=== PATIENT | male | born 1970 | race American Indian/Alaskan Native ===

== ENCOUNTER 2021-03-11 09:01 | Inpatient (IN) | payer MEDICARE ==
[2021-03-11] MEDS ORDERED: SODIUM CHLORIDE 0.9% 1000 ML 1,000 ML IV ONE ×3 (09:13)
--- NOTE | 2021-03-11 09:19 | Emergency Department Report ---
HPI - General Time Seen by Provider: 03/11/21 09:11 - HPI HPI: Room 22 The patient is a 50-year-old male present with a chief complaint of shortness of breath. Patient was reportedly diagnosed with Covid approximately 1 week ago. Patient started developing shortness of breath yesterday and it worsened today. EMS arrived on scene to find the patient hypoxic to approximately 69-72% on room air. The patient was placed on 20 L O2 with a sat increasing to approximately 88%. Upon arrival to the ED the patient was placed on BiPAP with improvement of his SPO2 to 95%. Patient states he did not receive any vaccinations for Covid. ED Past Medical Hx - Past Medical History Hx CVA: Yes (Residual left-sided weakness) Hx Renal Disease: Yes ("Kidney problems") - Surgical History Past Surgical History?: No - Family History Family history: no significant - Social History Smoking Status: Unknown if ever smoked Substance Use Type: None ED Review of Systems ROS: Stated complaint: MARTINA Other details as noted in HPI Constitutional: denies: fever Eyes: denies: eye pain ENT: denies: throat pain Respiratory: cough, shortness of breath Endocrine: no symptoms reported Genitourinary: denies: dysuria Physical Exam - Physical Exam Physical Exam: GENERAL: The patient is well-developed well-nourished male on EMS stretcher appearing tachypneic. [] HEENT: Normocephalic. Atraumatic. Extraocular motions are intact. Patient has moist mucous membranes. NECK: Supple. Trachea midline CHEST/LUNGS: Coarse breath sounds, diminished on the right HEART/CARDIOVASCULAR: Regular. There is tachycardia. There is no gallop rub or murmur. ABDOMEN: Abdomen is soft, nontender. Patient has normal bowel sounds. There is no abdominal distention. SKIN: There is no rash. There is no edema. There is no diaphoresis. NEURO: The patient is awake, alert, and oriented. The patient is cooperative. The patient has no focal neurologic deficits. The patient has normal speech MUSCULOSKELETAL: There is no evidence of acute injury. ED Medical Decision Making - Lab Data Laboratory Tests 03/11/21 03/11/21 03/11/21 09:41 09:41 09:41 WBC 10.9 RBC 4.78 Hgb 14.8 Hct 43.2 MCV 90 MCH 31 MCHC 34 RDW 13.6 Plt Count 264 Seg Neutrophils % Watchstander D-Dimer Sodium 127 L Potassium 3.7 Chloride 90.6 L Carbon Dioxide 15 L Anion Gap 25 BUN 42 H Creatinine 2.7 H Estimated GFR 31 BUN/Creatinine Ratio 16 Glucose 262 H Lactic Acid 3.70 H* Calcium 8.9 Ferritin Total Bilirubin 0.50 AST 148 H ALT 65 H Alkaline Phosphatase 67 Lactate Dehydrogenase Troponin T < 0.010 C-Reactive Protein Total Protein 7.5 Albumin 2.9 L Albumin/Globulin Ratio 0.6 Procalcitonin Urine Color Urine Turbidity Urine pH Ur Specific [place] Urine Protein Urine Glucose (UA) Urine Ketones Urine Blood Urine Nitrite Urine Bilirubin Urine Urobilinogen Ur Leukocyte Esterase Urine WBC (Auto) Urine RBC (Auto) 03/11/21 03/11/21 03/11/21 09:41 09:41 09:41 WBC RBC Hgb Hct MCV MCH MCHC RDW Plt Count Seg Neutrophils % D-Dimer 2206.91 H Sodium Potassium Chloride Carbon Dioxide Anion Gap BUN Creatinine Estimated GFR BUN/Creatinine Ratio Glucose 261 H Lactic Acid Calcium Ferritin 1640.0 H Total Bilirubin AST ALT Alkaline Phosphatase Lactate Dehydrogenase 933 H Troponin T C-Reactive Protein 17.90 H Total Protein Albumin Albumin/Globulin Ratio Procalcitonin Urine Color Urine Turbidity Urine pH Ur Specific [place] Urine Protein Urine Glucose (UA) Urine Ketones Urine Blood Urine Nitrite Urine Bilirubin Urine Urobilinogen Ur Leukocyte Esterase Urine WBC (Auto) Urine RBC (Auto) 03/11/21 03/11/21 09:41 Unknown WBC RBC Hgb Hct MCV MCH MCHC RDW Plt Count Seg Neutrophils % D-Dimer Sodium Potassium Chloride Carbon Dioxide Anion Gap BUN Creatinine Estimated GFR BUN/Creatinine Ratio Glucose Lactic Acid Calcium Ferritin Total Bilirubin AST ALT Alkaline Phosphatase Lactate Dehydrogenase Troponin T C-Reactive Protein Total Protein Albumin Albumin/Globulin Ratio Procalcitonin 4.61 Urine Color Yellow Urine Turbidity Clear Urine pH 6.0 Ur Specific [place] 1.011 Urine Protein >500 Urine Glucose (UA) 50 Urine Ketones 20 Urine Blood Lg Urine Nitrite Neg Urine Bilirubin Neg Urine Urobilinogen < 2.0 Ur Leukocyte Esterase Neg Urine WBC (Auto) 1.0 Urine RBC (Auto) 1.0 - EKG Data -: EKG Interpreted by Mi EKG shows normal: sinus rhythm, axis, QRS complexes Rate: tachycardia (128 bpm) - EKG Data When compared to previous EKG there are: previous EKG unavailable Interpretation: LVH - Radiology Data Radiology results: report reviewed (Chest x-ray), image reviewed (Chest x-ray) interpreted by me: Chest x-ray-pain bibasilar patchy infiltrates. No pneumothorax [facility] [address] [place] [address] XRay Report Signed Patient: RAYMOND JOHN MR#: [id number] : 1970 Acct:[id number] Age/Sex: 50 / M ADM Date: 03/11/21 Loc: ED Attending Dr: Ordering Physician: SHERICE CONTRERAS MD Date of Service: 03/11/21 Procedure(s): XR chest 1V ap Accession Number(s): [id number] cc: SHERICE CONTRERAS MD Fluoro Time In Minutes: CHEST 1 VIEW 03/11/2021 8:32 AM INDICATION / CLINICAL INFORMATION: Hypoxia, Covid positive. COMPARISON: None available. FINDINGS: SUPPORT DEVICES: None. HEART / MEDIASTINUM: No significant abnormality. LUNGS / PLEURA: Mild streaky parenchymal disease both lower lung gil. No pneumothorax. ADDITIONAL FINDINGS: No significant additional findings. IMPRESSION: 1. Probable early bila teral lower lobe Covid pneumonia Signer Name: Dominic Pearson MD Signed: 03/11/2021 9:34 AM Workstation Name: [id number] Transcribed By: TL Dictated By: Dominic Pearson MD Electronically Authenticated By: Dominic Pearson MD Signed Date/Time: 03/11/21933 DD/ 2 TD/TT: Print Cancel - Differential Diagnosis COVID-19 pneumonia, sepsis, respiratory failure Critical care attestation.: If time is entered above; I have spent that time in minutes in the direct care of this critically ill patient, excluding procedure time. ED Disposition Clinical Impression: Respiratory failure, Pneumonia due to COVID-19 virus, Renal insufficiency Disposition: ADMITTED INPATIENT Is pt being admited?: Yes Does the pt Need Aspirin: No Condition: Stable Instructions: Bacterial Pneumonia (ED) Time of Disposition: 11:04 (Hospitalist called)
[2021-03-11] MEDS ORDERED: dexAMETHasone 20 MG/5 ML VIAL IV NR (09:30)
--- NOTE | 2021-03-11 09:38 | XRay Report ---
CHEST 1 VIEW 03/11/2021 8:32 AM INDICATION / CLINICAL INFORMATION: Hypoxia, Covid positive. COMPARISON: None available. FINDINGS: SUPPORT DEVICES: None. HEART / MEDIASTINUM: No significant abnormality. LUNGS / PLEURA: Mild streaky parenchymal disease both lower lung gil. No pneumothorax. ADDITIONAL FINDINGS: No significant additional findings. IMPRESSION: 1. Probable early bilateral lower lobe Covid pneumonia Signer Name: Dominic Pearson MD Signed: 03/11/2021 9:34 AM Workstation Name: [id number]
[2021-03-11 09:47] LABS: Bilirubin,Urine NEG (Negative); Blood,Urine LG (Negative); Color,Urine Yellow (Yellow); Urobilinogen,Urine < 2.0 mg/dL (<2.0)
[2021-03-11 09:54] LABS: Hematocrit 43.2 % (35.5-45.6); Hemoglobin 14.8 gm/dl (11.8-15.2); Mean Corpuscular HGB Conc 34 % (32-34); Mean Corpuscular Volume 90 fl (84-94); Platelet Count 264 K/mm3 (140-440); Red Blood Count 4.78 M/mm3 (3.65-5.03); Red Cell Distribution Width 13.6 % (13.2-15.2)
[2021-03-11 10:06] LABS: Protein,Urine >500 mg/dL (Negative)
[2021-03-11 10:12] LABS: C-Reactive Protein 17.9 mg/dL (0.00-1.30)
[2021-03-11 10:13] LABS: Alanine Aminotransferase 65 units/L (7-56); Albumin 2.9 g/dL (3.9-5); BUN/Creatinine Ratio 16; Blood Urea Nitrogen 42 mg/dL (9-20); Calcium 8.9 mg/dL (8.4-10.2); Hemolysis Index 6
--- NOTE | 2021-03-11 10:16 | Electrocardiograph Report ---
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
[2021-03-11] MEDS ORDERED: LORazepam 2 MG/ML VIAL IV ONE (10:52)
[2021-03-11] MEDS ORDERED: AZITHROMYCIN/NS 500 MG/250 ML 500 MG/250 ML BAG IV ONE (11:03)
[2021-03-11] MEDS ORDERED: cefTRIAXone/NS 1 GM/50 ML 1 GM/50 ML BAG IV ONE (11:03)
--- NOTE | 2021-03-11 11:54 | History and Physical Report ---
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 Patient is lethargic with diminished cognition at the time of my evaluation and is currently being treated with noninvasive positive pressure ventilation and is only able to provide minimal history. Patient states "I cannot breathe". Additional history taken from EMS staff, as well as ED staff. As per staff the patient initially reported that he had experienced shortness of breath over the past 1 week with persistent and worsening symptoms over the same timeframe. EMS notified and upon arrival the patient was found to be in distress with a pulse oximetry of 69%. The patient was placed on supplemental oxygen and transported to [facility] for further care and evaluation of the aforementioned symptoms. The patient was seen and evaluated in the emergency department. All lab and imaging studies reviewed. Patient was found to have a pulse oximetry in the 60s on room air without improvement on submental oxygen. The patient was subsequently placed on noninvasive positive pressure ventilation in the emergency department. The patient was found to be using accessory muscles to breathe unable to speak in complete sentences. The patient was also confused and lethargic. Chest x- ray revealed bilateral pneumonia. Patient admitted to [facility] and initiated on pneumonia protocol as well as coronavirus protocol. Pulmonary team consulted in ED. Infectious disease team consulted in ED. No further history is obtainable. Patient has diminished cognition at time of evaluation but has a positive gag reflex and is able to protect his airway without difficulty. No prior admission for review. No medication listed at time of admission reconciliation. Past History Past Medical History: stroke Past Surgical History: No surgical history, Other (Reviewed) Social history: single. denies: smoking, alcohol abuse Family history: hypertension Medications and Allergies Allergies Allergy/AdvReac Type Severity Reaction Status Date / Time No Known Allergies Allergy Verified 03/11/21 09:21 Home Medications Medication Instructions Recorded Confirmed Last Taken Type Unobtainable 03/11/21 03/11/21 Unknown History Active Meds: Active Medications Acetaminophen (Acetaminophen 325 Mg Tab) 650 mg PO Q4H PRN PRN Reason: Pain MILD(1-3)/Fever >100.5/[place] Hydromorphone HCl (Hydromorphone 1 Mg/1 Ml Inj) 0.5 mg IV Q12H PRN PRN Reason: Pain , Severe (7-10) Azithromycin (Zithromax/Ns) 500 mg in 250 mls @ 250 mls/hr IV ONCE ONE; Protocol Stop: 03/11/21 12:02 Ceftriaxone Sodium (Rocephin/Ns 2 Gm/100 Ml) 2 gm in 100 mls @ 200 mls/hr IV Q24H GYPSY; Protocol Azithromycin (Zithromax/Ns) 500 mg in 250 mls @ 250 mls/hr IV Q24H GYPSY; Protocol Ondansetron HCl (Ondansetron 4 Mg/2 Ml Inj) 4 mg IV Q8H PRN PRN Reason: Nausea And Vomiting Oxycodone/Acetaminophen (Oxycodone /Acetaminophen 5-325mg Tab) 1 tab PO Q12H PRN PRN Reason: Pain, Moderate (4-6) Sodium Chloride (Sodium Chloride 0.9% 10 Ml Flush Syringe) 10 ml IV BID GYPSY Sodium Chloride (Sodium Chloride 0.9% 10 Ml Flush Syringe) 10 ml IV PRN PRN PRN Reason: LINE FLUSH Review of Systems ROS unobtainable: due to mental status Exam - Constitutional Vitals: Temp Pulse Resp BP Pulse Ox 127 H 50 H 121/72 96 03/11/21 10:56 03/11/21 10:56 03/11/21 10:56 03/11/21 10:56 General appearance: Present: mild distress - EENT Eyes: Present: PERRL ENT: hearing intact, clear oral mucosa - Neck Neck: Present: supple, normal ROM - Respiratory Respiratory effort: labored Respiratory: bilateral: diminished, rhonchi - Cardiovascular Rhythm: other (Tachycardia) Heart Sounds: Present: S1 & S2. Absent: rub, click - Extremities Extremities: pulses symmetrical, No edema Peripheral Pulses: within normal limits - Abdominal General gastrointestinal: Present: soft, non-tender, non-distended, normal bowel sounds Male genitourinary: Present: normal - Integumentary Integumentary: Present: clear, warm, dry - Musculoskeletal Musculoskeletal: generalized weakness - Psychiatric Psychiatric: no appropriate mood/affect, no intact judgment & insight, no memory intact - Neurologic Neurologic: CNII-XII intact, focal deficits, moves all extremities, no gait normal HEART Score - HEART Score Troponin: Troponin T < 0.010 ng/mL (0.00-0.029) 03/11/21 09:41 Results - Labs CBC & Chem 7: 03/11/21 09:41 03/11/21 09:41 Labs: Abnormal lab results 03/11/21 03/11/21 03/11/21 Range/Units 09:41 09:41 09:41 D-Dimer 2206.91 H (0-234) ng/mlDDU Sodium 127 L (137-145) mmol/L Chloride 90.6 L (98-107) mmol/L Carbon Dioxide 15 L (22-30) mmol/L BUN 42 H (9-20) mg/dL Creatinine 2.7 H (0.8-1.3) mg/dL Glucose 262 H (75-100) mg/dL Lactic Acid 3.70 H* (0.7-2.0) mmol/L Ferritin (30.0-300.0) ng/mL AST 148 H (5-40) units/L ALT 65 H (7-56) units/L Lactate Dehydrogenase (91-180) units/L C-Reactive Protein (0.00-1.30) mg/dL Albumin 2.9 L (3.9-5) g/dL 03/11/21 03/11/21 Range/Units 09:41 09:41 D-Dimer (0-234) ng/mlDDU Sodium (137-145) mmol/L Chloride (98-107) mmol/L Carbon Dioxide (22-30) mmol/L BUN (9-20) mg/dL Creatinine (0.8-1.3) mg/dL Glucose 261 H (75-100) mg/dL Lactic Acid (0.7-2.0) mmol/L Ferritin 1640.0 H (30.0-300.0) ng/mL AST (5-40) units/L ALT (7-56) units/L Lactate Dehydrogenase 933 H (91-180) units/L C-Reactive Protein 17.90 H (0.00-1.30) mg/dL Albumin (3.9-5) g/dL Assessment and Plan - Patient Problems (1) Acute hypoxemic respiratory failure Current Visit: Yes Status: Acute Plan to address problem: Chest x-ray, supplemental oxygen, pulse oximetry, nebulizer therapy, noninvasive positive pressure ventilation, pulmonary team consulted. (2) Pneumonia Current Visit: Yes Status: Acute Plan to address problem: Pneumonia protocol: Chest x-ray, CBC, CMP, supplemental oxygen, pulse oximetry, nebulizer therapy, IV antibiotic therapy, blood culture. (3) Suspected 2019 novel coronavirus infection Current Visit: Yes Status: Acute Plan to address problem: Coronavirus protocol: Contact precautions, isolation precautions, IV antibiotic therapy, IV steroid therapy, vitamin C therapy, vitamin D therapy, zinc therapy, prone positioning while in bed, prophylactic anticoagulation (4) DVT prophylaxis Current Visit: Yes Status: Acute Plan to address problem: SCD to bilateral lower extremities while in bed, prophylactic anticoagulation
[2021-03-11] MEDS ORDERED: ONDANSETRON 4 MG/2 ML INJ IV PRN (12:00)
[2021-03-11] MEDS ORDERED: oxyCODONE /ACETAMINOPHEN 5-325MG TAB PO PRN (12:00)
[2021-03-11] MEDS ORDERED: AZITHROMYCIN/NS 500 MG/250 ML 500 MG/250 ML BAG IV SCH (12:00)
[2021-03-11 12:16] LABS: Band Neutrophils # (Manual) 0.2 K/mm3; Total Cells Counted 100
[2021-03-11 12:17] LABS: Platelet Estimate Consistent w Auto; RBC Morphology Normal
[2021-03-11] MEDS: cefTRIAXone/NS 2 GM/100 ML 2 GM/100 ML BAG IV SCH (12:34)
[2021-03-11] MEDS: CHOLECALCIFEROL (VIT D3) 1000 UNIT (25 mcg) TAB PO SCH ×2 (12:35→13:11)
[2021-03-11] MEDS: ZINC SULFATE 220 MG CAP PO SCH ×3 (12:35→22:12)
[2021-03-11] MEDS: ASCORBIC ACID 500 MG TAB PO SCH ×3 (12:35→22:12)
[2021-03-11] MEDS: HEPARIN 5,000 UNIT/1 ML VIAL SUB-Q SCH ×2 (12:36→22:10)
[2021-03-11] MEDS ORDERED: LORazepam 2 MG/ML VIAL IV NR (14:05)
[2021-03-11] MEDS: methylPREDNISolone Sod Succinate 40 MG/1 ML INJ IV SCH ×2 (14:31→22:10)
[2021-03-12] MEDS: methylPREDNISolone Sod Succinate 40 MG/1 ML INJ IV SCH ×3 (06:01→22:19)
[2021-03-12] MEDS ORDERED: CHOLECALCIFEROL (VIT D3) 400 UNIT TAB PO SCH (10:00)
[2021-03-12] MEDS: AZITHROMYCIN/NS 500 MG/250 ML 500 MG/250 ML BAG IV SCH (11:27)
[2021-03-12] MEDS: ZINC SULFATE 220 MG CAP PO SCH ×2 (11:28→22:20)
[2021-03-12] MEDS: CHOLECALCIFEROL (VIT D3) 1000 UNIT (25 mcg) TAB PO SCH (11:29)
[2021-03-12] MEDS: HEPARIN 5,000 UNIT/1 ML VIAL SUB-Q SCH ×2 (11:29→22:19)
[2021-03-12] MEDS: ASCORBIC ACID 500 MG TAB PO SCH ×2 (11:29→22:20)
[2021-03-12 11:33] LABS: Albumin 2.7 g/dL (3.9-5); Calcium 9.3 mg/dL (8.4-10.2)
--- NOTE | 2021-03-12 11:51 | Consultation ---
History of Present Illness Consult date: 03/12/21 Reason for consult: hypoxemia, other (COVID) History of present illness: 50 y/o male with acute respiratory failure secondary to COVID Pneumonia. Past History Past Medical History: stroke Past Surgical History: No surgical history, Other (Reviewed) Social history: single. denies: smoking, alcohol abuse Family history: hypertension Medications and Allergies Allergies Allergy/AdvReac Type Severity Reaction Status Date / Time No Known Allergies Allergy Verified 03/11/21 09:21 Home Medications Medication Instructions Recorded Confirmed Last Taken Type Unobtainable 03/11/21 03/11/21 Unknown History Active Meds: Active Medications Acetaminophen (Acetaminophen 325 Mg Tab) 650 mg PO Q4H PRN PRN Reason: Pain MILD(1-3)/Fever >100.5/[place] Ascorbic Acid (Ascorbic Acid 500 Mg Tab) 500 mg PO BID [facility] Last Admin: 03/12/21 11:29 Dose: Not Given Documented by: Cholecalciferol (Cholecalciferol (Vit D3) 1000 Unit (25 Mcg) Tab) 1,000 unit PO QDAY [facility] Last Admin: 03/12/21 11:29 Dose: Not Given Documented by: Heparin Sodium (Porcine) (Heparin 5,000 Unit/1 Ml Vial) 5,000 unit SUB-Q Q12HR GYPSY Last Admin: 03/12/21 11:29 Dose: 5,000 unit Documented by: Hydromorphone HCl (Hydromorphone 1 Mg/1 Ml Inj) 0.5 mg IV Q12H PRN PRN Reason: Pain , Severe (7-10) Ceftriaxone Sodium (Rocephin/Ns 2 Gm/100 Ml) 2 gm in 100 mls @ 200 mls/hr IV Q24H GYPSY; Protocol Last Admin: 03/11/21 12:34 Dose: 200 mls/hr Documented by: Azithromycin (Zithromax/Ns) 500 mg in 250 mls @ 250 mls/hr IV Q24H GYPSY; Protocol Last Admin: 03/12/21 11:27 Dose: 250 mls/hr Documented by: Lorazepam (Lorazepam 2 Mg/Ml Vial) 1 mg IV Q6H PRN PRN Reason: Agitation Methylprednisolone Sodium Succinate (Methylprednisolone Sod Succinate 40 Mg/1 Ml Inj) 40 mg IV Q8HR [facility] Last Admin: 03/12/21 06:01 Dose: 40 mg Documented by: Ondansetron HCl (Ondansetron 4 Mg/2 Ml Inj) 4 mg IV Q8H PRN PRN Reason: Nausea And Vomiting Oxycodone/Acetaminophen (Oxycodone /Acetaminophen 5-325mg Tab) 1 tab PO Q12H PRN PRN Reason: Pain, Moderate (4-6) Sodium Chloride (Sodium Chloride 0.9% 10 Ml Flush Syringe) 10 ml IV BID [facility] Last Admin: 03/12/21 11:29 Dose: Not Given Documented by: Sodium Chloride (Sodium Chloride 0.9% 10 Ml Flush Syringe) 10 ml IV PRN PRN PRN Reason: LINE FLUSH Zinc Sulfate (Zinc Sulfate 220 Mg Cap) 220 mg PO BID [facility] Last Admin: 03/12/21 11:28 Dose: Not Given Documented by: Physical Examination Vital signs: Vital Signs Pulse Resp Pulse Ox 130 H 52 H 94 03/11/21 09:10 03/11/21 09:10 03/11/21 09:10 Results - Laboratory Findings CBC and BMP: 03/11/21 09:41 03/13/21 05:19 ABG ABG pH 7.279 (7.320-7.450) L 03/12/21 04:35 POC ABG pCO2 30.2 mmHg (32.0-48.0) L 03/12/21 04:35 POC ABG pO2 183.7 mmHg (83-108) H 03/12/21 04:35 POC ABG HCO3 13.8 03/12/21 04:35 ABG O2 Saturation 99.0 (0-100) 03/12/21 04:35 PT/INR, D-dimer D-Dimer 2206.91 ng/mlDDU (0-234) H 03/11/21 09:41 Abnormal lab findings: Abnormal Labs 03/11/21 03/11/21 03/11/21 09:41 09:41 09:41 Seg Neuts % (Manual) 89.0 H Lymphocytes % (Manual) 2.0 L Seg Neutrophils # Man 9.7 H Lymphocytes # (Manual) 0.2 L D-Dimer ABG pH POC ABG pCO2 POC ABG pO2 ABG Oxyhemoglobin ABG Sodium ABG Chloride ABG Glucose Carboxyhemoglobin Sodium 127 L Chloride 90.6 L Carbon Dioxide 15 L BUN 42 H Creatinine 2.7 H Glucose 262 H Lactic Acid 3.70 H* Ferritin AST 148 H ALT 65 H Lactate Dehydrogenase C-Reactive Protein Albumin 2.9 L Arterial Blood Glucose Arterial Blood Ionized Calcium Coronavirus (PCR) 03/11/21 03/11/21 03/11/21 09:41 09:41 09:41 Seg Neuts % (Manual) Lymphocytes % (Manual) Seg Neutrophils # Man Lymphocytes # (Manual) D-Dimer 2206.91 H ABG pH POC ABG pCO2 POC ABG pO2 ABG Oxyhemoglobin ABG Sodium ABG Chloride ABG Glucose Carboxyhemoglobin Sodium Chloride Carbon Dioxide BUN Creatinine Glucose 261 H Lactic Acid Ferritin 1640.0 H AST ALT Lactate Dehydrogenase 933 H C-Reactive Protein 17.90 H Albumin Arterial Blood Glucose Arterial Blood Ionized Calcium Coronavirus (PCR) 03/11/21 03/11/21 03/12/21 11:50 Unknown 04:35 Seg Neuts % (Manual) Lymphocytes % (Manual) Seg Neutrophils # Man Lymphocytes # (Manual) D-Dimer ABG pH 7.316 L 7.279 L POC ABG pCO2 30.2 L POC ABG pO2 228.8 H 183.7 H ABG Oxyhemoglobin 98.7 H 98.6 H ABG Sodium 125.1 L ABG Chloride 97.0 L ABG Glucose 229 H 236 H Carboxyhemoglobin 0.1 L 0.3 L Sodium Chloride Carbon Dioxide BUN Creatinine Glucose Lactic Acid Ferritin AST ALT Lactate Dehydrogenase C-Reactive Protein Albumin Arterial Blood Glucose 229 H 236 H Arterial Blood Ionized Calcium 4.5 L Coronavirus (PCR) Positive A 03/12/21 10:56 Seg Neuts % (Manual) Lymphocytes % (Manual) Seg Neutrophils # Man Lymphocytes # (Manual) D-Dimer ABG pH POC ABG pCO2 POC ABG pO2 ABG Oxyhemoglobin ABG Sodium ABG Chloride ABG Glucose Carboxyhemoglobin Sodium Chloride Carbon Dioxide 13 L BUN 37 H Creatinine 2.2 H Glucose 254 H Lactic Acid Ferritin AST 110 H ALT 66 H Lactate Dehydrogenase C-Reactive Protein Albumin 2.7 L Arterial Blood Glucose Arterial Blood Ionized Calcium Coronavirus (PCR) - Diagnostic Findings Chest x-ray: image reviewed Assessment and Plan 50 y/o male with acute respiratory failure secondary to COVID 19 1. Pron if able 2. Wean bipap to HFNC if able 3. Steroids, may need to increase 4. Does not appear to be a candiate for remdesivir given renal failure 5. May be able to get actemra 6. Minimize additional fluids 7. Guarded prognosis given renal failure and COVID state.
--- NOTE | 2021-03-12 12:29 | Consultation ---
History of Present Illness - Reason for Consult Consult date: 03/12/21 r/o COVID - History of Present Illness 50-year-old male with history of CVA admitted on 03/11/2021 secondary to shortness of breath Apparently, symptoms started a week before admission. On arrival, temperature 100.7, HR 130, RR 52, O2 sat down to 70%, BP 120/72. Initial lactate 3.7. Creatinine 2.7. CRP 17.9. D-dimer 2206. Ferritin 1640. Urinalysis negative. AST 148, ALT 65. EMS reported initial O2 sat was 69%. Patient was confused, lethargic and unable to speak due to shortness of breath. Chest x-ray shows bilateral pneumonia. Review of Systems: reviewed ED and H&P notes. Review of system deferred to [facility] COVID-19 transmission. Past History Past Medical History: stroke Past Surgical History: No surgical history, Other (Reviewed) Social history: single. denies: smoking, alcohol abuse Family history: hypertension Medications and Allergies Allergies Allergy/AdvReac Type Severity Reaction Status Date / Time No Known Allergies Allergy Verified 03/11/21 09:21 Home Medications Medication Instructions Recorded Confirmed Last Taken Type Unobtainable 03/11/21 03/11/21 Unknown History Active Meds: Active Medications Acetaminophen (Acetaminophen 325 Mg Tab) 650 mg PO Q4H PRN PRN Reason: Pain MILD(1-3)/Fever >100.5/[place] Ascorbic Acid (Ascorbic Acid 500 Mg Tab) 500 mg PO BID [facility] Last Admin: 03/12/21 11:29 Dose: Not Given Documented by: Cholecalciferol (Cholecalciferol (Vit D3) 1000 Unit (25 Mcg) Tab) 1,000 unit PO QDAY [facility] Last Admin: 03/12/21 11:29 Dose: Not Given Documented by: Heparin Sodium (Porcine) (Heparin 5,000 Unit/1 Ml Vial) 5,000 unit SUB-Q Q12HR [facility] Last Admin: 03/12/21 11:29 Dose: 5,000 unit Documented by: Hydromorphone HCl (Hydromorphone 1 Mg/1 Ml Inj) 0.5 mg IV Q12H PRN PRN Reason: Pain , Severe (7-10) Ceftriaxone Sodium (Rocephin/Ns 2 Gm/100 Ml) 2 gm in 100 mls @ 200 mls/hr IV Q24H [facility]; Protocol Last Admin: 03/11/21 12:34 Dose: 200 mls/hr Documented by: Azithromycin (Zithromax/Ns) 500 mg in 250 mls @ 250 mls/hr IV Q24H [facility]; Protocol Last Admin: 03/12/21 11:27 Dose: 250 mls/hr Documented by: Lorazepam (Lorazepam 2 Mg/Ml Vial) 1 mg IV Q6H PRN PRN Reason: Agitation Methylprednisolone Sodium Succinate (Methylprednisolone Sod Succinate 40 Mg/1 Ml Inj) 40 mg IV Q8HR [facility] Last Admin: 03/12/21 06:01 Dose: 40 mg Documented by: Ondansetron HCl (Ondansetron 4 Mg/2 Ml Inj) 4 mg IV Q8H PRN PRN Reason: Nausea And Vomiting Oxycodone/Acetaminophen (Oxycodone /Acetaminophen 5-325mg Tab) 1 tab PO Q12H P RN PRN Reason: Pain, Moderate (4-6) Sodium Chloride (Sodium Chloride 0.9% 10 Ml Flush Syringe) 10 ml IV BID [facility] Last Admin: 03/12/21 11:29 Dose: Not Given Documented by: Sodium Chloride (Sodium Chloride 0.9% 10 Ml Flush Syringe) 10 ml IV PRN PRN PRN Reason: LINE FLUSH Zinc Sulfate (Zinc Sulfate 220 Mg Cap) 220 mg PO BID [facility] Last Admin: 03/12/21 11:28 Dose: Not Given Documented by: Physical Examination - Physical Exam Narrative exam: Physical exam deferred to minimize COVID-19 transmission during pandemic. ER a nd internal medicine physical examination notes reviewed. - Constitutional Vitals: Vital Signs Temp Pulse Resp BP Pulse Ox 100.7 F H 113 H 35 H 135/96 99 03/11/21 13:43 03/12/21 10:00 03/12/21 10:00 03/12/21 10:00 03/12/21 10:00 Temperature -Last 24 Hours Temperature 100.7 F Results - Labs CBC & Chem 7: 03/11/21 09:41 03/12/21 10:56 Labs: Abnormal lab results 03/11/21 03/12/21 03/12/21 Range/Units Unknown 04:35 10:56 ABG pH 7.279 L (7.320-7.450) POC ABG pCO2 30.2 L (32.0-48.0) mmHg POC ABG pO2 183.7 H (83-108) mmHg ABG Oxyhemoglobin 98.6 H (94-98) ABG Glucose 236 H (65-95) mg/dL Carboxyhemoglobin 0.3 L (0.5-1.5) Carbon Dioxide 13 L (22-30) mmol/L BUN 37 H (9-20) mg/dL Creatinine 2.2 H (0.8-1.3) mg/dL Glucose 254 H (75-100) mg/dL AST 110 H (5-40) units/L ALT 66 H (7-56) units/L Albumin 2.7 L (3.9-5) g/dL Arterial Blood Glucose 236 H (65-95) mg/dL Coronavirus (PCR) Positive A (Negative) Assessment and Plan Cultures: Blood culture 03/11/2021 no growth today SARS CoV2 PCR positive Assessment: 50-year-old male with history of CVA admitted on 03/11/2021 secondary to shortness of breath/altered mental status: #Severe sepsis: Present with fever, tachycardia, hypoxia, elevated lactate, elevated creatinine; likely secondary to COVID-19. Procalcitonin elevated #Severe COVID pneumonia: CXR with bilateral pneumonia. Infllammatory markers elevated. CRP 17.9. D-dimer 22 6. Ferritin 1640. #Acute hypoxemic respiratory failure: O2 sat dropped to 70%. Patient on BiPAP. #Elevated LFTs: from COVID. AST 148, ALT 65. #CHRISTY: from COVID. Initial creatinine 2.7. Improving. GFR over 30. Recommendations: -Steroids per pulmonary total 10 days -Start Remdesivir for 5 days (GFR>30 mg/mL) ORDERED -Start Tocilizumab 8 mg/kg x1 ORDERED/discussed with pharmacy -Monitor inflammatory markers - ferritin, Ddimer, CRP, LDH -Monitor liver function test on Remdesivir -Continue anticoagulation per System Protocol -Prone positioning as possible -Continue ceftriaxone for 5 days and azithromycin for 3 days All laboratory, cultures and imaging were reviewed. Guarded prognosis Will follow Malathi Gaona MD Infectious Diseases [employer] [facility] M [phone] O [phone]
--- NOTE | 2021-03-12 12:45 | Progress Note ---
Assessment and Plan Assessment and plan: #Acute hypoxic respiratory failure -on NIPPV, will continue as long as O2 >92% -mildly distressed, low threshold for intubation -continue steroids -Pulmonary consulted, appreciate assistance #Sepsis -secondary to COVID-19 and PNA -BCx ordered, NGTD -continue current management #Severe COVID-19 infection -unvaccinated -remdesivir, steroids, COVID vitamins -s/p Actemra -ID following, appreciate assistance -inflammatory markers q48hr #Pneumonia -continue rocephin and azithromycin for now #CHRISTY -SCr 2.5, likely due to COVID -will continue to monitor, if worsens will consult Nephrology Total Time Spent with Patient (Minutes): 30 minutes History Interval history: No acute events overnight. Patient continued to be tachypneic and tachycardic. Subsequently intubated in ED. Hospitalist Physical - Physical exam Narrative exam: GENERAL: Lying propped in bed, mild distress CHEST/LUNGS: Coarse breath sounds bilaterally. HEART/CARDIOVASCULAR: Tachycardic. No murmur, rubs or gallops appreciated. ABDOMEN: +BS. NT/ND. NEURO: No focal deficits noted in CN II-XII. MUSCULOSKELETAL: Left upper extremity contracted at wrist. EXTREMITIES: No cyanosis, clubbing or edema. PSYCH: Cooperative. - Constitutional Vitals: Temp Pulse Resp BP Pulse Ox 100.7 F H 113 H 35 H 135/96 99 03/11/21 13:43 03/12/21 10:00 03/12/21 10:00 03/12/21 10:00 03/12/21 10:00 General appearance: Present: mild distress - Allied Health Allied health notes reviewed: nursing HEART Score - HEART Score Troponin: Troponin T < 0.010 ng/mL (0.00-0.029) 03/11/21 09:41 Results - Labs CBC & Chem 7: 03/11/21 09:41 03/12/21 16:53 Labs: Laboratory Last Values WBC 10.9 K/mm3 (4.5-11.0) 03/11/21 09:41 RBC 4.78 M/mm3 (3.65-5.03) 03/11/21 09:41 Hgb 14.8 gm/dl (11.8-15.2) 03/11/21 09:41 Hct 43.2 % (35.5-45.6) 03/11/21 09:41 MCV 90 fl (84-94) 03/11/21 09:41 MCH 31 pg (28-32) 03/11/21 09:41 MCHC 34 % (32-34) 03/11/21 09:41 RDW 13.6 % (13.2-15.2) 03/11/21 09:41 Plt Count 264 K/mm3 (140-440) 03/11/21 09:41 Add Manual Diff Complete 03/11/21 09:41 Total Counted 100 03/11/21 09:41 Seg Neutrophils % Assistant Activities Director 03/11/21 09:41 Seg Neuts % (Manual) 89.0 % (40.0-70.0) H 03/11/21 09:41 Band Neutrophils % 2.0 % 03/11/21 09:41 Lymphocytes % (Manual) 2.0 % (13.4-35.0) L 03/11/21 09:41 Monocytes % (Manual) 7.0 % (0.0-7.3) 03/11/21 09:41 Nucleated RBC % Not Reportable 03/11/21 09:41 Seg Neutrophils # Man 9.7 K/mm3 (1.8-7.7) H 03/11/21 09:41 Band Neutrophils # 0.2 K/mm3 03/11/21 09:41 Lymphocytes # (Manual) 0.2 K/mm3 (1.2-5.4) L 03/11/21 09:41 Abs React Lymphs (Man) 0.0 K/mm3 03/11/21 09:41 Monocytes # (Manual) 0.8 K/mm3 (0.0-0.8) 03/11/21 09:41 Eosinophils # (Manual) 0.0 K/mm3 (0.0-0.4) 03/11/21 09:41 Basophils # (Manual) 0.0 K/mm3 (0.0-0.1) 03/11/21 09:41 Metamyelocytes # 0.0 K/mm3 03/11/21 09:41 Myelocytes # 0.0 K/mm3 03/11/21 09:41 Promyelocytes # 0.0 K/mm3 03/11/21 09:41 Blast Cells # 0.0 K/mm3 03/11/21 09:41 WBC Morphology Not Reportable 03/11/21 09:41 Hypersegmented Neuts Not Reportable 03/11/21 09:41 Hyposegmented Neuts Not Reportable 03/11/21 09:41 Hypogranular Neuts Not Reportable 03/11/21 09:41 Smudge Cells Not Reportable 03/11/21 09:41 Toxic Granulation Not Reportable 03/11/21 09:41 Toxic Vacuolation Not Reportable 03/11/21 09:41 Dohle Bodies Not Reportable 03/11/21 09:41 Pelger-Huet Anomaly Not Reportable 03/11/21 09:41 Fina Rods Not Reportable 03/11/21 09:41 Platelet Estimate Consistent w auto 03/11/21 09:41 Clumped Platelets Not Reportable 03/11/21 09:41 Plt Clumps, EDTA Not Reportable 03/11/21 09:41 Large Platelets Not Reportable 03/11/21 09:41 Giant Platelets Not Reportable 03/11/21 09:41 Platelet Satelliting Not Reportable 03/11/21 09:41 Plt Morphology Comment Not Reportable 03/11/21 09:41 RBC Morphology Normal 03/11/21 09:41 Dimorphic RBCs Not Reportable 03/11/21 09:41 Polychromasia Not Reportable 03/11/21 09:41 Hypochromasia Not Reportable 03/11/21 09:41 Poikilocytosis Not Reportable 03/11/21 09:41 Anisocytosis Not Reportable 03/11/21 09:41 Microcytosis Not Reportable 03/11/21 09:41 Macrocytosis Not Reportable 03/11/21 09:41 Spherocytes Not Reportable 03/11/21 09:41 Pappenheimer Bodies Not Reportable 03/11/21 09:41 Sickle Cells Not Reportable 03/11/21 09:41 Target Cells Not Reportable 03/11/21 09:41 Tear Drop Cells Not Reportable 03/11/21 09:41 Ovalocytes Not Reportable 03/11/21 09:41 Helmet Cells Not Reportable 03/11/21 09:41 Perdue-Bell Buckle Bodies Not Reportable 03/11/21 09:41 [place] Rings Not Reportable 03/11/21 09:41 Trav Cells Not Reportable 03/11/21 09:41 Bite Cells Not Reportable 03/11/21 09:41 Crenated Cell Not Reportable 03/11/21 09:41 Elliptocytes Not Reportable 03/11/21 09:41 Acanthocytes (Spur) Not Reportable 03/11/21 09:41 Rouleaux Not Reportable 03/11/21 09:41 Hemoglobin C Crystals Not Reportable 03/11/21 09:41 Schistocytes Not Reportable 03/11/21 09:41 Malaria parasites Not Reportable 03/11/21 09:41 [place] Bodies Not Reportable 03/11/21 09:41 Hem Pathologist Commnt No 03/11/21 09:41 D-Dimer 2206.91 ng/mlDDU (0-234) H 03/11/21 09:41 ABG pH 7.279 (7.320-7.450) L 03/12/21 04:35 POC ABG pCO2 30.2 mmHg (32.0-48.0) L 03/12/21 04:35 POC ABG pO2 183.7 mmHg (83-108) H 03/12/21 04:35 POC ABG HCO3 13.8 03/12/21 04:35 ABG O2 Saturation 99.0 (0-100) 03/12/21 04:35 POC ABG Base Excess -11.5 03/12/21 04:35 ABG Hemoglobin 14.2 (12.0-17.5) 03/12/21 04:35 ABG Oxyhemoglobin 98.6 (94-98) H 03/12/21 04:35 ABG Methemoglobin 0.1 (0.0-1.5) 03/12/21 04:35 ABG Sodium 136.8 mmol/L (136.0-145.0) 03/12/21 04:35 ABG Potassium 4.0 mmol/L (3.40-4.50) 03/12/21 04:35 ABG Chloride 107.0 mmol/L (98-107) 03/12/21 04:35 ABG Glucose 236 mg/dL (65-95) H 03/12/21 04:35 Carboxyhemoglobin 0.3 (0.5-1.5) L 03/12/21 04:35 FiO2 % 100.0 03/12/21 04:35 Sodium 141 mmol/L (137-145) D 03/12/21 10:56 Potassium 4.0 mmol/L (3.6-5.0) 03/12/21 10:56 Chloride 106.6 mmol/L (98-107) 03/12/21 10:56 Carbon Dioxide 13 mmol/L (22-30) L 03/12/21 10:56 Anion Gap 25 mmol/L 03/12/21 10:56 BUN 37 mg/dL (9-20) H 03/12/21 10:56 Creatinine 2.2 mg/dL (0.8-1.3) H 03/12/21 10:56 Estimated GFR 39 ml/min 03/12/21 10:56 BUN/Creatinine Ratio 17 % 03/12/21 10:56 Glucose 254 mg/dL (75-100) H 03/12/21 10:56 Lactic Acid 1.60 mmol/L (0.7-2.0) 03/12/21 00:08 Calcium 9.3 mg/dL (8.4-10.2) 03/12/21 10:56 Ferritin 1640.0 ng/mL (30.0-300.0) H 03/11/21 09:41 Total Bilirubin 0.30 mg/dL (0.1-1.2) 03/12/21 10:56 AST 110 units/L (5-40) H 03/12/21 10:56 ALT 66 units/L (7-56) H 03/12/21 10:56 Alkaline Phosphatase 71 units/L (35-129) 03/12/21 10:56 Lactate Dehydrogenase 933 units/L (91-180) H 03/11/21 09:41 Troponin T < 0.010 ng/mL (0.00-0.029) 03/11/21 09:41 C-Reactive Protein 17.90 mg/dL (0.00-1.30) H 03/11/21 09:41 Total Protein 6.9 g/dL (6.3-8.2) 03/12/21 10:56 Albumin 2.7 g/dL (3.9-5) L 03/12/21 10:56 Albumin/Globulin Ratio 0.6 % 03/12/21 10:56 Procalcitonin 4.61 ng/mL (<0.15) 03/11/21 09:41 Arterial Blood Glucose 236 mg/dL (65-95) H 03/12/21 04:35 Arterial Blood Ionized Calcium 5.0 mg/dL (4.6-5.3) 03/12/21 04:35 Urine Color Yellow (Yellow) 03/11/21 Unknown Urine Turbidity Clear (Clear) 03/11/21 Unknown Urine pH 6.0 (5.0-7.0) 03/11/21 Unknown Ur Specific [place] 1.011 (1.003-1.030) 03/11/21 Unknown Urine Protein >500 mg/dL (Negative) 03/11/21 Unknown Urine Glucose (UA) 50 mg/dL (Negative) 03/11/21 Unknown Urine Ketones 20 mg/dL (Negative) 03/11/21 Unknown Urine Blood Lg (Negative) 03/11/21 Unknown Urine Nitrite Neg (Negative) 03/11/21 Unknown Urine Bilirubin Neg (Negative) 03/11/21 Unknown Urine Urobilinogen < 2.0 mg/dL (<2.0) 03/11/21 Unknown Ur Leukocyte Esterase Neg (Negative) 03/11/21 Unknown Urine WBC (Auto) 1.0 /HPF (0.0-6.0) 03/11/21 Unknown Urine RBC (Auto) 1.0 /HPF (0.0-6.0) 03/11/21 Unknown Coronavirus (PCR) Positive (Negative) A 03/11/21 Unknown Microbiology: Microbiology 03/11/21 09:41 Peripheral/Venous Blood Culture - Preliminary NO GROWTH AFTER 24 HOURS 03/11/21 09:41 Peripheral/Venous Blood Culture - Preliminary NO GROWTH AFTER 24 HOURS Active Medications - Current Medications Current Medications: Generic Name Dose Route Start Last Admin Trade Name Freq PRN Reason Stop Dose Admin Acetaminophen 650 mg 03/11/21 12:00 Acetaminophen 325 Mg Tab PO Q4H PRN Pain MILD(1-3)/Fever >100.5/[place] Ascorbic Acid 500 mg 03/11/21 12:00 03/12/21 11:29 Ascorbic Acid 500 Mg Tab PO Not Given BID [facility] Cholecalciferol 1,000 unit 03/11/21 13:00 03/12/21 11:29 Cholecalciferol (Vit D3) 1000 Unit (25 Mcg) Tab PO Not Given QDAY [facility] Heparin Sodium (Porcine) 5,000 unit 03/11/21 13:00 03/12/21 11:29 Heparin 5,000 Unit/1 Ml Vial SUB-Q 5,000 unit Q12HR [facility] Administration Hydromorphone HCl 0.5 mg 03/11/21 12:00 Hydromorphone 1 Mg/1 Ml Inj IV Q12H PRN Pain , Severe (7-10) Ceftriaxone Sodium 2 gm in 100 mls @ 200 mls/hr 03/11/21 12:00 03/11/21 12:34 Rocephin/Ns 2 Gm/100 Ml IV 200 mls/hr Q24H [facility] Administration Protocol Azithromycin 500 mg in 250 mls @ 250 mls/hr 03/12/21 11:00 03/12/21 11:27 Zithromax/Ns IV 250 mls/hr Q24H [facility] Administration Protocol Lorazepam 1 mg 03/11/21 17:00 Lorazepam 2 Mg/Ml Vial IV Q6H PRN Agitation Methylprednisolone Sodium Succinate 40 mg 03/11/21 14:00 03/12/21 06:01 Methylprednisolone Sod Succinate 40 Mg/1 Ml Inj IV 40 mg Q8HR [facility] Administration Ondansetron HCl 4 mg 03/11/21 12:00 Ondansetron 4 Mg/2 Ml Inj IV Q8H PRN Nausea And Vomiting Oxycodone/Acetaminophen 1 tab 03/11/21 12:00 Oxycodone /Acetaminophen 5-325mg Tab PO Q12H PRN Pain, Moderate (4-6) Sodium Chloride 10 ml 03/11/21 12:00 03/12/21 11:29 Sodium Chloride 0.9% 10 Ml Flush Syringe IV Not Given BID [facility] Sodium Chloride 10 ml 03/11/21 12:00 Sodium Chloride 0.9% 10 Ml Flush Syringe IV PRN PRN LINE FLUSH Zinc Sulfate 220 mg 03/11/21 12:00 03/12/21 11:28 Zinc Sulfate 220 Mg Cap PO Not Given BID [facility]
[2021-03-12] MEDS ORDERED: TOCILIZUMAB 800 MG in SODIUM CHLORIDE 0.9% 100 ML IV ONE (12:50)
[2021-03-12] MEDS: cefTRIAXone/NS 2 GM/100 ML 2 GM/100 ML BAG IV SCH (13:41)
[2021-03-12] MEDS ORDERED: REMDESIVIR 200 MG in SODIUM CHLORIDE 0.9% 250ML 250 ML IV ONE (14:00)
[2021-03-12] MEDS ORDERED: TOCILIZUMAB 648 MG in SODIUM CHLORIDE 0.9% 100 ML IV ONE (14:30)
[2021-03-12] MEDS: SODIUM CHLORIDE 0.9% 50 ML IVPB IV SCH (16:27)
[2021-03-12 17:35] LABS: Albumin 2.4 g/dL (3.9-5); Calcium 8.5 mg/dL (8.4-10.2)
[2021-03-12] MEDS: HYDROmorphone 1 MG/1 ML INJ IV PRN (18:50)
[2021-03-13] MEDS: LORazepam 2 MG/ML VIAL IV PRN ×2 (04:34→16:38)
[2021-03-13] MEDS: methylPREDNISolone Sod Succinate 40 MG/1 ML INJ IV SCH ×3 (06:20→23:09)
[2021-03-13 06:37] LABS: Albumin 2.7 g/dL (3.9-5); Calcium 8.9 mg/dL (8.4-10.2)
[2021-03-13] MEDS: HYDROmorphone 1 MG/1 ML INJ IV PRN (07:46)
[2021-03-13] MEDS ORDERED: FUROSEMIDE 40 MG/4 ML INJ IV SCH (10:00)
[2021-03-13] MEDS: HEPARIN 5,000 UNIT/1 ML VIAL SUB-Q SCH ×2 (10:30→23:09)
[2021-03-13] MEDS: ASCORBIC ACID 500 MG TAB PO SCH ×2 (10:30→22:56)
[2021-03-13] MEDS: ZINC SULFATE 220 MG CAP PO SCH ×2 (10:30→22:56)
[2021-03-13] MEDS: CHOLECALCIFEROL (VIT D3) 1000 UNIT (25 mcg) TAB PO SCH (10:30)
--- NOTE | 2021-03-13 13:20 | Progress Note ---
Assessment and Plan 50 y/o male with acute respiratory failure secondary to COVID 19 : Hold on increasing steroids as of now. Prone if able. Continue AVAPS today but spoke with RT about weaning FiO2 for sats >88%. Monitor fluids. No lasix right now given renal dysfunction. Reviewed ID note and agree with their plan and assessment. Guarded prognosis. 1. Pron if able 2. Wean bipap to HFNC if able 3. Steroids, may need to increase 4. Does not appear to be a candiate for remdesivir given renal failure 5. May be able to get actemra 6. Minimize additional fluids 7. Guarded prognosis given renal failure and COVID state. Subjective Date of service: 03/13/21 Interval history: Tolerating AVAPS better than bipap. RR is better. Sat is 100 on 100. Objective Vital Signs - 12hr 03/13/21 03/13/21 03/13/21 02:00 03:46 05:00 Pulse Rate 110 H 112 H 107 H Respiratory 31 H 34 H 38 H Rate Blood Pressure 170/103 160/104 183/107 O2 Sat by Pulse 95 99 100 Oximetry 03/13/21 03/13/21 03/13/21 06:00 07:00 08:00 Pulse Rate 97 H 85 77 Respiratory 33 H 31 H 33 H Rate Blood Pressure 183/107 183/107 183/107 O2 Sat by Pulse 99 99 99 Oximetry 03/13/21 03/13/21 08:30 11:37 Pulse Rate 84 67 Respiratory 40 H 28 H Rate Blood Pressure O2 Sat by Pulse 100 99 Oximetry CBC and BMP: 03/11/21 09:41 03/13/21 05:19 ABG, PT/INR, D-dimer: ABG ABG pH 7.279 (7.320-7.450) L 03/12/21 04:35 POC ABG pCO2 30.2 mmHg (32.0-48.0) L 03/12/21 04:35 POC ABG pO2 183.7 mmHg (83-108) H 03/12/21 04:35 POC ABG HCO3 13.8 03/12/21 04:35 ABG O2 Saturation 99.0 (0-100) 03/12/21 04:35 PT/INR, D-dimer D-Dimer 2206.91 ng/mlDDU (0-234) H 03/11/21 09:41 Abnormal lab findings: Abnormal Labs 03/11/21 03/11/21 03/11/21 09:41 09:41 09:41 Seg Neuts % (Manual) 89.0 H Lymphocytes % (Manual) 2.0 L Seg Neutrophils # Man 9.7 H Lymphocytes # (Manual) 0.2 L D-Dimer ABG pH POC ABG pCO2 POC ABG pO2 ABG Oxyhemoglobin ABG Sodium ABG Chloride ABG Glucose Carboxyhemoglobin Sodium 127 L Chloride 90.6 L Carbon Dioxide 15 L BUN 42 H Creatinine 2.7 H Glucose 262 H Lactic Acid 3.70 H* Ferritin AST 148 H ALT 65 H Lactate Dehydrogenase C-Reactive Protein Total Protein Albumin 2.9 L Arterial Blood Glucose Arterial Blood Ionized Calcium Coronavirus (PCR) 03/11/21 03/11/21 03/11/21 09:41 09:41 09:41 Seg Neuts % (Manual) Lymphocytes % (Manual) Seg Neutrophils # Man Lymphocytes # (Manual) D-Dimer 2206.91 H ABG pH POC ABG pCO2 POC ABG pO2 ABG Oxyhemoglobin ABG Sodium ABG Chloride ABG Glucose Carboxyhemoglobin Sodium Chloride Carbon Dioxide BUN Creatinine Glucose 261 H Lactic Acid Ferritin 1640.0 H AST ALT Lactate Dehydrogenase 933 H C-Reactive Protein 17.90 H Total Protein Albumin Arterial Blood Glucose Arterial Blood Ionized Calcium Coronavirus (PCR) 03/11/21 03/11/21 03/12/21 11:50 Unknown 04:35 Seg Neuts % (Manual) Lymphocytes % (Manual) Seg Neutrophils # Man Lymphocytes # (Manual) D-Dimer ABG pH 7.316 L 7.279 L POC ABG pCO2 30.2 L POC ABG pO2 228.8 H 183.7 H ABG Oxyhemoglobin 98.7 H 98.6 H ABG Sodium 125.1 L ABG Chloride 97.0 L ABG Glucose 229 H 236 H Carboxyhemoglobin 0.1 L 0.3 L Sodium Chloride Carbon Dioxide BUN Creatinine Glucose Lactic Acid Ferritin AST ALT Lactate Dehydrogenase C-Reactive Protein Total Protein Albumin Arterial Blood Glucose 229 H 236 H Arterial Blood Ionized Calcium 4.5 L Coronavirus (PCR) Positive A 03/12/21 03/12/21 03/13/21 10:56 16:53 05:19 Seg Neuts % (Manual) Lymphocytes % (Manual) Seg Neutrophils # Man Lymphocytes # (Manual) D-Dimer ABG pH POC ABG pCO2 POC ABG pO2 ABG Oxyhemoglobin ABG Sodium ABG Chloride ABG Glucose Carboxyhemoglobin Sodium 149 H Chloride 111.0 H 113.9 H Carbon Dioxide 13 L 15 L 18 L BUN 37 H 36 H 39 H Creatinine 2.2 H 2.3 H 2.5 H Glucose 254 H 212 H 304 H Lactic Acid Ferritin AST 110 H 100 H 88 H ALT 66 H 64 H 68 H Lactate Dehydrogenase C-Reactive Protein Total Protein 6.2 L Albumin 2.7 L 2.4 L 2.7 L Arterial Blood Glucose Arterial Blood Ionized Calcium Coronavirus (PCR)
[2021-03-13] MEDS: AZITHROMYCIN/NS 500 MG/250 ML 500 MG/250 ML BAG IV SCH (13:24)
[2021-03-13] MEDS ORDERED: DEXTROSE 50% IN WATER (25GM) 50 ML SYRINGE IV PRN (14:44)
--- NOTE | 2021-03-13 14:51 | Progress Note ---
Assessment and Plan Assessment and plan: 50-year-old male history of CVA who presented with difficulty breathing. Found to have COVID-19 infection and was admitted for acute hypoxic respiratory failure and pneumonia. Prognosis remains guarded still requiring BiPAP. #Acute hypoxic respiratory failure -on NIPPV, will continue as long as O2 >92% -mildly distressed, low threshold for intubation -continue steroids -Pulmonary consulted, appreciate assistance #Sepsis -secondary to COVID-19 and PNA -BCx ordered, NGTD -continue current management #Severe COVID-19 infection -unvaccinated -remdesivir, steroids, COVID vitamins -s/p Actemra -ID following, appreciate assistance -inflammatory markers q48hr #Pneumonia -continue rocephin and azithromycin for now #CHRISTY -SCr 2.5 -urine studies ordered -Nephrology consulted, appreciate assistance Total Time Spent with Patient (Minutes): 30 minutes History Interval history: No acute events overnight. Patient continues to be tachypneic and tachycardic. Still on BiPAP with O2 sats in high 90s. Hospitalist Physical - Physical exam Narrative exam: GENERAL: Lying propped in bed, mild distress CHEST/LUNGS: Coarse breath sounds bilaterally. HEART/CARDIOVASCULAR: RRR. No murmur, rubs or gallops appreciated. ABDOMEN: +BS. NT/ND. NEURO: No focal deficits noted in CN II-XII. MUSCULOSKELETAL: Left upper extremity contracted at wrist. EXTREMITIES: No cyanosis, clubbing or edema. PSYCH: Cooperative. - Constitutional Vitals: Temp Pulse Resp BP Pulse Ox 100.7 F H 67 27 H 165/141 100 03/11/21 13:43 03/13/21 13:00 03/13/21 13:00 03/13/21 13:00 03/13/21 13:00 General appearance: Present: mild distress - Allied Health Allied health notes reviewed: nursing HEART Score - HEART Score Troponin: Troponin T < 0.010 ng/mL (0.00-0.029) 03/11/21 09:41 Results - Labs CBC & Chem 7: 03/11/21 09:41 03/13/21 05:19 Labs: Laboratory Last Values WBC 10.9 K/mm3 (4.5-11.0) 03/11/21 09:41 RBC 4.78 M/mm3 (3.65-5.03) 03/11/21 09:41 Hgb 14.8 gm/dl (11.8-15.2) 03/11/21 09:41 Hct 43.2 % (35.5-45.6) 03/11/21 09:41 MCV 90 fl (84-94) 03/11/21 09:41 MCH 31 pg (28-32) 03/11/21 09:41 MCHC 34 % (32-34) 03/11/21 09:41 RDW 13.6 % (13.2-15.2) 03/11/21 09:41 Plt Count 264 K/mm3 (140-440) 03/11/21 09:41 Add Manual Diff Complete 03/11/21 09:41 Total Counted 100 03/11/21 09:41 Seg Neutrophils % Heel Room Supervisor 03/11/21 09:41 Seg Neuts % (Manual) 89.0 % (40.0-70.0) H 03/11/21 09:41 Band Neutrophils % 2.0 % 03/11/21 09:41 Lymphocytes % (Manual) 2.0 % (13.4-35.0) L 03/11/21 09:41 Monocytes % (Manual) 7.0 % (0.0-7.3) 03/11/21 09:41 Nucleated RBC % Not Reportable 03/11/21 09:41 Seg Neutrophils # Man 9.7 K/mm3 (1.8-7.7) H 03/11/21 09:41 Band Neutrophils # 0.2 K/mm3 03/11/21 09:41 Lymphocytes # (Manual) 0.2 K/mm3 (1.2-5.4) L 03/11/21 09:41 Abs React Lymphs (Man) 0.0 K/mm3 03/11/21 09:41 Monocytes # (Manual) 0.8 K/mm3 (0.0-0.8) 03/11/21 09:41 Eosinophils # (Manual) 0.0 K/mm3 (0.0-0.4) 03/11/21 09:41 Basophils # (Manual) 0.0 K/mm3 (0.0-0.1) 03/11/21 09:41 Metamyelocytes # 0.0 K/mm3 03/11/21 09:41 Myelocytes # 0.0 K/mm3 03/11/21 09:41 Promyelocytes # 0.0 K/mm3 03/11/21 09:41 Blast Cells # 0.0 K/mm3 03/11/21 09:41 WBC Morphology Not Reportable 03/11/21 09:41 Hypersegmented Neuts Not Reportable 03/11/21 09:41 Hyposegmented Neuts Not Reportable 03/11/21 09:41 Hypogranular Neuts Not Reportable 03/11/21 09:41 Smudge Cells Not Reportable 03/11/21 09:41 Toxic Granulation Not Reportable 03/11/21 09:41 Toxic Vacuolation Not Reportable 03/11/21 09:41 Dohle Bodies Not Reportable 03/11/21 09:41 Pelger-Huet Anomaly Not Reportable 03/11/21 09:41 Fina Rods Not Reportable 03/11/21 09:41 Platelet Estimate Consistent w auto 03/11/21 09:41 Clumped Platelets Not Reportable 03/11/21 09:41 Plt Clumps, EDTA Not Reportable 03/11/21 09:41 Large Platelets Not Reportable 03/11/21 09:41 Giant Platelets Not Reportable 03/11/21 09:41 Platelet Satelliting Not Reportable 03/11/21 09:41 Plt Morphology Comment Not Reportable 03/11/21 09:41 RBC Morphology Normal 03/11/21 09:41 Dimorphic RBCs Not Reportable 03/11/21 09:41 Polychromasia Not Reportable 03/11/21 09:41 Hypochromasia Not Reportable 03/11/21 09:41 Poikilocytosis Not Reportable 03/11/21 09:41 Anisocytosis Not Reportable 03/11/21 09:41 Microcytosis Not Reportable 03/11/21 09:41 Macrocytosis Not Reportable 03/11/21 09:41 Spherocytes Not Reportable 03/11/21 09:41 Pappenheimer Bodies Not Reportable 03/11/21 09:41 Sickle Cells Not Reportable 03/11/21 09:41 Target Cells Not Reportable 03/11/21 09:41 Tear Drop Cells Not Reportable 03/11/21 09:41 Ovalocytes Not Reportable 03/11/21 09:41 Helmet Cells Not Reportable 03/11/21 09:41 Perdue-Igo Bodies Not Reportable 03/11/21 09:41 [place] Rings Not Reportable 03/11/21 09:41 Trav Cells Not Reportable 03/11/21 09:41 Bite Cells Not Reportable 03/11/21 09:41 Crenated Cell Not Reportable 03/11/21 09:41 Elliptocytes Not Reportable 03/11/21 09:41 Acanthocytes (Spur) Not Reportable 03/11/21 09:41 Rouleaux Not Reportable 03/11/21 09:41 Hemoglobin C Crystals Not Reportable 03/11/21 09:41 Schistocytes Not Reportable 03/11/21 09:41 Malaria parasites Not Reportable 03/11/21 09:41 Martinez Bodies Not Reportable 03/11/21 09:41 Hem Pathologist Commnt No 03/11/21 09:41 D-Dimer 2206.91 ng/mlDDU (0-234) H 03/11/21 09:41 ABG pH 7.279 (7.320-7.450) L 03/12/21 04:35 POC ABG pCO2 30.2 mmHg (32.0-48.0) L 03/12/21 04:35 POC ABG pO2 183.7 mmHg (83-108) H 03/12/21 04:35 POC ABG HCO3 13.8 03/12/21 04:35 ABG O2 Saturation 99.0 (0-100) 03/12/21 04:35 POC ABG Base Excess -11.5 03/12/21 04:35 ABG Hemoglobin 14.2 (12.0-17.5) 03/12/21 04:35 ABG Oxyhemoglobin 98.6 (94-98) H 03/12/21 04:35 ABG Methemoglobin 0.1 (0.0-1.5) 03/12/21 04:35 ABG Sodium 136.8 mmol/L (136.0-145.0) 03/12/21 04:35 ABG Potassium 4.0 mmol/L (3.40-4.50) 03/12/21 04:35 ABG Chloride 107.0 mmol/L (98-107) 03/12/21 04:35 ABG Glucose 236 mg/dL (65-95) H 03/12/21 04:35 Carboxyhemoglobin 0.3 (0.5-1.5) L 03/12/21 04:35 FiO2 % 100.0 03/12/21 04:35 Sodium 149 mmol/L (137-145) H 03/13/21 05:19 Potassium 4.6 mmol/L (3.6-5.0) 03/13/21 05:19 Chloride 113.9 mmol/L (98-107) H 03/13/21 05:19 Carbon Dioxide 18 mmol/L (22-30) L 03/13/21 05:19 Anion Gap 22 mmol/L 03/13/21 05:19 BUN 39 mg/dL (9-20) H 03/13/21 05:19 Creatinine 2.5 mg/dL (0.8-1.3) H 03/13/21 05:19 Estimated GFR 34 ml/min 03/13/21 05:19 BUN/Creatinine Ratio 16 % 03/13/21 05:19 Glucose 304 mg/dL (75-100) H 03/13/21 05:19 Lactic Acid 1.60 mmol/L (0.7-2.0) 03/12/21 00:08 Calcium 8.9 mg/dL (8.4-10.2) 03/13/21 05:19 Ferritin 1640.0 ng/mL (30.0-300.0) H 03/11/21 09:41 Total Bilirubin 0.30 mg/dL (0.1-1.2) 03/13/21 05:19 AST 88 units/L (5-40) H 03/13/21 05:19 ALT 68 units/L (7-56) H 03/13/21 05:19 Alkaline Phosphatase 83 units/L (35-129) 03/13/21 05:19 Lactate Dehydrogenase 933 units/L (91-180) H 03/11/21 09:41 Troponin T < 0.010 ng/mL (0.00-0.029) 03/11/21 09:41 C-Reactive Protein 17.90 mg/dL (0.00-1.30) H 03/11/21 09:41 Total Protein 6.2 g/dL (6.3-8.2) L 03/13/21 05:19 Albumin 2.7 g/dL (3.9-5) L 03/13/21 05:19 Albumin/Globulin Ratio 0.8 % 03/13/21 05:19 Procalcitonin 4.61 ng/mL (<0.15) 03/11/21 09:41 Arterial Blood Glucose 236 mg/dL (65-95) H 03/12/21 04:35 Arterial Blood Ionized Calcium 5.0 mg/dL (4.6-5.3) 03/12/21 04:35 Urine Color Yellow (Yellow) 03/11/21 Unknown Urine Turbidity Clear (Clear) 03/11/21 Unknown Urine pH 6.0 (5.0-7.0) 03/11/21 Unknown Ur Specific Ber[place] 1.011 (1.003-1.030) 03/11/21 Unknown Urine Protein >500 mg/dL (Negative) 03/11/21 Unknown Urine Glucose (UA) 50 mg/dL (Negative) 03/11/21 Unknown Urine Ketones 20 mg/dL (Negative) 03/11/21 Unknown Urine Blood Lg (Negative) 03/11/21 Unknown Urine Nitrite Neg (Negative) 03/11/21 Unknown Urine Bilirubin Neg (Negative) 03/11/21 Unknown Urine Urobilinogen < 2.0 mg/dL (<2.0) 03/11/21 Unknown Ur Leukocyte Esterase Neg (Negative) 03/11/21 Unknown Urine WBC (Auto) 1.0 /HPF (0.0-6.0) 03/11/21 Unknown Urine RBC (Auto) 1.0 /HPF (0.0-6.0) 03/11/21 Unknown Coronavirus (PCR) Positive (Negative) A 03/11/21 Unknown Microbiology: Microbiology 03/11/21 09:41 Peripheral/Venous Blood Culture - Preliminary NO GROWTH AFTER 48 HOURS 03/11/21 09:41 Peripheral/Venous Blood Culture - Preliminary NO GROWTH AFTER 48 HOURS Active Medications - Current Medications Current Medications: Generic Name Dose Route Start Last Admin Trade Name Freq PRN Reason Stop Dose Admin Acetaminophen 650 mg 03/11/21 12:00 Acetaminophen 325 Mg Tab PO Q4H PRN Pain MILD(1-3)/Fever >100.5/[place]ERMAN Ascorbic Acid 500 mg 03/11/21 12:00 03/13/21 10:30 Ascorbic Acid 500 Mg Tab PO 500 mg BID GYPSY Administration Cholecalciferol 1,000 unit 03/11/21 13:00 03/13/21 10:30 Cholecalciferol (Vit D3) 1000 Unit (25 Mcg) Tab PO 1,000 unit QDAY GYPSY Administration Dextrose 50 ml 03/13/21 14:44 Dextrose 50% In Water (25gm) 50 Ml Syringe IV Q30MIN PRN Hypoglycemia Protocol Heparin Sodium (Porcine) 5,000 unit 03/11/21 13:00 03/13/21 10:30 Heparin 5,000 Unit/1 Ml Vial SUB-Q 5,000 unit Q12HR GYPSY Administration Hydromorphone HCl 0.5 mg 03/11/21 12:00 03/12/21 18:50 Hydromorphone 1 Mg/1 Ml Inj IV 0.5 mg Q12H PRN Administration Pain , Severe (7-10) Ceftriaxone Sodium 2 gm in 100 mls @ 200 mls/hr 03/11/21 12:00 03/12/21 13:41 Rocephin/Ns 2 Gm/100 Ml IV 03/15/21 12:29 200 mls/hr Q24H GYPSY Administration Protocol Azithromycin 500 mg in 250 mls @ 250 mls/hr 03/12/21 11:00 03/13/21 13:24 Zithromax/Ns IV 03/14/21 11:59 250 mls/hr Q24H GYPSY Administration Protocol REMDESIVIR 100 mg/ Sodium 250 mls @ 500 mls/hr 03/13/21 21:00 Chloride IV 03/16/21 21:29 Q24HR@2100 [facility] Insulin Human Lispro 0 unit 03/13/21 16:30 Insulin Lispro 100 Unit/Ml SUB-Q ACHS [facility] Protocol Lorazepam 1 mg 03/11/21 17:00 03/13/21 04:34 Lorazepam 2 Mg/Ml Vial IV 1 mg Q6H PRN Administration Agitation Methylprednisolone Sodium Succinate 40 mg 03/11/21 14:00 03/13/21 06:20 Methylprednisolone Sod Succinate 40 Mg/1 Ml Inj IV 40 mg Q8HR GYPSY Administration Ondansetron HCl 4 mg 03/11/21 12:00 Ondansetron 4 Mg/2 Ml Inj IV Q8H PRN Nausea And Vomiting Oxycodone/Acetaminophen 1 tab 03/11/21 12:00 Oxycodone /Acetaminophen 5-325mg Tab PO Q12H PRN Pain, Moderate (4-6) Sodium Chloride 10 ml 03/11/21 12:00 03/12/21 22:19 Sodium Chloride 0.9% 10 Ml Flush Syringe IV 10 ml BID GYPSY Administration Sodium Chloride 10 ml 03/11/21 12:00 Sodium Chloride 0.9% 10 Ml Flush Syringe IV PRN PRN LINE FLUSH Sodium Chloride 50 ml 03/12/21 14:00 03/12/21 16:27 Sodium Chloride 0.9% 50 Ml Ivpb IV 03/16/21 21:01 50 ml Q24HR@2100 GYPSY Administration Zinc Sulfate 220 mg 03/11/21 12:00 03/13/21 10:30 Zinc Sulfate 220 Mg Cap PO 220 mg BID GYPSY Administration
--- NOTE | 2021-03-13 15:21 | Progress Note ---
Assessment and Plan Cultures: Blood culture 03/11/2021 no growth today SARS CoV2 PCR positive Assessment: 50-year-old male with history of CVA admitted on 03/11/2021 secondary to shortness of breath/altered mental status: #Severe sepsis: Present with fever, tachycardia, hypoxia, elevated lactate, elevated creatinine; likely secondary to COVID-19. Procalcitonin elevated #Severe COVID pneumonia: CXR with bilateral pneumonia. Infllammatory markers elevated. CRP 17.9. D-dimer 22 6. Ferritin 1640. #Acute hypoxemic respiratory failure: O2 sat dropped to 70%. Remains on BiPAP. #Elevated LFTs: from COVID. AST 148, ALT 65. #CHRISTY: from COVID. Initial creatinine 2.7. Improving. GFR over 30. #Acute diarrhea likely secondary to COVID-19. Recommendations: -Pulmonary on board, close monitoring, high risk for intubation -Steroids per pulmonary total 10 days -Continue Remdesivir for 5 days -Completed Tocilizumab 8 mg/kg x1 03/12/2021 -Monitor inflammatory markers - ferritin, Ddimer, CRP, LDH -Monitor liver function test on Remdesivir -Continue anticoagulation per System Protocol -Prone positioning as possible -Continue ceftriaxone for 5 days and azithromycin for 3 days All laboratory, cultures and imaging were reviewed. Guarded prognosis Will follow Malathi Gaona MD Infectious Diseases Linotype Worker [facility] ([facility]) M [phone] O [phone] Subjective Date of service: 03/13/21 Principal diagnosis: COVID-19 Interval history: Remains on BiPAP with watery diarrhea. O2 sat >99. Objective - Exam Narrative Exam: Physical exam deferred to minimize COVID-19 transmission during pandemic. - Constitutional Vitals: Vital Signs Temp Pulse Resp BP Pulse Ox 100.7 F H 67 27 H 165/141 100 03/11/21 13:43 03/13/21 13:00 03/13/21 13:00 03/13/21 13:00 03/13/21 13:00 - Labs CBC & Chem 7: 03/11/21 09:41 03/13/21 05:19 Labs: Abnormal lab results 03/12/21 03/13/21 Range/Units 16:53 05:19 Sodium 149 H (137-145) mmol/L Chloride 111.0 H 113.9 H (98-107) mmol/L Carbon Dioxide 15 L 18 L (22-30) mmol/L BUN 36 H 39 H (9-20) mg/dL Creatinine 2.3 H 2.5 H (0.8-1.3) mg/dL Glucose 212 H 304 H (75-100) mg/dL AST 100 H 88 H (5-40) units/L ALT 64 H 68 H (7-56) units/L Total Protein 6.2 L (6.3-8.2) g/dL Albumin 2.4 L 2.7 L (3.9-5) g/dL
[2021-03-13] MEDS: cefTRIAXone/NS 2 GM/100 ML 2 GM/100 ML BAG IV SCH (16:06)
--- NOTE | 2021-03-13 18:57 | Consultation ---
History of Present Illness - Reason for Consult Consult date: 03/13/21 acute renal failure - History of Present Illness The patient is a 50-year-old male present with a chief complaint of shortness of breath. Patient was reportedly diagnosed with COVID 19 approximately 1 week ago. Patient started developing shortness of breath on day prior to admission which progressively worsened. EMS arrived on scene to find the patient hypoxic to approximately 69-72% on room air. The patient was placed on 20 L O2 with a sat increasing to approximately 88%. Upon arrival to the ED the patient was p laced on BiPAP with improvement of his SPO2 to 95%. Patient states he did not receive any vaccinations for COVID 19 Past History Past Medical History: stroke Past Surgical History: No surgical history, Other (Reviewed) Social history: single. denies: smoking, alcohol abuse Family history: hypertension Medications and Allergies Allergies Allergy/AdvReac Type Severity Reaction Status Date / Time No Known Allergies Allergy Verified 03/11/21 09:21 Home Medications Medication Instructions Recorded Confirmed Last Taken Type Unobtainable 03/11/21 03/11/21 Unknown History Active Meds: Active Medications Acetaminophen (Acetaminophen 325 Mg Tab) 650 mg PO Q4H PRN PRN Reason: Pain MILD(1-3)/Fever >100.5/[place] Ascorbic Acid (Ascorbic Acid 500 Mg Tab) 500 mg PO BID [facility] Last Admin: 03/13/21 10:30 Dose: 500 mg Documented by: Cholecalciferol (Cholecalciferol (Vit D3) 1000 Unit (25 Mcg) Tab) 1,000 unit PO QDAY [facility] Last Admin: 03/13/21 10:30 Dose: 1,000 unit Documented by: Dextrose (Dextrose 50% In Water (25gm) 50 Ml Syringe) 50 ml IV Q30MIN PRN; Protocol PRN Reason: Hypoglycemia Heparin Sodium (Porcine) (Heparin 5,000 Unit/1 Ml Vial) 5,000 unit SUB-Q Q12HR [facility] Last Admin: 03/13/21 10:30 Dose: 5,000 unit Documented by: Hydromorphone HCl (Hydromorphone 1 Mg/1 Ml Inj) 0.5 mg IV Q12H PRN PRN Reason: Pain , Severe (7-10) Last Admin: 03/12/21 18:50 Dose: 0.5 mg Documented by: Ceftriaxone Sodium (Rocephin/Ns 2 Gm/100 Ml) 2 gm in 100 mls @ 200 mls/hr IV Q24H [facility]; Protocol Stop: 03/15/21 12:29 Last Admin: 03/13/21 16:06 Dose: 200 mls/hr Documented by: Azithromycin (Zithromax/Ns) 500 mg in 250 mls @ 250 mls/hr IV Q24H [facility]PS[facility]; Protocol Stop: 03/14/21 11:59 Last Admin: 03/13/21 13:24 Dose: 250 mls/hr Documented by: REMDESIVIR 100 mg/ Sodium (Chloride) 250 mls @ 500 mls/hr IV Q24HR@2100 GYPSY Stop: 03/16/21 21:29 Insulin Human Lispro (Insulin Lispro 100 Unit/Ml) 0 unit SUB-Q ACHS [facility]; Protocol Lorazepam (Lorazepam 2 Mg/Ml Vial) 1 mg IV Q6H PRN PRN Reason: Agitation Last Admin: 03/13/21 16:38 Dose: 1 mg Documented by: Methylprednisolone Sodium Succinate (Methylprednisolone Sod Succinate 40 Mg/1 Ml Inj) 40 mg IV Q8HR [facility] Last Admin: 03/13/21 16:06 Dose: 40 mg Documented by: Ondansetron HCl (Ondansetron 4 Mg/2 Ml Inj) 4 mg IV Q8H PRN PRN Reason: Nausea And Vomiting Oxycodone/Acetaminophen (Oxycodone /Acetaminophen 5-325mg Tab) 1 tab PO Q12H PRN PRN Reason: Pain, Moderate (4-6) Sodium Chloride (Sodium Chloride 0.9% 10 Ml Flush Syringe) 10 ml IV BID [facility] Last Admin: 03/12/21 22:19 Dose: 10 ml Documented by: Sodium Chloride (Sodium Chloride 0.9% 10 Ml Flush Syringe) 10 ml IV PRN PRN PRN Reason: LINE FLUSH Sodium Chloride (Sodium Chloride 0.9% 50 Ml Ivpb) 50 ml IV Q24HR@2100 G[facility]Y Stop: 03/16/21 21:01 Last Admin: 03/12/21 16:27 Dose: 50 ml Documented by: Zinc Sulfate (Zinc Sulfate 220 Mg Cap) 220 mg PO BID [facility] Last Admin: 03/13/21 10:30 Dose: 220 mg Documented by: Review of Systems All systems: negative Exam - Vital Signs Vital signs: Vital Signs Pulse Resp Pulse Ox 130 H 52 H 94 03/11/21 09:10 03/11/21 09:10 03/11/21 09:10 - Physical Exam Narrative exam: Physical exam deferred to minimize COVID-19 transmission during pandemic. Results - Lab Results 03/11/21 09:41 03/13/21 05:19 Most recent lab results ABG pH 7.279 (7.320-7.450) L 03/12/21 04:35 ABG O2 Saturation 99.0 (0-100) 03/12/21 04:35 Calcium 8.9 mg/dL (8.4-10.2) 03/13/21 05:19 Assessment and Plan Impression: * Acute kidney injury vs underlying CKD --Baseline renal function unknown * Acute hypoxic respiratory failure secondary to COVID 19 PNA * COVID 19 infection * Hypertension * Hypernatremia * Transaminitis Plan: * No acute indication for renal replacement therapy; renal prognosis is guarded * Recommend holding additional doses of IV Lasix * Remdesevir (hold for GFR<30), steroids, abx per ID * Start Clonidine 0.1mg patch * Dose medications for renal function * Avoid potential nephrotoxins * AM labs
[2021-03-13] MEDS ORDERED: cloNIDine TTS 0.1 MG/24 HR PATCH TD SCH (20:00)
[2021-03-13] MEDS ORDERED: REMDESIVIR 100 MG in SODIUM CHLORIDE 0.9% 250ML 250 ML IV SCH (21:00)
[2021-03-13] MEDS: INSULIN LISPRO 100 UNIT/ML SUB-Q SCH (23:08)
[2021-03-14] MEDS: SODIUM CHLORIDE 0.9% 50 ML IVPB IV SCH ×2 (00:13→21:04)
[2021-03-14] MEDS: ACETAMINOPHEN 325 MG TAB PO PRN (03:54)
[2021-03-14 05:16] LABS: Hematocrit 41.3 % (35.5-45.6); Hemoglobin 13.9 gm/dl (11.8-15.2); Mean Corpuscular HGB Conc 34 % (32-34); Mean Corpuscular Volume 92 fl (84-94); Platelet Count 132 K/mm3 (140-440); Red Blood Count 4.49 M/mm3 (3.65-5.03); Red Cell Distribution Width 14.2 % (13.2-15.2)
[2021-03-14 05:32] LABS: Albumin 2.4 g/dL (3.9-5); Calcium 8.9 mg/dL (8.4-10.2)
[2021-03-14] MEDS: methylPREDNISolone Sod Succinate 40 MG/1 ML INJ IV SCH ×3 (06:09→21:01)
[2021-03-14] MEDS: INSULIN LISPRO 100 UNIT/ML SUB-Q SCH ×5 (06:10→22:50)
[2021-03-14] MEDS ORDERED: INSULIN GLARGINE 100 UNITS/ML SUB-Q ONE (08:24)
--- NOTE | 2021-03-14 09:22 | Progress Note ---
Assessment and Plan - Patient Problems (1) Acute hypoxemic respiratory failure Current Visit: Yes Status: Acute (2) Pneumonia Current Visit: Yes Status: Acute (3) Pneumonia due to COVID-19 virus Current Visit: Yes Status: Acute (4) Renal insufficiency Current Visit: Yes Status: Acute (5) CVA (cerebral vascular accident) Current Visit: Yes Status: Acute Subjective Principal diagnosis: COVID-19 Interval history: on bipap 80% sat 100 awake and alert Objective Vital Signs - 12hr 03/13/21 03/14/21 03/14/21 22:54 00:00 00:13 Temperature 101.2 F H Pulse Rate 100 H 88 Respiratory 22 Rate Blood Pressure 142/86 Blood Pressure 165/97 [Right] O2 Sat by Pulse 100 Oximetry 03/14/21 03/14/21 03/14/21 00:23 00:44 03:35 Temperature 101.1 F H Pulse Rate 112 H Respiratory 30 H 25 H Rate Blood Pressure 142/86 Blood Pressure [Right] O2 Sat by Pulse 96 100 Oximetry 03/14/21 03/14/21 03/14/21 03:54 04:13 06:00 Temperature 99.7 F H Pulse Rate 98 H Respiratory 29 H 36 H Rate Blood Pressure 157/95 Blood Pressure [Right] O2 Sat by Pulse 100 Oximetry 03/14/21 03/14/21 07:39 09:10 Temperature 98.2 F Pulse Rate 95 H Respiratory 30 H Rate Blood Pressure Blood Pressure [Right] O2 Sat by Pulse 100 Oximetry Constitutional: other (on bipap) Eyes: non-icteric Neck: supple Ascultation: Bilateral: diminished breath sounds Cardiovascular: regular rate and rhythm Gastrointestinal: normoactive bowel sounds, soft, non-tender Extremities: other (decreased rom/ movement of lue mild contractures) CBC and BMP: 03/14/21 04:44 03/14/21 04:44 ABG, PT/INR, D-dimer: ABG ABG pH 7.279 (7.320-7.450) L 03/12/21 04:35 POC ABG pCO2 30.2 mmHg (32.0-48.0) L 03/12/21 04:35 POC ABG pO2 183.7 mmHg (83-108) H 03/12/21 04:35 POC ABG HCO3 13.8 03/12/21 04:35 ABG O2 Saturation 99.0 (0-100) 03/12/21 04:35 PT/INR, D-dimer D-Dimer 2206.91 ng/mlDDU (0-234) H 03/11/21 09:41 Abnormal lab findings: Abnormal Labs 03/11/21 03/11/21 03/11/21 09:41 09:41 09:41 Plt Count Seg Neuts % (Manual) 89.0 H Lymphocytes % (Manual) 2.0 L Seg Neutrophils # Man 9.7 H Lymphocytes # (Manual) 0.2 L D-Dimer ABG pH POC ABG pCO2 POC ABG pO2 ABG Oxyhemoglobin ABG Sodium ABG Chloride ABG Glucose Carboxyhemoglobin Sodium 127 L Chloride 90.6 L Carbon Dioxide 15 L BUN 42 H Creatinine 2.7 H Glucose 262 H POC Glucose Hemoglobin A1c Lactic Acid 3.70 H* Ferritin AST 148 H ALT 65 H Lactate Dehydrogenase C-Reactive Protein Total Protein Albumin 2.9 L Arterial Blood Glucose Arterial Blood Ionized Calcium Coronavirus (PCR) 03/11/21 03/11/21 03/11/21 09:41 09:41 09:41 Plt Count Seg Neuts % (Manual) Lymphocytes % (Manual) Seg Neutrophils # Man Lymphocytes # (Manual) D-Dimer 2206.91 H ABG pH POC ABG pCO2 POC ABG pO2 ABG Oxyhemoglobin ABG Sodium ABG Chloride ABG Glucose Carboxyhemoglobin Sodium Chloride Carbon Dioxide BUN Creatinine Glucose 261 H POC Glucose Hemoglobin A1c Lactic Acid Ferritin 1640.0 H AST ALT Lactate Dehydrogenase 933 H C-Reactive Protein 17.90 H Total Protein Albumin Arterial Blood Glucose Arterial Blood Ionized Calcium Coronavirus (PCR) 03/11/21 03/11/21 03/12/21 11:50 Unknown 04:35 Plt Count Seg Neuts % (Manual) Lymphocytes % (Manual) Seg Neutrophils # Man Lymphocytes # (Manual) D-Dimer ABG pH 7.316 L 7.279 L POC ABG pCO2 30.2 L POC ABG pO2 228.8 H 183.7 H ABG Oxyhemoglobin 98.7 H 98.6 H ABG Sodium 125.1 L ABG Chloride 97.0 L ABG Glucose 229 H 236 H Carboxyhemoglobin 0.1 L 0.3 L Sodium Chloride Carbon Dioxide BUN Creatinine Glucose POC Glucose Hemoglobin A1c Lactic Acid Ferritin AST ALT Lactate Dehydrogenase C-Reactive Protein Total Protein Albumin Arterial Blood Glucose 229 H 236 H Arterial Blood Ionized Calcium 4.5 L Coronavirus (PCR) Positive A 03/12/21 03/12/21 03/13/21 10:56 16:53 05:19 Plt Count Seg Neuts % (Manual) Lymphocytes % (Manual) Seg Neutrophils # Man Lymphocytes # (Manual) D-Dimer ABG pH POC ABG pCO2 POC ABG pO2 ABG Oxyhemoglobin ABG Sodium ABG Chloride ABG Glucose Carboxyhemoglobin Sodium 149 H Chloride 111.0 H 113.9 H Carbon Dioxide 13 L 15 L 18 L BUN 37 H 36 H 39 H Creatinine 2.2 H 2.3 H 2.5 H Glucose 254 H 212 H 304 H POC Glucose Hemoglobin A1c Lactic Acid Ferritin AST 110 H 100 H 88 H ALT 66 H 64 H 68 H Lactate Dehydrogenase C-Reactive Protein Total Protein 6.2 L Albumin 2.7 L 2.4 L 2.7 L Arterial Blood Glucose Arterial Blood Ionized Calcium Coronavirus (PCR) 03/13/21 03/14/21 03/14/21 23:06 00:03 04:44 Plt Count Seg Neuts % (Manual) Lymphocytes % (Manual) Seg Neutrophils # Man Lymphocytes # (Manual) D-Dimer ABG pH POC ABG pCO2 POC ABG pO2 ABG Oxyhemoglobin ABG Sodium ABG Chloride ABG Glucose Carboxyhemoglobin Sodium Chloride Carbon Dioxide BUN Creatinine Glucose POC Glucose 168 H 152 H Hemoglobin A1c 8.2 H Lactic Acid Ferritin AST ALT Lactate Dehydrogenase C-Reactive Protein Total Protein Albumin Arterial Blood Glucose Arterial Blood Ionized Calcium Coronavirus (PCR) 03/14/21 03/14/21 03/14/21 04:44 04:44 05:35 Plt Count 132 L Seg Neuts % (Manual) Lymphocytes % (Manual) Seg Neutrophils # Man Lymphocytes # (Manual) D-Dimer ABG pH POC ABG pCO2 POC ABG pO2 ABG Oxyhemoglobin ABG Sodium ABG Chloride ABG Glucose Carboxyhemoglobin Sodium 153 H Chloride 118.2 H Carbon Dioxide 21 L BUN 58 H Creatinine 3.4 H Glucose 380 H POC Glucose 331 H Hemoglobin A1c Lactic Acid Ferritin AST 56 H ALT 60 H Lactate Dehydrogenase C-Reactive Protein Total Protein 5.8 L Albumin 2.4 L Arterial Blood Glucose Arterial Blood Ionized Calcium Coronavirus (PCR)
[2021-03-14] MEDS: ASCORBIC ACID 500 MG TAB PO SCH ×2 (11:27→21:37)
[2021-03-14] MEDS: HEPARIN 5,000 UNIT/1 ML VIAL SUB-Q SCH ×2 (11:27→21:44)
[2021-03-14] MEDS: CHOLECALCIFEROL (VIT D3) 1000 UNIT (25 mcg) TAB PO SCH (11:27)
[2021-03-14] MEDS: ZINC SULFATE 220 MG CAP PO SCH ×2 (11:27→21:37)
[2021-03-14] MEDS: AZITHROMYCIN/NS 500 MG/250 ML 500 MG/250 ML BAG IV SCH (11:33)
--- NOTE | 2021-03-14 12:01 | Progress Note ---
Assessment and Plan Impression: * Nonoliguric acute kidney injury vs underlying CKD --Baseline renal function unknown * Acute hypoxic respiratory failure secondary to COVID 19 PNA * COVID 19 infection * Hypertension * Hypernatremia * Transaminitis Plan: * Patient with continued decline in renal function; patient with adequate UOP * Start D5W 75ml/hour * Recommend holding additional doses of IV Lasix (received dose yesterday) * Remdesevir (hold for GFR<30), steroids, abx per ID * Cont Clonidine 0.1mg patch; PO intake limited * Dose medications for renal function * Avoid potential nephrotoxins * AM labs Subjective Date of service: 03/14/21 Principal diagnosis: COVID-19 Interval history: No acute events. Patient remains on BiPAP - 80% Objective - Vital Signs Vital signs: Vital Signs - 12hr 03/14/21 03/14/21 03/14/21 00:13 00:23 00:44 Temperature Pulse Rate 88 112 H Respiratory 30 H 25 H Rate Blood Pressure 142/86 142/86 O2 Sat by Pulse 96 100 Oximetry 03/14/21 03/14/21 03/14/21 03:35 03:54 04:13 Temperature 101.1 F H Pulse Rate 98 H Respiratory 29 H 36 H Rate Blood Pressure 157/95 O2 Sat by Pulse 100 Oximetry 03/14/21 03/14/21 03/14/21 06:00 07:39 09:10 Temperature 99.7 F H 98.2 F Pulse Rate 95 H Respiratory 30 H Rate Blood Pressure O2 Sat by Pulse 100 Oximetry - General Appearance General appearance: well-developed, well-nourished Respiratory: Present: Other (unable to exam - isolation stethoscope unavailable) Cardiology: other (unable to exam - isolation stethoscope unavailable) Gastrointestinal: other (unable to exam - isolation stethoscope unavailable) Musculoskeletal: other (no edema) Psychiatric: cooperative - Lab 03/14/21 04:44 03/14/21 04:44 Most recent lab results ABG pH 7.279 (7.320-7.450) L 03/12/21 04:35 ABG O2 Saturation 99.0 (0-100) 03/12/21 04:35 Calcium 8.9 mg/dL (8.4-10.2) 03/14/21 04:44 Medications & Allergies - Medications Allergies/Adverse Reactions: Allergies No Known Allergies Allergy (Verified 03/11/21 09:21) Home Medications: Home Medications Medication Instructions Recorded Confirmed Last Taken Type AtorvaSTATin [Lipitor] 10 mg PO QHS 03/14/21 03/14/21 Unknown History Metoprolol [Lopressor TAB] 50 mg PO BID 03/14/21 03/14/21 Unknown History Mycophenolate [Cellcept] 500 mg PO BID 03/14/21 03/14/21 Unknown History NIFEdipine [Nifedipine ER] 90 mg PO BID 03/14/21 03/14/21 Unknown History Ondansetron [Zofran Odt] 4 mg PO Q8HR 03/14/21 03/14/21 Unknown History Tacrolimus 1 mg PO Q12HR 03/14/21 03/14/21 Unknown History Active Medications: Generic Name Dose Route Start Last Admin Trade Name Freq PRN Reason Stop Dose Admin Acetaminophen 650 mg 03/11/21 12:00 03/14/21 03:54 Acetaminophen 325 Mg Tab PO 650 mg Q4H PRN Administration Pain MILD(1-3)/Fever >100.5/[place]ERMAN Ascorbic Acid 500 mg 03/11/21 12:00 03/14/21 11:27 Ascorbic Acid 500 Mg Tab PO 500 mg BID GYPSY Administration Cholecalciferol 1,000 unit 03/11/21 13:00 03/14/21 11:27 Cholecalciferol (Vit D3) 1000 Unit (25 Mcg) Tab PO 1,000 unit QDAY GYPSY Administration Clonidine HCl 0.1 mg 03/13/21 20:00 03/14/21 00:13 Clonidine Tts 0.1 Mg/24 Hr Patch TD 0.1 mg QWEEK GYPSY Administration Dextrose 50 ml 03/13/21 14:44 Dextrose 50% In Water (25gm) 50 Ml Syringe IV Q30MIN PRN Hypoglycemia Protocol Heparin Sodium (Porcine) 5,000 unit 03/11/21 13:00 03/14/21 11:27 Heparin 5,000 Unit/1 Ml Vial SUB-Q 5,000 unit Q12HR GYPSY Administration Hydromorphone HCl 0.5 mg 03/11/21 12:00 03/13/21 07:46 Hydromorphone 1 Mg/1 Ml Inj IV 0.5 mg Q12H PRN Administration Pain , Severe (7-10) Ceftriaxone Sodium 2 gm in 100 mls @ 200 mls/hr 03/11/21 12:00 03/13/21 16:06 Rocephin/Ns 2 Gm/100 Ml IV 03/15/21 12:29 200 mls/hr Q24H GYPSY Administration Protocol REMDESIVIR 100 mg/ Sodium 250 mls @ 500 mls/hr 03/13/21 21:00 03/14/21 00:12 Chloride IV 03/16/21 21:29 500 mls/hr Q24HR@2100 GYPSY Administration Insulin Human Lispro 0 unit 03/13/21 16:30 03/14/21 11:36 Insulin Lispro 100 Unit/Ml SUB-Q 3 unit ACHS GYPSY Administration Protocol Lorazepam 1 mg 03/11/21 17:00 03/13/21 16:38 Lorazepam 2 Mg/Ml Vial IV 1 mg Q6H PRN Administration Agitation Methylprednisolone Sodium Succinate 40 mg 03/11/21 14:00 03/14/21 06:09 Methylprednisolone Sod Succinate 40 Mg/1 Ml Inj IV 40 mg Q8HR GYPSY Administration Ondansetron HCl 4 mg 03/11/21 12:00 Ondansetron 4 Mg/2 Ml Inj IV Q8H PRN Nausea And Vomiting Oxycodone/Acetaminophen 1 tab 03/11/21 12:00 Oxycodone /Acetaminophen 5-325mg Tab PO Q12H PRN Pain, Moderate (4-6) Sodium Chloride 10 ml 03/11/21 12:00 03/14/21 11:36 Sodium Chloride 0.9% 10 Ml Flush Syringe IV 10 ml BID GYPSY Administration Sodium Chloride 10 ml 03/11/21 12:00 Sodium Chloride 0.9% 10 Ml Flush Syringe IV PRN PRN LINE FLUSH Sodium Chloride 50 ml 03/12/21 14:00 03/14/21 00:13 Sodium Chloride 0.9% 50 Ml Ivpb IV 03/16/21 21:01 50 ml Q24HR@2100 GYPSY Administration Zinc Sulfate 220 mg 03/11/21 12:00 03/14/21 11:27 Zinc Sulfate 220 Mg Cap PO 220 mg BID GYPSY Administration
--- NOTE | 2021-03-14 12:40 | Progress Note ---
Assessment and Plan Assessment and plan: 50-year-old male history of CVA who presented with difficulty breathing. Found to have COVID-19 infection and was admitted for acute hypoxic respiratory failure and pneumonia. Prognosis remains guarded still requiring BiPAP. #Acute hypoxic respiratory failure -on NIPPV, will continue as long as O2 >92% -low threshold for intubation if condition worsens -continue steroids -Pulmonary following, appreciate assistance #Sepsis -secondary to COVID-19 and PNA -BCx ordered, NGTD -continue current management #Severe COVID-19 infection -unvaccinated -steroids, COVID vitamins -Remdesivir held due to renal function -s/p Actemra -ID following, appreciate assistance -inflammatory markers q48hr #Pneumonia -continue rocephin and azithromycin for now #CHRISTY -Worsening SCr 2.5 -> 3.4 -We will hold remdesivir given worsening renal status -urine studies ordered -Nephrology following, appreciate assistance #Hypertension -Clonidine patch Total Time Spent with Patient (Minutes): 30 minutes History Interval history: No acute events overnight. Patient resting comfortably in bed, denies any complaints. Still on BiPAP with O2 sats in high 90s. Hospitalist Physical - Physical exam Narrative exam: GENERAL: Resting in bed no acute distress CHEST/LUNGS: Coarse breath sounds bilaterally. HEART/CARDIOVASCULAR: RRR. No murmur, rubs or gallops appreciated. ABDOMEN: +BS. NT/ND. NEURO: No focal deficits noted in CN II-XII. MUSCULOSKELETAL: Left upper extremity contracted at wrist. EXTREMITIES: No cyanosis, clubbing or edema. PSYCH: Cooperative. - Constitutional Vitals: Temp Pulse Resp BP Pulse Ox 98.8 F 93 H 32 H 157/95 98 03/14/21 12:00 03/14/21 12:30 03/14/21 12:30 03/14/21 04:13 03/14/21 12:30 General appearance: Present: mild distress HEART Score - HEART Score Troponin: Troponin T < 0.010 ng/mL (0.00-0.029) 03/11/21 09:41 Results - Labs CBC & Chem 7: 03/14/21 04:44 03/14/21 04:44 Labs: Laboratory Last Values WBC 10.4 K/mm3 (4.5-11.0) 03/14/21 04:44 RBC 4.49 M/mm3 (3.65-5.03) 03/14/21 04:44 Hgb 13.9 gm/dl (11.8-15.2) 03/14/21 04:44 Hct 41.3 % (35.5-45.6) 03/14/21 04:44 MCV 92 fl (84-94) 03/14/21 04:44 MCH 31 pg (28-32) 03/14/21 04:44 MCHC 34 % (32-34) 03/14/21 04:44 RDW 14.2 % (13.2-15.2) 03/14/21 04:44 Plt Count 132 K/mm3 (140-440) L 03/14/21 04:44 Add Manual Diff Complete 03/11/21 09:41 Total Counted 100 03/11/21 09:41 Seg Neutrophils % [employer] 03/11/21 09:41 Seg Neuts % (Manual) 89.0 % (40.0-70.0) H 03/11/21 09:41 Band Neutrophils % 2.0 % 03/11/21 09:41 Lymphocytes % (Manual) 2.0 % (13.4-35.0) L 03/11/21 09:41 Monocytes % (Manual) 7.0 % (0.0-7.3) 03/11/21 09:41 Nucleated RBC % Not Reportable 03/11/21 09:41 Seg Neutrophils # Man 9.7 K/mm3 (1.8-7.7) H 03/11/21 09:41 Band Neutrophils # 0.2 K/mm3 03/11/21 09:41 Lymphocytes # (Manual) 0.2 K/mm3 (1.2-5.4) L 03/11/21 09:41 Abs React Lymphs (Man) 0.0 K/mm3 03/11/21 09:41 Monocytes # (Manual) 0.8 K/mm3 (0.0-0.8) 03/11/21 09:41 Eosinophils # (Manual) 0.0 K/mm3 (0.0-0.4) 03/11/21 09:41 Basophils # (Manual) 0.0 K/mm3 (0.0-0.1) 03/11/21 09:41 Metamyelocytes # 0.0 K/mm3 03/11/21 09:41 Myelocytes # 0.0 K/mm3 03/11/21 09:41 Promyelocytes # 0.0 K/mm3 03/11/21 09:41 Blast Cells # 0.0 K/mm3 03/11/21 09:41 WBC Morphology Not Reportable 03/11/21 09:41 Hypersegmented Neuts Not Reportable 03/11/21 09:41 Hyposegmented Neuts Not Reportable 03/11/21 09:41 Hypogranular Neuts Not Reportable 03/11/21 09:41 Smudge Cells Not Reportable 03/11/21 09:41 Toxic Granulation Not Reportable 03/11/21 09:41 Toxic Vacuolation Not Reportable 03/11/21 09:41 Dohle Bodies Not Reportable 03/11/21 09:41 Pelger-Huet Anomaly Not Reportable 03/11/21 09:41 Fina Rods Not Reportable 03/11/21 09:41 Platelet Estimate Consistent w auto 03/11/21 09:41 Clumped Platelets Not Reportable 03/11/21 09:41 Plt Clumps, EDTA Not Reportable 03/11/21 09:41 Large Platelets Not Reportable 03/11/21 09:41 Giant Platelets Not Reportable 03/11/21 09:41 Platelet Satelliting Not Reportable 03/11/21 09:41 Plt Morphology Comment Not Reportable 03/11/21 09:41 RBC Morphology Normal 03/11/21 09:41 Dimorphic RBCs Not Reportable 03/11/21 09:41 Polychromasia Not Reportable 03/11/21 09:41 Hypochromasia Not Reportable 03/11/21 09:41 Poikilocytosis Not Reportable 03/11/21 09:41 Anisocytosis Not Reportable 03/11/21 09:41 Microcytosis Not Reportable 03/11/21 09:41 Macrocytosis Not Reportable 03/11/21 09:41 Spherocytes Not Reportable 03/11/21 09:41 Pappenheimer Bodies Not Reportable 03/11/21 09:41 Sickle Cells Not Reportable 03/11/21 09:41 Target Cells Not Reportable 03/11/21 09:41 Tear Drop Cells Not Reportable 03/11/21 09:41 Ovalocytes Not Reportable 03/11/21 09:41 Helmet Cells Not Reportable 03/11/21 09:41 [place] Bodies Not Reportable 03/11/21 09:41 [place] Rings Not Reportable 03/11/21 09:41 [place] Cells Not Reportable 03/11/21 09:41 Bite Cells Not Reportable 03/11/21 09:41 Crenated Cell Not Reportable 03/11/21 09:41 Elliptocytes Not Reportable 03/11/21 09:41 Acanthocytes (Spur) Not Reportable 03/11/21 09:41 Rouleaux Not Reportable 03/11/21 09:41 Hemoglobin C Crystals Not Reportable 03/11/21 09:41 Schistocytes Not Reportable 03/11/21 09:41 Malaria parasites Not Reportable 03/11/21 09:41 [place] Bodies Not Reportable 03/11/21 09:41 Hem Pathologist Commnt No 03/11/21 09:41 D-Dimer 2206.91 ng/mlDDU (0-234) H 03/11/21 09:41 ABG pH 7.279 (7.320-7.450) L 03/12/21 04:35 POC ABG pCO2 30.2 mmHg (32.0-48.0) L 03/12/21 04:35 POC ABG pO2 183.7 mmHg (83-108) H 03/12/21 04:35 POC ABG HCO3 13.8 03/12/21 04:35 ABG O2 Saturation 99.0 (0-100) 03/12/21 04:35 POC ABG Base Excess -11.5 03/12/21 04:35 ABG Hemoglobin 14.2 (12.0-17.5) 03/12/21 04:35 ABG Oxyhemoglobin 98.6 (94-98) H 03/12/21 04:35 ABG Methemoglobin 0.1 (0.0-1.5) 03/12/21 04:35 ABG Sodium 136.8 mmol/L (136.0-145.0) 03/12/21 04:35 ABG Potassium 4.0 mmol/L (3.40-4.50) 03/12/21 04:35 ABG Chloride 107.0 mmol/L (98-107) 03/12/21 04:35 ABG Glucose 236 mg/dL (65-95) H 03/12/21 04:35 Carboxyhemoglobin 0.3 (0.5-1.5) L 03/12/21 04:35 FiO2 % 100.0 03/12/21 04:35 Sodium 153 mmol/L (137-145) H 03/14/21 04:44 Potassium 4.1 mmol/L (3.6-5.0) 03/14/21 04:44 Chloride 118.2 mmol/L (98-107) H 03/14/21 04:44 Carbon Dioxide 21 mmol/L (22-30) L 03/14/21 04:44 Anion Gap 18 mmol/L 03/14/21 04:44 BUN 58 mg/dL (9-20) H 03/14/21 04:44 Creatinine 3.4 mg/dL (0.8-1.3) H 03/14/21 04:44 Estimated GFR 24 ml/min 03/14/21 04:44 BUN/Creatinine Ratio 17 % 03/14/21 04:44 Glucose 380 mg/dL (75-100) H 03/14/21 04:44 POC Glucose 229 mg/dL (70-105) H 03/14/21 11:12 Hemoglobin A1c 8.2 % (4-6) H 03/14/21 04:44 Lactic Acid 1.60 mmol/L (0.7-2.0) 03/12/21 00:08 Calcium 8.9 mg/dL (8.4-10.2) 03/14/21 04:44 Ferritin 1640.0 ng/mL (30.0-300.0) H 03/11/21 09:41 Total Bilirubin 0.20 mg/dL (0.1-1.2) 03/14/21 04:44 AST 56 units/L (5-40) H 03/14/21 04:44 ALT 60 units/L (7-56) H 03/14/21 04:44 Alkaline Phosphatase 80 units/L (35-129) 03/14/21 04:44 Lactate Dehydrogenase 933 units/L (91-180) H 03/11/21 09:41 Troponin T < 0.010 ng/mL (0.00-0.029) 03/11/21 09:41 C-Reactive Protein 17.90 mg/dL (0.00-1.30) H 03/11/21 09:41 Total Protein 5.8 g/dL (6.3-8.2) L 03/14/21 04:44 Albumin 2.4 g/dL (3.9-5) L 03/14/21 04:44 Albumin/Globulin Ratio 0.7 % 03/14/21 04:44 Procalcitonin 4.61 ng/mL (<0.15) 03/11/21 09:41 Arterial Blood Glucose 236 mg/dL (65-95) H 03/12/21 04:35 Arterial Blood Ionized Calcium 5.0 mg/dL (4.6-5.3) 03/12/21 04:35 Urine Color Yellow (Yellow) 03/11/21 Unknown Urine Turbidity Clear (Clear) 03/11/21 Unknown Urine pH 6.0 (5.0-7.0) 03/11/21 Unknown Ur Specific [place] 1.011 (1.003-1.030) 03/11/21 Unknown Urine Protein >500 mg/dL (Negative) 03/11/21 Unknown Urine Glucose (UA) 50 mg/dL (Negative) 03/11/21 Unknown Urine Ketones 20 mg/dL (Negative) 03/11/21 Unknown Urine Blood Lg (Negative) 03/11/21 Unknown Urine Nitrite Neg (Negative) 03/11/21 Unknown Urine Bilirubin Neg (Negative) 03/11/21 Unknown Urine Urobilinogen < 2.0 mg/dL (<2.0) 03/11/21 Unknown Ur Leukocyte Esterase Neg (Negative) 03/11/21 Unknown Urine WBC (Auto) 1.0 /HPF (0.0-6.0) 03/11/21 Unknown Urine RBC (Auto) 1.0 /HPF (0.0-6.0) 03/11/21 Unknown Coronavirus (PCR) Positive (Negative) A 03/11/21 Unknown Microbiology: Microbiology 03/11/21 09:41 Peripheral/Venous Blood Culture - Preliminary NO GROWTH AFTER 72 HOURS 03/11/21 09:41 Peripheral/Venous Blood Culture - Preliminary NO GROWTH AFTER 72 HOURS [place]/IV: Voiding Method Condom Catheter Active Medications - Current Medications Current Medications: Generic Name Dose Route Start Last Admin Trade Name Freq PRN Reason Stop Dose Admin Acetaminophen 650 mg 03/11/21 12:00 03/14/21 03:54 Acetaminophen 325 Mg Tab PO 650 mg Q4H PRN Administration Pain MILD(1-3)/Fever >100.5/[place] Ascorbic Acid 500 mg 03/11/21 12:00 03/14/21 11:27 Ascorbic Acid 500 Mg Tab PO 500 mg BID GYPSY Administration Cholecalciferol 1,000 unit 03/11/21 13:00 03/14/21 11:27 Cholecalciferol (Vit D3) 1000 Unit (25 Mcg) Tab PO 1,000 unit QDAY GYPSY Administration Clonidine HCl 0.1 mg 03/13/21 20:00 03/14/21 00:13 Clonidine Tts 0.1 Mg/24 Hr Patch TD 0.1 mg QWEEK GYPSY Administration Dextrose 50 ml 03/13/21 14:44 Dextrose 50% In Water (25gm) 50 Ml Syringe IV Q30MIN PRN Hypoglycemia Protocol Heparin Sodium (Porcine) 5,000 unit 03/11/21 13:00 03/14/21 11:27 Heparin 5,000 Unit/1 Ml Vial SUB-Q 5,000 unit Q12HR GYPSY Administration Hydromorphone HCl 0.5 mg 03/11/21 12:00 03/13/21 07:46 Hydromorphone 1 Mg/1 Ml Inj IV 0.5 mg Q12H PRN Administration Pain , Severe (7-10) Ceftriaxone Sodium 2 gm in 100 mls @ 200 mls/hr 03/11/21 12:00 03/13/21 16:06 Rocephin/Ns 2 Gm/100 Ml IV 03/15/21 12:29 200 mls/hr Q24H GYPSY Administration Protocol REMDESIVIR 100 mg/ Sodium 250 mls @ 500 mls/hr 03/13/21 21:00 03/14/21 00:12 Chloride IV 03/16/21 21:29 500 mls/hr Q24HR@2100 GYPSY Administration Dextrose 1,000 mls @ 75 mls/hr 03/14/21 13:00 D5w IV DIRECT GYPSY Insulin Human Lispro 0 unit 03/13/21 16:30 03/14/21 11:36 Insulin Lispro 100 Unit/Ml SUB-Q 3 unit ACHS GYPSY Administration Protocol Lorazepam 1 mg 03/11/21 17:00 03/13/21 16:38 Lorazepam 2 Mg/Ml Vial IV 1 mg Q6H PRN Administration Agitation Methylprednisolone Sodium Succinate 40 mg 03/11/21 14:00 03/14/21 06:09 Methylprednisolone Sod Succinate 40 Mg/1 Ml Inj IV 40 mg Q8HR GYPSY Administration Ondansetron HCl 4 mg 03/11/21 12:00 Ondansetron 4 Mg/2 Ml Inj IV Q8H PRN Nausea And Vomiting Oxycodone/Acetaminophen 1 tab 03/11/21 12:00 Oxycodone /Acetaminophen 5-325mg Tab PO Q12H PRN Pain, Moderate (4-6) Sodium Chloride 10 ml 03/11/21 12:00 03/14/21 11:36 Sodium Chloride 0.9% 10 Ml Flush Syringe IV 10 ml BID GYPSY Administration Sodium Chloride 10 ml 03/11/21 12:00 Sodium Chloride 0.9% 10 Ml Flush Syringe IV PRN PRN LINE FLUSH Sodium Chloride 50 ml 03/12/21 14:00 03/14/21 00:13 Sodium Chloride 0.9% 50 Ml Ivpb IV 03/16/21 21:01 50 ml Q24HR@2100 GYPSY Administration Zinc Sulfate 220 mg 03/11/21 12:00 03/14/21 11:27 Zinc Sulfate 220 Mg Cap PO 220 mg BID GYPSY Administration
[2021-03-14] MEDS: cefTRIAXone/NS 2 GM/100 ML 2 GM/100 ML BAG IV SCH (13:19)
[2021-03-14] MEDS: DEXTROSE 5% IN WATER 1,000 ML IV SCH (13:19)
[2021-03-14] MEDS ORDERED: METOPROLOL TARTRATE 5 MG/5 ML INJ IV ONE (22:57)
[2021-03-15] MEDS: methylPREDNISolone Sod Succinate 40 MG/1 ML INJ IV SCH ×3 (05:00→21:15)
[2021-03-15 05:49] LABS: Albumin 2.6 g/dL (3.9-5); Calcium 9.2 mg/dL (8.4-10.2)
[2021-03-15] MEDS: DEXTROSE 5% IN WATER 1,000 ML IV SCH ×2 (06:29→20:01)
--- NOTE | 2021-03-15 08:32 | Progress Note ---
Assessment and Plan Assessment and plan: 50-year-old male history of CVA who presented with difficulty breathing. Found to have COVID-19 infection and was admitted for acute hypoxic respiratory failure and pneumonia. Prognosis remains guarded still requiring BiPAP. #Acute hypoxic respiratory failure -on NIPPV, wean to 70% FiO2 will continue -low threshold for intubation if condition worsens -continue steroids -Pulmonary following, appreciate assistance #Sepsis -secondary to COVID-19 and PNA -BCx ordered, NGTD -continue current management #Severe COVID-19 infection -unvaccinated -steroids, COVID vitamins -Remdesivir held due to renal function -s/p Actemra -ID following, appreciate assistance -inflammatory markers q48hr #Pneumonia -continue rocephin and azithromycin for now #CHRISTY -Worsening SCr 2.5 -> 3.4 -remdesivir held -urine studies ordered -Nephrology following, appreciate assistance #Type 2 diabetes -A1c 8.2% -Glucose in 300s to 400 range -Goal glucose 140-180s -Lantus dose increased from 10 to 15 units daily -If continues to have elevated sugars, will consider insulin drip #Hypernatremia -Sodium 152, will continue D5W infusion at 75 cc/h #Hypertension -Clonidine patch Total Time Spent with Patient (Minutes): 20 minutes History Interval history: No acute events overnight. Patient resting comfortably in bed, denies any comp laints. Still on BiPAP at 70% FiO2, sats in low 90s. Hospitalist Physical - Physical exam Narrative exam: GENERAL: Resting in bed no acute distress CHEST/LUNGS: Coarse breath sounds bilaterally. HEART/CARDIOVASCULAR: RRR. No murmur, rubs or gallops appreciated. ABDOMEN: +BS. NT/ND. NEURO: No focal deficits noted in CN II-XII. MUSCULOSKELETAL: Left upper extremity contracted at wrist. EXTREMITIES: No cyanosis, clubbing or edema. PSYCH: Cooperative. - Constitutional Vitals: Temp Pulse Resp BP Pulse Ox 98.4 F 64 27 H 157/100 93 03/15/21 04:00 03/15/21 08:22 03/15/21 08:22 03/15/21 08:22 03/15/21 08:22 General appearance: Present: mild distress HEART Score - HEART Score Troponin: Troponin T < 0.010 ng/mL (0.00-0.029) 03/11/21 09:41 Results - Labs CBC & Chem 7: 03/14/21 04:44 03/15/21 04:44 Labs: Laboratory Last Values WBC 10.4 K/mm3 (4.5-11.0) 03/14/21 04:44 RBC 4.49 M/mm3 (3.65-5.03) 03/14/21 04:44 Hgb 13.9 gm/dl (11.8-15.2) 03/14/21 04:44 Hct 41.3 % (35.5-45.6) 03/14/21 04:44 MCV 92 fl (84-94) 03/14/21 04:44 MCH 31 pg (28-32) 03/14/21 04:44 MCHC 34 % (32-34) 03/14/21 04:44 RDW 14.2 % (13.2-15.2) 03/14/21 04:44 Plt Count 132 K/mm3 (140-440) L 03/14/21 04:44 Add Manual Diff Complete 03/11/21 09:41 Total Counted 100 03/11/21 09:41 Seg Neutrophils % Biotechnologist 03/11/21 09:41 Seg Neuts % (Manual) 89.0 % (40.0-70.0) H 03/11/21 09:41 Band Neutrophils % 2.0 % 03/11/21 09:41 Lymphocytes % (Manual) 2.0 % (13.4-35.0) L 03/11/21 09:41 Monocytes % (Manual) 7.0 % (0.0-7.3) 03/11/21 09:41 Nucleated RBC % Not Reportable 03/11/21 09:41 Seg Neutrophils # Man 9.7 K/mm3 (1.8-7.7) H 03/11/21 09:41 Band Neutrophils # 0.2 K/mm3 03/11/21 09:41 Lymphocytes # (Manual) 0.2 K/mm3 (1.2-5.4) L 03/11/21 09:41 Abs React Lymphs (Man) 0.0 K/mm3 03/11/21 09:41 Monocytes # (Manual) 0.8 K/mm3 (0.0-0.8) 03/11/21 09:41 Eosinophils # (Manual) 0.0 K/mm3 (0.0-0.4) 03/11/21 09:41 Basophils # (Manual) 0.0 K/mm3 (0.0-0.1) 03/11/21 09:41 Metamyelocytes # 0.0 K/mm3 03/11/21 09:41 Myelocytes # 0.0 K/mm3 03/11/21 09:41 Promyelocytes # 0.0 K/mm3 03/11/21 09:41 Blast Cells # 0.0 K/mm3 03/11/21 09:41 WBC Morphology Not Reportable 03/11/21 09:41 Hypersegmented Neuts Not Reportable 03/11/21 09:41 Hyposegmented Neuts Not Reportable 03/11/21 09:41 Hypogranular Neuts Not Reportable 03/11/21 09:41 Smudge Cells Not Reportable 03/11/21 09:41 Toxic Granulation Not Reportable 03/11/21 09:41 Toxic Vacuolation Not Reportable 03/11/21 09:41 Dohle Bodies Not Reportable 03/11/21 09:41 Pelger-Huet Anomaly Not Reportable 03/11/21 09:41 Fina Rods Not Reportable 03/11/21 09:41 Platelet Estimate Consistent w auto 03/11/21 09:41 Clumped Platelets Not Reportable 03/11/21 09:41 Plt Clumps, EDTA Not Reportable 03/11/21 09:41 Large Platelets Not Reportable 03/11/21 09:41 Giant Platelets Not Reportable 03/11/21 09:41 Platelet Satelliting Not Reportable 03/11/21 09:41 Plt Morphology Comment Not Reportable 03/11/21 09:41 RBC Morphology Normal 03/11/21 09:41 Dimorphic RBCs Not Reportable 03/11/21 09:41 Polychromasia Not Reportable 03/11/21 09:41 Hypochromasia Not Reportable 03/11/21 09:41 Poikilocytosis Not Reportable 03/11/21 09:41 Anisocytosis Not Reportable 03/11/21 09:41 Microcytosis Not Reportable 03/11/21 09:41 Macrocytosis Not Reportable 03/11/21 09:41 Spherocytes Not Reportable 03/11/21 09:41 Pappenheimer Bodies Not Reportable 03/11/21 09:41 Sickle Cells Not Reportable 03/11/21 09:41 Target Cells Not Reportable 03/11/21 09:41 Tear Drop Cells Not Reportable 03/11/21 09:41 Ovalocytes Not Reportable 03/11/21 09:41 Helmet Cells Not Reportable 03/11/21 09:41 [place] Bodies Not Reportable 03/11/21 09:41 Warren Rings Not Reportable 03/11/21 09:41 Holliday Cells Not Reportable 03/11/21 09:41 Bite Cells Not Reportable 03/11/21 09:41 Crenated Cell Not Reportable 03/11/21 09:41 Elliptocytes Not Reportable 03/11/21 09:41 Acanthocytes (Spur) Not Reportable 03/11/21 09:41 Rouleaux Not Reportable 03/11/21 09:41 Hemoglobin C Crystals Not Reportable 03/11/21 09:41 Schistocytes Not Reportable 03/11/21 09:41 Malaria parasites Not Reportable 03/11/21 09:41 Martinez Bodies Not Reportable 03/11/21 09:41 Hem Pathologist Commnt No 03/11/21 09:41 D-Dimer 2206.91 ng/mlDDU (0-234) H 03/11/21 09:41 ABG pH 7.279 (7.320-7.450) L 03/12/21 04:35 POC ABG pCO2 30.2 mmHg (32.0-48.0) L 03/12/21 04:35 POC ABG pO2 183.7 mmHg (83-108) H 03/12/21 04:35 POC ABG HCO3 13.8 03/12/21 04:35 ABG O2 Saturation 99.0 (0-100) 03/12/21 04:35 POC ABG Base Excess -11.5 03/12/21 04:35 ABG Hemoglobin 14.2 (12.0-17.5) 03/12/21 04:35 ABG Oxyhemoglobin 98.6 (94-98) H 03/12/21 04:35 ABG Methemoglobin 0.1 (0.0-1.5) 03/12/21 04:35 ABG Sodium 136.8 mmol/L (136.0-145.0) 03/12/21 04:35 ABG Potassium 4.0 mmol/L (3.40-4.50) 03/12/21 04:35 ABG Chloride 107.0 mmol/L (98-107) 03/12/21 04:35 ABG Glucose 236 mg/dL (65-95) H 03/12/21 04:35 Carboxyhemoglobin 0.3 (0.5-1.5) L 03/12/21 04:35 FiO2 % 100.0 03/12/21 04:35 Sodium 152 mmol/L (137-145) H 03/15/21 04:44 Potassium 4.3 mmol/L (3.6-5.0) 03/15/21 04:44 Chloride 114.9 mmol/L (98-107) H 03/15/21 04:44 Carbon Dioxide 23 mmol/L (22-30) 03/15/21 04:44 Anion Gap 18 mmol/L 03/15/21 04:44 BUN 79 mg/dL (9-20) H 03/15/21 04:44 Creatinine 4.3 mg/dL (0.8-1.3) H 03/15/21 04:44 Estimated GFR 18 ml/min 03/15/21 04:44 BUN/Creatinine Ratio 18 % 03/15/21 04:44 Glucose 303 mg/dL (75-100) H 03/15/21 04:44 POC Glucose 435 mg/dL (70-105) H 03/14/21 22:42 Hemoglobin A1c 8.2 % (4-6) H 03/14/21 04:44 Lactic Acid 1.60 mmol/L (0.7-2.0) 03/12/21 00:08 Calcium 9.2 mg/dL (8.4-10.2) 03/15/21 04:44 Ferritin 1640.0 ng/mL (30.0-300.0) H 03/11/21 09:41 Total Bilirubin 0.30 mg/dL (0.1-1.2) 03/15/21 04:44 AST 41 units/L (5-40) H 03/15/21 04:44 ALT 56 units/L (7-56) 03/15/21 04:44 Alkaline Phosphatase 99 units/L (35-129) 03/15/21 04:44 Lactate Dehydrogenase 933 units/L (91-180) H 03/11/21 09:41 Troponin T < 0.010 ng/mL (0.00-0.029) 03/11/21 09:41 C-Reactive Protein 17.90 mg/dL (0.00-1.30) H 03/11/21 09:41 Total Protein 6.1 g/dL (6.3-8.2) L 03/15/21 04:44 Albumin 2.6 g/dL (3.9-5) L 03/15/21 04:44 Albumin/Globulin Ratio 0.7 % 03/15/21 04:44 Procalcitonin 4.61 ng/mL (<0.15) 03/11/21 09:41 Arterial Blood Glucose 236 mg/dL (65-95) H 03/12/21 04:35 Arterial Blood Ionized Calcium 5.0 mg/dL (4.6-5.3) 03/12/21 04:35 Urine Color Yellow (Yellow) 03/11/21 Unknown Urine Turbidity Clear (Clear) 03/11/21 Unknown Urine pH 6.0 (5.0-7.0) 03/11/21 Unknown Ur Specific [place] 1.011 (1.003-1.030) 03/11/21 Unknown Urine Protein >500 mg/dL (Negative) 03/11/21 Unknown Urine Glucose (UA) 50 mg/dL (Negative) 03/11/21 Unknown Urine Ketones 20 mg/dL (Negative) 03/11/21 Unknown Urine Blood Lg (Negative) 03/11/21 Unknown Urine Nitrite Neg (Negative) 03/11/21 Unknown Urine Bilirubin Neg (Negative) 03/11/21 Unknown Urine Urobilinogen < 2.0 mg/dL (<2.0) 03/11/21 Unknown Ur Leukocyte Esterase Neg (Negative) 03/11/21 Unknown Urine WBC (Auto) 1.0 /HPF (0.0-6.0) 03/11/21 Unknown Urine RBC (Auto) 1.0 /HPF (0.0-6.0) 03/11/21 Unknown Urine Sodium 37 mmol/L 03/14/21 Unknown Urine Urea Nitrogen 818 03/14/21 Unknown Coronavirus (PCR) Positive (Negative) A 03/11/21 Unknown Microbiology: Microbiology 03/11/21 09:41 Peripheral/Venous Blood Culture - Preliminary NO GROWTH AFTER 72 HOURS 03/11/21 09:41 Peripheral/Venous Blood Culture - Preliminary NO GROWTH AFTER 72 HOURS Zapata/IV: Voiding Method Condom Catheter Active Medications - Current Medications Current Medications: Generic Name Dose Route Start Last Admin Trade Name Freq PRN Reason Stop Dose Admin Acetaminophen 650 mg 03/11/21 12:00 03/14/21 03:54 Acetaminophen 325 Mg Tab PO 650 mg Q4H PRN Administration Pain MILD(1-3)/Fever >100.5/WASSERMAN Ascorbic Acid 500 mg 03/11/21 12:00 03/14/21 21:37 Ascorbic Acid 500 Mg Tab PO 500 mg BID GYPSY Administration Cholecalciferol 1,000 unit 03/11/21 13:00 03/14/21 11:27 Cholecalciferol (Vit D3) 1000 Unit (25 Mcg) Tab PO 1,000 unit QDAY GYPSY Administration Clonidine HCl 0.1 mg 03/13/21 20:00 03/14/21 00:13 Clonidine Tts 0.1 Mg/24 Hr Patch TD 0.1 mg QWEEK GYPSY Administration Dextrose 50 ml 03/13/21 14:44 Dextrose 50% In Water (25gm) 50 Ml Syringe IV Q30MIN PRN Hypoglycemia Protocol Heparin Sodium (Porcine) 5,000 unit 03/11/21 13:00 03/14/21 21:44 Heparin 5,000 Unit/1 Ml Vial SUB-Q 5,000 unit Q12HR GYPSY Administration Hydralazine HCl 10 mg 03/14/21 18:13 Hydralazine 20 Mg/1 Ml Inj IV Q6H PRN Hypertension Hydromorphone HCl 0.5 mg 03/11/21 12:00 03/13/21 07:46 Hydromorphone 1 Mg/1 Ml Inj IV 0.5 mg Q12H PRN Administration Pain , Severe (7-10) Ceftriaxone Sodium 2 gm in 100 mls @ 200 mls/hr 03/11/21 12:00 03/14/21 13:19 Rocephin/Ns 2 Gm/100 Ml IV 03/15/21 12:29 200 mls/hr Q24H GYPSY Administration Protocol Dextrose 1,000 mls @ 75 mls/hr 03/14/21 13:00 03/15/21 06:29 D5w IV 75 mls/hr DIRECT GYPSY Administration Insulin Glargine 15 units 03/15/21 10:00 Insulin Glargine 100 Units/Ml SUB-Q QAM GYPSY Insulin Human Lispro 0 unit 03/13/21 16:30 03/14/21 22:50 Insulin Lispro 100 Unit/Ml SUB-Q 8 unit ACHS GYPSY Administration Protocol Lorazepam 1 mg 03/11/21 17:00 03/13/21 16:38 Lorazepam 2 Mg/Ml Vial IV 1 mg Q6H PRN Administration Agitation Methylprednisolone Sodium Succinate 40 mg 03/11/21 14:00 03/15/21 05:00 Methylprednisolone Sod Succinate 40 Mg/1 Ml Inj IV 40 mg Q8HR GYPSY Administration Ondansetron HCl 4 mg 03/11/21 12:00 Ondansetron 4 Mg/2 Ml Inj IV Q8H PRN Nausea And Vomiting Oxycodone/Acetaminophen 1 tab 03/11/21 12:00 Oxycodone /Acetaminophen 5-325mg Tab PO Q12H PRN Pain, Moderate (4-6) Sodium Chloride 10 ml 03/11/21 12:00 03/14/21 21:03 Sodium Chloride 0.9% 10 Ml Flush Syringe IV 10 ml BID GYPSY Administration Sodium Chloride 10 ml 03/11/21 12:00 Sodium Chloride 0.9% 10 Ml Flush Syringe IV PRN PRN LINE FLUSH Sodium Chloride 50 ml 03/12/21 14:00 03/14/21 21:04 Sodium Chloride 0.9% 50 Ml Ivpb IV 03/16/21 21:01 50 ml Q24HR@2100 GYPSY Administration Zinc Sulfate 220 mg 03/11/21 12:00 03/14/21 21:37 Zinc Sulfate 220 Mg Cap PO 220 mg BID GYPSY Administration Nutrition/Malnutrition Assess - Dietary Evaluation Nutrition/Malnutrition Findings: Nutrition Notes Start: 03/14/21 12:54 Freq: Status: Active Protocol: Document 03/14/21 12:54 SG (Rec: 03/14/21 13:06 SG [id number]) Nutrition Notes Need for Assessment generated from: MD Order,mainframe consultant Initial or Follow up Assessment Current Diagnosis Acute Kidney Injury,Sepsis, Respiratory Failure Other Pertinent Diagnosis covid-19, diarrhea, pneumonia Current Diet regular Labs/Tests Na 153 BUN 58 Crea 3.4 BG 380 Height 5 ft 11 in Weight 69 kg Larose Body Weight (kg) 78.18 BMI 21.2 Subjective/Other Information Pt screen for Malnutrition risk. RD spoke with nurse. Nurse unable to determine at the time pt intake. Pt laying in bed in a covid secured room . Pt wearing bipap mask. Reported wt loss of 14-23 lbs prior to admission. 10% weight loss per bed scale readings this week. Burn Absent Trauma Absent Minimum of two criteria Yes Interpretation of Weight Loss (severe) >10% in 6 months Reduced Publicity Writer Strength Measurably Reduced (severe) #1 Nutrition Diagnosis Malnutrition Etiology ARF, covid pnemonia As Evidenced by Signs and Symptoms Pt weght loss of 10% over the past week. Is patient on ventilator? No Is Patient Ambulatory and/or Out of Bed No REE-([facility]-confined to bed) 1702.358 Calculation Used for Recommendations [facility] Additional Notes Protein needs 1.2-1.5 g/k -104 g/day fluid needs: 1ml/kcal Nutrition Intervention Change Diet Order: Add ONS for added protein and calories Add Supplement/Snack (indicate name/kcal Nepro with Carb Steady bid /protein ) Provides kCal: 850 Provides Protein (gm) 38 Goal #1 Pt to meet at least 75% of protein and kcal needs via diet and ONS Goal #2 Pt to have weight gain or an end to weight loss Follow-Up By: 03/16/21 Additional Comments f/u for intakes, respiratory status, wt changes
[2021-03-15] MEDS: HEPARIN 5,000 UNIT/1 ML VIAL SUB-Q SCH ×2 (10:13→21:16)
[2021-03-15] MEDS: ASCORBIC ACID 500 MG TAB PO SCH ×2 (10:13→21:15)
[2021-03-15] MEDS: INSULIN GLARGINE 100 UNITS/ML SUB-Q SCH (10:13)
[2021-03-15] MEDS: CHOLECALCIFEROL (VIT D3) 1000 UNIT (25 mcg) TAB PO SCH (10:13)
[2021-03-15] MEDS: ZINC SULFATE 220 MG CAP PO SCH ×2 (10:13→21:16)
[2021-03-15] MEDS: INSULIN LISPRO 100 UNIT/ML SUB-Q SCH ×4 (10:14→21:42)
--- NOTE | 2021-03-15 11:48 | Progress Note ---
Assessment and Plan - Patient Problems (1) Acute hypoxemic respiratory failure Current Visit: Yes Status: Acute (2) Pneumonia Current Visit: Yes Status: Acute (3) Pneumonia due to COVID-19 virus Current Visit: Yes Status: Acute (4) Renal insufficiency Current Visit: Yes Status: Acute (5) CVA (cerebral vascular accident) Current Visit: Yes Status: Acute Subjective Principal diagnosis: COVID-19 Interval history: awake on hiflo 60% mild to mod distress , cough nausea ass w cough Objective Vital Signs - 12hr 03/14/21 03/15/21 03/15/21 23:58 00:00 00:15 Temperature 98.6 F Pulse Rate 140 H 98 H 100 H Respiratory 30 H 25 H Rate Blood Pressure 173/108 149/105 O2 Sat by Pulse 100 100 Oximetry 03/15/21 03/15/21 03/15/21 00:31 00:45 01:01 Temperature Pulse Rate 113 H 112 H 110 H Respiratory 24 27 H 35 H Rate Blood Pressure 188/115 O2 Sat by Pulse 100 100 98 Oximetry 03/15/21 03/15/21 03/15/21 01:15 01:31 01:45 Temperature Pulse Rate 94 H 79 90 Respiratory 36 H 26 H 22 Rate Blood Pressure O2 Sat by Pulse 98 99 100 Oximetry 03/15/21 03/15/21 03/15/21 02:01 02:30 03:01 Temperature Pulse Rate 116 H 76 112 H Respiratory 30 H 19 29 H Rate Blood Pressure 143/104 151/103 O2 Sat by Pulse 99 100 100 Oximetry 03/15/21 03/15/21 03/15/21 03:31 03:34 04:00 Temperature 98.4 F Pulse Rate 115 H 89 112 H Respiratory 39 H 32 H Rate Blood Pressure 94/73 153/107 O2 Sat by Pulse 94 100 Oximetry 03/15/21 03/15/21 03/15/21 04:31 05:00 05:30 Temperature Pulse Rate 91 H 109 H 99 H Respiratory 28 H 33 H 33 H Rate Blood Pressure 157/113 150/103 149/100 O2 Sat by Pulse 79 L 79 L 98 Oximetry 03/15/21 03/15/21 03/15/21 06:00 06:31 07:00 Temperature Pulse Rate 70 91 H 111 H Respiratory 24 37 H 31 H Rate Blood Pressure 145/105 158/86 145/105 O2 Sat by Pulse 96 93 90 Oximetry 03/15/21 03/15/21 03/15/21 07:30 08:00 08:01 Temperature Pulse Rate 104 H 93 H 79 Respiratory 40 H 30 H Rate Blood Pressure 145/105 157/100 O2 Sat by Pulse 79 L 96 99 Oximetry 03/15/21 03/15/21 03/15/21 08:21 08:22 08:31 Temperature Pulse Rate 64 77 Respiratory 27 H 29 H Rate Blood Pressure 157/100 156/105 O2 Sat by Pulse 93 93 93 Oximetry 03/15/21 03/15/21 03/15/21 08:57 09:01 09:30 Temperature 98.6 F Pulse Rate 83 77 Respiratory 30 H 34 H Rate Blood Pressure 176/101 184/98 O2 Sat by Pulse 92 91 Oximetry 03/15/21 03/15/21 03/15/21 10:00 10:09 10:30 Temperature Pulse Rate 107 H 110 H Respiratory 28 H 38 H Rate Blood Pressure 144/102 163/97 O2 Sat by Pulse 85 94 93 Oximetry Constitutional: other (on hiflo) Eyes: non-icteric Neck: supple Ascultation: Bilateral: diminished breath sounds Cardiovascular: regular rate and rhythm Gastrointestinal: normoactive bowel sounds, soft, non-tender Extremities: other (decreased rom/ movement of lue mild contractures) CBC and BMP: 03/14/21 04:44 03/15/21 04:44 ABG, PT/INR, D-dimer: ABG ABG pH 7.279 (7.320-7.450) L 03/12/21 04:35 POC ABG pCO2 30.2 mmHg (32.0-48.0) L 03/12/21 04:35 POC ABG pO2 183.7 mmHg (83-108) H 03/12/21 04:35 POC ABG HCO3 13.8 03/12/21 04:35 ABG O2 Saturation 99.0 (0-100) 03/12/21 04:35 PT/INR, D-dimer D-Dimer 2206.91 ng/mlDDU (0-234) H 03/11/21 09:41 Abnormal lab findings: Abnormal Labs 03/11/21 03/11/21 03/11/21 09:41 09:41 09:41 Plt Count Seg Neuts % (Manual) 89.0 H Lymphocytes % (Manual) 2.0 L Seg Neutrophils # Man 9.7 H Lymphocytes # (Manual) 0.2 L D-Dimer ABG pH POC ABG pCO2 POC ABG pO2 ABG Oxyhemoglobin ABG Sodium ABG Chloride ABG Glucose Carboxyhemoglobin Sodium 127 L Chloride 90.6 L Carbon Dioxide 15 L BUN 42 H Creatinine 2.7 H Glucose 262 H POC Glucose Hemoglobin A1c Lactic Acid 3.70 H* Ferritin AST 148 H ALT 65 H Lactate Dehydrogenase C-Reactive Protein Total Protein Albumin 2.9 L Arterial Blood Glucose Arterial Blood Ionized Calcium Coronavirus (PCR) 03/11/21 03/11/21 03/11/21 09:41 09:41 09:41 Plt Count Seg Neuts % (Manual) Lymphocytes % (Manual) Seg Neutrophils # Man Lymphocytes # (Manual) D-Dimer 2206.91 H ABG pH POC ABG pCO2 POC ABG pO2 ABG Oxyhemoglobin ABG Sodium ABG Chloride ABG Glucose Carboxyhemoglobin Sodium Chloride Carbon Dioxide BUN Creatinine Glucose 261 H POC Glucose Hemoglobin A1c Lactic Acid Ferritin 1640.0 H AST ALT Lactate Dehydrogenase 933 H C-Reactive Protein 17.90 H Total Protein Albumin Arterial Blood Glucose Arterial Blood Ionized Calcium Coronavirus (PCR) 03/11/21 03/11/21 03/12/21 11:50 Unknown 04:35 Plt Count Seg Neuts % (Manual) Lymphocytes % (Manual) Seg Neutrophils # Man Lymphocytes # (Manual) D-Dimer ABG pH 7.316 L 7.279 L POC ABG pCO2 30.2 L POC ABG pO2 228.8 H 183.7 H ABG Oxyhemoglobin 98.7 H 98.6 H ABG Sodium 125.1 L ABG Chloride 97.0 L ABG Glucose 229 H 236 H Carboxyhemoglobin 0.1 L 0.3 L Sodium Chloride Carbon Dioxide BUN Creatinine Glucose POC Glucose Hemoglobin A1c Lactic Acid Ferritin AST ALT Lactate Dehydrogenase C-Reactive Protein Total Protein Albumin Arterial Blood Glucose 229 H 236 H Arterial Blood Ionized Calcium 4.5 L Coronavirus (PCR) Positive A 03/12/21 03/12/21 03/13/21 10:56 16:53 05:19 Plt Count Seg Neuts % (Manual) Lymphocytes % (Manual) Seg Neutrophils # Man Lymphocytes # (Manual) D-Dimer ABG pH POC ABG pCO2 POC ABG pO2 ABG Oxyhemoglobin ABG Sodium ABG Chloride ABG Glucose Carboxyhemoglobin Sodium 149 H Chloride 111.0 H 113.9 H Carbon Dioxide 13 L 15 L 18 L BUN 37 H 36 H 39 H Creatinine 2.2 H 2.3 H 2.5 H Glucose 254 H 212 H 304 H POC Glucose Hemoglobin A1c Lactic Acid Ferritin AST 110 H 100 H 88 H ALT 66 H 64 H 68 H Lactate Dehydrogenase C-Reactive Protein Total Protein 6.2 L Albumin 2.7 L 2.4 L 2.7 L Arterial Blood Glucose Arterial Blood Ionized Calcium Coronavirus (PCR) 03/13/21 03/14/21 03/14/21 23:06 00:03 04:44 Plt Count Seg Neuts % (Manual) Lymphocytes % (Manual) Seg Neutrophils # Man Lymphocytes # (Manual) D-Dimer ABG pH POC ABG pCO2 POC ABG pO2 ABG Oxyhemoglobin ABG Sodium ABG Chloride ABG Glucose Carboxyhemoglobin Sodium Chloride Carbon Dioxide BUN Creatinine Glucose POC Glucose 168 H 152 H Hemoglobin A1c 8.2 H Lactic Acid Ferritin AST ALT Lactate Dehydrogenase C-Reactive Protein Total Protein Albumin Arterial Blood Glucose Arterial Blood Ionized Calcium Coronavirus (PCR) 03/14/21 03/14/21 03/14/21 04:44 04:44 05:35 Plt Count 132 L Seg Neuts % (Manual) Lymphocytes % (Manual) Seg Neutrophils # Man Lymphocytes # (Manual) D-Dimer ABG pH POC ABG pCO2 POC ABG pO2 ABG Oxyhemoglobin ABG Sodium ABG Chloride ABG Glucose Carboxyhemoglobin Sodium 153 H Chloride 118.2 H Carbon Dioxide 21 L BUN 58 H Creatinine 3.4 H Glucose 380 H POC Glucose 331 H Hemoglobin A1c Lactic Acid Ferritin AST 56 H ALT 60 H Lactate Dehydrogenase C-Reactive Protein Total Protein 5.8 L Albumin 2.4 L Arterial Blood Glucose Arterial Blood Ionized Calcium Coronavirus (PCR) 03/14/21 03/14/21 03/14/21 11:12 15:11 22:42 Plt Count Seg Neuts % (Manual) Lymphocytes % (Manual) Seg Neutrophils # Man Lymphocytes # (Manual) D-Dimer ABG pH POC ABG pCO2 POC ABG pO2 ABG Oxyhemoglobin ABG Sodium ABG Chloride ABG Glucose Carboxyhemoglobin Sodium Chloride Carbon Dioxide BUN Creatinine Glucose POC Glucose 229 H 291 H 435 H Hemoglobin A1c Lactic Acid Ferritin AST ALT Lactate Dehydrogenase C-Reactive Protein Total Protein Albumin Arterial Blood Glucose Arterial Blood Ionized Calcium Coronavirus (PCR) 03/15/21 03/15/21 04:44 08:43 Plt Count Seg Neuts % (Manual) Lymphocytes % (Manual) Seg Neutrophils # Man Lymphocytes # (Manual) D-Dimer ABG pH POC ABG pCO2 POC ABG pO2 ABG Oxyhemoglobin ABG Sodium ABG Chloride ABG Glucose Carboxyhemoglobin Sodium 152 H Chloride 114.9 H Carbon Dioxide BUN 79 H Creatinine 4.3 H Glucose 303 H POC Glucose 281 H Hemoglobin A1c Lactic Acid Ferritin AST 41 H ALT Lactate Dehydrogenase C-Reactive Protein Total Protein 6.1 L Albumin 2.6 L Arterial Blood Glucose Arterial Blood Ionized Calcium Coronavirus (PCR)
[2021-03-15] MEDS: cefTRIAXone/NS 2 GM/100 ML 2 GM/100 ML BAG IV SCH (12:08)
--- NOTE | 2021-03-15 18:50 | Progress Note ---
Assessment and Plan Impression: * Nonoliguric acute kidney injury vs underlying CKD --Baseline renal function unknown * Acute hypoxic respiratory failure secondary to COVID 19 PNA * COVID 19 infection * Hypertension * Hypernatremia * Transaminitis Plan: * Patient with continued decline in renal function - increasing BUN/SCr; however, lytes are stable and patient with adequate UOP - 600ml today * Serologies ordered * Continue D5W 75ml/hour * May ultimately require renal replacement therapy * Have requested vascath insertion by critical care team * Remdesevir (hold for GFR<30), steroids, abx per ID * Cont Clonidine 0.1mg patch and IV hydralazine prn * Dose medications for renal function * Avoid potential nephrotoxins * AM labs * Plan of care discussed with patient - who nods his head that he understands possible need for dialysis. No next of kin information in demographics Subjective Date of service: 03/15/21 Principal diagnosis: COVID-19 Interval history: No acute events overnight. Chart, vitals, labs reviewed. Objective - Vital Signs Vital signs: Vital Signs - 12hr 03/15/21 03/15/21 03/15/21 07:00 07:30 08:00 Temperature Pulse Rate 111 H 104 H 93 H Respiratory 31 H 40 H Rate Blood Pressure 145/105 145/105 O2 Sat by Pulse 90 79 L 96 Oximetry 03/15/21 03/15/21 03/15/21 08:01 08:21 08:22 Temperature Pulse Rate 79 64 Respiratory 30 H 27 H Rate Blood Pressure 157/100 157/100 O2 Sat by Pulse 99 93 93 Oximetry 03/15/21 03/15/21 03/15/21 08:31 08:57 09:01 Temperature 98.6 F Pulse Rate 77 83 Respiratory 29 H 30 H Rate Blood Pressure 156/105 176/101 O2 Sat by Pulse 93 92 Oximetry 03/15/21 03/15/21 03/15/21 09:30 10:00 10:09 Temperature Pulse Rate 77 107 H Respiratory 34 H 28 H Rate Blood Pressure 184/98 144/102 O2 Sat by Pulse 91 85 94 Oximetry 03/15/21 03/15/21 03/15/21 10:30 11:00 11:30 Temperature Pulse Rate 110 H 120 H 128 H Respiratory 38 H 30 H 26 H Rate Blood Pressure 163/97 151/92 160/88 O2 Sat by Pulse 93 97 97 Oximetry 03/15/21 03/15/21 03/15/21 12:00 12:01 12:25 Temperature 97.8 F Pulse Rate 91 H 123 H Respiratory 38 H 43 H Rate Blood Pressure 152/111 148/99 O2 Sat by Pulse 96 92 Oximetry 03/15/21 03/15/21 03/15/21 12:31 13:00 13:30 Temperature Pulse Rate 107 H 131 H 119 H Respiratory 30 H 32 H 30 H Rate Blood Pressure 159/102 138/60 152/111 O2 Sat by Pulse 100 100 100 Oximetry 03/15/21 03/15/21 03/15/21 14:00 14:31 15:00 Temperature Pulse Rate 107 H 108 H 108 H Respiratory 33 H 35 H 32 H Rate Blood Pressure 146/105 154/94 149/108 O2 Sat by Pulse 99 100 97 Oximetry 03/15/21 03/15/21 03/15/21 15:30 16:00 16:30 Temperature Pulse Rate 115 H 116 H 111 H Respiratory 37 H 38 H 37 H Rate Blood Pressure 145/117 155/110 153/101 O2 Sat by Pulse 100 98 93 Oximetry 03/15/21 03/15/21 03/15/21 17:01 17:24 17:30 Temperature 98.3 F Pulse Rate 113 H 120 H Respiratory 31 H 30 H Rate Blood Pressure 141/104 143/110 O2 Sat by Pulse 98 98 Oximetry 03/15/21 03/15/21 17:43 18:00 Temperature Pulse Rate 120 H 108 H Respiratory 30 H 26 H Rate Blood Pressure 143/110 157/112 O2 Sat by Pulse 98 98 Oximetry - General Appearance General appearance: well-developed, well-nourished EENT: ATNC, other (BiPAP in place) Respiratory: Present: Other (isolation stethoscope not present in room) Cardiology: other (isolation stethoscope not present in room) Gastrointestinal: other (isolation stethoscope not present in room) Integumentary: warm and dry Musculoskeletal: other (no edema) Psychiatric: cooperative - Lab 03/14/21 04:44 03/15/21 04:44 Most recent lab results ABG pH 7.279 (7.320-7.450) L 03/12/21 04:35 ABG O2 Saturation 99.0 (0-100) 03/12/21 04:35 Calcium 9.2 mg/dL (8.4-10.2) 03/15/21 04:44 Urine Sodium 37 mmol/L 03/14/21 Unknown Medications & Allergies - Medications Allergies/Adverse Reactions: Allergies No Known Allergies Allergy (Verified 03/11/21 09:21) Home Medications: Home Medications Medication Instructions Recorded Confirmed Last Taken Type AtorvaSTATin [Lipitor] 10 mg PO QHS 03/14/21 03/14/21 Unknown History Metoprolol [Lopressor TAB] 50 mg PO BID 03/14/21 03/14/21 Unknown History Mycophenolate [Cellcept] 500 mg PO BID 03/14/21 03/14/21 Unknown History NIFEdipine [Nifedipine ER] 90 mg PO BID 03/14/21 03/14/21 Unknown History Ondansetron [Zofran Odt] 4 mg PO Q8HR 03/14/21 03/14/21 Unknown History Tacrolimus 1 mg PO Q12HR 03/14/21 03/14/21 Unknown History Active Medications: Generic Name Dose Route Start Last Admin Trade Name Freq PRN Reason Stop Dose Admin Acetaminophen 650 mg 03/11/21 12:00 03/14/21 03:54 Acetaminophen 325 Mg Tab PO 650 mg Q4H PRN Administration Pain MILD(1-3)/Fever >100.5/[place]ERMAN Ascorbic Acid 500 mg 03/11/21 12:00 03/15/21 10:13 Ascorbic Acid 500 Mg Tab PO 500 mg BID GYPSY Administration Cholecalciferol 1,000 unit 03/11/21 13:00 03/15/21 10:13 Cholecalciferol (Vit D3) 1000 Unit (25 Mcg) Tab PO 1,000 unit QDAY GYPSY Administration Clonidine HCl 0.1 mg 03/13/21 20:00 03/14/21 00:13 Clonidine Tts 0.1 Mg/24 Hr Patch TD 0.1 mg QWEEK GYPSY Administration Dextrose 50 ml 03/13/21 14:44 Dextrose 50% In Water (25gm) 50 Ml Syringe IV Q30MIN PRN Hypoglycemia Protocol Heparin Sodium (Porcine) 5,000 unit 03/11/21 13:00 03/15/21 10:13 Heparin 5,000 Unit/1 Ml Vial SUB-Q 5,000 unit Q12HR GYPSY Administration Hydralazine HCl 10 mg 03/14/21 18:13 Hydralazine 20 Mg/1 Ml Inj IV Q6H PRN Hypertension Hydromorphone HCl 0.5 mg 03/11/21 12:00 03/13/21 07:46 Hydromorphone 1 Mg/1 Ml Inj IV 0.5 mg Q12H PRN Administration Pain , Severe (7-10) Dextrose 1,000 mls @ 75 mls/hr 03/14/21 13:00 03/15/21 06:29 D5w IV 75 mls/hr DIRECT GYPSY Administration Insulin Glargine 15 units 03/15/21 10:00 03/15/21 10:13 Insulin Glargine 100 Units/Ml SUB-Q 15 units QAM GYPSY Administration Insulin Human Lispro 0 unit 03/13/21 16:30 03/15/21 17:08 Insulin Lispro 100 Unit/Ml SUB-Q 4 unit ACHS GYPSY Administration Protocol Lorazepam 1 mg 03/11/21 17:00 03/13/21 16:38 Lorazepam 2 Mg/Ml Vial IV 1 mg Q6H PRN Administration Agitation Methylprednisolone Sodium Succinate 40 mg 03/11/21 14:00 03/15/21 17:08 Methylprednisolone Sod Succinate 40 Mg/1 Ml Inj IV 40 mg Q8HR GYPSY Administration Ondansetron HCl 4 mg 03/11/21 12:00 03/15/21 12:08 Ondansetron 4 Mg/2 Ml Inj IV 4 mg Q8H PRN Administration Nausea And Vomiting Oxycodone/Acetaminophen 1 tab 03/11/21 12:00 Oxycodone /Acetaminophen 5-325mg Tab PO Q12H PRN Pain, Moderate (4-6) Sodium Chloride 10 ml 03/11/21 12:00 03/15/21 12:08 Sodium Chloride 0.9% 10 Ml Flush Syringe IV 10 ml BID GYPSY Administration Sodium Chloride 10 ml 03/11/21 12:00 Sodium Chloride 0.9% 10 Ml Flush Syringe IV PRN PRN LINE FLUSH Sodium Chloride 50 ml 03/12/21 14:00 03/14/21 21:04 Sodium Chloride 0.9% 50 Ml Ivpb IV 03/16/21 21:01 50 ml Q24HR@2100 GYPSY Administration Zinc Sulfate 220 mg 03/11/21 12:00 03/15/21 10:13 Zinc Sulfate 220 Mg Cap PO 220 mg BID GYPSY Administration
[2021-03-15] MEDS: hydrALAZINE 20 MG/1 ML INJ IV PRN (21:18)
[2021-03-15] MEDS: SODIUM CHLORIDE 0.9% 50 ML IVPB IV SCH (21:42)
[2021-03-16] MEDS: LORazepam 2 MG/ML VIAL IV PRN ×2 (00:08→05:19)
[2021-03-16 05:17] LABS: Hematocrit 44.4 % (35.5-45.6); Hemoglobin 14.7 gm/dl (11.8-15.2); Mean Corpuscular HGB Conc 33 % (32-34); Mean Corpuscular Volume 92 fl (84-94); Red Blood Count 4.81 M/mm3 (3.65-5.03); Red Cell Distribution Width 14.6 % (13.2-15.2)
[2021-03-16] MEDS: methylPREDNISolone Sod Succinate 40 MG/1 ML INJ IV SCH ×3 (05:19→22:49)
[2021-03-16 05:21] LABS: Platelet Count 87 K/mm3 (140-440)
[2021-03-16 05:31] LABS: Calcium 8.7 mg/dL (8.4-10.2)
--- NOTE | 2021-03-16 07:51 | Progress Note ---
Assessment and Plan Assessment and plan: 50-year-old male history of CVA who presented with difficulty breathing. Found to have COVID-19 infection and was admitted for acute hypoxic respiratory failure and pneumonia. Prognosis remains guarded still requiring BiPAP. #Acute hypoxic respiratory failure -on NIPPV, patient with tachypnea and tachycardia -precedex drip started for discomfort -low threshold for intubation if continues to be tachypneic; discussed with Dr. Cruz -continue steroids -Pulmonary following, appreciate assistance #Sepsis -secondary to COVID-19 and PNA -BCx ordered, NGTD -continue current management #Severe COVID-19 infection -unvaccinated -steroids, COVID vitamins -Remdesivir held due to renal function -s/p Actemra -ID following, appreciate assistance -inflammatory markers q48hr #Pneumonia -continue rocephin and azithromycin for now #CHRISTY -SCr 4.3 -> 3.4 -remdesivir held -Nephrology following, appreciate assistance #Type 2 diabetes -A1c 8.2% -Glucose in 115 to 400 range -Goal glucose 140-180s -continue lantus 15 units daily -SSI adjusted to q6h -If continues to have elevated sugars, will consider insulin drip #Hypernatremia -Sodium now 144 -continue D5W infusion #Hypertension -Clonidine patch Total Time Spent with Patient (Minutes): 30 minutes History Interval history: No acute events overnight. Patient appears to have increased work of breathing today with BiPAP. Hospitalist Physical - Physical exam Narrative exam: GENERAL: Resting in bed, mildly distressed CHEST/LUNGS: Tachypneic. Coarse breath sounds bilaterally. HEART/CARDIOVASCULAR: Tachycardic. No murmur, rubs or gallops appreciated. ABDOMEN: +BS. NT/ND. MUSCULOSKELETAL: Left upper extremity contracted at wrist. EXTREMITIES: No cyanosis, clubbing or edema. - Constitutional Vitals: Temp Pulse Resp BP Pulse Ox 98.6 F 138 H 32 H 162/111 95 03/16/21 04:00 03/16/21 06:00 03/16/21 06:00 03/16/21 06:00 03/16/21 06:00 General appearance: Present: mild distress HEART Score - HEART Score Troponin: Troponin T < 0.010 ng/mL (0.00-0.029) 03/11/21 09:41 Results - Labs CBC & Chem 7: 03/16/21 04:14 03/16/21 04:14 Labs: Laboratory Last Values WBC 14.3 K/mm3 (4.5-11.0) H 03/16/21 04:14 RBC 4.81 M/mm3 (3.65-5.03) 03/16/21 04:14 Hgb 14.7 gm/dl (11.8-15.2) 03/16/21 04:14 Hct 44.4 % (35.5-45.6) 03/16/21 04:14 MCV 92 fl (84-94) 03/16/21 04:14 MCH 31 pg (28-32) 03/16/21 04:14 MCHC 33 % (32-34) 03/16/21 04:14 RDW 14.6 % (13.2-15.2) 03/16/21 04:14 Plt Count 87 K/mm3 (140-440) L 03/16/21 04:14 Add Manual Diff Complete 03/11/21 09:41 Total Counted 100 03/11/21 09:41 Seg Neutrophils % Hub Bander 03/11/21 09:41 Seg Neuts % (Manual) 89.0 % (40.0-70.0) H 03/11/21 09:41 Band Neutrophils % 2.0 % 03/11/21 09:41 Lymphocytes % (Manual) 2.0 % (13.4-35.0) L 03/11/21 09:41 Monocytes % (Manual) 7.0 % (0.0-7.3) 03/11/21 09:41 Nucleated RBC % Not Reportable 03/11/21 09:41 Seg Neutrophils # Man 9.7 K/mm3 (1.8-7.7) H 03/11/21 09:41 Band Neutrophils # 0.2 K/mm3 03/11/21 09:41 Lymphocytes # (Manual) 0.2 K/mm3 (1.2-5.4) L 03/11/21 09:41 Abs React Lymphs (Man) 0.0 K/mm3 03/11/21 09:41 Monocytes # (Manual) 0.8 K/mm3 (0.0-0.8) 03/11/21 09:41 Eosinophils # (Manual) 0.0 K/mm3 (0.0-0.4) 03/11/21 09:41 Basophils # (Manual) 0.0 K/mm3 (0.0-0.1) 03/11/21 09:41 Metamyelocytes # 0.0 K/mm3 03/11/21 09:41 Myelocytes # 0.0 K/mm3 03/11/21 09:41 Promyelocytes # 0.0 K/mm3 03/11/21 09:41 Blast Cells # 0.0 K/mm3 03/11/21 09:41 WBC Morphology Not Reportable 03/11/21 09:41 Hypersegmented Neuts Not Reportable 03/11/21 09:41 Hyposegmented Neuts Not Reportable 03/11/21 09:41 Hypogranular Neuts Not Reportable 03/11/21 09:41 Smudge Cells Not Reportable 03/11/21 09:41 Toxic Granulation Not Reportable 03/11/21 09:41 Toxic Vacuolation Not Reportable 03/11/21 09:41 Dohle Bodies Not Reportable 03/11/21 09:41 Pelger-Huet Anomaly Not Reportable 03/11/21 09:41 Fina Rods Not Reportable 03/11/21 09:41 Platelet Estimate Consistent w auto 03/11/21 09:41 Clumped Platelets Not Reportable 03/11/21 09:41 Plt Clumps, EDTA Not Reportable 03/11/21 09:41 Large Platelets Not Reportable 03/11/21 09:41 Giant Platelets Not Reportable 03/11/21 09:41 Platelet Satelliting Not Reportable 03/11/21 09:41 Plt Morphology Comment Not Reportable 03/11/21 09:41 RBC Morphology Normal 03/11/21 09:41 Dimorphic RBCs Not Reportable 03/11/21 09:41 Polychromasia Not Reportable 03/11/21 09:41 Hypochromasia Not Reportable 03/11/21 09:41 Poikilocytosis Not Reportable 03/11/21 09:41 Anisocytosis Not Reportable 03/11/21 09:41 Microcytosis Not Reportable 03/11/21 09:41 Macrocytosis Not Reportable 03/11/21 09:41 Spherocytes Not Reportable 03/11/21 09:41 Pappenheimer Bodies Not Reportable 03/11/21 09:41 Sickle Cells Not Reportable 03/11/21 09:41 Target Cells Not Reportable 03/11/21 09:41 Tear Drop Cells Not Reportable 03/11/21 09:41 Ovalocytes Not Reportable 03/11/21 09:41 Helmet Cells Not Reportable 03/11/21 09:41 [place] Bodies Not Reportable 03/11/21 09:41 [place] Rings Not Reportable 03/11/21 09:41 [place] Cells Not Reportable 03/11/21 09:41 Bite Cells Not Reportable 03/11/21 09:41 Crenated Cell Not Reportable 03/11/21 09:41 Elliptocytes Not Reportable 03/11/21 09:41 Acanthocytes (Spur) Not Reportable 03/11/21 09:41 Rouleaux Not Reportable 03/11/21 09:41 Hemoglobin C Crystals Not Reportable 03/11/21 09:41 Schistocytes Not Reportable 03/11/21 09:41 Malaria parasites Not Reportable 03/11/21 09:41 [place] Bodies Not Reportable 03/11/21 09:41 Hem Pathologist Commnt No 03/11/21 09:41 D-Dimer 2206.91 ng/mlDDU (0-234) H 03/11/21 09:41 ABG pH 7.279 (7.320-7.450) L 03/12/21 04:35 POC ABG pCO2 30.2 mmHg (32.0-48.0) L 03/12/21 04:35 POC ABG pO2 183.7 mmHg (83-108) H 03/12/21 04:35 POC ABG HCO3 13.8 03/12/21 04:35 ABG O2 Saturation 99.0 (0-100) 03/12/21 04:35 POC ABG Base Excess -11.5 03/12/21 04:35 ABG Hemoglobin 14.2 (12.0-17.5) 03/12/21 04:35 ABG Oxyhemoglobin 98.6 (94-98) H 03/12/21 04:35 ABG Methemoglobin 0.1 (0.0-1.5) 03/12/21 04:35 ABG Sodium 136.8 mmol/L (136.0-145.0) 03/12/21 04:35 ABG Potassium 4.0 mmol/L (3.40-4.50) 03/12/21 04:35 ABG Chloride 107.0 mmol/L (98-107) 03/12/21 04:35 ABG Glucose 236 mg/dL (65-95) H 03/12/21 04:35 Carboxyhemoglobin 0.3 (0.5-1.5) L 03/12/21 04:35 FiO2 % 100.0 03/12/21 04:35 Sodium 144 mmol/L (137-145) D 03/16/21 04:14 Potassium 3.7 mmol/L (3.6-5.0) 03/16/21 04:14 Chloride 105.6 mmol/L (98-107) 03/16/21 04:14 Carbon Dioxide 23 mmol/L (22-30) 03/16/21 04:14 Anion Gap 19 mmol/L 03/16/21 04:14 BUN 75 mg/dL (9-20) H 03/16/21 04:14 Creatinine 3.4 mg/dL (0.8-1.3) H 03/16/21 04:14 Estimated GFR 24 ml/min 03/16/21 04:14 BUN/Creatinine Ratio 22 % 03/16/21 04:14 Glucose 434 mg/dL (75-100) H 03/16/21 04:14 POC Glucose 115 mg/dL (70-105) H 03/15/21 21:27 Hemoglobin A1c 8.2 % (4-6) H 03/14/21 04:44 Lactic Acid 1.60 mmol/L (0.7-2.0) 03/12/21 00:08 Calcium 8.7 mg/dL (8.4-10.2) 03/16/21 04:14 Ferritin 1640.0 ng/mL (30.0-300.0) H 03/11/21 09:41 Total Bilirubin 0.30 mg/dL (0.1-1.2) 03/15/21 04:44 AST 41 units/L (5-40) H 03/15/21 04:44 ALT 56 units/L (7-56) 03/15/21 04:44 Alkaline Phosphatase 99 units/L (35-129) 03/15/21 04:44 Lactate Dehydrogenase 933 units/L (91-180) H 03/11/21 09:41 Troponin T < 0.010 ng/mL (0.00-0.029) 03/11/21 09:41 C-Reactive Protein 17.90 mg/dL (0.00-1.30) H 03/11/21 09:41 Total Protein 6.1 g/dL (6.3-8.2) L 03/15/21 04:44 Albumin 2.6 g/dL (3.9-5) L 03/15/21 04:44 Albumin/Globulin Ratio 0.7 % 03/15/21 04:44 Procalcitonin 4.61 ng/mL (<0.15) 03/11/21 09:41 Arterial Blood Glucose 236 mg/dL (65-95) H 03/12/21 04:35 Arterial Blood Ionized Calcium 5.0 mg/dL (4.6-5.3) 03/12/21 04:35 Urine Color Yellow (Yellow) 03/11/21 Unknown Urine Turbidity Clear (Clear) 03/11/21 Unknown Urine pH 6.0 (5.0-7.0) 03/11/21 Unknown Ur Specific [place] 1.011 (1.003-1.030) 03/11/21 Unknown Urine Protein >500 mg/dL (Negative) 03/11/21 Unknown Urine Glucose (UA) 50 mg/dL (Negative) 03/11/21 Unknown Urine Ketones 20 mg/dL (Negative) 03/11/21 Unknown Urine Blood Lg (Negative) 03/11/21 Unknown Urine Nitrite Neg (Negative) 03/11/21 Unknown Urine Bilirubin Neg (Negative) 03/11/21 Unknown Urine Urobilinogen < 2.0 mg/dL (<2.0) 03/11/21 Unknown Ur Leukocyte Esterase Neg (Negative) 03/11/21 Unknown Urine WBC (Auto) 1.0 /HPF (0.0-6.0) 03/11/21 Unknown Urine RBC (Auto) 1.0 /HPF (0.0-6.0) 03/11/21 Unknown Urine Sodium 37 mmol/L 03/14/21 Unknown Urine Urea Nitrogen 818 03/14/21 Unknown Coronavirus (PCR) Positive (Negative) A 03/11/21 Unknown Microbiology: Microbiology 03/11/21 09:41 Peripheral/Venous Blood Culture - Preliminary NO GROWTH AFTER 4 DAYS 03/11/21 09:41 Peripheral/Venous Blood Culture - Preliminary NO GROWTH AFTER 4 DAYS [place]/IV: Voiding Method Condom Catheter Active Medications - Current Medications Current Medications: Generic Name Dose Route Start Last Admin Trade Name Freq PRN Reason Stop Dose Admin Acetaminophen 650 mg 03/11/21 12:00 03/14/21 03:54 Acetaminophen 325 Mg Tab PO 650 mg Q4H PRN Administration Pain MILD(1-3)/Fever >100.5/[place] Ascorbic Acid 500 mg 03/11/21 12:00 03/15/21 21:15 Ascorbic Acid 500 Mg Tab PO 500 mg BID GYPSY Administration Cholecalciferol 1,000 unit 03/11/21 13:00 03/15/21 10:13 Cholecalciferol (Vit D3) 1000 Unit (25 Mcg) Tab PO 1,000 unit QDAY GYPSY Administration Clonidine HCl 0.1 mg 03/20/21 08:00 Clonidine Tts 0.1 Mg/24 Hr Patch TD Fr GYPSY Dextrose 50 ml 03/13/21 14:44 Dextrose 50% In Water (25gm) 50 Ml Syringe IV Q30MIN PRN Hypoglycemia Protocol Heparin Sodium (Porcine) 5,000 unit 03/11/21 13:00 03/15/21 21:16 Heparin 5,000 Unit/1 Ml Vial SUB-Q 5,000 unit Q12HR GYPSY Administration Hydralazine HCl 10 mg 03/14/21 18:13 03/15/21 21:18 Hydralazine 20 Mg/1 Ml Inj IV 10 mg Q6H PRN Administration Hypertension Hydromorphone HCl 0.5 mg 03/11/21 12:00 03/13/21 07:46 Hydromorphone 1 Mg/1 Ml Inj IV 0.5 mg Q12H PRN Administration Pain , Severe (7-10) Dextrose 1,000 mls @ 75 mls/hr 03/14/21 13:00 03/15/21 20:01 D5w IV 75 mls/hr DIRECT GYPSY Administration Insulin Glargine 15 units 03/15/21 10:00 03/15/21 10:13 Insulin Glargine 100 Units/Ml SUB-Q 15 units QAM GYPSY Administration Insulin Human Lispro 0 unit 03/13/21 16:30 03/15/21 21:42 Insulin Lispro 100 Unit/Ml SUB-Q Not Given ACHS [facility] Protocol Lorazepam 1 mg 03/11/21 17:00 03/16/21 05:19 Lorazepam 2 Mg/Ml Vial IV 1 mg Q6H PRN Administration Agitation Methylprednisolone Sodium Succinate 40 mg 03/11/21 14:00 03/16/21 05:19 Methylprednisolone Sod Succinate 40 Mg/1 Ml Inj IV 03/21/21 06:01 40 mg Q8HR GYPSY Administration Ondansetron HCl 4 mg 03/11/21 12:00 03/15/21 12:08 Ondansetron 4 Mg/2 Ml Inj IV 4 mg Q8H PRN Administration Nausea And Vomiting Oxycodone/Acetaminophen 1 tab 03/11/21 12:00 Oxycodone /Acetaminophen 5-325mg Tab PO Q12H PRN Pain, Moderate (4-6) Sodium Chloride 10 ml 03/11/21 12:00 03/15/21 21:16 Sodium Chloride 0.9% 10 Ml Flush Syringe IV 10 ml BID GYPSY Administration Sodium Chloride 10 ml 03/11/21 12:00 Sodium Chloride 0.9% 10 Ml Flush Syringe IV PRN PRN LINE FLUSH Zinc Sulfate 220 mg 03/11/21 12:00 03/15/21 21:16 Zinc Sulfate 220 Mg Cap PO 220 mg BID GYPSY Administration Nutrition/Malnutrition Assess - Dietary Evaluation Nutrition/Malnutrition Findings: Nutrition Notes Start: 03/14/21 12:54 Freq: Status: Active Protocol: Document 03/14/21 12:54 SG (Rec: 03/14/21 13:06 SG [email or web address]) Nutrition Notes 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 RD spoke with nurse. Nurse unable to determine at the time pt intake. Pt laying in bed in a covid secured room . Pt wearing bipap mask. Reported wt loss of 14-23 lbs prior to admission. 10% weight loss per bed scale readings this week. 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 Is patient on ventilator? No Is Patient Ambulatory and/or Out of Bed No REE-([facility]-confined to bed) 5021.458 Calculation Used for Recommendations [facility] Additional Notes Protein needs 1.2-1.5 g/k -104 g/day fluid needs: 1ml/kcal Nutrition Intervention Change Diet Order: Add ONS for added protein and calories Add Supplement/Snack (indicate name/kcal Nepro with Carb Steady bid /protein ) Provides kCal: 850 Provides Protein (gm) 38 Goal #1 Pt to meet at least 75% of protein and kcal needs via diet and ONS Goal #2 Pt to have weight gain or an end to weight loss Follow-Up By: 03/16/21 Additional Comments f/u for intakes, respiratory status, wt changes
[2021-03-16] MEDS: INSULIN GLARGINE 100 UNITS/ML SUB-Q SCH (09:32)
[2021-03-16] MEDS: INSULIN LISPRO 100 UNIT/ML SUB-Q SCH ×5 (09:32→23:50)
[2021-03-16] MEDS: CHOLECALCIFEROL (VIT D3) 1000 UNIT (25 mcg) TAB PO SCH (09:33)
[2021-03-16] MEDS: ZINC SULFATE 220 MG CAP PO SCH ×2 (09:33→22:52)
[2021-03-16] MEDS: HEPARIN 5,000 UNIT/1 ML VIAL SUB-Q SCH ×2 (09:33→22:49)
[2021-03-16] MEDS: ASCORBIC ACID 500 MG TAB PO SCH ×2 (09:33→22:52)
[2021-03-16] MEDS ORDERED: METOPROLOL TARTRATE 5 MG/5 ML INJ IV SCH (11:00)
[2021-03-16] MEDS ORDERED: diphenhydrAMINE 50 MG/ML VIAL ONE (12:56)
[2021-03-16] MEDS ORDERED: HALOPERIDOL LACTATE 5 MG/1 ML INJ ONE (12:56)
[2021-03-16] MEDS ORDERED: DEXTROSE 50% IN WATER (25GM) 50 ML SYRINGE IV PRN (12:56)
[2021-03-16] MEDS ORDERED: fentaNYL 100 MCG/2 ML INJ ONE (13:39)
--- NOTE | 2021-03-16 14:36 | Progress Note ---
Assessment and Plan Cultures: Blood culture 03/11/2021 no growth today SARS CoV2 PCR positive Assessment: 50-year-old male with history of CVA admitted on 03/11/2021 secondary to shortness of breath/altered mental status: #Severe sepsis: with low grade fever, leukocytosis up; likely secondary to COVID-19. Procalcitonin elevated #Severe COVID pneumonia: CXR with bilateral pneumonia. Infllammatory markers elevated. CRP 17.9. D-dimer 22 6. Ferritin 1640. #Acute hypoxemic respiratory failure: O2 sat dropped to 70%. Remains on BiPAP. #Elevated LFTs: from COVID. AST 148, ALT 65. #CHRISTY: from COVID. Initial creatinine 2.7. Improving. GFR over 30. #Acute diarrhea likely secondary to COVID-19. #AMS: likely due to hypoxia. #DM: uncontrolled #Subcutaneous emphysema: Likely secondary to COVID-19. Recommendations: -Chest x-ray evaluation for pneumothorax -To have HD -Pulmonary on board, close monitoring, high risk for intubation -Steroids per pulmonary total 10 days -Stopped remdesivir after second dose due to renal failure -Completed Tocilizumab 8 mg/kg x1 03/12/2021 -Monitor inflammatory markers - ferritin, Ddimer, CRP, LDH -Continue anticoagulation per System Protocol -Prone positioning as possible -Completed ceftriaxone for 5 days and azithromycin for 3 days All laboratory, cultures and imaging were reviewed. Very Guarded prognosis Will follow Malathi Gaona MD Infectious Diseases Supervisor [employer] [facility] ([facility]) M [phone] O [phone] Subjective Date of service: 03/16/21 Principal diagnosis: COVID-19 Interval history: Patient is on BiPAP, somnolent, in moderate respiratory distress. Noted low- grade fever, tachycardia. Objective - Exam Narrative Exam: General appearance: Somnolent respiratory distress on BiPAP Eyes: anicteric sclerae, moist conjunctivae; no lid-lag; PERRLA HENT: Normocephalic, Atraumatic; normal external ears, nares open, oropharynx limited due to BiPAP mask Neck: supple, tracheal midline, no JVD Lungs: Coarse breath sound bilaterally CV: Tachycardic Abdomen: Soft, non-tender; no masses or hepatosplenomegaly Extremities: no edema, no cyanosis Skin: Extensive subcutaneous emphysema in the base of the neck Psych: Somnolent Neuro: Somnolent - Constitutional Vitals: Vital Signs Temp Pulse Resp BP Pulse Ox 100.3 F H 106 H 37 H 84/51 98 03/16/21 12:00 03/16/21 14:18 03/16/21 14:18 03/16/21 14:18 03/16/21 14:18 Temperature -Last 24 Hours Temperature 100.3 F Temperature 98.4 F Temperature 98.6 F Temperature 98.2 F Temperature 98.3 F Temperature 98.3 F - Labs CBC & Chem 7: 03/16/21 04:14 03/16/21 04:14 Labs: Abnormal lab results 03/15/21 03/16/21 03/16/21 Range/Units 21:27 04:14 04:14 WBC 14.3 H (4.5-11.0) K/mm3 Plt Count 87 L (140-440) K/mm3 BUN 75 H (9-20) mg/dL Creatinine 3.4 H (0.8-1.3) mg/dL Glucose 434 H (75-100) mg/dL POC Glucose 115 H (70-105) mg/dL 03/16/21 03/16/21 Range/Units 07:52 11:05 WBC (4.5-11.0) K/mm3 Plt Count (140-440) K/mm3 BUN (9-20) mg/dL Creatinine (0.8-1.3) mg/dL Glucose (75-100) mg/dL POC Glucose 439 H 277 H (70-105) mg/dL
[2021-03-16] MEDS ORDERED: HALOPERIDOL LACTATE 5 MG/1 ML INJ IM ONE (14:46)
[2021-03-16] MEDS ORDERED: fentaNYL 100 MCG/2 ML INJ IV ONE (14:46)
[2021-03-16] MEDS ORDERED: LORazepam 2 MG/ML VIAL IV ONE (14:47)
[2021-03-16] MEDS ORDERED: diphenhydrAMINE 50 MG/ML VIAL IV ONE (14:47)
--- NOTE | 2021-03-16 14:51 | Progress Note ---
Assessment and Plan 50 y/o male with acute respiratory failure secondary to COVID 19 03/16/21: Vascath placed. Niece at [phone] is the point of contact and decision maker. She has consented for vascath. Also discussed the possibility that patient may require mechanical ventilator in the near future if no improvement. Will attempt to use precedex to help keep patient calm so that bipap/avaps can work. Volume removal per renal. Guarded prognosis. : Hold on increasing steroids as of now. Prone if able. Continue AVAPS today but spoke with RT about weaning FiO2 for sats >88%. Monitor fluids. No lasix right now given renal dysfunction. Reviewed ID note and agree with their plan and assessment. Guarded prognosis. 1. Pron if able 2. Wean bipap to HFNC if able 3. Steroids, may need to increase 4. Does not appear to be a candiate for remdesivir given renal failure 5. May be able to get actemra 6. Minimize additional fluids 7. Guarded prognosis given renal failure and COVID state. Subjective Date of service: 03/16/21 Principal diagnosis: COVID-19 Interval history: Patient was severely tachypnic this am on bipap. Good sats but very labored breathing. Also in need of HD. Consent obtained for vascath placement. Objective Vital Signs - 12hr 03/16/21 03/16/21 03/16/21 03:01 03:30 04:00 Temperature 98.6 F Pulse Rate 152 H 156 H 146 H Respiratory 42 H 41 H 44 H Rate Blood Pressure 169/102 O2 Sat by Pulse 96 96 97 Oximetry 03/16/21 03/16/21 03/16/21 04:31 05:00 05:30 Temperature Pulse Rate 156 H 147 H 142 H Respiratory 50 H 42 H 39 H Rate Blood Pressure 167/106 168/114 O2 Sat by Pulse 97 95 95 Oximetry 03/16/21 03/16/21 03/16/21 05:51 06:00 06:30 Temperature Pulse Rate 145 H 138 H 144 H Respiratory 40 H 32 H 42 H Rate Blood Pressure 171/116 162/111 156/111 O2 Sat by Pulse 92 95 93 Oximetry 03/16/21 03/16/21 03/16/21 07:01 07:30 08:00 Temperature 98.4 F Pulse Rate 127 H 116 H 118 H Respiratory 38 H 43 H 38 H Rate Blood Pressure 165/115 165/114 164/115 O2 Sat by Pulse 95 96 97 Oximetry 03/16/21 03/16/21 03/16/21 08:30 09:00 09:30 Temperature Pulse Rate 120 H 105 H 119 H Respiratory 36 H 40 H 36 H Rate Blood Pressure 168/111 168/110 154/109 O2 Sat by Pulse 96 95 100 Oximetry 03/16/21 03/16/21 03/16/21 10:00 10:05 10:31 Temperature Pulse Rate 131 H 130 H 120 H Respiratory 66 H 42 H 42 H Rate Blood Pressure 173/105 170/115 O2 Sat by Pulse 95 98 95 Oximetry 03/16/21 03/16/21 03/16/21 11:01 11:30 12:00 Temperature 100.3 F H Pulse Rate 126 H 120 H 116 H Respiratory 42 H 40 H 38 H Rate Blood Pressure 144/107 148/107 162/112 O2 Sat by Pulse 98 96 99 Oximetry 03/16/21 03/16/21 12:30 14:18 Temperature Pulse Rate 117 H 106 H Respiratory 37 H 37 H Rate Blood Pressure 138/102 84/51 O2 Sat by Pulse 95 98 Oximetry Constitutional: other (on hiflo) Eyes: non-icteric Neck: supple Ascultation: Bilateral: diminished breath sounds Cardiovascular: regular rate and rhythm Gastrointestinal: normoactive bowel sounds, soft, non-tender Extremities: other (decreased rom/ movement of lue mild contractures) CBC and BMP: 03/16/21 04:14 03/16/21 04:14 ABG, PT/INR, D-dimer: ABG ABG pH 7.279 (7.320-7.450) L 03/12/21 04:35 POC ABG pCO2 30.2 mmHg (32.0-48.0) L 03/12/21 04:35 POC ABG pO2 183.7 mmHg (83-108) H 03/12/21 04:35 POC ABG HCO3 13.8 03/12/21 04:35 ABG O2 Saturation 99.0 (0-100) 03/12/21 04:35 PT/INR, D-dimer D-Dimer 2206.91 ng/mlDDU (0-234) H 03/11/21 09:41 Abnormal lab findings: Abnormal Labs 03/11/21 03/11/21 03/11/21 09:41 09:41 09:41 WBC Plt Count Seg Neuts % (Manual) 89.0 H Lymphocytes % (Manual) 2.0 L Seg Neutrophils # Man 9.7 H Lymphocytes # (Manual) 0.2 L D-Dimer ABG pH POC ABG pCO2 POC ABG pO2 ABG Oxyhemoglobin ABG Sodium ABG Chloride ABG Glucose Carboxyhemoglobin Sodium 127 L Chloride 90.6 L Carbon Dioxide 15 L BUN 42 H Creatinine 2.7 H Glucose 262 H POC Glucose Hemoglobin A1c Lactic Acid 3.70 H* Ferritin AST 148 H ALT 65 H Lactate Dehydrogenase C-Reactive Protein Total Protein Albumin 2.9 L Arterial Blood Glucose Arterial Blood Ionized Calcium Coronavirus (PCR) 03/11/21 03/11/21 03/11/21 09:41 09:41 09:41 WBC Plt Count Seg Neuts % (Manual) Lymphocytes % (Manual) Seg Neutrophils # Man Lymphocytes # (Manual) D-Dimer 2206.91 H ABG pH POC ABG pCO2 POC ABG pO2 ABG Oxyhemoglobin ABG Sodium ABG Chloride ABG Glucose Carboxyhemoglobin Sodium Chloride Carbon Dioxide BUN Creatinine Glucose 261 H POC Glucose Hemoglobin A1c Lactic Acid Ferritin 1640.0 H AST ALT Lactate Dehydrogenase 933 H C-Reactive Protein 17.90 H Total Protein Albumin Arterial Blood Glucose Arterial Blood Ionized Calcium Coronavirus (PCR) 03/11/21 03/11/21 03/12/21 11:50 Unknown 04:35 WBC Plt Count Seg Neuts % (Manual) Lymphocytes % (Manual) Seg Neutrophils # Man Lymphocytes # (Manual) D-Dimer ABG pH 7.316 L 7.279 L POC ABG pCO2 30.2 L POC ABG pO2 228.8 H 183.7 H ABG Oxyhemoglobin 98.7 H 98.6 H ABG Sodium 125.1 L ABG Chloride 97.0 L ABG Glucose 229 H 236 H Carboxyhemoglobin 0.1 L 0.3 L Sodium Chloride Carbon Dioxide BUN Creatinine Glucose POC Glucose Hemoglobin A1c Lactic Acid Ferritin AST ALT Lactate Dehydrogenase C-Reactive Protein Total Protein Albumin Arterial Blood Glucose 229 H 236 H Arterial Blood Ionized Calcium 4.5 L Coronavirus (PCR) Positive A 03/12/21 03/12/21 03/13/21 10:56 16:53 05:19 WBC Plt Count Seg Neuts % (Manual) Lymphocytes % (Manual) Seg Neutrophils # Man Lymphocytes # (Manual) D-Dimer ABG pH POC ABG pCO2 POC ABG pO2 ABG Oxyhemoglobin ABG Sodium ABG Chloride ABG Glucose Carboxyhemoglobin Sodium 149 H Chloride 111.0 H 113.9 H Carbon Dioxide 13 L 15 L 18 L BUN 37 H 36 H 39 H Creatinine 2.2 H 2.3 H 2.5 H Glucose 254 H 212 H 304 H POC Glucose Hemoglobin A1c Lactic Acid Ferritin AST 110 H 100 H 88 H ALT 66 H 64 H 68 H Lactate Dehydrogenase C-Reactive Protein Total Protein 6.2 L Albumin 2.7 L 2.4 L 2.7 L Arterial Blood Glucose Arterial Blood Ionized Calcium Coronavirus (PCR) 03/13/21 03/14/21 03/14/21 23:06 00:03 04:44 WBC Plt Count Seg Neuts % (Manual) Lymphocytes % (Manual) Seg Neutrophils # Man Lymphocytes # (Manual) D-Dimer ABG pH POC ABG pCO2 POC ABG pO2 ABG Oxyhemoglobin ABG Sodium ABG Chloride ABG Glucose Carboxyhemoglobin Sodium Chloride Carbon Dioxide BUN Creatinine Glucose POC Glucose 168 H 152 H Hemoglobin A1c 8.2 H Lactic Acid Ferritin AST ALT Lactate Dehydrogenase C-Reactive Protein Total Protein Albumin Arterial Blood Glucose Arterial Blood Ionized Calcium Coronavirus (PCR) 03/14/21 03/14/21 03/14/21 04:44 04:44 05:35 WBC Plt Count 132 L Seg Neuts % (Manual) Lymphocytes % (Manual) Seg Neutrophils # Man Lymphocytes # (Manual) D-Dimer ABG pH POC ABG pCO2 POC ABG pO2 ABG Oxyhemoglobin ABG Sodium ABG Chloride ABG Glucose Carboxyhemoglobin Sodium 153 H Chloride 118.2 H Carbon Dioxide 21 L BUN 58 H Creatinine 3.4 H Glucose 380 H POC Glucose 331 H Hemoglobin A1c Lactic Acid Ferritin AST 56 H ALT 60 H Lactate Dehydrogenase C-Reactive Protein Total Protein 5.8 L Albumin 2.4 L Arterial Blood Glucose Arterial Blood Ionized Calcium Coronavirus (PCR) 03/14/21 03/14/21 03/14/21 11:12 15:11 22:42 WBC Plt Count Seg Neuts % (Manual) Lymphocytes % (Manual) Seg Neutrophils # Man Lymphocytes # (Manual) D-Dimer ABG pH POC ABG pCO2 POC ABG pO2 ABG Oxyhemoglobin ABG Sodium ABG Chloride ABG Glucose Carboxyhemoglobin Sodium Chloride Carbon Dioxide BUN Creatinine Glucose POC Glucose 229 H 291 H 435 H Hemoglobin A1c Lactic Acid Ferritin AST ALT Lactate Dehydrogenase C-Reactive Protein Total Protein Albumin Arterial Blood Glucose Arterial Blood Ionized Calcium Coronavirus (PCR) 03/15/21 03/15/21 03/15/21 04:44 08:43 11:50 WBC Plt Count Seg Neuts % (Manual) Lymphocytes % (Manual) Seg Neutrophils # Man Lymphocytes # (Manual) D-Dimer ABG pH POC ABG pCO2 POC ABG pO2 ABG Oxyhemoglobin ABG Sodium ABG Chloride ABG Glucose Carboxyhemoglobin Sodium 152 H Chloride 114.9 H Carbon Dioxide BUN 79 H Creatinine 4.3 H Glucose 303 H POC Glucose 281 H 340 H Hemoglobin A1c Lactic Acid Ferritin AST 41 H ALT Lactate Dehydrogenase C-Reactive Protein Total Protein 6.1 L Albumin 2.6 L Arterial Blood Glucose Arterial Blood Ionized Calcium Coronavirus (PCR) 03/15/21 03/16/21 03/16/21 21:27 04:14 04:14 WBC 14.3 H Plt Count 87 L Seg Neuts % (Manual) Lymphocytes % (Manual) Seg Neutrophils # Man Lymphocytes # (Manual) D-Dimer ABG pH POC ABG pCO2 POC ABG pO2 ABG Oxyhemoglobin ABG Sodium ABG Chloride ABG Glucose Carboxyhemoglobin Sodium Chloride Carbon Dioxide BUN 75 H Creatinine 3.4 H Glucose 434 H POC Glucose 115 H Hemoglobin A1c Lactic Acid Ferritin AST ALT Lactate Dehydrogenase C-Reactive Protein Total Protein Albumin Arterial Blood Glucose Arterial Blood Ionized Calcium Coronavirus (PCR) 03/16/21 03/16/21 07:52 11:05 WBC Plt Count Seg Neuts % (Manual) Lymphocytes % (Manual) Seg Neutrophils # Man Lymphocytes # (Manual) D-Dimer ABG pH POC ABG pCO2 POC ABG pO2 ABG Oxyhemoglobin ABG Sodium ABG Chloride ABG Glucose Carboxyhemoglobin Sodium Chloride Carbon Dioxide BUN Creatinine Glucose POC Glucose 439 H 277 H Hemoglobin A1c Lactic Acid Ferritin AST ALT Lactate Dehydrogenase C-Reactive Protein Total Protein Albumin Arterial Blood Glucose Arterial Blood Ionized Calcium Coronavirus (PCR)
--- NOTE | 2021-03-16 15:15 | Procedure Note ---
Date of procedure: 03/16/21 Pre-op diagnosis: Hypoxic respiratory failure, CHRISTY Post-op diagnosis: same Procedure: Statement of consent: Consent obtained from [facility] catheter was placed in Right femoral. Sterile technique was utilized. Area prepped with chlorhexidine/ full body drape utilized. Ultrasound guidance was used to find and access the vessel. Line was placed without difficulty. Line was sutured and tegaderm dressing applied. Biopatch not available Pt tolerated procedure well. VS remained stable throughout procedure. Patient was premedicated with Benadryl, Ativan and Haldol and was on a Precedex drip during procedure. CCT: 60 min (time spent placing line not included in daily critical care time) Anesthesia: local Surgeon: ZEB MANZO Rail Layer: KARAN COTTER Estimated blood loss: minimal Disposition: no change
--- NOTE | 2021-03-16 15:47 | XRay Report ---
CHEST 1 VIEW INDICATION: shortness of breathe. COMPARISON: 5 days prior FINDINGS: Support devices: None. Heart: Stable. Lungs/Pleura: There is a new tiny left pneumothorax. There may be a tiny right apical pneumothorax as well. Bilateral mild patchy pulmonary opacities are stable. There is extensive pneumomediastinum. There is also extensive soft tissue gas in the neck/supraclavic ular regions. IMPRESSION: 1. New extensive pneumomediastinum, tiny bilateral pneumothoraces, soft tissue gas in the neck/suprac lavicular regions. CRITICAL RESULT: Time of Discovery (PUTTY MIXER/CDT): 2:32 PM Time of Communication (PUTTY MIXER/CDT): 2:34 PM Licensed Practitioner Receiving Report: VANNA Lynn. Read-Back Performed: Yes. Signer Name: Brayden Hayes MD Signed: 03/16/2021 3:43 PM Workstation Name: [email or web address]
--- NOTE | 2021-03-16 18:19 | Progress Note ---
Assessment and Plan Impression: * Nonoliguric acute kidney injury vs underlying CKD --Baseline renal function unknown * Acute hypoxic respiratory failure secondary to COVID 19 PNA * COVID 19 infection * Hypertension * Hypernatremia * Transaminitis Plan: * Creatinine improved from yesterday, UOP 1.1 L * Vasc cath noted, hold off HD for now, assess daily * Serologies pending * Switch from D5W 75ml/hour to LR * Remdesevir (hold for GFR<30), steroids, abx per ID * Cont Clonidine 0.1mg patch and IV hydralazine prn * Dose medications for renal function * Avoid potential nephrotoxins * AM labs Subjective Date of service: 03/16/21 Principal diagnosis: COVID-19 Interval history: Nursing, interdisciplinary and consult notes were reviewed Vitals, input and output, medications and labs were reviewed On BiPAP Objective - Exam Narrative Exam: In order to reduce transmission risk given Covid, exam deferred. Primary team exam reviewed in detail. - Vital Signs Vital signs: Vital Signs - 12hr 03/16/21 03/16/21 03/16/21 06:30 07:01 07:30 Temperature Pulse Rate 144 H 127 H 116 H Respiratory 42 H 38 H 43 H Rate Blood Pressure 156/111 165/115 165/114 O2 Sat by Pulse 93 95 96 Oximetry 03/16/21 03/16/21 03/16/21 08:00 08:30 09:00 Temperature 98.4 F Pulse Rate 118 H 120 H 105 H Respiratory 38 H 36 H 40 H Rate Blood Pressure 164/115 168/111 168/110 O2 Sat by Pulse 97 96 95 Oximetry 03/16/21 03/16/21 03/16/21 09:30 10:00 10:05 Temperature Pulse Rate 119 H 131 H 130 H Respiratory 36 H 66 H 42 H Rate Blood Pressure 154/109 173/105 O2 Sat by Pulse 100 95 98 Oximetry 03/16/21 03/16/21 03/16/21 10:31 11:01 11:30 Temperature Pulse Rate 120 H 126 H 120 H Respiratory 42 H 42 H 40 H Rate Blood Pressure 170/115 144/107 148/107 O2 Sat by Pulse 95 98 96 Oximetry 03/16/21 03/16/21 03/16/21 12:00 12:30 13:01 Temperature 100.3 F H Pulse Rate 105 H 117 H 117 H Respiratory 32 H 37 H 31 H Rate Blood Pressure 162/112 138/102 103/65 O2 Sat by Pulse 95 95 94 Oximetry 03/16/21 03/16/21 03/16/21 13:30 14:00 14:18 Temperature Pulse Rate 111 H 107 H 106 H Respiratory 34 H 29 H 37 H Rate Blood Pressure 86/54 79/46 84/51 O2 Sat by Pulse 95 98 98 Oximetry 03/16/21 03/16/21 03/16/21 14:30 15:00 15:30 Temperature Pulse Rate 106 H 101 H 101 H Respiratory 33 H 28 H 35 H Rate Blood Pressure 91/48 98/64 119/87 O2 Sat by Pulse 98 99 98 Oximetry 03/16/21 03/16/21 03/16/21 16:00 16:30 17:00 Temperature 98.2 F Pulse Rate 103 H 106 H 105 H Respiratory 31 H 37 H 29 H Rate Blood Pressure 100/67 138/103 113/85 O2 Sat by Pulse 97 85 94 Oximetry 03/16/21 17:30 Temperature Pulse Rate 102 H Respiratory 24 Rate Blood Pressure 88/56 O2 Sat by Pulse 97 Oximetry - Lab 03/16/21 04:14 03/16/21 04:14 Most recent lab results ABG pH 7.279 (7.320-7.450) L 03/12/21 04:35 ABG O2 Saturation 99.0 (0-100) 03/12/21 04:35 Calcium 8.7 mg/dL (8.4-10.2) 03/16/21 04:14 Urine Sodium 37 mmol/L 03/14/21 Unknown Medications & Allergies - Medications Allergies/Adverse Reactions: Allergies No Known Allergies Allergy (Verified 03/11/21 09:21) Home Medications: Home Medications Medication Instructions Recorded Confirmed Last Taken Type AtorvaSTATin [Lipitor] 10 mg PO QHS 03/14/21 03/14/21 Unknown History Metoprolol [Lopressor TAB] 50 mg PO BID 03/14/21 03/14/21 Unknown History Mycophenolate [Cellcept] 500 mg PO BID 03/14/21 03/14/21 Unknown History NIFEdipine [Nifedipine ER] 90 mg PO BID 03/14/21 03/14/21 Unknown History Ondansetron [Zofran Odt] 4 mg PO Q8HR 03/14/21 03/14/21 Unknown History Tacrolimus 1 mg PO Q12HR 03/14/21 03/14/21 Unknown History Active Medications: Generic Name Dose Route Start Last Admin Trade Name Fatou PRN Reason Stop Dose Admin Acetaminophen 650 mg 03/11/21 12:00 03/14/21 03:54 Acetaminophen 325 Mg Tab PO 650 mg Q4H PRN Administration Pain MILD(1-3)/Fever >100.5/WASSERMAN Ascorbic Acid 500 mg 03/11/21 12:00 03/16/21 09:33 Ascorbic Acid 500 Mg Tab PO 500 mg BID GYPSY Administration Cholecalciferol 1,000 unit 03/11/21 13:00 03/16/21 09:33 Cholecalciferol (Vit D3) 1000 Unit (25 Mcg) Tab PO 1,000 unit QDAY GYPSY Administration Clonidine HCl 0.1 mg 03/20/21 08:00 Clonidine Tts 0.1 Mg/24 Hr Patch TD Fr GYPSY Dextrose 50 ml 03/13/21 14:44 Dextrose 50% In Water (25gm) 50 Ml Syringe IV Q30MIN PRN Hypoglycemia Protocol Heparin Sodium (Porcine) 5,000 unit 03/11/21 13:00 03/16/21 09:33 Heparin 5,000 Unit/1 Ml Vial SUB-Q 5,000 unit Q12HR GYPSY Administration Hydralazine HCl 10 mg 03/14/21 18:13 03/15/21 21:18 Hydralazine 20 Mg/1 Ml Inj IV 10 mg Q6H PRN Administration Hypertension Hydromorphone HCl 0.5 mg 03/11/21 12:00 03/13/21 07:46 Hydromorphone 1 Mg/1 Ml Inj IV 0.5 mg Q12H PRN Administration Pain , Severe (7-10) Dextrose 1,000 mls @ 75 mls/hr 03/14/21 13:00 03/15/21 20:01 D5w IV 75 mls/hr DIRECT GYPSY Administration Dexmedetomidine HCl 400 mcg/ 104 mls @ 3.588 mls/hr 03/16/21 12:00 03/16/21 13:00 Sodium Chloride IV 0.3 mcg/kg/hr TITRATE GYPSY 5.382 mls/hr Titration Protocol 0.2 MCG/KG/HR Insulin Glargine 15 units 03/15/21 10:00 03/16/21 09:32 Insulin Glargine 100 Units/Ml SUB-Q 15 units QAM GYPSY Administration Insulin Human Lispro 0 unit 03/16/21 13:00 03/16/21 15:04 Insulin Lispro 100 Unit/Ml SUB-Q 4 unit Q6HR GYPSY Administration Protocol Lorazepam 1 mg 03/11/21 17:00 03/16/21 05:19 Lorazepam 2 Mg/Ml Vial IV 1 mg Q6H PRN Administration Agitation Methylprednisolone Sodium Succinate 40 mg 03/11/21 14:00 03/16/21 15:04 Methylprednisolone Sod Succinate 40 Mg/1 Ml Inj IV 03/21/21 06:01 40 mg Q8HR GYPSY Administration Ondansetron HCl 4 mg 03/11/21 12:00 03/15/21 12:08 Ondansetron 4 Mg/2 Ml Inj IV 4 mg Q8H PRN Administration Nausea And Vomiting Oxycodone/Acetaminophen 1 tab 03/11/21 12:00 Oxycodone /Acetaminophen 5-325mg Tab PO Q12H PRN Pain, Moderate (4-6) Sodium Chloride 10 ml 03/11/21 12:00 03/16/21 09:34 Sodium Chloride 0.9% 10 Ml Flush Syringe IV 10 ml BID GYPSY Administration Sodium Chloride 10 ml 03/11/21 12:00 Sodium Chloride 0.9% 10 Ml Flush Syringe IV PRN PRN LINE FLUSH Zinc Sulfate 220 mg 03/11/21 12:00 03/16/21 09:33 Zinc Sulfate 220 Mg Cap PO 220 mg BID GYPSY Administration
[2021-03-16] MEDS: LACTATED RINGERS 1,000 ML IV SCH (18:32)
[2021-03-17] MEDS: LACTATED RINGERS 1,000 ML IV SCH (04:35)
[2021-03-17] MEDS: methylPREDNISolone Sod Succinate 40 MG/1 ML INJ IV SCH ×3 (06:23→22:40)
[2021-03-17] MEDS: INSULIN LISPRO 100 UNIT/ML SUB-Q SCH ×3 (06:47→17:34)
[2021-03-17 06:53] LABS: Hematocrit 41.1 % (35.5-45.6); Hemoglobin 13.5 gm/dl (11.8-15.2); Mean Corpuscular HGB Conc 33 % (32-34); Mean Corpuscular Volume 90 fl (84-94); Red Blood Count 4.55 M/mm3 (3.65-5.03); Red Cell Distribution Width 14.5 % (13.2-15.2)
[2021-03-17 06:59] LABS: Platelet Count 70 K/mm3 (140-440)
[2021-03-17 07:08] LABS: C-Reactive Protein 1.5 mg/dL (0.00-1.30)
[2021-03-17] MEDS ORDERED: SODIUM CHLORIDE 0.9% 100 ML IV PRN (08:54)
--- NOTE | 2021-03-17 08:54 | Event Note ---
Date: 03/17/21 Spoke with Niece at [phone] - POC. Consent was obtained for HD. Possible complications on HD were discussed with niece including cardiac arrhythmias and arrest. Brenda Huff MD
[2021-03-17] MEDS: CHOLECALCIFEROL (VIT D3) 1000 UNIT (25 mcg) TAB PO SCH (09:11)
[2021-03-17] MEDS: ZINC SULFATE 220 MG CAP PO SCH ×2 (09:11→22:40)
[2021-03-17] MEDS: ASCORBIC ACID 500 MG TAB PO SCH ×2 (09:11→22:40)
--- NOTE | 2021-03-17 09:19 | XRay Report ---
CHEST 1 VIEW 03/17/2021 8:06 AM INDICATION / CLINICAL INFORMATION: Follow up Pneumothoraces, sub Q emphysema. COMPARISON: Yesterday. FINDINGS: SUPPORT DEVICES: None. HEART / MEDIASTINUM: Large pneumomediastinum is similar to the prior study. The heart size is normal. LUNGS / PLEURA: Mild patchy parenchymal opacities in the mid to lower lung zones are stable. No signi ficant pleural effusion. Small left apical pneumothorax is slightly larger. Probable tiny right apica l pneumothorax has not changed significantly. ADDITIONAL FINDINGS: Extensive subcutaneous emphysema, right greater than left, has increased. There is generalized lucency overlying the upper abdomen on the current exam. IMPRESSION: 1. Generalized lucency in the upper abdomen raises the possibility of pneumoperitoneum, possibly rela david to the pneumomediastinum. Upright or left lateral decubitus views may be helpful in further evalu ation. Alternatively, CT of the abdomen/pelvis could be performed if the patient has abdominal sympto ms. 2. Small left apical pneumothorax is slightly larger. Tiny right apical pneumothorax is probably unch anged. Pneumomediastinum is stable. There is increasing subcutaneous emphysema bilaterally, greater o n the right. Signer Name: Niraj Garza MD Signed: 03/17/2021 9:15 AM Workstation Name: [id number]
--- NOTE | 2021-03-17 09:41 | Progress Note ---
Assessment and Plan 50 y/o male with acute respiratory failure secondary to COVID 19 03/17/21: Hopeful dialysis today. Ordered stat CXR and does shows small apical PTX, slightly larger but still not a point that I feel needs CT placement. Will repeat later this afternoon. Will have RT turn of oxygen and attempt to wean pressure to help with resorption. Prognosis overall remains guarded to poor, especially with renal dysfunction plus COVID. D-Dimer now is >10K, however platelets dropping on heparin. Stopping Sub Q prophylactic therapy, checking bi lateral dopplers and will send hiT PANEL. May consider doing argatroban therapy. 03/16/21: Vascath placed. Minerva at [phone] is the point of contact and decision maker. She has consented for vascath. Also discussed the possibility that patient may require mechanical ventilator in the near future if no improvement. Will attempt to use precedex to help keep patient calm so that bipap/avaps can work. Volume removal per renal. Guarded prognosis. : Hold on increasing steroids as of now. Prone if able. Continue AVAPS today but spoke with RT about weaning FiO2 for sats >88%. Monitor fluids. No lasix right now given renal dysfunction. Reviewed ID note and agree with their plan and assessment. Guarded prognosis. 1. Prone if able 2. Wean bipap to HFNC if able 3. Steroids, may need to increase 4. Does not appear to be a candidate for remdesivir given renal failure 5. May be able to get actemra 6. Minimize additional fluids 7. Guarded prognosis given renal failure and COVID state. Subjective Date of service: 03/17/21 Principal diagnosis: COVID-19 Interval history: No acute events. Still with Sub Q emphysema, slightly worse. Repeating CXR in the am. Objective Vital Signs - 12hr 03/16/21 03/16/21 03/16/21 21:45 22:00 22:15 Temperature Pulse Rate 101 H 102 H 97 H Pulse Rate [ From Monitor] Respiratory 35 H 32 H 30 H Rate Blood Pressure 99/69 91/64 99/69 O2 Sat by Pulse 93 94 95 Oximetry 03/16/21 03/16/21 03/16/21 22:30 22:45 23:00 Temperature Pulse Rate 101 H 100 H 99 H Pulse Rate [ From Monitor] Respiratory 32 H 28 H 27 H Rate Blood Pressure 93/61 91/64 95/65 O2 Sat by Pulse 94 94 93 Oximetry 03/16/21 03/16/21 03/16/21 23:15 23:30 23:45 Temperature Pulse Rate 105 H 100 H 101 H Pulse Rate [ From Monitor] Respiratory 36 H 30 H 26 H Rate Blood Pressure 93/61 130/102 95/65 O2 Sat by Pulse 90 90 89 Oximetry 03/17/21 03/17/21 03/17/21 00:00 00:15 00:30 Temperature 98.5 F Pulse Rate 102 H 105 H 102 H Pulse Rate [ 105 H From Monitor] Respiratory 30 H 27 H 25 H Rate Blood Pressure 97/70 97/70 93/62 O2 Sat by Pulse 89 91 92 Oximetry 03/17/21 03/17/21 03/17/21 00:45 01:00 01:15 Temperature Pulse Rate 97 H 100 H 100 H Pulse Rate [ From Monitor] Respiratory 23 15 31 H Rate Blood Pressure 97/70 95/66 95/66 O2 Sat by Pulse 92 93 94 Oximetry 03/17/21 03/17/21 03/17/21 01:30 01:45 02:00 Temperature Pulse Rate 97 H 95 H 96 H Pulse Rate [ From Monitor] Respiratory 20 24 25 H Rate Blood Pressure 102/68 95/66 105/76 O2 Sat by Pulse 94 94 94 Oximetry 03/17/21 03/17/21 03/17/21 02:15 02:30 02:45 Temperature Pulse Rate 97 H 96 H 95 H Pulse Rate [ From Monitor] Respiratory 31 H 26 H 31 H Rate Blood Pressure 102/68 111/81 105/76 O2 Sat by Pulse 94 93 93 Oximetry 03/17/21 03/17/21 03/17/21 03:00 03:15 03:30 Temperature Pulse Rate 94 H 95 H 95 H Pulse Rate [ From Monitor] Respiratory 25 H 24 38 H Rate Blood Pressure 112/84 111/81 111/79 O2 Sat by Pulse 91 93 93 Oximetry 03/17/21 03/17/21 03/17/21 03:45 04:00 04:05 Temperature 98.6 F Pulse Rate 95 H 96 H 95 H Pulse Rate [ From Monitor] Respiratory 36 H 25 H Rate Blood Pressure 112/84 104/77 O2 Sat by Pulse 94 93 Oximetry 03/17/21 03/17/21 03/17/21 04:15 04:30 04:45 Temperature Pulse Rate 95 H 92 H 95 H Pulse Rate [ From Monitor] Respiratory 29 H 25 H 29 H Rate Blood Pressure 111/79 123/90 104/77 O2 Sat by Pulse 94 94 94 Oximetry 03/17/21 03/17/21 03/17/21 05:00 05:15 05:31 Temperature Pulse Rate 93 H 93 H 99 H Pulse Rate [ From Monitor] Respiratory 31 H 32 H 24 Rate Blood Pressure 113/78 113/78 122/86 O2 Sat by Pulse 93 95 94 Oximetry 03/17/21 03/17/21 03/17/21 05:45 06:00 06:15 Temperature Pulse Rate 96 H 95 H 95 H Pulse Rate [ From Monitor] Respiratory 35 H 28 H 30 H Rate Blood Pressure 122/86 122/95 122/95 O2 Sat by Pulse 88 94 94 Oximetry 03/17/21 03/17/21 03/17/21 06:30 06:45 07:00 Temperature Pulse Rate 98 H 94 H 92 H Pulse Rate [ From Monitor] Respiratory 32 H 26 H 19 Rate Blood Pressure 133/94 122/95 119/86 O2 Sat by Pulse 85 93 90 Oximetry 03/17/21 08:19 Temperature Pulse Rate 92 H Pulse Rate [ From Monitor] Respiratory 35 H Rate Blood Pressure 121/91 O2 Sat by Pulse 93 Oximetry Constitutional: other (on hiflo) Eyes: non-icteric Neck: supple Ascultation: Bilateral: diminished breath sounds Cardiovascular: regular rate and rhythm Gastrointestinal: normoactive bowel sounds, soft, non-tender Extremities: other (decreased rom/ movement of lue mild contractures) CBC and BMP: 03/17/21 06:00 03/17/21 06:00 ABG, PT/INR, D-dimer: ABG ABG pH 7.279 (7.320-7.450) L 03/12/21 04:35 POC ABG pCO2 30.2 mmHg (32.0-48.0) L 03/12/21 04:35 POC ABG pO2 183.7 mmHg (83-108) H 03/12/21 04:35 POC ABG HCO3 13.8 03/12/21 04:35 ABG O2 Saturation 99.0 (0-100) 03/12/21 04:35 PT/INR, D-dimer D-Dimer > 60759 ng/mlDDU (0-234) H 03/17/21 06:00 Abnormal lab findings: Abnormal Labs 03/11/21 03/11/21 03/11/21 09:41 09:41 09:41 WBC Plt Count Seg Neuts % (Manual) 89.0 H Lymphocytes % (Manual) 2.0 L Seg Neutrophils # Man 9.7 H Lymphocytes # (Manual) 0.2 L D-Dimer ABG pH POC ABG pCO2 POC ABG pO2 ABG Oxyhemoglobin ABG Sodium ABG Chloride ABG Glucose Carboxyhemoglobin Sodium 127 L Chloride 90.6 L Carbon Dioxide 15 L BUN 42 H Creatinine 2.7 H Glucose 262 H POC Glucose Hemoglobin A1c Lactic Acid 3.70 H* Ferritin AST 148 H ALT 65 H Lactate Dehydrogenase C-Reactive Protein Total Protein Albumin 2.9 L Arterial Blood Glucose Arterial Blood Ionized Calcium Coronavirus (PCR) 03/11/21 03/11/21 03/11/21 09:41 09:41 09:41 WBC Plt Count Seg Neuts % (Manual) Lymphocytes % (Manual) Seg Neutrophils # Man Lymphocytes # (Manual) D-Dimer 2206.91 H ABG pH POC ABG pCO2 POC ABG pO2 ABG Oxyhemoglobin ABG Sodium ABG Chloride ABG Glucose Carboxyhemoglobin Sodium Chloride Carbon Dioxide BUN Creatinine Glucose 261 H POC Glucose Hemoglobin A1c Lactic Acid Ferritin 1640.0 H AST ALT Lactate Dehydrogenase 933 H C-Reactive Protein 17.90 H Total Protein Albumin Arterial Blood Glucose Arterial Blood Ionized Calcium Coronavirus (PCR) 03/11/21 03/11/21 03/12/21 11:50 Unknown 04:35 WBC Plt Count Seg Neuts % (Manual) Lymphocytes % (Manual) Seg Neutrophils # Man Lymphocytes # (Manual) D-Dimer ABG pH 7.316 L 7.279 L POC ABG pCO2 30.2 L POC ABG pO2 228.8 H 183.7 H ABG Oxyhemoglobin 98.7 H 98.6 H ABG Sodium 125.1 L ABG Chloride 97.0 L ABG Glucose 229 H 236 H Carboxyhemoglobin 0.1 L 0.3 L Sodium Chloride Carbon Dioxide BUN Creatinine Glucose POC Glucose Hemoglobin A1c Lactic Acid Ferritin AST ALT Lactate Dehydrogenase C-Reactive Protein Total Protein Albumin Arterial Blood Glucose 229 H 236 H Arterial Blood Ionized Calcium 4.5 L Coronavirus (PCR) Positive A 03/12/21 03/12/21 03/13/21 10:56 16:53 05:19 WBC Plt Count Seg Neuts % (Manual) Lymphocytes % (Manual) Seg Neutrophils # Man Lymphocytes # (Manual) D-Dimer ABG pH POC ABG pCO2 POC ABG pO2 ABG Oxyhemoglobin ABG Sodium ABG Chloride ABG Glucose Carboxyhemoglobin Sodium 149 H Chloride 111.0 H 113.9 H Carbon Dioxide 13 L 15 L 18 L BUN 37 H 36 H 39 H Creatinine 2.2 H 2.3 H 2.5 H Glucose 254 H 212 H 304 H POC Glucose Hemoglobin A1c Lactic Acid Ferritin AST 110 H 100 H 88 H ALT 66 H 64 H 68 H Lactate Dehydrogenase C-Reactive Protein Total Protein 6.2 L Albumin 2.7 L 2.4 L 2.7 L Arterial Blood Glucose Arterial Blood Ionized Calcium Coronavirus (PCR) 03/13/21 03/14/21 03/14/21 23:06 00:03 04:44 WBC Plt Count Seg Neuts % (Manual) Lymphocytes % (Manual) Seg Neutrophils # Man Lymphocytes # (Manual) D-Dimer ABG pH POC ABG pCO2 POC ABG pO2 ABG Oxyhemoglobin ABG Sodium ABG Chloride ABG Glucose Carboxyhemoglobin Sodium Chloride Carbon Dioxide BUN Creatinine Glucose POC Glucose 168 H 152 H Hemoglobin A1c 8.2 H Lactic Acid Ferritin AST ALT Lactate Dehydrogenase C-Reactive Protein Total Protein Albumin Arterial Blood Glucose Arterial Blood Ionized Calcium Coronavirus (PCR) 03/14/21 03/14/21 03/14/21 04:44 04:44 05:35 WBC Plt Count 132 L Seg Neuts % (Manual) Lymphocytes % (Manual) Seg Neutrophils # Man Lymphocytes # (Manual) D-Dimer ABG pH POC ABG pCO2 POC ABG pO2 ABG Oxyhemoglobin ABG Sodium ABG Chloride ABG Glucose Carboxyhemoglobin Sodium 153 H Chloride 118.2 H Carbon Dioxide 21 L BUN 58 H Creatinine 3.4 H Glucose 380 H POC Glucose 331 H Hemoglobin A1c Lactic Acid Ferritin AST 56 H ALT 60 H Lactate Dehydrogenase C-Reactive Protein Total Protein 5.8 L Albumin 2.4 L Arterial Blood Glucose Arterial Blood Ionized Calcium Coronavirus (PCR) 03/14/21 03/14/21 03/14/21 11:12 15:11 22:42 WBC Plt Count Seg Neuts % (Manual) Lymphocytes % (Manual) Seg Neutrophils # Man Lymphocytes # (Manual) D-Dimer ABG pH POC ABG pCO2 POC ABG pO2 ABG Oxyhemoglobin ABG Sodium ABG Chloride ABG Glucose Carboxyhemoglobin Sodium Chloride Carbon Dioxide BUN Creatinine Glucose POC Glucose 229 H 291 H 435 H Hemoglobin A1c Lactic Acid Ferritin AST ALT Lactate Dehydrogenase C-Reactive Protein Total Protein Albumin Arterial Blood Glucose Arterial Blood Ionized Calcium Coronavirus (PCR) 03/15/21 03/15/21 03/15/21 04:44 08:43 11:50 WBC Plt Count Seg Neuts % (Manual) Lymphocytes % (Manual) Seg Neutrophils # Man Lymphocytes # (Manual) D-Dimer ABG pH POC ABG pCO2 POC ABG pO2 ABG Oxyhemoglobin ABG Sodium ABG Chloride ABG Glucose Carboxyhemoglobin Sodium 152 H Chloride 114.9 H Carbon Dioxide BUN 79 H Creatinine 4.3 H Glucose 303 H POC Glucose 281 H 340 H Hemoglobin A1c Lactic Acid Ferritin AST 41 H ALT Lactate Dehydrogenase C-Reactive Protein Total Protein 6.1 L Albumin 2.6 L Arterial Blood Glucose Arterial Blood Ionized Calcium Coronavirus (PCR) 03/15/21 03/16/21 03/16/21 21:27 04:14 04:14 WBC 14.3 H Plt Count 87 L Seg Neuts % (Manual) Lymphocytes % (Manual) Seg Neutrophils # Man Lymphocytes # (Manual) D-Dimer ABG pH POC ABG pCO2 POC ABG pO2 ABG Oxyhemoglobin ABG Sodium ABG Chloride ABG Glucose Carboxyhemoglobin Sodium Chloride Carbon Dioxide BUN 75 H Creatinine 3.4 H Glucose 434 H POC Glucose 115 H Hemoglobin A1c Lactic Acid Ferritin AST ALT Lactate Dehydrogenase C-Reactive Protein Total Protein Albumin Arterial Blood Glucose Arterial Blood Ionized Calcium Coronavirus (PCR) 03/16/21 03/16/21 03/16/21 07:52 11:05 17:01 WBC Plt Count Seg Neuts % (Manual) Lymphocytes % (Manual) Seg Neutrophils # Man Lymphocytes # (Manual) D-Dimer ABG pH POC ABG pCO2 POC ABG pO2 ABG Oxyhemoglobin ABG Sodium ABG Chloride ABG Glucose Carboxyhemoglobin Sodium Chloride Carbon Dioxide BUN Creatinine Glucose POC Glucose 439 H 277 H 194 H Hemoglobin A1c Lactic Acid Ferritin AST ALT Lactate Dehydrogenase C-Reactive Protein Total Protein Albumin Arterial Blood Glucose Arterial Blood Ionized Calcium Coronavirus (PCR) 03/17/21 03/17/21 03/17/21 06:00 06:00 06:00 WBC 12.3 H Plt Count 70 L Seg Neuts % (Manual) Lymphocytes % (Manual) Seg Neutrophils # Man Lymphocytes # (Manual) D-Dimer > 92234 H ABG pH POC ABG pCO2 POC ABG pO2 ABG Oxyhemoglobin ABG Sodium ABG Chloride ABG Glucose Carboxyhemoglobin Sodium 150 H Chloride 118.0 H Carbon Dioxide 21 L BUN 92 H Creatinine 3.4 H Glucose 129 H POC Glucose Hemoglobin A1c Lactic Acid Ferritin AST ALT Lactate Dehydrogenase 1155 H C-Reactive Protein 1.50 H Total Protein Albumin Arterial Blood Glucose Arterial Blood Ionized Calcium Coronavirus (PCR)
[2021-03-17 10:12] LABS: INR 1.92 (0.87-1.13)
[2021-03-17 10:13] LABS: Partial Thromboplastin Time 37.7 Sec. (24.2-36.6)
[2021-03-17 10:25] LABS: Alanine Aminotransferase 36 units/L (7-56); Albumin 2.2 g/dL (3.9-5)
[2021-03-17 10:44] LABS: Bilirubin,Direct < 0.2 mg/dL (0-0.2)
[2021-03-17] MEDS: INSULIN GLARGINE 100 UNITS/ML SUB-Q SCH (11:32)
[2021-03-17] MEDS: ARGATROBAN 250 MG in SODIUM CHLORIDE 0.9% 250ML 247.5 ML IV SCH (11:42)
--- NOTE | 2021-03-17 12:31 | Progress Note ---
Assessment and Plan Impression: * Nonoliguric acute kidney injury vs underlying CKD --Baseline renal function unknown * Acute hypoxic respiratory failure secondary to COVID 19 PNA * COVID 19 infection * Hypertension * Hypernatremia * Transaminitis Plan: * Plan to start HD today 03/17, gentle session * Case was discussed in detail with niece including possible complications on HD and consent was obtained for HD * Vasc cath placed 03/16 * Serologies pending * D/C IVF * Remdesevir (hold for GFR<30), steroids, abx per ID * Cont Clonidine 0.1mg patch and IV hydralazine prn * Dose medications for renal function * Avoid potential nephrotoxins * AM labs Subjective Date of service: 03/17/21 Principal diagnosis: COVID-19 Interval history: Nursing, interdisciplinary and consult notes were reviewed Vitals, input and output, medications and labs were reviewed Remains in ICU Objective - Exam Narrative Exam: In order to reduce transmission risk given Covid, exam deferred. Primary team exam reviewed in detail. - Vital Signs Vital signs: Vital Signs - 12hr 03/17/21 03/17/21 03/17/21 00:45 01:00 01:15 Temperature Pulse Rate 97 H 100 H 100 H Pulse Rate [ From Monitor] Respiratory 23 15 31 H Rate Blood Pressure 97/70 95/66 95/66 O2 Sat by Pulse 92 93 94 Oximetry 03/17/21 03/17/21 03/17/21 01:30 01:45 02:00 Temperature Pulse Rate 97 H 95 H 96 H Pulse Rate [ From Monitor] Respiratory 20 24 25 H Rate Blood Pressure 102/68 95/66 105/76 O2 Sat by Pulse 94 94 94 Oximetry 03/17/21 03/17/21 03/17/21 02:15 02:30 02:45 Temperature Pulse Rate 97 H 96 H 95 H Pulse Rate [ From Monitor] Respiratory 31 H 26 H 31 H Rate Blood Pressure 102/68 111/81 105/76 O2 Sat by Pulse 94 93 93 Oximetry 03/17/21 03/17/21 03/17/21 03:00 03:15 03:30 Temperature Pulse Rate 94 H 95 H 95 H Pulse Rate [ From Monitor] Respiratory 25 H 24 38 H Rate Blood Pressure 112/84 111/81 111/79 O2 Sat by Pulse 91 93 93 Oximetry 03/17/21 03/17/21 03/17/21 03:45 04:00 04:05 Temperature 98.6 F Pulse Rate 95 H 96 H 95 H Pulse Rate [ From Monitor] Respiratory 36 H 25 H Rate Blood Pressure 112/84 104/77 O2 Sat by Pulse 94 93 Oximetry 03/17/21 03/17/21 03/17/21 04:15 04:30 04:45 Temperature Pulse Rate 95 H 92 H 95 H Pulse Rate [ From Monitor] Respiratory 29 H 25 H 29 H Rate Blood Pressure 111/79 123/90 104/77 O2 Sat by Pulse 94 94 94 Oximetry 03/17/21 03/17/21 03/17/21 05:00 05:15 05:31 Temperature Pulse Rate 93 H 93 H 99 H Pulse Rate [ From Monitor] Respiratory 31 H 32 H 24 Rate Blood Pressure 113/78 113/78 122/86 O2 Sat by Pulse 93 95 94 Oximetry 03/17/21 03/17/21 03/17/21 05:45 06:00 06:15 Temperature Pulse Rate 96 H 95 H 95 H Pulse Rate [ From Monitor] Respiratory 35 H 28 H 30 H Rate Blood Pressure 122/86 122/95 122/95 O2 Sat by Pulse 88 94 94 Oximetry 03/17/21 03/17/21 03/17/21 06:30 06:45 07:00 Temperature Pulse Rate 98 H 94 H 92 H Pulse Rate [ From Monitor] Respiratory 32 H 26 H 19 Rate Blood Pressure 133/94 122/95 119/86 O2 Sat by Pulse 85 93 90 Oximetry 03/17/21 03/17/21 03/17/21 07:15 07:30 07:45 Temperature Pulse Rate 94 H 92 H 92 H Pulse Rate [ From Monitor] Respiratory 26 H 20 22 Rate Blood Pressure 119/86 111/87 111/87 O2 Sat by Pulse 94 91 92 Oximetry 03/17/21 03/17/21 03/17/21 08:00 08:15 08:19 Temperature 97.7 F Pulse Rate 91 H 91 H 92 H Pulse Rate [ 92 H From Monitor] Respiratory 23 26 H 35 H Rate Blood Pressure 121/91 121/91 121/91 O2 Sat by Pulse 90 92 93 Oximetry 03/17/21 03/17/21 03/17/21 08:30 08:45 09:00 Temperature Pulse Rate 91 H 92 H 91 H Pulse Rate [ From Monitor] Respiratory 27 H 31 H 33 H Rate Blood Pressure 124/93 124/93 118/97 O2 Sat by Pulse 93 95 89 Oximetry 03/17/21 03/17/21 03/17/21 09:15 09:30 09:45 Temperature Pulse Rate 90 87 88 Pulse Rate [ From Monitor] Respiratory 29 H 28 H 29 H Rate Blood Pressure 118/97 136/94 136/94 O2 Sat by Pulse 93 94 94 Oximetry 03/17/21 03/17/21 03/17/21 10:00 10:15 10:30 Temperature Pulse Rate 91 H 90 86 Pulse Rate [ From Monitor] Respiratory 29 H 31 H 27 H Rate Blood Pressure 136/94 141/101 141/96 O2 Sat by Pulse 93 91 91 Oximetry 03/17/21 03/17/21 03/17/21 10:45 11:00 12:00 Temperature 98.2 F Pulse Rate 86 84 Pulse Rate [ From Monitor] Respiratory 29 H 24 Rate Blood Pressure 141/96 141/104 O2 Sat by Pulse 93 91 Oximetry - Lab 03/17/21 06:00 03/17/21 06:00 Most recent lab results ABG pH 7.279 (7.320-7.450) L 03/12/21 04:35 ABG O2 Saturation 99.0 (0-100) 03/12/21 04:35 Calcium 9.0 mg/dL (8.4-10.2) 03/17/21 06:00 Urine Sodium 37 mmol/L 03/14/21 Unknown Medications & Allergies - Medications Allergies/Adverse Reactions: Allergies No Known Allergies Allergy (Verified 03/11/21 09:21) Home Medications: Home Medications Medication Instructions Recorded Confirmed Last Taken Type AtorvaSTATin [Lipitor] 10 mg PO QHS 03/14/21 03/14/21 Unknown History Metoprolol [Lopressor TAB] 50 mg PO BID 03/14/21 03/14/21 Unknown History Mycophenolate [Cellcept] 500 mg PO BID 03/14/21 03/14/21 Unknown History NIFEdipine [Nifedipine ER] 90 mg PO BID 03/14/21 03/14/21 Unknown History Ondansetron [Zofran Odt] 4 mg PO Q8HR 03/14/21 03/14/21 Unknown History Tacrolimus 1 mg PO Q12HR 03/14/21 03/14/21 Unknown History Active Medications: Generic Name Dose Route Start Last Admin Trade Name Freq PRN Reason Stop Dose Admin Acetaminophen 650 mg 03/11/21 12:00 03/14/21 03:54 Acetaminophen 325 Mg Tab PO 650 mg Q4H PRN Administration Pain MILD(1-3)/Fever >100.5/WASSERMAN Ascorbic Acid 500 mg 03/11/21 12:00 03/17/21 09:11 Ascorbic Acid 500 Mg Tab PO Not Given BID GYPSY Cholecalciferol 1,000 unit 03/11/21 13:00 03/17/21 09:11 Cholecalciferol (Vit D3) 1000 Unit (25 Mcg) Tab PO Not Given QDAY GYPSY Clonidine HCl 0.1 mg 03/20/21 08:00 Clonidine Tts 0.1 Mg/24 Hr Patch TD Fr GYPSY Dextrose 50 ml 03/13/21 14:44 Dextrose 50% In Water (25gm) 50 Ml Syringe IV Q30MIN PRN Hypoglycemia Protocol Hydralazine HCl 10 mg 03/14/21 18:13 03/15/21 21:18 Hydralazine 20 Mg/1 Ml Inj IV 10 mg Q6H PRN Administration Hypertension Hydromorphone HCl 0.5 mg 03/11/21 12:00 03/13/21 07:46 Hydromorphone 1 Mg/1 Ml Inj IV 0.5 mg Q12H PRN Administration Pain , Severe (7-10) Dexmedetomidine HCl 400 mcg/ 104 mls @ 3.588 mls/hr 03/16/21 12:00 03/17/21 08:00 Sodium Chloride IV 0.7 mcg/kg/hr TITRATE GYPSY 12.558 mls/hr Administration Protocol 0.2 MCG/KG/HR Lactated Ringer's 1,000 mls @ 100 mls/hr 03/16/21 18:30 03/17/21 04:35 Lactated Ringers IV 100 mls/hr DIRECT GYPSY Administration Argatroban 250 mg/ Sodium 250 mls @ 2.07 mls/hr 03/17/21 11:00 03/17/21 11:42 Chloride IV 0.5 mcg/kg/min TITR GYPSY 2.07 mls/hr Administration Protocol 0.5 MCG/KG/MIN Sodium Chloride 100 mls @ 999 mls/hr 03/17/21 08:54 Nacl 0.9% IV OSCAR PRN Hypotension Insulin Glargine 15 units 03/15/21 10:00 03/17/21 11:32 Insulin Glargine 100 Units/Ml SUB-Q Not Given QAM [facility] Insulin Human Lispro 0 unit 03/16/21 13:00 03/17/21 06:47 Insulin Lispro 100 Unit/Ml SUB-Q Not Given Q6HR [facility] Protocol Lorazepam 1 mg 03/11/21 17:00 03/16/21 05:19 Lorazepam 2 Mg/Ml Vial IV 1 mg Q6H PRN Administration Agitation Methylprednisolone Sodium Succinate 40 mg 03/11/21 14:00 03/17/21 06:23 Methylprednisolone Sod Succinate 40 Mg/1 Ml Inj IV 03/21/21 06:01 40 mg Q8HR GYPSY Administration Ondansetron HCl 4 mg 03/11/21 12:00 03/15/21 12:08 Ondansetron 4 Mg/2 Ml Inj IV 4 mg Q8H PRN Administration Nausea And Vomiting Oxycodone/Acetaminophen 1 tab 03/11/21 12:00 Oxycodone /Acetaminophen 5-325mg Tab PO Q12H PRN Pain, Moderate (4-6) Sodium Chloride 10 ml 03/11/21 12:00 03/17/21 09:10 Sodium Chloride 0.9% 10 Ml Flush Syringe IV 10 ml BID GYPSY Administration Sodium Chloride 10 ml 03/11/21 12:00 Sodium Chloride 0.9% 10 Ml Flush Syringe IV PRN PRN LINE FLUSH Zinc Sulfate 220 mg 03/11/21 12:00 03/17/21 09:11 Zinc Sulfate 220 Mg Cap PO Not Given BID [facility]
--- NOTE | 2021-03-17 13:31 | Progress Note ---
Assessment and Plan Cultures: Blood culture 03/11/2021 no growth today SARS CoV2 PCR positive Assessment: 50-year-old male with history of CVA admitted on 03/11/2021 secondary to shortness of breath/altered mental status: #Severe sepsis: with low grade fever, leukocytosis up; likely secondary to COVID-19. Procalcitonin elevated #Severe COVID pneumonia: CXR with bilateral pneumonia. Infllammatory markers elevated. CRP 17.9. D-dimer 22 6. Ferritin 1640. #Acute hypoxemic respiratory failure: O2 sat dropped to 70%. Remains on BiPAP. #Right apical small pneumothorax, pneumomediastinum, pneumoperitonium: from COVID #Elevated LFTs: from COVID. AST 148, ALT 65. #CHRISTY: from COVID. Worsening to start dialysis. #Acute diarrhea likely secondary to COVID-19. #AMS: likely due to hypoxia. #DM: uncontrolled #Subcutaneous emphysema: Likely secondary to COVID-19. Recommendations: -To have HD -Pulmonary on board, close monitoring, high risk for intubation -Steroids per pulmonary total 10 days -Stopped remdesivir after second dose due to renal failure -Completed Tocilizumab 8 mg/kg x1 03/12/2021 -Monitor inflammatory markers - ferritin, Ddimer, CRP, LDH -Continue anticoagulation per System Protocol -Prone positioning as possible -Completed ceftriaxone for 5 days and azithromycin for 3 days All laboratory, cultures and imaging were reviewed. Very Guarded prognosis Will follow Malathi Gaona MD Infectious Diseases [employer] Manager [facility] ([facility]) M [phone] O [phone] Subjective Date of service: 03/17/21 Principal diagnosis: COVID-19 Interval history: Patient remains on BiPAP. Sats 91%, noted low-grade fever. Objective - Exam Narrative Exam: Physical exam deferred to minimize COVID-19 transmission during pandemic. - Constitutional Vitals: Vital Signs Temp Pulse Resp BP Pulse Ox 98.2 F 81 23 144/106 94 03/17/21 12:00 03/17/21 12:10 03/17/21 12:10 03/17/21 12:10 03/17/21 12:10 Temperature -Last 24 Hours Temperature 98.2 F Temperature 97.7 F Temperature 98.6 F Temperature 98.5 F Temperature 97.8 F Temperature 98.2 F - Labs CBC & Chem 7: 03/17/21 06:00 03/17/21 06:00 Labs: Abnormal lab results 03/16/21 03/17/21 03/17/21 Range/Units 17:01 06:00 06:00 WBC 12.3 H (4.5-11.0) K/mm3 Plt Count 70 L (140-440) K/mm3 PT (12.2-14.9) Sec. INR (0.87-1.13) APTT (24.2-36.6) Sec. D-Dimer (0-234) ng/mlDDU Sodium 150 H (137-145) mmol/L Chloride 118.0 H (98-107) mmol/L Carbon Dioxide 21 L (22-30) mmol/L BUN 92 H (9-20) mg/dL Creatinine 3.4 H (0.8-1.3) mg/dL Glucose 129 H (75-100) mg/dL POC Glucose 194 H (70-105) mg/dL Ferritin (30.0-300.0) ng/mL Lactate Dehydrogenase 1155 H (91-180) units/L C-Reactive Protein 1.50 H (0.00-1.30) mg/dL Total Protein (6.3-8.2) g/dL Albumin (3.9-5) g/dL 03/17/21 03/17/21 03/17/21 Range/Units 06:00 09:00 09:19 WBC (4.5-11.0) K/mm3 Plt Count (140-440) K/mm3 PT (12.2-14.9) Sec. INR (0.87-1.13) APTT (24.2-36.6) Sec. D-Dimer > 99301 H (0-234) ng/mlDDU Sodium (137-145) mmol/L Chloride (98-107) mmol/L Carbon Dioxide (22-30) mmol/L BUN (9-20) mg/dL Creatinine (0.8-1.3) mg/dL Glucose (75-100) mg/dL POC Glucose (70-105) mg/dL Ferritin 1517.0 H (30.0-300.0) ng/mL Lactate Dehydrogenase (91-180) units/L C-Reactive Protein (0.00-1.30) mg/dL Total Protein 5.1 L (6.3-8.2) g/dL Albumin 2.2 L (3.9-5) g/dL 03/17/21 Range/Units 09:19 WBC (4.5-11.0) K/mm3 Plt Count (140-440) K/mm3 PT 22.4 H (12.2-14.9) Sec. INR 1.92 H (0.87-1.13) APTT 37.7 H (24.2-36.6) Sec. D-Dimer (0-234) ng/mlDDU Sodium (137-145) mmol/L Chloride (98-107) mmol/L Carbon Dioxide (22-30) mmol/L BUN (9-20) mg/dL Creatinine (0.8-1.3) mg/dL Glucose (75-100) mg/dL POC Glucose (70-105) mg/dL Ferritin (30.0-300.0) ng/mL Lactate Dehydrogenase (91-180) units/L C-Reactive Protein (0.00-1.30) mg/dL Total Protein (6.3-8.2) g/dL Albumin (3.9-5) g/dL
--- NOTE | 2021-03-17 17:58 | Progress Note ---
Assessment and Plan Assessment and plan: 50-year-old male history of CVA who presented with difficulty breathing. Found to have COVID-19 infection and was admitted for acute hypoxic respiratory failure and pneumonia. Prognosis remains guarded still requiring BiPAP. #Acute hypoxic respiratory failure -on NIPPV, patient with tachypnea and tachycardia -Continue precedex drip for discomfort -low threshold for intubation if continues to be tachypneic; discussed with Dr. Cruz -continue steroids -Pulmonary following, appreciate assistance #Sepsis -secondary to COVID-19 and PNA -BCx ordered, NGTD -continue current management #Severe COVID-19 pneumonia -unvaccinated -steroids, COVID vitamins -Remdesivir held due to renal function -s/p Actemra -ID following, appreciate assistance -inflammatory markers q48hr - continue rocephin and azithromycin for now #CHRISTY -SCr 4.3 -> 3.4->3.1 -remdesivir held -Nephrology following, appreciate assistance -Hemodialysis initiated today #Type 2 diabetes -A1c 8.2% -Glucose in 115 to 400 range -Goal glucose 140-180s -continue lantus 15 units daily -SSI adjusted to q6h -If continues to have elevated sugars, will consider insulin drip #Hypernatremia -Sodium now 144 -continue D5W infusion #Hypertension -Clonidine patch Disposition Plan: Pending clinical improvement Total Time Spent with Patient (Minutes): 30 History Interval history: No acute events overnight. Hospitalist Physical - Constitutional Vitals: Temp Pulse Resp BP Pulse Ox 98.2 F 129 H 42 H 141/109 94 03/17/21 12:00 03/17/21 16:15 03/17/21 16:15 03/17/21 16:15 03/17/21 16:15 General appearance: Present: no acute distress - EENT Eyes: Present: PERRL, EOM intact ENT: other (Patient is altered and slightly sedated. Unable to examine) - Neck Neck: Present: supple, normal ROM - Respiratory Respiratory effort: labored - Cardiovascular Rhythm: regular Heart Sounds: Present: S1 & S2 - Extremities Extremities: no ischemia, pulses intact, pulses symmetrical, normal temperature Peripheral Pulses: within normal limits - Abdominal General gastrointestinal: soft, non-tender, non-distended, normal bowel sounds - Integumentary Integumentary: Present: clear, warm, dry - Psychiatric Psychiatric: other (Patient is sedated unable to assess) - Neurologic Neurologic: CNII-XII intact, other (Patient is sedated unable to fully assess) - Allied Health Allied health notes reviewed: nursing HEART Score - HEART Score History: Slightly suspicious EKG: Non-specific Age: 45-65 Risk factors: 1-2 risk factors Troponin: Troponin T < 0.010 ng/mL (0.00-0.029) 03/11/21 09:41 - Critical Actions Critical Actions: 4-6 pts:12-16.6% risk of adverse cardiac event. Should be admitted Results - Labs CBC & Chem 7: 03/17/21 06:00 03/17/21 06:00 Labs: Laboratory Last Values WBC 12.3 K/mm3 (4.5-11.0) H 03/17/21 06:00 RBC 4.55 M/mm3 (3.65-5.03) 03/17/21 06:00 Hgb 13.5 gm/dl (11.8-15.2) 03/17/21 06:00 Hct 41.1 % (35.5-45.6) 03/17/21 06:00 MCV 90 fl (84-94) 03/17/21 06:00 MCH 30 pg (28-32) 03/17/21 06:00 MCHC 33 % (32-34) 03/17/21 06:00 RDW 14.5 % (13.2-15.2) 03/17/21 06:00 Plt Count 70 K/mm3 (140-440) L 03/17/21 06:00 Add Manual Diff Complete 03/11/21 09:41 Total Counted 100 03/11/21 09:41 Seg Neutrophils % Facility Supervisor 03/11/21 09:41 Seg Neuts % (Manual) 89.0 % (40.0-70.0) H 03/11/21 09:41 Band Neutrophils % 2.0 % 03/11/21 09:41 Lymphocytes % (Manual) 2.0 % (13.4-35.0) L 03/11/21 09:41 Monocytes % (Manual) 7.0 % (0.0-7.3) 03/11/21 09:41 Nucleated RBC % Not Reportable 03/11/21 09:41 Seg Neutrophils # Man 9.7 K/mm3 (1.8-7.7) H 03/11/21 09:41 Band Neutrophils # 0.2 K/mm3 03/11/21 09:41 Lymphocytes # (Manual) 0.2 K/mm3 (1.2-5.4) L 03/11/21 09:41 Abs React Lymphs (Man) 0.0 K/mm3 03/11/21 09:41 Monocytes # (Manual) 0.8 K/mm3 (0.0-0.8) 03/11/21 09:41 Eosinophils # (Manual) 0.0 K/mm3 (0.0-0.4) 03/11/21 09:41 Basophils # (Manual) 0.0 K/mm3 (0.0-0.1) 03/11/21 09:41 Metamyelocytes # 0.0 K/mm3 03/11/21 09:41 Myelocytes # 0.0 K/mm3 03/11/21 09:41 Promyelocytes # 0.0 K/mm3 03/11/21 09:41 Blast Cells # 0.0 K/mm3 03/11/21 09:41 WBC Morphology Not Reportable 03/11/21 09:41 Hypersegmented Neuts Not Reportable 03/11/21 09:41 Hyposegmented Neuts Not Reportable 03/11/21 09:41 Hypogranular Neuts Not Reportable 03/11/21 09:41 Smudge Cells Not Reportable 03/11/21 09:41 Toxic Granulation Not Reportable 03/11/21 09:41 Toxic Vacuolation Not Reportable 03/11/21 09:41 Dohle Bodies Not Reportable 03/11/21 09:41 Pelger-Huet Anomaly Not Reportable 03/11/21 09:41 Fina Rods Not Reportable 03/11/21 09:41 Platelet Estimate Consistent w auto 03/11/21 09:41 Clumped Platelets Not Reportable 03/11/21 09:41 Plt Clumps, EDTA Not Reportable 03/11/21 09:41 Large Platelets Not Reportable 03/11/21 09:41 Giant Platelets Not Reportable 03/11/21 09:41 Platelet Satelliting Not Reportable 03/11/21 09:41 Plt Morphology Comment Not Reportable 03/11/21 09:41 RBC Morphology Normal 03/11/21 09:41 Dimorphic RBCs Not Reportable 03/11/21 09:41 Polychromasia Not Reportable 03/11/21 09:41 Hypochromasia Not Reportable 03/11/21 09:41 Poikilocytosis Not Reportable 03/11/21 09:41 Anisocytosis Not Reportable 03/11/21 09:41 Microcytosis Not Reportable 03/11/21 09:41 Macrocytosis Not Reportable 03/11/21 09:41 Spherocytes Not Reportable 03/11/21 09:41 Pappenheimer Bodies Not Reportable 03/11/21 09:41 Sickle Cells Not Reportable 03/11/21 09:41 Target Cells Not Reportable 03/11/21 09:41 Tear Drop Cells Not Reportable 03/11/21 09:41 Ovalocytes Not Reportable 03/11/21 09:41 Helmet Cells Not Reportable 03/11/21 09:41 [place] Bodies Not Reportable 03/11/21 09:41 Sparks Rings Not Reportable 03/11/21 09:41 Trav Cells Not Reportable 03/11/21 09:41 Bite Cells Not Reportable 03/11/21 09:41 Crenated Cell Not Reportable 03/11/21 09:41 Elliptocytes Not Reportable 03/11/21 09:41 Acanthocytes (Spur) Not Reportable 03/11/21 09:41 Rouleaux Not Reportable 03/11/21 09:41 Hemoglobin C Crystals Not Reportable 03/11/21 09:41 Schistocytes Not Reportable 03/11/21 09:41 Malaria parasites Not Reportable 03/11/21 09:41 [place] Bodies Not Reportable 03/11/21 09:41 Hem Pathologist Commnt No 03/11/21 09:41 PT 22.4 Sec. (12.2-14.9) H 03/17/21 09:19 INR 1.92 (0.87-1.13) H 03/17/21 09:19 APTT 70.8 Sec. (24.2-36.6) H* 03/17/21 15:44 D-Dimer > 36263 ng/mlDDU (0-234) H 03/17/21 06:00 ABG pH 7.279 (7.320-7.450) L 03/12/21 04:35 POC ABG pCO2 30.2 mmHg (32.0-48.0) L 03/12/21 04:35 POC ABG pO2 183.7 mmHg (83-108) H 03/12/21 04:35 POC ABG HCO3 13.8 03/12/21 04:35 ABG O2 Saturation 99.0 (0-100) 03/12/21 04:35 POC ABG Base Excess -11.5 03/12/21 04:35 ABG Hemoglobin 14.2 (12.0-17.5) 03/12/21 04:35 ABG Oxyhemoglobin 98.6 (94-98) H 03/12/21 04:35 ABG Methemoglobin 0.1 (0.0-1.5) 03/12/21 04:35 ABG Sodium 136.8 mmol/L (136.0-145.0) 03/12/21 04:35 ABG Potassium 4.0 mmol/L (3.40-4.50) 03/12/21 04:35 ABG Chloride 107.0 mmol/L (98-107) 03/12/21 04:35 ABG Glucose 236 mg/dL (65-95) H 03/12/21 04:35 Carboxyhemoglobin 0.3 (0.5-1.5) L 03/12/21 04:35 FiO2 % 100.0 03/12/21 04:35 Sodium 150 mmol/L (137-145) H 03/17/21 06:00 Potassium 3.8 mmol/L (3.6-5.0) 03/17/21 06:00 Chloride 118.0 mmol/L (98-107) H 03/17/21 06:00 Carbon Dioxide 21 mmol/L (22-30) L 03/17/21 06:00 Anion Gap 15 mmol/L 03/17/21 06:00 BUN 92 mg/dL (9-20) H 03/17/21 06:00 Creatinine 3.4 mg/dL (0.8-1.3) H 03/17/21 06:00 Estimated GFR 24 ml/min 03/17/21 06:00 BUN/Creatinine Ratio 27 % 03/17/21 06:00 Glucose 129 mg/dL (75-100) H 03/17/21 06:00 POC Glucose 165 mg/dL (70-105) H 03/17/21 16:58 Hemoglobin A1c 8.2 % (4-6) H 03/14/21 04:44 Lactic Acid 1.60 mmol/L (0.7-2.0) 03/12/21 00:08 Calcium 9.0 mg/dL (8.4-10.2) 03/17/21 06:00 Ferritin 1517.0 ng/mL (30.0-300.0) H 03/17/21 09:00 Total Bilirubin 0.60 mg/dL (0.1-1.2) 03/17/21 09:19 Direct Bilirubin < 0.2 mg/dL (0-0.2) 03/17/21 09:19 Indirect Bilirubin 0.4 mg/dL 03/17/21 09:19 AST 31 units/L (5-40) 03/17/21 09:19 ALT 36 units/L (7-56) 03/17/21 09:19 Alkaline Phosphatase 121 units/L (35-129) 03/17/21 09:19 Lactate Dehydrogenase 1155 units/L (91-180) H 03/17/21 06:00 Troponin T < 0.010 ng/mL (0.00-0.029) 03/11/21 09:41 C-Reactive Protein 1.50 mg/dL (0.00-1.30) H 03/17/21 06:00 Total Protein 5.1 g/dL (6.3-8.2) L 03/17/21 09:19 Albumin 2.2 g/dL (3.9-5) L 03/17/21 09:19 Albumin/Globulin Ratio 0.8 % 03/17/21 09:19 Procalcitonin 4.61 ng/mL (<0.15) 03/11/21 09:41 Arterial Blood Glucose 236 mg/dL (65-95) H 03/12/21 04:35 Arterial Blood Ionized Calcium 5.0 mg/dL (4.6-5.3) 03/12/21 04:35 Urine Color Yellow (Yellow) 03/11/21 Unknown Urine Turbidity Clear (Clear) 03/11/21 Unknown Urine pH 6.0 (5.0-7.0) 03/11/21 Unknown Ur Specific [place] 1.011 (1.003-1.030) 03/11/21 Unknown Urine Protein >500 mg/dL (Negative) 03/11/21 Unknown Urine Glucose (UA) 50 mg/dL (Negative) 03/11/21 Unknown Urine Ketones 20 mg/dL (Negative) 03/11/21 Unknown Urine Blood Lg (Negative) 03/11/21 Unknown Urine Nitrite Neg (Negative) 03/11/21 Unknown Urine Bilirubin Neg (Negative) 03/11/21 Unknown Urine Urobilinogen < 2.0 mg/dL (<2.0) 03/11/21 Unknown Ur Leukocyte Esterase Neg (Negative) 03/11/21 Unknown Urine WBC (Auto) 1.0 /HPF (0.0-6.0) 03/11/21 Unknown Urine RBC (Auto) 1.0 /HPF (0.0-6.0) 03/11/21 Unknown Urine Sodium 37 mmol/L 03/14/21 Unknown Urine Urea Nitrogen 818 03/14/21 Unknown Coronavirus (PCR) Positive (Negative) A 03/11/21 Unknown [place]/IV: Voiding Method Condom Catheter Active Medications - Current Medications Current Medications: Generic Name Dose Route Start Last Admin Trade Name Freq PRN Reason Stop Dose Admin Acetaminophen 650 mg 03/11/21 12:00 03/14/21 03:54 Acetaminophen 325 Mg Tab PO 650 mg Q4H PRN Administration Pain MILD(1-3)/Fever >100.5/[place] Ascorbic Acid 500 mg 03/11/21 12:00 03/17/21 09:11 Ascorbic Acid 500 Mg Tab PO Not Given BID GYPSY Cholecalciferol 1,000 unit 03/11/21 13:00 03/17/21 09:11 Cholecalciferol (Vit D3) 1000 Unit (25 Mcg) Tab PO Not Given QDAY GYPSY Clonidine HCl 0.1 mg 03/20/21 08:00 Clonidine Tts 0.1 Mg/24 Hr Patch TD Fr GYPSY Dextrose 50 ml 03/13/21 14:44 Dextrose 50% In Water (25gm) 50 Ml Syringe IV Q30MIN PRN Hypoglycemia Protocol Hydralazine HCl 10 mg 03/14/21 18:13 03/15/21 21:18 Hydralazine 20 Mg/1 Ml Inj IV 10 mg Q6H PRN Administration Hypertension Hydromorphone HCl 0.5 mg 03/11/21 12:00 03/13/21 07:46 Hydromorphone 1 Mg/1 Ml Inj IV 0.5 mg Q12H PRN Administration Pain , Severe (7-10) Dexmedetomidine HCl 400 mcg/ 104 mls @ 3.588 mls/hr 03/16/21 12:00 03/17/21 16:30 Sodium Chloride IV 0.8 mcg/kg/hr TITRATE GYPSY 14.352 mls/hr Administration Protocol 0.2 MCG/KG/HR Argatroban 250 mg/ Sodium 250 mls @ 2.07 mls/hr 03/17/21 11:00 03/17/21 11:42 Chloride IV 0.5 mcg/kg/min TITR GYPSY 2.07 mls/hr Administration Protocol 0.5 MCG/KG/MIN Sodium Chloride 100 mls @ 999 mls/hr 03/17/21 08:54 Nacl 0.9% IV OSCAR PRN Hypotension Insulin Human Lispro 0 unit 03/16/21 13:00 03/17/21 17:34 Insulin Lispro 100 Unit/Ml SUB-Q Not Given Q6HR [facility] Protocol Lorazepam 1 mg 03/11/21 17:00 03/16/21 05:19 Lorazepam 2 Mg/Ml Vial IV 1 mg Q6H PRN Administration Agitation Methylprednisolone Sodium Succinate 40 mg 03/11/21 14:00 03/17/21 14:02 Methylprednisolone Sod Succinate 40 Mg/1 Ml Inj IV 03/21/21 06:01 40 mg Q8HR GYPSY Administration Ondansetron HCl 4 mg 03/11/21 12:00 03/15/21 12:08 Ondansetron 4 Mg/2 Ml Inj IV 4 mg Q8H PRN Administration Nausea And Vomiting Oxycodone/Acetaminophen 1 tab 03/11/21 12:00 Oxycodone /Acetaminophen 5-325mg Tab PO Q12H PRN Pain, Moderate (4-6) Sodium Chloride 10 ml 03/11/21 12:00 03/17/21 09:10 Sodium Chloride 0.9% 10 Ml Flush Syringe IV 10 ml BID GYPSY Administration Sodium Chloride 10 ml 03/11/21 12:00 Sodium Chloride 0.9% 10 Ml Flush Syringe IV PRN PRN LINE FLUSH Zinc Sulfate 220 mg 03/11/21 12:00 03/17/21 09:11 Zinc Sulfate 220 Mg Cap PO Not Given BID [facility] Nutrition/Malnutrition Assess - Dietary Evaluation Nutrition/Malnutrition Findings: Nutrition Notes Start: 03/14/21 12:54 Freq: Status: Active Protocol: Document 03/16/21 12:49 (Rec: 03/16/21 12:54 [id number]) Nutrition Notes Initial or Follow up Reassessment Current Diagnosis Acute Kidney Injury,Sepsis, Hypertension,Respiratory Failure Other Pertinent Diagnosis COVID-19, diarrhea, pneumonia Current Diet regular Labs/Tests BUN 75 Cr 3.4 BG 434 Pertinent Medications Humalog Solu Medrol 03/15: D5w at 75 ml/hr Height 5 ft 11 in Weight 69 kg [place] Body Weight (kg) 78.18 BMI 21.2 Weight Status Appropriate Subjective/Other Information Unable to speak with pt. RN reports pt able to drink some ONS today and ate small amount of food yesterday before O2 drops. Percent of energy/protein needs met: Negligible Burn Absent Trauma Absent Current % PO Negligible Minimum of two criteria Yes Interpretation of Weight Loss (severe) >2% in 1 week Reduced Tax Form Preparer Strength Measurably Reduced (severe) #1 Nutrition Diagnosis Malnutrition As Evidenced by Signs and Symptoms >2% wt loss in 1 week, weak medical staff physician strength Diagnosis Progress(for reassessment Continues documentation) Is patient on ventilator? No Is Patient Ambulatory and/or Out of Bed No REE-([facility]-confined to bed) [phone] Calculation Used for Recommendations [facility] Additional Notes Protein needs 1.2-1.5 g/k -104 g/day fluid needs: 1ml/kcal Nutrition Intervention Change Diet Order: contiue Add Supplement/Snack (indicate name/kcal Nepro BID /protein ) Provides kCal: 850 Provides Protein (gm) 38 Goal #1 Pt to meet at least 75% of protein and kcal needs via diet and ONS Goal #2 Weight gain/maintenance Anticipated Discharge Needs: Regular Follow-Up By: 03/18/21 Additional Comments F/u: intakes, ONS tolerance, renal function - Attestation Statement I have reviewed and agreed w/ Malnutrition eval & tx plan: Yes
[2021-03-17] MEDS: LORazepam 2 MG/ML VIAL IV PRN (20:24)
--- NOTE | 2021-03-17 22:08 | Vascular Lab Report ---
DUPLEX DOPPLER LOWER EXTREMITY VEINS, BILATERAL INDICATION / CLINICAL INFORMATION: Swelling with hypoxemia. TECHNIQUE: Duplex doppler imaging was performed through the veins of both lower extremities using tressa ous compression and other maneuvers. COMPARISON: None available. FINDINGS: RIGHT COMMON FEMORAL VEIN: Proximal portion not seen secondary to indwelling line. Distal to the indw elling line there is no thrombus. RIGHT FEMORAL VEIN: Negative. RIGHT POPLITEAL VEIN: Negative. RIGHT CALF VEINS: Negative. LEFT COMMON FEMORAL VEIN: Negative. LEFT FEMORAL VEIN: Negative. LEFT POPLITEAL VEIN: Negative. LEFT CALF VEINS: Negative. ADDITIONAL FINDINGS: None. IMPRESSION: 1. No sonographic evidence for DVT in either lower extremity. Signer Name: Timmy Beach DO Signed: 03/17/2021 10:03 PM Workstation Name: [id number]
[2021-03-18] MEDS: INSULIN LISPRO 100 UNIT/ML SUB-Q SCH ×4 (02:53→19:25)
[2021-03-18] MEDS: LORazepam 2 MG/ML VIAL IV PRN ×2 (02:53→22:26)
[2021-03-18 04:51] LABS: Calcium 8.2 mg/dL (8.4-10.2)
[2021-03-18] MEDS: methylPREDNISolone Sod Succinate 40 MG/1 ML INJ IV SCH ×3 (06:06→21:56)
--- NOTE | 2021-03-18 09:08 | Progress Note ---
Assessment and Plan 50 y/o male with acute respiratory failure secondary to COVID 19 03/18/21: HD per renal. Continue precedex to help with agitation. Still no indication for chest tube as of yet. Prognosis remains guarded to poor. 03/17/21: Hopeful dialysis today. Ordered stat CXR and does shows small apical PTX, slightly larger but still not a point that I feel needs CT placement. Will repeat later this afternoon. Will have RT turn of oxygen and attempt to wean pressure to help with resorption. Prognosis overall remains guarded to poor, especially with renal dysfunction plus COVID. D-Dimer now is >10K, however platelets dropping on heparin. Stopping Sub Q prophylactic therapy, checking bilateral dopplers and will send hiT PANEL. May consider doing argatroban therapy. 03/16/21: Vascath placed. Minerva at [phone] is the point of contact and decision maker. She has consented for vascath. Also discussed the possibility that patient may require mechanical ventilator in the near future if no improvement. Will attempt to use precedex to help keep patient calm so that bipap/avaps can work. Volume removal per renal. Guarded prognosis. : Hold on increasing steroids as of now. Prone if able. Continue AVAPS today but spoke with RT about weaning FiO2 for sats >88%. Monitor fluids. No lasix right now given renal dysfunction. Reviewed ID note and agree with their plan and assessment. Guarded prognosis. 1. Prone if able 2. Wean bipap to HFNC if able 3. Steroids, may need to increase 4. Does not appear to be a candidate for remdesivir given renal failure 5. May be able to get actemra 6. Minimize additional fluids 7. Guarded prognosis given renal failure and COVID state. Subjective Date of service: 03/18/21 Principal diagnosis: COVID-19 Interval history: No acute events. REmains on combo therapy. Objective Vital Signs - 12hr 03/17/21 03/17/21 03/17/21 21:30 22:00 22:30 Temperature Pulse Rate 92 H 88 85 Pulse Rate [ From Monitor] Respiratory 31 H 26 H 20 Rate Blood Pressure 136/97 136/97 142/108 O2 Sat by Pulse 95 96 94 Oximetry 03/17/21 03/17/21 03/17/21 23:00 23:30 23:57 Temperature 96.9 F L Pulse Rate 83 83 Pulse Rate [ From Monitor] Respiratory 19 23 Rate Blood Pressure 144/109 145/103 O2 Sat by Pulse 90 96 Oximetry 03/18/21 03/18/21 03/18/21 00:00 00:20 00:30 Temperature Pulse Rate 86 80 81 Pulse Rate [ 86 From Monitor] Respiratory 26 H 28 H Rate Blood Pressure 139/103 139/104 O2 Sat by Pulse 97 97 Oximetry 03/18/21 03/18/21 03/18/21 01:00 01:30 02:00 Temperature Pulse Rate 85 82 85 Pulse Rate [ From Monitor] Respiratory 31 H 26 H 28 H Rate Blood Pressure 144/104 147/106 144/106 O2 Sat by Pulse 92 92 95 Oximetry 03/18/21 03/18/21 03/18/21 02:30 02:59 03:00 Temperature Pulse Rate 85 81 91 H Pulse Rate [ From Monitor] Respiratory 27 H 30 H 44 H Rate Blood Pressure 140/104 153/112 153/116 O2 Sat by Pulse 92 96 88 Oximetry 03/18/21 03/18/21 03/18/21 03:30 03:42 04:00 Temperature 97.1 F L Pulse Rate 89 89 Pulse Rate [ From Monitor] Respiratory 31 H 28 H Rate Blood Pressure 147/105 137/98 O2 Sat by Pulse 95 96 Oximetry 03/18/21 03/18/21 03/18/21 04:10 04:30 05:00 Temperature Pulse Rate 89 87 89 Pulse Rate [ From Monitor] Respiratory 26 H 30 H Rate Blood Pressure 145/103 139/100 O2 Sat by Pulse 93 91 Oximetry 03/18/21 03/18/21 03/18/21 05:30 06:00 06:30 Temperature Pulse Rate 88 89 88 Pulse Rate [ From Monitor] Respiratory 25 H 31 H 26 H Rate Blood Pressure 130/102 138/97 133/100 O2 Sat by Pulse 91 92 92 Oximetry 03/18/21 03/18/21 03/18/21 07:00 07:30 07:51 Temperature 97.8 F Pulse Rate 88 88 Pulse Rate [ From Monitor] Respiratory 24 25 H Rate Blood Pressure 137/96 141/102 O2 Sat by Pulse 92 90 Oximetry Constitutional: other (on hiflo) Eyes: non-icteric Neck: supple Ascultation: Bilateral: diminished breath sounds Cardiovascular: regular rate and rhythm Gastrointestinal: normoactive bowel sounds, soft, non-tender Extremities: other (decreased rom/ movement of lue mild contractures) CBC and BMP: 03/24/21 05:00 03/24/21 05:00 ABG, PT/INR, D-dimer: ABG ABG pH 7.279 (7.320-7.450) L 03/12/21 04:35 POC ABG pCO2 30.2 mmHg (32.0-48.0) L 03/12/21 04:35 POC ABG pO2 183.7 mmHg (83-108) H 03/12/21 04:35 POC ABG HCO3 13.8 03/12/21 04:35 ABG O2 Saturation 99.0 (0-100) 03/12/21 04:35 PT/INR, D-dimer PT 22.4 Sec. (12.2-14.9) H 03/17/21 09:19 INR 1.92 (0.87-1.13) H 03/17/21 09:19 D-Dimer > 23010 ng/mlDDU (0-234) H 03/17/21 06:00 Abnormal lab findings: Abnormal Labs 03/11/21 03/11/21 03/11/21 09:41 09:41 09:41 WBC Plt Count Seg Neuts % (Manual) 89.0 H Lymphocytes % (Manual) 2.0 L Seg Neutrophils # Man 9.7 H Lymphocytes # (Manual) 0.2 L PT INR APTT D-Dimer ABG pH POC ABG pCO2 POC ABG pO2 ABG Oxyhemoglobin ABG Sodium ABG Chloride ABG Glucose Carboxyhemoglobin Sodium 127 L Chloride 90.6 L Carbon Dioxide 15 L BUN 42 H Creatinine 2.7 H Glucose 262 H POC Glucose Hemoglobin A1c Lactic Acid 3.70 H* Calcium Ferritin AST 148 H ALT 65 H Lactate Dehydrogenase C-Reactive Protein Total Protein Albumin 2.9 L Arterial Blood Glucose Arterial Blood Ionized Calcium Coronavirus (PCR) 03/11/21 03/11/21 03/11/21 09:41 09:41 09:41 WBC Plt Count Seg Neuts % (Manual) Lymphocytes % (Manual) Seg Neutrophils # Man Lymphocytes # (Manual) PT INR APTT D-Dimer 2206.91 H ABG pH POC ABG pCO2 POC ABG pO2 ABG Oxyhemoglobin ABG Sodium ABG Chloride ABG Glucose Carboxyhemoglobin Sodium Chloride Carbon Dioxide BUN Creatinine Glucose 261 H POC Glucose Hemoglobin A1c Lactic Acid Calcium Ferritin 1640.0 H AST ALT Lactate Dehydrogenase 933 H C-Reactive Protein 17.90 H Total Protein Albumin Arterial Blood Glucose Arterial Blood Ionized Calcium Coronavirus (PCR) 03/11/21 03/11/21 03/12/21 11:50 Unknown 04:35 WBC Plt Count Seg Neuts % (Manual) Lymphocytes % (Manual) Seg Neutrophils # Man Lymphocytes # (Manual) PT INR APTT D-Dimer ABG pH 7.316 L 7.279 L POC ABG pCO2 30.2 L POC ABG pO2 228.8 H 183.7 H ABG Oxyhemoglobin 98.7 H 98.6 H ABG Sodium 125.1 L ABG Chloride 97.0 L ABG Glucose 229 H 236 H Carboxyhemoglobin 0.1 L 0.3 L Sodium Chloride Carbon Dioxide BUN Creatinine Glucose POC Glucose Hemoglobin A1c Lactic Acid Calcium Ferritin AST ALT Lactate Dehydrogenase C-Reactive Protein Total Protein Albumin Arterial Blood Glucose 229 H 236 H Arterial Blood Ionized Calcium 4.5 L Coronavirus (PCR) Positive A 03/12/21 03/12/21 03/13/21 10:56 16:53 05:19 WBC Plt Count Seg Neuts % (Manual) Lymphocytes % (Manual) Seg Neutrophils # Man Lymphocytes # (Manual) PT INR APTT D-Dimer ABG pH POC ABG pCO2 POC ABG pO2 ABG Oxyhemoglobin ABG Sodium ABG Chloride ABG Glucose Carboxyhemoglobin Sodium 149 H Chloride 111.0 H 113.9 H Carbon Dioxide 13 L 15 L 18 L BUN 37 H 36 H 39 H Creatinine 2.2 H 2.3 H 2.5 H Glucose 254 H 212 H 304 H POC Glucose Hemoglobin A1c Lactic Acid Calcium Ferritin AST 110 H 100 H 88 H ALT 66 H 64 H 68 H Lactate Dehydrogenase C-Reactive Protein Total Protein 6.2 L Albumin 2.7 L 2.4 L 2.7 L Arterial Blood Glucose Arterial Blood Ionized Calcium Coronavirus (PCR) 03/13/21 03/14/21 03/14/21 23:06 00:03 04:44 WBC Plt Count Seg Neuts % (Manual) Lymphocytes % (Manual) Seg Neutrophils # Man Lymphocytes # (Manual) PT INR APTT D-Dimer ABG pH POC ABG pCO2 POC ABG pO2 ABG Oxyhemoglobin ABG Sodium ABG Chloride ABG Glucose Carboxyhemoglobin Sodium Chloride Carbon Dioxide BUN Creatinine Glucose POC Glucose 168 H 152 H Hemoglobin A1c 8.2 H Lactic Acid Calcium Ferritin AST ALT Lactate Dehydrogenase C-Reactive Protein Total Protein Albumin Arterial Blood Glucose Arterial Blood Ionized Calcium Coronavirus (PCR) 03/14/21 03/14/21 03/14/21 04:44 04:44 05:35 WBC Plt Count 132 L Seg Neuts % (Manual) Lymphocytes % (Manual) Seg Neutrophils # Man Lymphocytes # (Manual) PT INR APTT D-Dimer ABG pH POC ABG pCO2 POC ABG pO2 ABG Oxyhemoglobin ABG Sodium ABG Chloride ABG Glucose Carboxyhemoglobin Sodium 153 H Chloride 118.2 H Carbon Dioxide 21 L BUN 58 H Creatinine 3.4 H Glucose 380 H POC Glucose 331 H Hemoglobin A1c Lactic Acid Calcium Ferritin AST 56 H ALT 60 H Lactate Dehydrogenase C-Reactive Protein Total Protein 5.8 L Albumin 2.4 L Arterial Blood Glucose Arterial Blood Ionized Calcium Coronavirus (PCR) 03/14/21 03/14/21 03/14/21 11:12 15:11 22:42 WBC Plt Count Seg Neuts % (Manual) Lymphocytes % (Manual) Seg Neutrophils # Man Lymphocytes # (Manual) PT INR APTT D-Dimer ABG pH POC ABG pCO2 POC ABG pO2 ABG Oxyhemoglobin ABG Sodium ABG Chloride ABG Glucose Carboxyhemoglobin Sodium Chloride Carbon Dioxide BUN Creatinine Glucose POC Glucose 229 H 291 H 435 H Hemoglobin A1c Lactic Acid Calcium Ferritin AST ALT Lactate Dehydrogenase C-Reactive Protein Total Protein Albumin Arterial Blood Glucose Arterial Blood Ionized Calcium Coronavirus (PCR) 03/15/21 03/15/21 03/15/21 04:44 08:43 11:50 WBC Plt Count Seg Neuts % (Manual) Lymphocytes % (Manual) Seg Neutrophils # Man Lymphocytes # (Manual) PT INR APTT D-Dimer ABG pH POC ABG pCO2 POC ABG pO2 ABG Oxyhemoglobin ABG Sodium ABG Chloride ABG Glucose Carboxyhemoglobin Sodium 152 H Chloride 114.9 H Carbon Dioxide BUN 79 H Creatinine 4.3 H Glucose 303 H POC Glucose 281 H 340 H Hemoglobin A1c Lactic Acid Calcium Ferritin AST 41 H ALT Lactate Dehydrogenase C-Reactive Protein Total Protein 6.1 L Albumin 2.6 L Arterial Blood Glucose Arterial Blood Ionized Calcium Coronavirus (PCR) 09/19/21 09/20/21 09/20/21 21:27 04:14 04:14 WBC 14.3 H Plt Count 87 L Seg Neuts % (Manual) Lymphocytes % (Manual) Seg Neutrophils # Man Lymphocytes # (Manual) PT INR APTT D-Dimer ABG pH POC ABG pCO2 POC ABG pO2 ABG Oxyhemoglobin ABG Sodium ABG Chloride ABG Glucose Carboxyhemoglobin Sodium Chloride Carbon Dioxide BUN 75 H Creatinine 3.4 H Glucose 434 H POC Glucose 115 H Hemoglobin A1c Lactic Acid Calcium Ferritin AST ALT Lactate Dehydrogenase C-Reactive Protein Total Protein Albumin Arterial Blood Glucose Arterial Blood Ionized Calcium Coronavirus (PCR) 03/16/21 03/16/21 03/16/21 07:52 11:05 17:01 WBC Plt Count Seg Neuts % (Manual) Lymphocytes % (Manual) Seg Neutrophils # Man Lymphocytes # (Manual) PT INR APTT D-Dimer ABG pH POC ABG pCO2 POC ABG pO2 ABG Oxyhemoglobin ABG Sodium ABG Chloride ABG Glucose Carboxyhemoglobin Sodium Chloride Carbon Dioxide BUN Creatinine Glucose POC Glucose 439 H 277 H 194 H Hemoglobin A1c Lactic Acid Calcium Ferritin AST ALT Lactate Dehydrogenase C-Reactive Protein Total Protein Albumin Arterial Blood Glucose Arterial Blood Ionized Calcium Coronavirus (PCR) 03/17/21 03/17/21 03/17/21 06:00 06:00 06:00 WBC 12.3 H Plt Count 70 L Seg Neuts % (Manual) Lymphocytes % (Manual) Seg Neutrophils # Man Lymphocytes # (Manual) PT INR APTT D-Dimer > 18390 H ABG pH POC ABG pCO2 POC ABG pO2 ABG Oxyhemoglobin ABG Sodium ABG Chloride ABG Glucose Carboxyhemoglobin Sodium 150 H Chloride 118.0 H Carbon Dioxide 21 L BUN 92 H Creatinine 3.4 H Glucose 129 H POC Glucose Hemoglobin A1c Lactic Acid Calcium Ferritin AST ALT Lactate Dehydrogenase 1155 H C-Reactive Protein 1.50 H Total Protein Albumin Arterial Blood Glucose Arterial Blood Ionized Calcium Coronavirus (PCR) 03/17/21 03/17/21 03/17/21 09:00 09:19 09:19 WBC Plt Count Seg Neuts % (Manual) Lymphocytes % (Manual) Seg Neutrophils # Man Lymphocytes # (Manual) PT 22.4 H INR 1.92 H APTT 37.7 H D-Dimer ABG pH POC ABG pCO2 POC ABG pO2 ABG Oxyhemoglobin ABG Sodium ABG Chloride ABG Glucose Carboxyhemoglobin Sodium Chloride Carbon Dioxide BUN Creatinine Glucose POC Glucose Hemoglobin A1c Lactic Acid Calcium Ferritin 1517.0 H AST ALT Lactate Dehydrogenase C-Reactive Protein Total Protein 5.1 L Albumin 2.2 L Arterial Blood Glucose Arterial Blood Ionized Calcium Coronavirus (PCR) 03/17/21 03/17/21 03/17/21 15:44 16:58 23:39 WBC Plt Count Seg Neuts % (Manual) Lymphocytes % (Manual) Seg Neutrophils # Man Lymphocytes # (Manual) PT INR APTT 70.8 H* D-Dimer ABG pH POC ABG pCO2 POC ABG pO2 ABG Oxyhemoglobin ABG Sodium ABG Chloride ABG Glucose Carboxyhemoglobin Sodium Chloride Carbon Dioxide BUN Creatinine Glucose POC Glucose 165 H 235 H Hemoglobin A1c Lactic Acid Calcium Ferritin AST ALT Lactate Dehydrogenase C-Reactive Protein Total Protein Albumin Arterial Blood Glucose Arterial Blood Ionized Calcium Coronavirus (PCR) 03/18/21 03/18/21 03/18/21 03:50 03:50 05:40 WBC Plt Count Seg Neuts % (Manual) Lymphocytes % (Manual) Seg Neutrophils # Man Lymphocytes # (Manual) PT INR APTT 81.9 H* D-Dimer ABG pH POC ABG pCO2 POC ABG pO2 ABG Oxyhemoglobin ABG Sodium ABG Chloride ABG Glucose Carboxyhemoglobin Sodium Chloride 109.0 H Carbon Dioxide 21 L BUN 70 H Creatinine 2.5 H Glucose 258 H POC Glucose 207 H Hemoglobin A1c Lactic Acid Calcium 8.2 L Ferritin AST ALT Lactate Dehydrogenase C-Reactive Protein Total Protein Albumin Arterial Blood Glucose Arterial Blood Ionized Calcium Coronavirus (PCR) 03/18/21 07:15 WBC Plt Count Seg Neuts % (Manual) Lymphocytes % (Manual) Seg Neutrophils # Man Lymphocytes # (Manual) PT INR APTT D-Dimer ABG pH POC ABG pCO2 POC ABG pO2 ABG Oxyhemoglobin ABG Sodium ABG Chloride ABG Glucose Carboxyhemoglobin Sodium Chloride Carbon Dioxide BUN Creatinine Glucose POC Glucose 215 H Hemoglobin A1c Lactic Acid Calcium Ferritin AST ALT Lactate Dehydrogenase C-Reactive Protein Total Protein Albumin Arterial Blood Glucose Arterial Blood Ionized Calcium Coronavirus (PCR)
--- NOTE | 2021-03-18 10:00 | XRay Report ---
CHEST 1 VIEW INDICATION / CLINICAL INFORMATION: Evaluate PTX on left, hypoxemia, covid STUDY TIME: 932 COMPARISON: 03/17/2021 FINDINGS: SUPPORT DEVICES: None HEART / MEDIASTINUM: Pneumomediastinum continues without significant change LUNGS / PLEURA: Patchy bibasilar infiltrates continue. Bilateral small apical pneumothoraces are not obviously changed. ADDITIONAL FINDINGS: Extensive subcutaneous emphysema is again seen, particularly in the supraclavicu lar regions and lower neck area. The vague lucency in the upper abdomen mentioned on prior study as p ossible peritoneum continues. Signer Name: Manuel Oconnor MD Signed: 03/18/2021 9:56 AM Workstation Name: [id number]
--- NOTE | 2021-03-18 10:12 | Progress Note ---
Assessment and Plan Cultures: Blood culture 03/11/2021 no growth today SARS CoV2 PCR positive Assessment: 50-year-old male with history of CVA admitted on 03/11/2021 secondary to shortness of breath/altered mental status: #Severe sepsis: with low grade fever, leukocytosis up; likely secondary to COVID-19. Procalcitonin elevated #Severe COVID pneumonia: CXR with bilateral pneumonia. Infllammatory markers elevated. CRP 17.9-->1.5. D-dimer 22 6. Ferritin 1640. #Acute hypoxemic respiratory failure: Remains on BiPAP. #Right apical small pneumothorax, pneumomediastinum, pneumoperitonium: from COVID #Elevated LFTs: from COVID. AST 148, ALT 65. #CHRISTY: from COVID. Worsening, started dialysis 03/17. #Acute diarrhea likely secondary to COVID-19. #AMS: likely due to hypoxia. #DM: uncontrolled #Subcutaneous emphysema: Likely secondary to COVID-19. Recommendations: -Pulmonary on board, close monitoring, high risk for intubation -Steroids per pulmonary total 10 days -Stopped remdesivir after second dose due to renal failure -Completed Tocilizumab 8 mg/kg x1 03/12/2021 -Monitor inflammatory markers - ferritin, Ddimer, CRP, LDH -Continue anticoagulation per System Protocol -Prone positioning as possible -Completed ceftriaxone for 5 days and azithromycin for 3 days All laboratory, cultures and imaging were reviewed. Very Guarded prognosis Will follow Malathi Gaona MD Infectious Diseases [employer] Administrator [facility] M [phone] O [phone] Subjective Date of service: 03/18/21 Principal diagnosis: COVID-19 Interval history: Remains on BiPAP, O2 sats in the low 90s. Objective - Exam Narrative Exam: Physical exam deferred to minimize COVID-19 transmission during pandemic. - Constitutional Vitals: Vital Signs Temp Pulse Resp BP Pulse Ox 97.8 F 88 25 H 141/102 90 03/18/21 07:51 03/18/21 07:30 03/18/21 07:30 03/18/21 07:30 03/18/21 07:30 Temperature -Last 24 Hours Temperature 97.8 F Temperature 97.1 F Temperature 96.9 F Temperature 96.6 F Temperature 98.2 F Temperature 97.9 F Temperature 98.2 F - Labs CBC & Chem 7: 03/17/21 06:00 03/18/21 03:50 Labs: Abnormal lab results 03/17/21 03/17/21 03/17/21 Range/Units 09:00 09:19 09:19 PT 22.4 H (12.2-14.9) Sec. INR 1.92 H (0.87-1.13) APTT 37.7 H (24.2-36.6) Sec. Chloride (98-107) mmol/L Carbon Dioxide (22-30) mmol/L BUN (9-20) mg/dL Creatinine (0.8-1.3) mg/dL Glucose (75-100) mg/dL POC Glucose (70-105) mg/dL Calcium (8.4-10.2) mg/dL Ferritin 1517.0 H (30.0-300.0) ng/mL Total Protein 5.1 L (6.3-8.2) g/dL Albumin 2.2 L (3.9-5) g/dL 03/17/21 03/17/21 03/17/21 Range/Units 15:44 16:58 23:39 PT (12.2-14.9) Sec. INR (0.87-1.13) APTT 70.8 H* (24.2-36.6) Sec. Chloride (98-107) mmol/L Carbon Dioxide (22-30) mmol/L BUN (9-20) mg/dL Creatinine (0.8-1.3) mg/dL Glucose (75-100) mg/dL POC Glucose 165 H 235 H (70-105) mg/dL Calcium (8.4-10.2) mg/dL Ferritin (30.0-300.0) ng/mL Total Protein (6.3-8.2) g/dL Albumin (3.9-5) g/dL 03/18/21 03/18/21 03/18/21 Range/Units 03:50 03:50 05:40 PT (12.2-14.9) Sec. INR (0.87-1.13) APTT 81.9 H* (24.2-36.6) Sec. Chloride 109.0 H (98-107) mmol/L Carbon Dioxide 21 L (22-30) mmol/L BUN 70 H (9-20) mg/dL Creatinine 2.5 H (0.8-1.3) mg/dL Glucose 258 H (75-100) mg/dL POC Glucose 207 H (70-105) mg/dL Calcium 8.2 L (8.4-10.2) mg/dL Ferritin (30.0-300.0) ng/mL Total Protein (6.3-8.2) g/dL Albumin (3.9-5) g/dL 03/18/21 Range/Units 07:15 PT (12.2-14.9) Sec. INR (0.87-1.13) APTT (24.2-36.6) Sec. Chloride (98-107) mmol/L Carbon Dioxide (22-30) mmol/L BUN (9-20) mg/dL Creatinine (0.8-1.3) mg/dL Glucose (75-100) mg/dL POC Glucose 215 H (70-105) mg/dL Calcium (8.4-10.2) mg/dL Ferritin (30.0-300.0) ng/mL Total Protein (6.3-8.2) g/dL Albumin (3.9-5) g/dL
--- NOTE | 2021-03-18 12:34 | Progress Note ---
Assessment and Plan Impression: * Nonoliguric acute kidney injury vs underlying CKD --Baseline renal function unknown * Acute hypoxic respiratory failure secondary to COVID 19 PNA * COVID 19 infection * Hypertension * Hypernatremia * Transaminitis Plan: * Started HD today 03/17, continue TTS * Assess daily for needs for additional sessions * Case was discussed in detail with niece including possible complications on HD and consent was obtained for HD prior to initiation * Vasc cath placed 03/16 * Serologies pending * Remdesevir (hold for GFR<30), steroids, abx per ID * Cont Clonidine 0.1mg patch and IV hydralazine prn * Dose medications for renal function * Avoid potential nephrotoxins * AM labs Subjective Date of service: 03/18/21 Principal diagnosis: COVID-19 Interval history: Nursing, interdisciplinary and consult notes were reviewed Vitals, input and output, medications and labs were reviewed Remains in ICU Objective - Exam Narrative Exam: In order to reduce transmission risk given Covid, exam deferred. Primary team exam reviewed in detail. - Vital Signs Vital signs: Vital Signs - 12hr 03/18/21 03/18/21 03/18/21 01:00 01:30 02:00 Temperature Pulse Rate 85 82 85 Pulse Rate [ From Monitor] Respiratory 31 H 26 H 28 H Rate Blood Pressure 144/104 147/106 144/106 O2 Sat by Pulse 92 92 95 Oximetry 03/18/21 03/18/21 03/18/21 02:30 02:59 03:00 Temperature Pulse Rate 85 81 91 H Pulse Rate [ From Monitor] Respiratory 27 H 30 H 44 H Rate Blood Pressure 140/104 153/112 153/116 O2 Sat by Pulse 92 96 88 Oximetry 03/18/21 03/18/21 03/18/21 03:30 03:42 04:00 Temperature 97.1 F L Pulse Rate 89 89 Pulse Rate [ From Monitor] Respiratory 31 H 28 H Rate Blood Pressure 147/105 137/98 O2 Sat by Pulse 95 96 Oximetry 03/18/21 03/18/21 03/18/21 04:10 04:30 05:00 Temperature Pulse Rate 89 87 89 Pulse Rate [ From Monitor] Respiratory 26 H 30 H Rate Blood Pressure 145/103 139/100 O2 Sat by Pulse 93 91 Oximetry 03/18/21 03/18/21 03/18/21 05:30 06:00 06:30 Temperature Pulse Rate 88 89 88 Pulse Rate [ From Monitor] Respiratory 25 H 31 H 26 H Rate Blood Pressure 130/102 138/97 133/100 O2 Sat by Pulse 91 92 92 Oximetry 03/18/21 03/18/21 03/18/21 07:00 07:30 07:51 Temperature 97.8 F Pulse Rate 88 88 Pulse Rate [ From Monitor] Respiratory 24 25 H Rate Blood Pressure 137/96 141/102 O2 Sat by Pulse 92 90 Oximetry 03/18/21 03/18/21 03/18/21 08:00 08:30 09:00 Temperature Pulse Rate 86 85 85 Pulse Rate [ 85 From Monitor] Respiratory 23 22 24 Rate Blood Pressure 140/106 137/102 137/108 O2 Sat by Pulse 89 92 93 Oximetry 03/18/21 03/18/21 03/18/21 09:30 10:00 10:24 Temperature Pulse Rate 84 86 86 Pulse Rate [ From Monitor] Respiratory 21 21 25 H Rate Blood Pressure 145/105 133/106 128/102 O2 Sat by Pulse 90 89 94 Oximetry 03/18/21 03/18/21 03/18/21 10:30 11:00 11:31 Temperature Pulse Rate 85 85 85 Pulse Rate [ From Monitor] Respiratory 19 23 26 H Rate Blood Pressure 138/100 127/104 141/108 O2 Sat by Pulse 92 91 89 Oximetry 03/18/21 12:00 Temperature Pulse Rate 84 Pulse Rate [ 85 From Monitor] Respiratory 20 Rate Blood Pressure 135/104 O2 Sat by Pulse 89 Oximetry - Lab 03/17/21 06:00 03/18/21 03:50 Most recent lab results ABG pH 7.279 (7.320-7.450) L 03/12/21 04:35 ABG O2 Saturation 99.0 (0-100) 03/12/21 04:35 Calcium 8.2 mg/dL (8.4-10.2) L 03/18/21 03:50 Urine Sodium 37 mmol/L 03/14/21 Unknown Medications & Allergies - Medications Allergies/Adverse Reactions: Allergies No Known Allergies Allergy (Verified 03/11/21 09:21) Home Medications: Home Medications Medication Instructions Recorded Confirmed Last Taken Type AtorvaSTATin [Lipitor] 10 mg PO QHS 03/14/21 03/14/21 Unknown History Metoprolol [Lopressor TAB] 50 mg PO BID 03/14/21 03/14/21 Unknown History Mycophenolate [Cellcept] 500 mg PO BID 03/14/21 03/14/21 Unknown History NIFEdipine [Nifedipine ER] 90 mg PO BID 03/14/21 03/14/21 Unknown History Ondansetron [Zofran Odt] 4 mg PO Q8HR 03/14/21 03/14/21 Unknown History Tacrolimus 1 mg PO Q12HR 03/14/21 03/14/21 Unknown History Active Medications: Generic Name Dose Route Start Last Admin Trade Name Freq PRN Reason Stop Dose Admin Acetaminophen 650 mg 03/11/21 12:00 03/14/21 03:54 Acetaminophen 325 Mg Tab PO 650 mg Q4H PRN Administration Pain MILD(1-3)/Fever >100.5/[place] Ascorbic Acid 500 mg 03/11/21 12:00 03/17/21 22:40 Ascorbic Acid 500 Mg Tab PO Not Given BID GYPSY Cholecalciferol 1,000 unit 03/11/21 13:00 03/17/21 09:11 Cholecalciferol (Vit D3) 1000 Unit (25 Mcg) Tab PO Not Given [facility] Clonidine HCl 0.1 mg 03/20/21 08:00 Clonidine Tts 0.1 Mg/24 Hr Patch TD Fr GYPSY Dextrose 50 ml 03/13/21 14:44 Dextrose 50% In Water (25gm) 50 Ml Syringe IV Q30MIN PRN Hypoglycemia Protocol Hydralazine HCl 10 mg 03/14/21 18:13 03/15/21 21:18 Hydralazine 20 Mg/1 Ml Inj IV 10 mg Q6H PRN Administration Hypertension Hydromorphone HCl 0.5 mg 03/11/21 12:00 03/13/21 07:46 Hydromorphone 1 Mg/1 Ml Inj IV 0.5 mg Q12H PRN Administration Pain , Severe (7-10) Dexmedetomidine HCl 400 mcg/ 104 mls @ 3.588 mls/hr 03/16/21 12:00 03/18/21 06:19 Sodium Chloride IV 1 mcg/kg/hr TITRATE GYPSY 17.94 mls/hr Administration Protocol 0.2 MCG/KG/HR Argatroban 250 mg/ Sodium 250 mls @ 2.07 mls/hr 03/17/21 11:00 03/18/21 05:30 Chloride IV 0.5 mcg/kg/min TITR GYPSY 2.07 mls/hr Titration Protocol 0.5 MCG/KG/MIN Sodium Chloride 100 mls @ 999 mls/hr 03/17/21 08:54 Nacl 0.9% IV OSCAR PRN Hypotension Insulin Human Lispro 0 unit 03/16/21 13:00 03/18/21 06:06 Insulin Lispro 100 Unit/Ml SUB-Q 3 unit Q6HR GYPSY Administration Protocol Lorazepam 1 mg 03/11/21 17:00 03/18/21 02:53 Lorazepam 2 Mg/Ml Vial IV 1 mg Q6H PRN Administration Agitation Methylprednisolone Sodium Succinate 40 mg 03/11/21 14:00 03/18/21 06:06 Methylprednisolone Sod Succinate 40 Mg/1 Ml Inj IV 03/21/21 06:01 40 mg Q8HR GYPSY Administration Ondansetron HCl 4 mg 03/11/21 12:00 03/15/21 12:08 Ondansetron 4 Mg/2 Ml Inj IV 4 mg Q8H PRN Administration Nausea And Vomiting Oxycodone/Acetaminophen 1 tab 03/11/21 12:00 Oxycodone /Acetaminophen 5-325mg Tab PO Q12H PRN Pain, Moderate (4-6) Sodium Chloride 10 ml 03/11/21 12:00 03/17/21 22:39 Sodium Chloride 0.9% 10 Ml Flush Syringe IV 10 ml BID GYPSY Administration Sodium Chloride 10 ml 03/11/21 12:00 Sodium Chloride 0.9% 10 Ml Flush Syringe IV PRN PRN LINE FLUSH Zinc Sulfate 220 mg 03/11/21 12:00 03/17/21 22:40 Zinc Sulfate 220 Mg Cap PO Not Given BID GYPSY
--- NOTE | 2021-03-18 15:05 | Progress Note ---
Assessment and Plan Assessment and plan: 50-year-old male history of CVA who presented with difficulty breathing. Found to have COVID-19 infection and was admitted for acute hypoxic respiratory failure and pneumonia. Prognosis remains guarded still requiring BiPAP. #Acute hypoxic respiratory failure -on NIPPV, patient with tachypnea and tachycardia -Continue precedex drip for discomfort -low threshold for intubation if continues to be tachypneic; discussed with Dr. Cruz -continue steroids -Pulmonary following, appreciate assistance #Sepsis -secondary to COVID-19 and PNA -BCx ordered, NGTD -continue current management #Severe COVID-19 pneumonia -unvaccinated -steroids, COVID vitamins -Remdesivir held due to renal function -s/p Actemra -ID following, appreciate assistance -inflammatory markers q48hr - continue rocephin and azithromycin for now #CHRISTY-improving -SCr 4.3 -> 3.4->3.1-->2.5 -remdesivir held -Nephrology following, appreciate assistance -Hemodialysis initiated and will continue with TTS schedule #Type 2 diabetes -A1c 8.2% -Glucose in 115 to 400 range -Goal glucose 140-180s -continue lantus 15 units daily -SSI adjusted to q6h -If continues to have elevated sugars, will consider insulin drip #Hypernatremia-resolved -Sodium now 144 -continue D5W infusion #Hypertension -Clonidine patch Disposition Plan: Continue medical manage History Interval history: No acute events overnight. Hospitalist Physical - Constitutional Vitals: Temp Pulse Resp BP Pulse Ox 97.6 F 85 27 H 135/104 94 03/18/21 12:00 03/18/21 12:00 03/18/21 12:00 03/18/21 12:00 03/18/21 12:00 General appearance: Present: no acute distress - EENT Eyes: Present: PERRL, EOM intact ENT: hearing intact, clear oral mucosa, dentition normal - Neck Neck: Present: supple, normal ROM, other (Subcutaneous emphysema) - Respiratory Respiratory effort: labored Respiratory: bilateral: diminished, rhonchi, negative: CTA, rales, wheezing - Cardiovascular Rhythm: regular Heart Sounds: Present: S1 & S2 - Extremities Extremities: no ischemia, pulses intact, pulses symmetrical, No edema, normal temperature, normal color Peripheral Pulses: within normal limits - Abdominal General gastrointestinal: soft, non-distended, normal bowel sounds - Integumentary Integumentary: Present: clear, warm, dry - Psychiatric Psychiatric: appropriate mood/affect, intact judgment & insight, memory intact, cooperative - Neurologic Neurologic: CNII-XII intact, focal deficits (2/5 strength of left upper extremity) - Allied Health Allied health notes reviewed: nursing HEART Score - HEART Score History: Moderately suspicious EKG: Non-specific Age: 45-65 Risk factors: 1-2 risk factors Troponin: Troponin T < 0.010 ng/mL (0.00-0.029) 03/11/21 09:41 - Critical Actions Critical Actions: 4-6 pts:12-16.6% risk of adverse cardiac event. Should be admitted Results - Labs CBC & Chem 7: 03/17/21 06:00 03/18/21 03:50 Labs: Laboratory Last Values WBC 12.3 K/mm3 (4.5-11.0) H 03/17/21 06:00 RBC 4.55 M/mm3 (3.65-5.03) 03/17/21 06:00 Hgb 13.5 gm/dl (11.8-15.2) 03/17/21 06:00 Hct 41.1 % (35.5-45.6) 03/17/21 06:00 MCV 90 fl (84-94) 03/17/21 06:00 MCH 30 pg (28-32) 03/17/21 06:00 MCHC 33 % (32-34) 03/17/21 06:00 RDW 14.5 % (13.2-15.2) 03/17/21 06:00 Plt Count 70 K/mm3 (140-440) L 03/17/21 06:00 Add Manual Diff Complete 03/11/21 09:41 Total Counted 100 03/11/21 09:41 Seg Neutrophils % Jacquard Card Lacer 03/11/21 09:41 Seg Neuts % (Manual) 89.0 % (40.0-70.0) H 03/11/21 09:41 Band Neutrophils % 2.0 % 03/11/21 09:41 Lymphocytes % (Manual) 2.0 % (13.4-35.0) L 03/11/21 09:41 Monocytes % (Manual) 7.0 % (0.0-7.3) 03/11/21 09:41 Nucleated RBC % Not Reportable 03/11/21 09:41 Seg Neutrophils # Man 9.7 K/mm3 (1.8-7.7) H 03/11/21 09:41 Band Neutrophils # 0.2 K/mm3 03/11/21 09:41 Lymphocytes # (Manual) 0.2 K/mm3 (1.2-5.4) L 03/11/21 09:41 Abs React Lymphs (Man) 0.0 K/mm3 03/11/21 09:41 Monocytes # (Manual) 0.8 K/mm3 (0.0-0.8) 03/11/21 09:41 Eosinophils # (Manual) 0.0 K/mm3 (0.0-0.4) 03/11/21 09:41 Basophils # (Manual) 0.0 K/mm3 (0.0-0.1) 03/11/21 09:41 Metamyelocytes # 0.0 K/mm3 03/11/21 09:41 Myelocytes # 0.0 K/mm3 03/11/21 09:41 Promyelocytes # 0.0 K/mm3 03/11/21 09:41 Blast Cells # 0.0 K/mm3 03/11/21 09:41 WBC Morphology Not Reportable 03/11/21 09:41 Hypersegmented Neuts Not Reportable 03/11/21 09:41 Hyposegmented Neuts Not Reportable 03/11/21 09:41 Hypogranular Neuts Not Reportable 03/11/21 09:41 Smudge Cells Not Reportable 03/11/21 09:41 Toxic Granulation Not Reportable 03/11/21 09:41 Toxic Vacuolation Not Reportable 03/11/21 09:41 Dohle Bodies Not Reportable 03/11/21 09:41 Pelger-Huet Anomaly Not Reportable 03/11/21 09:41 Fina Rods Not Reportable 03/11/21 09:41 Platelet Estimate Consistent w auto 03/11/21 09:41 Clumped Platelets Not Reportable 03/11/21 09:41 Plt Clumps, EDTA Not Reportable 03/11/21 09:41 Large Platelets Not Reportable 03/11/21 09:41 Giant Platelets Not Reportable 03/11/21 09:41 Platelet Satelliting Not Reportable 03/11/21 09:41 Plt Morphology Comment Not Reportable 03/11/21 09:41 RBC Morphology Normal 03/11/21 09:41 Dimorphic RBCs Not Reportable 03/11/21 09:41 Polychromasia Not Reportable 03/11/21 09:41 Hypochromasia Not Reportable 03/11/21 09:41 Poikilocytosis Not Reportable 03/11/21 09:41 Anisocytosis Not Reportable 03/11/21 09:41 Microcytosis Not Reportable 03/11/21 09:41 Macrocytosis Not Reportable 03/11/21 09:41 Spherocytes Not Reportable 03/11/21 09:41 Pappenheimer Bodies Not Reportable 03/11/21 09:41 Sickle Cells Not Reportable 03/11/21 09:41 Target Cells Not Reportable 03/11/21 09:41 Tear Drop Cells Not Reportable 03/11/21 09:41 Ovalocytes Not Reportable 03/11/21 09:41 Helmet Cells Not Reportable 03/11/21 09:41 [place] Bodies Not Reportable 03/11/21 09:41 [place] Rings Not Reportable 03/11/21 09:41 [place] Cells Not Reportable 03/11/21 09:41 Bite Cells Not Reportable 03/11/21 09:41 Crenated Cell Not Reportable 03/11/21 09:41 Elliptocytes Not Reportable 03/11/21 09:41 Acanthocytes (Spur) Not Reportable 03/11/21 09:41 Rouleaux Not Reportable 03/11/21 09:41 Hemoglobin C Crystals Not Reportable 03/11/21 09:41 Schistocytes Not Reportable 03/11/21 09:41 Malaria parasites Not Reportable 03/11/21 09:41 [place] Bodies Not Reportable 03/11/21 09:41 Hem Pathologist Commnt No 03/11/21 09:41 PT 22.4 Sec. (12.2-14.9) H 03/17/21 09:19 INR 1.92 (0.87-1.13) H 03/17/21 09:19 APTT 81.9 Sec. (24.2-36.6) H* 03/18/21 03:50 D-Dimer > 99568 ng/mlDDU (0-234) H 03/17/21 06:00 ABG pH 7.279 (7.320-7.450) L 03/12/21 04:35 POC ABG pCO2 30.2 mmHg (32.0-48.0) L 03/12/21 04:35 POC ABG pO2 183.7 mmHg (83-108) H 03/12/21 04:35 POC ABG HCO3 13.8 03/12/21 04:35 ABG O2 Saturation 99.0 (0-100) 03/12/21 04:35 POC ABG Base Excess -11.5 03/12/21 04:35 ABG Hemoglobin 14.2 (12.0-17.5) 03/12/21 04:35 ABG Oxyhemoglobin 98.6 (94-98) H 03/12/21 04:35 ABG Methemoglobin 0.1 (0.0-1.5) 03/12/21 04:35 ABG Sodium 136.8 mmol/L (136.0-145.0) 03/12/21 04:35 ABG Potassium 4.0 mmol/L (3.40-4.50) 03/12/21 04:35 ABG Chloride 107.0 mmol/L (98-107) 03/12/21 04:35 ABG Glucose 236 mg/dL (65-95) H 03/12/21 04:35 Carboxyhemoglobin 0.3 (0.5-1.5) L 03/12/21 04:35 FiO2 % 100.0 03/12/21 04:35 Sodium 144 mmol/L (137-145) 03/18/21 03:50 Potassium 3.6 mmol/L (3.6-5.0) 03/18/21 03:50 Chloride 109.0 mmol/L (98-107) H 03/18/21 03:50 Carbon Dioxide 21 mmol/L (22-30) L 03/18/21 03:50 Anion Gap 18 mmol/L 03/18/21 03:50 BUN 70 mg/dL (9-20) H 03/18/21 03:50 Creatinine 2.5 mg/dL (0.8-1.3) H 03/18/21 03:50 Estimated GFR 34 ml/min 03/18/21 03:50 BUN/Creatinine Ratio 28 % 03/18/21 03:50 Glucose 258 mg/dL (75-100) H 03/18/21 03:50 POC Glucose 179 mg/dL (70-105) H 03/18/21 11:31 Hemoglobin A1c 8.2 % (4-6) H 03/14/21 04:44 Lactic Acid 1.60 mmol/L (0.7-2.0) 03/12/21 00:08 Calcium 8.2 mg/dL (8.4-10.2) L 03/18/21 03:50 Ferritin 1517.0 ng/mL (30.0-300.0) H 03/17/21 09:00 Total Bilirubin 0.60 mg/dL (0.1-1.2) 03/17/21 09:19 Direct Bilirubin < 0.2 mg/dL (0-0.2) 03/17/21 09:19 Indirect Bilirubin 0.4 mg/dL 03/17/21 09:19 AST 31 units/L (5-40) 03/17/21 09:19 ALT 36 units/L (7-56) 03/17/21 09:19 Alkaline Phosphatase 121 units/L (35-129) 03/17/21 09:19 Lactate Dehydrogenase 1155 units/L (91-180) H 03/17/21 06:00 Troponin T < 0.010 ng/mL (0.00-0.029) 03/11/21 09:41 C-Reactive Protein 1.50 mg/dL (0.00-1.30) H 03/17/21 06:00 Total Protein 5.1 g/dL (6.3-8.2) L 03/17/21 09:19 Albumin 2.2 g/dL (3.9-5) L 03/17/21 09:19 Albumin/Globulin Ratio 0.8 % 03/17/21 09:19 Procalcitonin 4.61 ng/mL (<0.15) 03/11/21 09:41 Arterial Blood Glucose 236 mg/dL (65-95) H 03/12/21 04:35 Arterial Blood Ionized Calcium 5.0 mg/dL (4.6-5.3) 03/12/21 04:35 Urine Color Yellow (Yellow) 03/11/21 Unknown Urine Turbidity Clear (Clear) 03/11/21 Unknown Urine pH 6.0 (5.0-7.0) 03/11/21 Unknown Ur Specific [place] 1.011 (1.003-1.030) 03/11/21 Unknown Urine Protein >500 mg/dL (Negative) 03/11/21 Unknown Urine Glucose (UA) 50 mg/dL (Negative) 03/11/21 Unknown Urine Ketones 20 mg/dL (Negative) 03/11/21 Unknown Urine Blood Lg (Negative) 03/11/21 Unknown Urine Nitrite Neg (Negative) 03/11/21 Unknown Urine Bilirubin Neg (Negative) 03/11/21 Unknown Urine Urobilinogen < 2.0 mg/dL (<2.0) 03/11/21 Unknown Ur Leukocyte Esterase Neg (Negative) 03/11/21 Unknown Urine WBC (Auto) 1.0 /HPF (0.0-6.0) 03/11/21 Unknown Urine RBC (Auto) 1.0 /HPF (0.0-6.0) 03/11/21 Unknown Urine Sodium 37 mmol/L 03/14/21 Unknown Urine Urea Nitrogen 818 03/14/21 Unknown Coronavirus (PCR) Positive (Negative) A 03/11/21 Unknown [place]/IV: Voiding Method Condom Catheter Active Medications - Current Medications Current Medications: Generic Name Dose Route Start Last Admin Trade Name Freq PRN Reason Stop Dose Admin Acetaminophen 650 mg 03/11/21 12:00 03/14/21 03:54 Acetaminophen 325 Mg Tab PO 650 mg Q4H PRN Administration Pain MILD(1-3)/Fever >100.5/WASSERMAN Ascorbic Acid 500 mg 03/11/21 12:00 03/17/21 22:40 Ascorbic Acid 500 Mg Tab PO Not Given BID GYPSY Cholecalciferol 1,000 unit 03/11/21 13:00 03/17/21 09:11 Cholecalciferol (Vit D3) 1000 Unit (25 Mcg) Tab PO Not Given QDAY GYPSY Clonidine HCl 0.1 mg 03/20/21 08:00 Clonidine Tts 0.1 Mg/24 Hr Patch TD Fr GYPSY Dextrose 50 ml 03/13/21 14:44 Dextrose 50% In Water (25gm) 50 Ml Syringe IV Q30MIN PRN Hypoglycemia Protocol Hydralazine HCl 10 mg 03/14/21 18:13 03/15/21 21:18 Hydralazine 20 Mg/1 Ml Inj IV 10 mg Q6H PRN Administration Hypertension Hydromorphone HCl 0.5 mg 03/11/21 12:00 03/13/21 07:46 Hydromorphone 1 Mg/1 Ml Inj IV 0.5 mg Q12H PRN Administration Pain , Severe (7-10) Dexmedetomidine HCl 400 mcg/ 104 mls @ 3.588 mls/hr 03/16/21 12:00 03/18/21 13:18 Sodium Chloride IV 1 mcg/kg/hr TITRATE GYPSY 17.94 mls/hr Administration Protocol 0.2 MCG/KG/HR Argatroban 250 mg/ Sodium 250 mls @ 2.07 mls/hr 03/17/21 11:00 03/18/21 05:30 Chloride IV 0.5 mcg/kg/min TITR GYPSY 2.07 mls/hr Titration Protocol 0.5 MCG/KG/MIN Sodium Chloride 100 mls @ 999 mls/hr 03/17/21 08:54 Nacl 0.9% IV OSCAR PRN Hypotension Insulin Human Lispro 0 unit 03/16/21 13:00 03/18/21 13:13 Insulin Lispro 100 Unit/Ml SUB-Q 2 unit Q6HR GYPSY Administration Protocol Lorazepam 1 mg 03/11/21 17:00 03/18/21 02:53 Lorazepam 2 Mg/Ml Vial IV 1 mg Q6H PRN Administration Agitation Methylprednisolone Sodium Succinate 40 mg 03/11/21 14:00 03/18/21 13:12 Methylprednisolone Sod Succinate 40 Mg/1 Ml Inj IV 03/21/21 06:01 40 mg Q8HR GYPSY Administration Ondansetron HCl 4 mg 03/11/21 12:00 03/15/21 12:08 Ondansetron 4 Mg/2 Ml Inj IV 4 mg Q8H PRN Administration Nausea And Vomiting Oxycodone/Acetaminophen 1 tab 03/11/21 12:00 Oxycodone /Acetaminophen 5-325mg Tab PO Q12H PRN Pain, Moderate (4-6) Sodium Chloride 10 ml 03/11/21 12:00 03/17/21 22:39 Sodium Chloride 0.9% 10 Ml Flush Syringe IV 10 ml BID GYPSY Administration Sodium Chloride 10 ml 03/11/21 12:00 Sodium Chloride 0.9% 10 Ml Flush Syringe IV PRN PRN LINE FLUSH Zinc Sulfate 220 mg 03/11/21 12:00 03/17/21 22:40 Zinc Sulfate 220 Mg Cap PO Not Given BID GYPSY Nutrition/Malnutrition Assess - Dietary Evaluation Nutrition/Malnutrition Findings: Nutrition Notes Start: 03/14/21 12:54 Freq: Status: Active Protocol: Document 03/16/21 12:49 MK (Rec: 03/16/21 12:54 MK [id number]) Nutrition Notes Initial or Follow up Reassessment Current Diagnosis Acute Kidney Injury,Sepsis, Hypertension,Respiratory Failure Other Pertinent Diagnosis COVID-19, diarrhea, pneumonia Current Diet regular Labs/Tests BUN 75 Cr 3.4 BG 434 Pertinent Medications Humalog Solu Medrol 03/15: D5w at 75 ml/hr Height 5 ft 11 in Weight 69 kg [place] Body Weight (kg) 78.18 BMI 21.2 Weight Status Appropriate Subjective/Other Information Unable to speak with pt. RN reports pt able to drink some ONS today and ate small amount of food yesterday before O2 drops. Percent of energy/protein needs met: Negligible Burn Absent Trauma Absent Current % PO Negligible Minimum of two criteria Yes Interpretation of Weight Loss (severe) >2% in 1 week Reduced Addiction Counselor Strength Measurably Reduced (severe) #1 Nutrition Diagnosis Malnutrition As Evidenced by Signs and Symptoms >2% wt loss in 1 week, weak seamless hosiery knitter strength Diagnosis Progress(for reassessment Continues documentation) Is patient on ventilator? No Is Patient Ambulatory and/or Out of Bed No REE-([facility]-confined to bed) [phone] Calculation Used for Recommendations [facility] Additional Notes Protein needs 1.2-1.5 g/k -104 g/day fluid needs: 1ml/kcal Nutrition Intervention Change Diet Order: contiue Add Supplement/Snack (indicate name/kcal Nepro BID /protein ) Provides kCal: 850 Provides Protein (gm) 38 Goal #1 Pt to meet at least 75% of protein and kcal needs via diet and ONS Goal #2 Weight gain/maintenance Anticipated Discharge Needs: Regular Follow-Up By: 03/18/21 Additional Comments F/u: intakes, ONS tolerance, renal function - Attestation Statement I have reviewed and agreed w/ Malnutrition eval & tx plan: Yes
[2021-03-18 16:38] LABS: Hepatitis C Virus Antibody Non-Reactive (NonReactive)
[2021-03-18 16:44] LABS: Hepatitis B Surface Antigen Nonreactive (Negative)
[2021-03-18] MEDS: CHOLECALCIFEROL (VIT D3) 1000 UNIT (25 mcg) TAB PO SCH (18:56)
[2021-03-18] MEDS: ASCORBIC ACID 500 MG TAB PO SCH ×2 (18:56→21:56)
[2021-03-18] MEDS: ZINC SULFATE 220 MG CAP PO SCH ×2 (18:56→21:56)
[2021-03-18] MEDS ORDERED: diphenhydrAMINE 50 MG/ML VIAL IV ONE (23:00)
[2021-03-18] MEDS ORDERED: HALOPERIDOL LACTATE 5 MG/1 ML INJ IV ONE (23:00)
--- NOTE | 2021-03-18 23:11 | XRay Report ---
XR chest 1V ap INDICATION / CLINICAL INFORMATION: Tachypnea, Tachycardia, Dyspnea. COMPARISON: 03/18/2021 FINDINGS: SUPPORT DEVICES: None HEART /PULMONARY VASCULATURE: Unchanged. LUNGS / PLEURA: Extensive subcutaneous emphysema again seen. There is pneumomediastinum. Slight enlar gement in small-moderate right pneumothorax. Small left pneumothorax is unchanged. Bilateral airspace consolidation is similar. IMPRESSION: Slight enlargement in small-moderate right pneumothorax. Signer Name: Terrance Matta MD Signed: 03/18/2021 11:06 PM Workstation Name: [id number]
[2021-03-18 23:43] LABS: ABG Base Excess -11.1 mmol/L (-2.0-3.0); ABG HCO3 12.9 mmol/L (20.0-26.0); ABG Methemoglobin 0.5 % (0.0-1.5); ABG Oxygen Saturation 92.4 % (95.0-99.0); ABG PCO2 25.5 mm Hg; ABG PH 7.322 pH Units (7.350-7.450); ABG PO2 71.6 mm Hg (80.0-90.0)
[2021-03-18] MEDS ORDERED: dilTIAZem 25 MG/5 ML INJ IV ONE (23:52)
[2021-03-19] MEDS: INSULIN LISPRO 100 UNIT/ML SUB-Q SCH ×4 (00:23→18:26)
--- NOTE | 2021-03-19 04:25 | Event Note ---
Date: 03/19/21 Patient has episode of respiratory distress patient is tachypneic tachycardic heart rate is 170 and patient was agitated. Patient was given Benadryl and Haldol by the critical care. Patient also given Cardizem 10 mg IV x1 dose. Patient is now feeling better heart rate is 91 BP is a stable. We will monitor the patient closely
[2021-03-19 05:52] LABS: Hematocrit 42.8 % (35.5-45.6); Hemoglobin 14.1 gm/dl (11.8-15.2); Mean Corpuscular HGB Conc 33 % (32-34); Mean Corpuscular Volume 92 fl (84-94); Red Blood Count 4.63 M/mm3 (3.65-5.03); Red Cell Distribution Width 14.3 % (13.2-15.2)
[2021-03-19 05:58] LABS: Platelet Count 79 K/mm3 (140-440)
[2021-03-19 06:15] LABS: Calcium 8.6 mg/dL (8.4-10.2)
[2021-03-19] MEDS: methylPREDNISolone Sod Succinate 40 MG/1 ML INJ IV SCH ×3 (06:24→22:35)
[2021-03-19 07:18] LABS: Band Neutrophils # (Manual) 2.6 K/mm3; Total Cells Counted 100
[2021-03-19 07:20] LABS: Large Platelets 1+
[2021-03-19 07:21] LABS: Burr Cells Few; Platelet Clumps Few; Toxic Granulation 1+; Toxic Vacuolation 1+
[2021-03-19 07:22] LABS: Platelet Estimate Consistent w Auto; Poikilocytosis 1+
[2021-03-19] MEDS: HYDROmorphone 1 MG/1 ML INJ IV PRN (08:07)
[2021-03-19] MEDS: hydrALAZINE 20 MG/1 ML INJ IV PRN (08:07)
[2021-03-19] MEDS ORDERED: SODIUM CHLORIDE 0.9% 100 ML IV PRN (10:00)
--- NOTE | 2021-03-19 12:18 | Progress Note ---
Assessment and Plan Cultures: Blood culture 03/11/2021 no growth today SARS CoV2 PCR positive Assessment: 50-year-old male with history of CVA admitted on 03/11/2021 secondary to shortness of breath/altered mental status: #Severe sepsis: secondary to COVID-19. #Severe COVID pneumonia: CXR with bilateral pneumonia. Requiring BiPAP. Was unable to complete remdesivir course due to renal failure. Status post Jennifer ilizumab on 03/12/2021, completed antibiotics, remains on steroids. #Acute hypoxemic respiratory failure: Remains on BiPAP. #Right apical small pneumothorax, pneumomediastinum, pneumoperitonium: from COVID #Elevated LFTs: from COVID. #CHRISTY: started dialysis 03/17. #Acute diarrhea likely secondary to COVID-19. #AMS: likely due to hypoxia. #DM: uncontrolled #Subcutaneous emphysema: Likely secondary to COVID-19 and BiPAP. Recommendations: Complete 10 to 14 days of steroids, benefit beyond that is unclear and increases risk of nosocomial infections Status post Actemra 03/12/2021 Status post antibiotics Poor prognosis Adama Johnson MD, FACP [facility] ([facility] O: [phone] F: [phone] Subjective Date of service: 03/19/21 Principal diagnosis: COVID-19 Interval history: Afebrile. Remains on BiPAP. Objective - Exam Narrative Exam: Physical Exam (reviewed in chart to minimize risk of transmission) Constitutional: deferred Head, Ears, Nose: deferred Eyes: deferred Neck: deferred Oral: deferred Cardiovascular: deferred Respiratory: deferred GI: deferred Musculoskeletal: deferred Skin: deferred Hem/Lymphatic: deferred Psych: deferred Neurological: deferred - Constitutional Vitals: Vital Signs Temp Pulse Resp BP Pulse Ox 97.6 F 132 H 32 H 151/98 97 03/19/21 08:00 03/19/21 08:07 03/19/21 08:00 03/19/21 08:07 03/19/21 08:00 Temperature -Last 24 Hours Temperature 97.6 F Temperature 96.7 F Temperature 97.3 F Temperature 96.6 F Temperature 98 F - Labs CBC & Chem 7: 03/19/21 04:50 03/19/21 04:50 Labs: Abnormal lab results 03/18/21 03/18/21 03/18/21 Range/Units 17:30 18:54 23:23 WBC (4.5-11.0) K/mm3 Plt Count (140-440) K/mm3 Seg Neuts % (Manual) (40.0-70.0) % Seg Neutrophils # Man (1.8-7.7) K/mm3 Lymphocytes # (Manual) (1.2-5.4) K/mm3 APTT 96.5 H* (24.2-36.6) Sec. ABG pH 7.322 L (7.350-7.450) pH Units ABG pO2 71.6 L (80.0-90.0) mm Hg ABG HCO3 12.9 L (20.0-26.0) mmol/L ABG O2 Saturation 92.4 L (95.0-99.0) % ABG Base Excess -11.1 L (-2.0-3.0) mmol/L Oxyhemoglobin 91.0 L (95.0-99.0) % Sodium (137-145) mmol/L Chloride (98-107) mmol/L Carbon Dioxide (22-30) mmol/L BUN (9-20) mg/dL Creatinine (0.8-1.3) mg/dL Glucose (75-100) mg/dL POC Glucose 161 H (70-105) mg/dL Phosphorus (2.5-4.5) mg/dL Magnesium (1.7-2.3) mg/dL 03/18/21 03/19/21 03/19/21 Range/Units 23:31 04:50 04:50 WBC 21.5 H (4.5-11.0) K/mm3 Plt Count 79 L (140-440) K/mm3 Seg Neuts % (Manual) 87.0 H (40.0-70.0) % Seg Neutrophils # Man 18.7 H (1.8-7.7) K/mm3 Lymphocytes # (Manual) 0.0 L (1.2-5.4) K/mm3 APTT (24.2-36.6) Sec. ABG pH (7.350-7.450) pH Units ABG pO2 (80.0-90.0) mm Hg ABG HCO3 (20.0-26.0) mmol/L ABG O2 Saturation (95.0-99.0) % ABG Base Excess (-2.0-3.0) mmol/L Oxyhemoglobin (95.0-99.0) % Sodium 148 H (137-145) mmol/L Chloride 112.0 H (98-107) mmol/L Carbon Dioxide 18 L (22-30) mmol/L BUN 99 H (9-20) mg/dL Creatinine 3.2 H (0.8-1.3) mg/dL Glucose 277 H (75-100) mg/dL POC Glucose 223 H (70-105) mg/dL Phosphorus 5.90 H (2.5-4.5) mg/dL Magnesium 2.80 H (1.7-2.3) mg/dL 03/19/21 03/19/21 Range/Units 05:37 Unknown WBC (4.5-11.0) K/mm3 Plt Count (140-440) K/mm3 Seg Neuts % (Manual) (40.0-70.0) % Seg Neutrophils # Man (1.8-7.7) K/mm3 Lymphocytes # (Manual) (1.2-5.4) K/mm3 APTT 103.2 H* (24.2-36.6) Sec. ABG pH (7.350-7.450) pH Units ABG pO2 (80.0-90.0) mm Hg ABG HCO3 (20.0-26.0) mmol/L ABG O2 Saturation (95.0-99.0) % ABG Base Excess (-2.0-3.0) mmol/L Oxyhemoglobin (95.0-99.0) % Sodium (137-145) mmol/L Chloride (98-107) mmol/L Carbon Dioxide (22-30) mmol/L BUN (9-20) mg/dL Creatinine (0.8-1.3) mg/dL Glucose (75-100) mg/dL POC Glucose 238 H (70-105) mg/dL Phosphorus (2.5-4.5) mg/dL Magnesium (1.7-2.3) mg/dL
--- NOTE | 2021-03-19 12:55 | Progress Note ---
Assessment and Plan Assessment and plan: 10-year-old male history of CVA who presented with difficulty breathing. Found to have COVID-19 infection and was admitted for acute hypoxic respiratory failure and pneumonia. Prognosis remains guarded still requiring BiPAP. #Acute hypoxic respiratory failure #Severe ARDS -on NIPPV, patient with tachypnea and tachycardia -Continue precedex drip for discomfort -low threshold for intubation if continues to be tachypneic; discussed with Dr. Cruz -continue steroids -Pulmonary following, appreciate assistance #Severe sepsis -secondary to COVID-19 and PNA -BCx ordered, NGTD -continue current management #Severe COVID-19 pneumonia -unvaccinated -steroids, COVID vitamins -Remdesivir held due to renal function -s/p Actemra -ID following, appreciate assistance -inflammatory markers q48hr - continue rocephin and azithromycin for now #CHRISTY -SCr 3.2 -remdesivir held -Nephrology following, appreciate assistance -Hemodialysis initiated and will continue with TTS schedule #Type 2 diabetes -A1c 8.2% -Glucose in 115 to 400 range -Goal glucose 140-180s -continue lantus 15 units daily -SSI adjusted to q6h -If continues to have elevated sugars, will consider insulin drip #Hypernatremia-resolved -Sodium now 144 #Hypertension -Clonidine patch #Subcutaneous emphysema -Continue to monitor #Apical pneumothorax -too small to require chest tube placement -We will continue to monitor, and if it expands will consider possible chest tube placement Disposition Plan: Continue medical manage History Interval history: Patient experienced an episode of respiratory distress that was resolved after blood pressures were stabilized. Hospitalist Physical - Constitutional Vitals: Temp Pulse Resp BP Pulse Ox 97.6 F 132 H 32 H 151/98 97 03/19/21 08:00 03/19/21 08:07 03/19/21 08:00 03/19/21 08:07 03/19/21 08:00 General appearance: Present: no acute distress - EENT Eyes: Present: PERRL, EOM intact ENT: hearing intact, dentition normal - Neck Neck: Present: supple, other (Diffuse subcutaneous emphysema extending from neck) - Respiratory Respiratory effort: labored, accessory muscle use Respiratory: bilateral: diminished, rhonchi, negative: rales, wheezing - Cardiovascular Rhythm: regular Heart Sounds: Present: S1 & S2 - Extremities Extremities: no ischemia, pulses intact, pulses symmetrical, No edema Extremity abnormal: other (Diffuse subcutaneous emphysema extending from neck down to bilateral lower hands and upper chest) Peripheral Pulses: within normal limits - Abdominal General gastrointestinal: soft, non-tender, non-distended, normal bowel sounds - Integumentary Integumentary: Present: clear, warm, dry - Psychiatric Psychiatric: cooperative, other (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 Should be admitted Results - Labs CBC & Chem 7: 03/19/21 04:50 03/19/21 04:50 Labs: Laboratory Last Values WBC 21.5 K/mm3 (4.5-11.0) H 03/19/21 04:50 RBC 4.63 M/mm3 (3.65-5.03) 03/19/21 04:50 Hgb 14.1 gm/dl (11.8-15.2) 03/19/21 04:50 Hct 42.8 % (35.5-45.6) 03/19/21 04:50 MCV 92 fl (84-94) 03/19/21 04:50 MCH 30 pg (28-32) 03/19/21 04:50 MCHC 33 % (32-34) 03/19/21 04:50 RDW 14.3 % (13.2-15.2) 03/19/21 04:50 Plt Count 79 K/mm3 (140-440) L 03/19/21 04:50 Add Manual Diff Complete 03/19/21 04:50 Total Counted 100 03/19/21 04:50 Seg Neutrophils % Nurse Navigator 03/19/21 04:50 Seg Neuts % (Manual) 87.0 % (40.0-70.0) H 03/19/21 04:50 Band Neutrophils % 12.0 % 03/19/21 04:50 Lymphocytes % (Manual) 2.0 % (13.4-35.0) L 03/11/21 09:41 Monocytes % (Manual) 1.0 % (0.0-7.3) 03/19/21 04:50 Nucleated RBC % Not Reportable 03/19/21 04:50 Seg Neutrophils # Man 18.7 K/mm3 (1.8-7.7) H 03/19/21 04:50 Band Neutrophils # 2.6 K/mm3 03/19/21 04:50 Lymphocytes # (Manual) 0.0 K/mm3 (1.2-5.4) L 03/19/21 04:50 Abs React Lymphs (Man) 0.0 K/mm3 03/19/21 04:50 Monocytes # (Manual) 0.2 K/mm3 (0.0-0.8) 03/19/21 04:50 Eosinophils # (Manual) 0.0 K/mm3 (0.0-0.4) 03/19/21 04:50 Basophils # (Manual) 0.0 K/mm3 (0.0-0.1) 03/19/21 04:50 Metamyelocytes # 0.0 K/mm3 03/19/21 04:50 Myelocytes # 0.0 K/mm3 03/19/21 04:50 Promyelocytes # 0.0 K/mm3 03/19/21 04:50 Blast Cells # 0.0 K/mm3 03/19/21 04:50 WBC Morphology Not Reportable 03/19/21 04:50 Hypersegmented Neuts Not Reportable 03/19/21 04:50 Hyposegmented Neuts Not Reportable 03/19/21 04:50 Hypogranular Neuts Not Reportable 03/19/21 04:50 Smudge Cells Not Reportable 03/19/21 04:50 Toxic Granulation 1+ 03/19/21 04:50 Toxic Vacuolation 1+ 03/19/21 04:50 Dohle Bodies Not Reportable 03/19/21 04:50 Pelger-Huet Anomaly Not Reportable 03/19/21 04:50 Fina Rods Not Reportable 03/19/21 04:50 Platelet Estimate Consistent w auto 03/19/21 04:50 Clumped Platelets Few 03/19/21 04:50 Plt Clumps, EDTA Not Reportable 03/19/21 04:50 Large Platelets 1+ 03/19/21 04:50 Giant Platelets Not Reportable 03/19/21 04:50 Platelet Satelliting Not Reportable 03/19/21 04:50 Plt Morphology Comment Not Reportable 03/19/21 04:50 RBC Morphology Not Reportable 03/19/21 04:50 Dimorphic RBCs Not Reportable 03/19/21 04:50 Polychromasia Not Reportable 03/19/21 04:50 Hypochromasia Not Reportable 03/19/21 04:50 Poikilocytosis 1+ 03/19/21 04:50 Anisocytosis Not Reportable 03/19/21 04:50 Microcytosis Not Reportable 03/19/21 04:50 Macrocytosis Not Reportable 03/19/21 04:50 Spherocytes Not Reportable 03/19/21 04:50 Pappenheimer Bodies Not Reportable 03/19/21 04:50 Sickle Cells Not Reportable 03/19/21 04:50 Target Cells Not Reportable 03/19/21 04:50 Tear Drop Cells Not Reportable 03/19/21 04:50 Ovalocytes Not Reportable 03/19/21 04:50 Helmet Cells Not Reportable 03/19/21 04:50 [place] Bodies Not Reportable 03/19/21 04:50 [place] Rings Not Reportable 03/19/21 04:50 [place] Cells Few 03/19/21 04:50 Bite Cells Not Reportable 03/19/21 04:50 Crenated Cell Not Reportable 03/19/21 04:50 Elliptocytes Not Reportable 03/19/21 04:50 Acanthocytes (Spur) Not Reportable 03/19/21 04:50 Rouleaux Not Reportable 03/19/21 04:50 Hemoglobin C Crystals Not Reportable 03/19/21 04:50 Schistocytes Not Reportable 03/19/21 04:50 Malaria parasites Not Reportable 03/19/21 04:50 [place] Bodies Not Reportable 03/19/21 04:50 Hem Pathologist Commnt No 03/19/21 04:50 PT 22.4 Sec. (12.2-14.9) H 03/17/21 09:19 INR 1.92 (0.87-1.13) H 03/17/21 09:19 APTT 103.2 Sec. (24.2-36.6) H* 03/19/21 Unknown D-Dimer > 18081 ng/mlDDU (0-234) H 03/17/21 06:00 ABG pH 7.322 pH Units (7.350-7.450) L 03/18/21 23:23 POC ABG pCO2 30.2 mmHg (32.0-48.0) L 03/12/21 04:35 ABG pCO2 25.5 mm Hg 03/18/21 23:23 POC ABG pO2 183.7 mmHg (83-108) H 03/12/21 04:35 ABG pO2 71.6 mm Hg (80.0-90.0) L 03/18/21 23:23 POC ABG HCO3 13.8 03/12/21 04:35 ABG HCO3 12.9 mmol/L (20.0-26.0) L 03/18/21 23:23 ABG O2 Saturation 92.4 % (95.0-99.0) L 03/18/21 23:23 ABG O2 Content 19.9 (0.0-44) 03/18/21 23:23 POC ABG Base Excess -11.5 03/12/21 04:35 ABG Base Excess -11.1 mmol/L (-2.0-3.0) L 03/18/21 23:23 ABG Hemoglobin 15.5 gm/dl (14.0-18.0) 03/18/21 23:23 ABG Oxyhemoglobin 98.6 (94-98) H 03/12/21 04:35 ABG Carboxyhemoglobin 0.9 % (0.0-5.0) 03/18/21 23:23 ABG Methemoglobin 0.5 % (0.0-1.5) 03/18/21 23:23 ABG Sodium 136.8 mmol/L (136.0-145.0) 03/12/21 04:35 ABG Potassium 4.0 mmol/L (3.40-4.50) 03/12/21 04:35 ABG Chloride 107.0 mmol/L (98-107) 03/12/21 04:35 ABG Glucose 236 mg/dL (65-95) H 03/12/21 04:35 Oxyhemoglobin 91.0 % (95.0-99.0) L 03/18/21 23:23 Carboxyhemoglobin 0.3 (0.5-1.5) L 03/12/21 04:35 FiO2 100 % 03/18/21 23:23 FiO2 % 100.0 03/12/21 04:35 Sodium 148 mmol/L (137-145) H 03/19/21 04:50 Potassium 4.2 mmol/L (3.6-5.0) 03/19/21 04:50 Chloride 112.0 mmol/L (98-107) H 03/19/21 04:50 Carbon Dioxide 18 mmol/L (22-30) L 03/19/21 04:50 Anion Gap 22 mmol/L 03/19/21 04:50 BUN 99 mg/dL (9-20) H 03/19/21 04:50 Creatinine 3.2 mg/dL (0.8-1.3) H 03/19/21 04:50 Estimated GFR 25 ml/min 03/19/21 04:50 BUN/Creatinine Ratio 31 % 03/19/21 04:50 Glucose 277 mg/dL (75-100) H 03/19/21 04:50 POC Glucose 238 mg/dL (70-105) H 03/19/21 05:37 Hemoglobin A1c 8.2 % (4-6) H 03/14/21 04:44 Lactic Acid 1.60 mmol/L (0.7-2.0) 03/12/21 00:08 Calcium 8.6 mg/dL (8.4-10.2) 03/19/21 04:50 Phosphorus 5.90 mg/dL (2.5-4.5) H 03/19/21 04:50 Magnesium 2.80 mg/dL (1.7-2.3) H 03/19/21 04:50 Ferritin 1517.0 ng/mL (30.0-300.0) H 03/17/21 09:00 Total Bilirubin 0.60 mg/dL (0.1-1.2) 03/17/21 09:19 Direct Bilirubin < 0.2 mg/dL (0-0.2) 03/17/21 09:19 Indirect Bilirubin 0.4 mg/dL 03/17/21 09:19 AST 31 units/L (5-40) 03/17/21 09:19 ALT 36 units/L (7-56) 03/17/21 09:19 Alkaline Phosphatase 121 units/L (35-129) 03/17/21 09:19 Lactate Dehydrogenase 1155 units/L (91-180) H 03/17/21 06:00 Troponin T < 0.010 ng/mL (0.00-0.029) 03/11/21 09:41 C-Reactive Protein 1.50 mg/dL (0.00-1.30) H 03/17/21 06:00 Total Protein 5.1 g/dL (6.3-8.2) L 03/17/21 09:19 Albumin 2.2 g/dL (3.9-5) L 03/17/21 09:19 Albumin/Globulin Ratio 0.8 % 03/17/21 09:19 Procalcitonin 4.61 ng/mL (<0.15) 03/11/21 09:41 Arterial Blood Glucose 236 mg/dL (65-95) H 03/12/21 04:35 Arterial Blood Ionized Calcium 5.0 mg/dL (4.6-5.3) 03/12/21 04:35 Urine Color Yellow (Yellow) 03/11/21 Unknown Urine Turbidity Clear (Clear) 03/11/21 Unknown Urine pH 6.0 (5.0-7.0) 03/11/21 Unknown Ur Specific [place] 1.011 (1.003-1.030) 03/11/21 Unknown Urine Protein >500 mg/dL (Negative) 03/11/21 Unknown Urine Glucose (UA) 50 mg/dL (Negative) 03/11/21 Unknown Urine Ketones 20 mg/dL (Negative) 03/11/21 Unknown Urine Blood Lg (Negative) 03/11/21 Unknown Urine Nitrite Neg (Negative) 03/11/21 Unknown Urine Bilirubin Neg (Negative) 03/11/21 Unknown Urine Urobilinogen < 2.0 mg/dL (<2.0) 03/11/21 Unknown Ur Leukocyte Esterase Neg (Negative) 03/11/21 Unknown Urine WBC (Auto) 1.0 /HPF (0.0-6.0) 03/11/21 Unknown Urine RBC (Auto) 1.0 /HPF (0.0-6.0) 03/11/21 Unknown Urine Sodium 37 mmol/L 03/14/21 Unknown Urine Urea Nitrogen 818 03/14/21 Unknown Coronavirus (PCR) Positive (Negative) A 03/11/21 Unknown Hepatitis A IgM Ab Non-reactive (NonReactive) 03/18/21 09:03 Hep Bs Antigen Nonreactive (Negative) 03/18/21 09:03 Hep B Core IgM Ab Non-reactive (NonReactive) 03/18/21 09:03 Hepatitis C Antibody Non-reactive (NonReactive) 03/18/21 09:03 [place]/IV: Voiding Method Condom Catheter Active Medications - Current Medications Current Medications: Generic Name Dose Route Start Last Admin Trade Name Freq PRN Reason Stop Dose Admin Acetaminophen 650 mg 03/11/21 12:00 03/14/21 03:54 Acetaminophen 325 Mg Tab PO 650 mg Q4H PRN Administration Pain MILD(1-3)/Fever >100.5/[place] Ascorbic Acid 500 mg 03/11/21 12:00 03/18/21 21:56 Ascorbic Acid 500 Mg Tab PO 500 mg BID GYPSY Administration Cholecalciferol 1,000 unit 03/11/21 13:00 03/18/21 18:56 Cholecalciferol (Vit D3) 1000 Unit (25 Mcg) Tab PO Not Given QDAY GYPSY Clonidine HCl 0.1 mg 03/20/21 08:00 Clonidine Tts 0.1 Mg/24 Hr Patch TD Fr GYPSY Dextrose 50 ml 03/13/21 14:44 Dextrose 50% In Water (25gm) 50 Ml Syringe IV Q30MIN PRN Hypoglycemia Protocol Hydralazine HCl 10 mg 03/14/21 18:13 03/19/21 08:07 Hydralazine 20 Mg/1 Ml Inj IV 10 mg Q6H PRN Administration Hypertension Hydromorphone HCl 0.5 mg 03/11/21 12:00 03/19/21 08:07 Hydromorphone 1 Mg/1 Ml Inj IV 0.5 mg Q12H PRN Administration Pain , Severe (7-10) Dexmedetomidine HCl 400 mcg/ 104 mls @ 3.588 mls/hr 03/16/21 12:00 03/19/21 08:42 Sodium Chloride IV 1 mcg/kg/hr TITRATE GYPSY 17.94 mls/hr Administration Protocol 0.2 MCG/KG/HR Argatroban 250 mg/ Sodium 250 mls @ 2.07 mls/hr 03/17/21 11:00 03/19/21 09:51 Chloride IV 0 mcg/kg/min TITR GYPSY 0 mls/hr Titration Protocol 0.5 MCG/KG/MIN Sodium Chloride 100 mls @ 999 mls/hr 03/19/21 10:00 Nacl 0.9% IV OSCAR PRN Hypotension Insulin Human Lispro 0 unit 03/16/21 13:00 03/19/21 06:23 Insulin Lispro 100 Unit/Ml SUB-Q 3 unit Q6HR GYPSY Administration Protocol Lorazepam 1 mg 03/11/21 17:00 03/18/21 22:26 Lorazepam 2 Mg/Ml Vial IV 1 mg Q6H PRN Administration Agitation Methylprednisolone Sodium Succinate 40 mg 03/11/21 14:00 03/19/21 06:24 Methylprednisolone Sod Succinate 40 Mg/1 Ml Inj IV 03/21/21 06:01 40 mg Q8HR GYPSY Administration Ondansetron HCl 4 mg 03/11/21 12:00 03/15/21 12:08 Ondansetron 4 Mg/2 Ml Inj IV 4 mg Q8H PRN Administration Nausea And Vomiting Oxycodone/Acetaminophen 1 tab 03/11/21 12:00 Oxycodone /Acetaminophen 5-325mg Tab PO Q12H PRN Pain, Moderate (4-6) Sodium Chloride 10 ml 03/11/21 12:00 03/18/21 21:56 Sodium Chloride 0.9% 10 Ml Flush Syringe IV 10 ml BID GYPSY Administration Sodium Chloride 10 ml 03/11/21 12:00 Sodium Chloride 0.9% 10 Ml Flush Syringe IV PRN PRN LINE FLUSH Zinc Sulfate 220 mg 03/11/21 12:00 03/18/21 21:56 Zinc Sulfate 220 Mg Cap PO 220 mg BID GYPSY Administration Nutrition/Malnutrition Assess - Dietary Evaluation Nutrition/Malnutrition Findings: Nutrition Notes Start: 03/14/21 12:54 Freq: Status: Active Protocol: Document 03/18/21 15:23 GB (Rec: 03/18/21 15:38 GB [id number]) Nutrition Notes Initial or Follow up Reassessment Current Diagnosis Acute Kidney Injury,Sepsis, Hypertension,Respiratory Failure Other Pertinent Diagnosis COVID-19, diarrhea, pneumonia Current Diet regular w/consistent carbohydrate Labs/Tests 03/18: (BUN 70, creatinine 2.5, glucose 258) all elevated [id number] and fluctuating Ca 8.2 low Pertinent Medications Vit C, Vit D3, Zn Sulfate Height 5 ft 11 in Weight 69 kg [place] Body Weight (kg) 78.18 BMI 21.2 Intake Prior to Admission Fair Weight change and time frame 03/11 76.6 kg, 03/16 69kg change of -7.657kg for -9.9% loss Dialysis started 03/17, on BiPaP w/90% setting Weight Status Appropriate Subjective/Other Information Per discussion with RN: due to continuous BiPaP at 90% pt is unable to eat or drink. Recommend TF or PEG placement after 6 days with PO under 25% . Percent of energy/protein needs met: negligible Burn Absent Trauma Absent GI Symptoms None Food Allergy No Skin Integrity/Comment Skin risk 14, bedfast Current % PO Negligible Minimum of two criteria Yes Energy Intake (severe) < or equal to 50% Estimated Energy Requirement > or equal to 5 days Interpretation of Weight Loss (severe) >2% in 1 week Protein-Calorie Malnutrition Severe #1 Nutrition Diagnosis Malnutrition Comments: Pt on continuous BiPaP @90%. Interferes with energy intake. Recommend NGT/PEG/TPN. Etiology ARF, covid pnemonia As Evidenced by Signs and Symptoms >2% wt loss in 1 week, weak stna strength, Poor PO intake =>5days Diagnosis Progress(for reassessment Continues documentation) Is patient on ventilator? Yes Is Patient Ambulatory and/or Out of Bed No REE-([facility]-confined to bed) 1902.336 Kcal/Kg value to use for calculation 29 Approximate Energy Requirements Using 2001 kcal/Kg Calculation Used for Recommendations Kcal/kg Additional Notes Protein: 1-1.2 g/kg @69k- 83g Fluids: 1 ml/kcal or per MD Nutrition Intervention Change Diet Order: If ability to eat PO does not improve in 2 days recommend NGT/PEG/TPN Nutrition Support: consult RD Goal #1 PO intake of meals to improve 50% or greater TID daily during LOS Goal #2 Weight to maintain or gain +3% current weight during LOS Goal #3 Begin Enteral Nutrition if PO intake does not begin by 03/20. Follow-Up By: 03/20/21 Additional Comments If BiPaP still at 90%, begin enteral/parenteral nutrition support. - Attestation Statement I have reviewed and agreed w/ Malnutrition eval & tx plan: Yes
--- NOTE | 2021-03-19 13:05 | Progress Note ---
Assessment and Plan 50 y/o male with acute respiratory failure secondary to COVID 19 03/19/21: DIalysis today. Asked nursing to max out precedex. Continue A rgatroban. Platelets better. Continue to attempt not to intubate given the elevated mortality rate, would prefer not to intubate if able. Very very guarded prognosis. 03/17/21: Hopeful dialysis today. Ordered stat CXR and does shows small apical PTX, slightly larger but still not a point that I feel needs CT placement. Will repeat later this afternoon. Will have RT turn of oxygen and attempt to wean pressure to help with resorption. Prognosis overall remains guarded to poor, especially with renal dysfunction plus COVID. D-Dimer now is >10K, however platelets dropping on heparin. Stopping Sub Q prophylactic therapy, checking bilateral dopplers and will send hiT PANEL. May consider doing argatroban therapy. 03/16/21: Vascath placed. [place] at [phone] is the point of contact and decision maker. She has consented for vascath. Also discussed the possibility that patient may require mechanical ventilator in the near future if no improvement. Will attempt to use precedex to help keep patient calm so that bipap/avaps can work. Volume removal per renal. Guarded prognosis. : Hold on increasing steroids as of now. Prone if able. Continue AVAPS today but spoke with RT about weaning FiO2 for sats >88%. Monitor fluids. No lasix right now given renal dysfunction. Reviewed ID note and agree with their plan and assessment. Guarded prognosis. 1. Prone if able 2. Wean bipap to HFNC if able 3. Steroids, may need to increase 4. Does not appear to be a candidate for remdesivir given renal failure 5. May be able to get actemra 6. Minimize additional fluids 7. Guarded prognosis given renal failure and COVID state. Subjective Date of service: 03/19/21 Principal diagnosis: COVID-19 Interval history: Called by nursing last night that patient was very anxious, tachy and hypertensive. Responded to Haldol and ATivan and Benadryl. Objective Vital Signs - 12hr 03/19/21 03/19/21 03/19/21 01:15 01:31 01:44 Temperature Pulse Rate 106 H 114 H Respiratory 26 H 31 H Rate Blood Pressure 98/64 110/72 O2 Sat by Pulse 93 91 92 Oximetry 03/19/21 03/19/21 03/19/21 01:45 02:01 02:15 Temperature Pulse Rate 116 H 106 H 102 H Respiratory 36 H 24 25 H Rate Blood Pressure 110/72 104/79 110/77 O2 Sat by Pulse 96 96 94 Oximetry 03/19/21 03/19/21 03/19/21 02:30 02:45 03:00 Temperature Pulse Rate 100 H 99 H 99 H Respiratory 19 25 H 23 Rate Blood Pressure 99/71 107/76 123/94 O2 Sat by Pulse 95 94 92 Oximetry 03/19/21 03/19/21 03/19/21 03:15 03:30 03:40 Temperature 96.7 F L Pulse Rate 97 H 97 H Respiratory 25 H 23 Rate Blood Pressure 123/94 120/94 O2 Sat by Pulse 94 95 Oximetry 03/19/21 03/19/21 03/19/21 03:45 04:00 04:15 Temperature Pulse Rate 94 H 94 H 96 H Respiratory 21 19 21 Rate Blood Pressure 120/91 116/94 122/101 O2 Sat by Pulse 95 94 95 Oximetry 03/19/21 03/19/21 03/19/21 04:30 04:45 05:00 Temperature Pulse Rate 93 H 93 H 91 H Respiratory 19 21 20 Rate Blood Pressure 121/97 122/101 128/103 O2 Sat by Pulse 92 91 96 Oximetry 03/19/21 03/19/21 03/19/21 05:15 05:31 05:45 Temperature Pulse Rate 91 H 95 H 93 H Respiratory 19 27 H 21 Rate Blood Pressure 124/101 149/111 136/98 O2 Sat by Pulse 95 95 Oximetry 03/19/21 03/19/21 03/19/21 06:00 06:15 06:30 Temperature Pulse Rate 93 H 93 H 99 H Respiratory 24 18 25 H Rate Blood Pressure 128/104 143/104 150/109 O2 Sat by Pulse 99 93 87 Oximetry 03/19/21 03/19/21 08:00 08:07 Temperature 97.6 F Pulse Rate 132 H Respiratory 32 H Rate Blood Pressure 151/98 O2 Sat by Pulse 97 Oximetry Constitutional: other (on hiflo) Eyes: non-icteric Neck: supple Ascultation: Bilateral: diminished breath sounds Cardiovascular: regular rate and rhythm Gastrointestinal: normoactive bowel sounds, soft, non-tender Extremities: other (decreased rom/ movement of lue mild contractures) CBC and BMP: 03/19/21 04:50 03/19/21 04:50 ABG, PT/INR, D-dimer: ABG ABG pH 7.322 pH Units (7.350-7.450) L 03/18/21 23:23 POC ABG pCO2 30.2 mmHg (32.0-48.0) L 03/12/21 04:35 ABG pCO2 25.5 mm Hg 03/18/21 23:23 POC ABG pO2 183.7 mmHg (83-108) H 03/12/21 04:35 ABG pO2 71.6 mm Hg (80.0-90.0) L 03/18/21 23:23 POC ABG HCO3 13.8 03/12/21 04:35 ABG O2 Saturation 92.4 % (95.0-99.0) L 03/18/21 23:23 PT/INR, D-dimer PT 22.4 Sec. (12.2-14.9) H 03/17/21 09:19 INR 1.92 (0.87-1.13) H 03/17/21 09:19 D-Dimer > 85756 ng/mlDDU (0-234) H 03/17/21 06:00 Abnormal lab findings: Abnormal Labs 03/11/21 03/11/21 03/11/21 09:41 09:41 09:41 WBC Plt Count Seg Neuts % (Manual) 89.0 H Lymphocytes % (Manual) 2.0 L Seg Neutrophils # Man 9.7 H Lymphocytes # (Manual) 0.2 L PT INR APTT D-Dimer ABG pH POC ABG pCO2 POC ABG pO2 ABG pO2 ABG HCO3 ABG O2 Saturation ABG Base Excess ABG Oxyhemoglobin ABG Sodium ABG Chloride ABG Glucose Oxyhemoglobin Carboxyhemoglobin Sodium 127 L Chloride 90.6 L Carbon Dioxide 15 L BUN 42 H Creatinine 2.7 H Glucose 262 H POC Glucose Hemoglobin A1c Lactic Acid 3.70 H* Calcium Phosphorus Magnesium Ferritin AST 148 H ALT 65 H Lactate Dehydrogenase C-Reactive Protein Total Protein Albumin 2.9 L Arterial Blood Glucose Arterial Blood Ionized Calcium Coronavirus (PCR) 03/11/21 03/11/21 03/11/21 09:41 09:41 09:41 WBC Plt Count Seg Neuts % (Manual) Lymphocytes % (Manual) Seg Neutrophils # Man Lymphocytes # (Manual) PT INR APTT D-Dimer 2206.91 H ABG pH POC ABG pCO2 POC ABG pO2 ABG pO2 ABG HCO3 ABG O2 Saturation ABG Base Excess ABG Oxyhemoglobin ABG Sodium ABG Chloride ABG Glucose Oxyhemoglobin Carboxyhemoglobin Sodium Chloride Carbon Dioxide BUN Creatinine Glucose 261 H POC Glucose Hemoglobin A1c Lactic Acid Calcium Phosphorus Magnesium Ferritin 1640.0 H AST ALT Lactate Dehydrogenase 933 H C-Reactive Protein 17.90 H Total Protein Albumin Arterial Blood Glucose Arterial Blood Ionized Calcium Coronavirus (PCR) 03/11/21 03/11/21 03/12/21 11:50 Unknown 04:35 WBC Plt Count Seg Neuts % (Manual) Lymphocytes % (Manual) Seg Neutrophils # Man Lymphocytes # (Manual) PT INR APTT D-Dimer ABG pH 7.316 L 7.279 L POC ABG pCO2 30.2 L POC ABG pO2 228.8 H 183.7 H ABG pO2 ABG HCO3 ABG O2 Saturation ABG Base Excess ABG Oxyhemoglobin 98.7 H 98.6 H ABG Sodium 125.1 L ABG Chloride 97.0 L ABG Glucose 229 H 236 H Oxyhemoglobin Carboxyhemoglobin 0.1 L 0.3 L Sodium Chloride Carbon Dioxide BUN Creatinine Glucose POC Glucose Hemoglobin A1c Lactic Acid Calcium Phosphorus Magnesium Ferritin AST ALT Lactate Dehydrogenase C-Reactive Protein Total Protein Albumin Arterial Blood Glucose 229 H 236 H Arterial Blood Ionized Calcium 4.5 L Coronavirus (PCR) Positive A 03/12/21 03/12/21 03/13/21 10:56 16:53 05:19 WBC Plt Count Seg Neuts % (Manual) Lymphocytes % (Manual) Seg Neutrophils # Man Lymphocytes # (Manual) PT INR APTT D-Dimer ABG pH POC ABG pCO2 POC ABG pO2 ABG pO2 ABG HCO3 ABG O2 Saturation ABG Base Excess ABG Oxyhemoglobin ABG Sodium ABG Chloride ABG Glucose Oxyhemoglobin Carboxyhemoglobin Sodium 149 H Chloride 111.0 H 113.9 H Carbon Dioxide 13 L 15 L 18 L BUN 37 H 36 H 39 H Creatinine 2.2 H 2.3 H 2.5 H Glucose 254 H 212 H 304 H POC Glucose Hemoglobin A1c Lactic Acid Calcium Phosphorus Magnesium Ferritin AST 110 H 100 H 88 H ALT 66 H 64 H 68 H Lactate Dehydrogenase C-Reactive Protein Total Protein 6.2 L Albumin 2.7 L 2.4 L 2.7 L Arterial Blood Glucose Arterial Blood Ionized Calcium Coronavirus (PCR) 03/13/21 03/14/21 03/14/21 23:06 00:03 04:44 WBC Plt Count Seg Neuts % (Manual) Lymphocytes % (Manual) Seg Neutrophils # Man Lymphocytes # (Manual) PT INR APTT D-Dimer ABG pH POC ABG pCO2 POC ABG pO2 ABG pO2 ABG HCO3 ABG O2 Saturation ABG Base Excess ABG Oxyhemoglobin ABG Sodium ABG Chloride ABG Glucose Oxyhemoglobin Carboxyhemoglobin Sodium Chloride Carbon Dioxide BUN Creatinine Glucose POC Glucose 168 H 152 H Hemoglobin A1c 8.2 H Lactic Acid Calcium Phosphorus Magnesium Ferritin AST ALT Lactate Dehydrogenase C-Reactive Protein Total Protein Albumin Arterial Blood Glucose Arterial Blood Ionized Calcium Coronavirus (PCR) 03/14/21 03/14/21 03/14/21 04:44 04:44 05:35 WBC Plt Count 132 L Seg Neuts % (Manual) Lymphocytes % (Manual) Seg Neutrophils # Man Lymphocytes # (Manual) PT INR APTT D-Dimer ABG pH POC ABG pCO2 POC ABG pO2 ABG pO2 ABG HCO3 ABG O2 Saturation ABG Base Excess ABG Oxyhemoglobin ABG Sodium ABG Chloride ABG Glucose Oxyhemoglobin Carboxyhemoglobin Sodium 153 H Chloride 118.2 H Carbon Dioxide 21 L BUN 58 H Creatinine 3.4 H Glucose 380 H POC Glucose 331 H Hemoglobin A1c Lactic Acid Calcium Phosphorus Magnesium Ferritin AST 56 H ALT 60 H Lactate Dehydrogenase C-Reactive Protein Total Protein 5.8 L Albumin 2.4 L Arterial Blood Glucose Arterial Blood Ionized Calcium Coronavirus (PCR) 03/14/21 03/14/21 03/14/21 11:12 15:11 22:42 WBC Plt Count Seg Neuts % (Manual) Lymphocytes % (Manual) Seg Neutrophils # Man Lymphocytes # (Manual) PT INR APTT D-Dimer ABG pH POC ABG pCO2 POC ABG pO2 ABG pO2 ABG HCO3 ABG O2 Saturation ABG Base Excess ABG Oxyhemoglobin ABG Sodium ABG Chloride ABG Glucose Oxyhemoglobin Carboxyhemoglobin Sodium Chloride Carbon Dioxide BUN Creatinine Glucose POC Glucose 229 H 291 H 435 H Hemoglobin A1c Lactic Acid Calcium Phosphorus Magnesium Ferritin AST ALT Lactate Dehydrogenase C-Reactive Protein Total Protein Albumin Arterial Blood Glucose Arterial Blood Ionized Calcium Coronavirus (PCR) 03/15/21 03/15/21 03/15/21 04:44 08:43 11:50 WBC Plt Count Seg Neuts % (Manual) Lymphocytes % (Manual) Seg Neutrophils # Man Lymphocytes # (Manual) PT INR APTT D-Dimer ABG pH POC ABG pCO2 POC ABG pO2 ABG pO2 ABG HCO3 ABG O2 Saturation ABG Base Excess ABG Oxyhemoglobin ABG Sodium ABG Chloride ABG Glucose Oxyhemoglobin Carboxyhemoglobin Sodium 152 H Chloride 114.9 H Carbon Dioxide BUN 79 H Creatinine 4.3 H Glucose 303 H POC Glucose 281 H 340 H Hemoglobin A1c Lactic Acid Calcium Phosphorus Magnesium Ferritin AST 41 H ALT Lactate Dehydrogenase C-Reactive Protein Total Protein 6.1 L Albumin 2.6 L Arterial Blood Glucose Arterial Blood Ionized Calcium Coronavirus (PCR) 03/15/21 03/16/21 03/16/21 21:27 04:14 04:14 WBC 14.3 H Plt Count 87 L Seg Neuts % (Manual) Lymphocytes % (Manual) Seg Neutrophils # Man Lymphocytes # (Manual) PT INR APTT D-Dimer ABG pH POC ABG pCO2 POC ABG pO2 ABG pO2 ABG HCO3 ABG O2 Saturation ABG Base Excess ABG Oxyhemoglobin ABG Sodium ABG Chloride ABG Glucose Oxyhemoglobin Carboxyhemoglobin Sodium Chloride Carbon Dioxide BUN 75 H Creatinine 3.4 H Glucose 434 H POC Glucose 115 H Hemoglobin A1c Lactic Acid Calcium Phosphorus Magnesium Ferritin AST ALT Lactate Dehydrogenase C-Reactive Protein Total Protein Albumin Arterial Blood Glucose Arterial Blood Ionized Calcium Coronavirus (PCR) 03/16/21 03/16/21 03/16/21 07:52 11:05 17:01 WBC Plt Count Seg Neuts % (Manual) Lymphocytes % (Manual) Seg Neutrophils # Man Lymphocytes # (Manual) PT INR APTT D-Dimer ABG pH POC ABG pCO2 POC ABG pO2 ABG pO2 ABG HCO3 ABG O2 Saturation ABG Base Excess ABG Oxyhemoglobin ABG Sodium ABG Chloride ABG Glucose Oxyhemoglobin Carboxyhemoglobin Sodium Chloride Carbon Dioxide BUN Creatinine Glucose POC Glucose 439 H 277 H 194 H Hemoglobin A1c Lactic Acid Calcium Phosphorus Magnesium Ferritin AST ALT Lactate Dehydrogenase C-Reactive Protein Total Protein Albumin Arterial Blood Glucose Arterial Blood Ionized Calcium Coronavirus (PCR) 03/17/21 03/17/21 03/17/21 06:00 06:00 06:00 WBC 12.3 H Plt Count 70 L Seg Neuts % (Manual) Lymphocytes % (Manual) Seg Neutrophils # Man Lymphocytes # (Manual) PT INR APTT D-Dimer > 20661 H ABG pH POC ABG pCO2 POC ABG pO2 ABG pO2 ABG HCO3 ABG O2 Saturation ABG Base Excess ABG Oxyhemoglobin ABG Sodium ABG Chloride ABG Glucose Oxyhemoglobin Carboxyhemoglobin Sodium 150 H Chloride 118.0 H Carbon Dioxide 21 L BUN 92 H Creatinine 3.4 H Glucose 129 H POC Glucose Hemoglobin A1c Lactic Acid Calcium Phosphorus Magnesium Ferritin AST ALT Lactate Dehydrogenase 1155 H C-Reactive Protein 1.50 H Total Protein Albumin Arterial Blood Glucose Arterial Blood Ionized Calcium Coronavirus (PCR) 03/17/21 03/17/21 03/17/21 09:00 09:19 09:19 WBC Plt Count Seg Neuts % (Manual) Lymphocytes % (Manual) Seg Neutrophils # Man Lymphocytes # (Manual) PT 22.4 H INR 1.92 H APTT 37.7 H D-Dimer ABG pH POC ABG pCO2 POC ABG pO2 ABG pO2 ABG HCO3 ABG O2 Saturation ABG Base Excess ABG Oxyhemoglobin ABG Sodium ABG Chloride ABG Glucose Oxyhemoglobin Carboxyhemoglobin Sodium Chloride Carbon Dioxide BUN Creatinine Glucose POC Glucose Hemoglobin A1c Lactic Acid Calcium Phosphorus Magnesium Ferritin 1517.0 H AST ALT Lactate Dehydrogenase C-Reactive Protein Total Protein 5.1 L Albumin 2.2 L Arterial Blood Glucose Arterial Blood Ionized Calcium Coronavirus (PCR) 03/17/21 03/17/21 03/17/21 15:44 16:58 23:39 WBC Plt Count Seg Neuts % (Manual) Lymphocytes % (Manual) Seg Neutrophils # Man Lymphocytes # (Manual) PT INR APTT 70.8 H* D-Dimer ABG pH POC ABG pCO2 POC ABG pO2 ABG pO2 ABG HCO3 ABG O2 Saturation ABG Base Excess ABG Oxyhemoglobin ABG Sodium ABG Chloride ABG Glucose Oxyhemoglobin Carboxyhemoglobin Sodium Chloride Carbon Dioxide BUN Creatinine Glucose POC Glucose 165 H 235 H Hemoglobin A1c Lactic Acid Calcium Phosphorus Magnesium Ferritin AST ALT Lactate Dehydrogenase C-Reactive Protein Total Protein Albumin Arterial Blood Glucose Arterial Blood Ionized Calcium Coronavirus (PCR) 03/18/21 03/18/21 03/18/21 03:50 03:50 05:40 WBC Plt Count Seg Neuts % (Manual) Lymphocytes % (Manual) Seg Neutrophils # Man Lymphocytes # (Manual) PT INR APTT 81.9 H* D-Dimer ABG pH POC ABG pCO2 POC ABG pO2 ABG pO2 ABG HCO3 ABG O2 Saturation ABG Base Excess ABG Oxyhemoglobin ABG Sodium ABG Chloride ABG Glucose Oxyhemoglobin Carboxyhemoglobin Sodium Chloride 109.0 H Carbon Dioxide 21 L BUN 70 H Creatinine 2.5 H Glucose 258 H POC Glucose 207 H Hemoglobin A1c Lactic Acid Calcium 8.2 L Phosphorus Magnesium Ferritin AST ALT Lactate Dehydrogenase C-Reactive Protein Total Protein Albumin Arterial Blood Glucose Arterial Blood Ionized Calcium Coronavirus (PCR) 03/18/21 03/18/21 03/18/21 07:15 11:31 17:30 WBC Plt Count Seg Neuts % (Manual) Lymphocytes % (Manual) Seg Neutrophils # Man Lymphocytes # (Manual) PT INR APTT D-Dimer ABG pH POC ABG pCO2 POC ABG pO2 ABG pO2 ABG HCO3 ABG O2 Saturation ABG Base Excess ABG Oxyhemoglobin ABG Sodium ABG Chloride ABG Glucose Oxyhemoglobin Carboxyhemoglobin Sodium Chloride Carbon Dioxide BUN Creatinine Glucose POC Glucose 215 H 179 H 161 H Hemoglobin A1c Lactic Acid Calcium Phosphorus Magnesium Ferritin AST ALT Lactate Dehydrogenase C-Reactive Protein Total Protein Albumin Arterial Blood Glucose Arterial Blood Ionized Calcium Coronavirus (PCR) 03/18/21 03/18/21 03/18/21 18:54 23:23 23:31 WBC Plt Count Seg Neuts % (Manual) Lymphocytes % (Manual) Seg Neutrophils # Man Lymphocytes # (Manual) PT INR APTT 96.5 H* D-Dimer ABG pH 7.322 L POC ABG pCO2 POC ABG pO2 ABG pO2 71.6 L ABG HCO3 12.9 L ABG O2 Saturation 92.4 L ABG Base Excess -11.1 L ABG Oxyhemoglobin ABG Sodium ABG Chloride ABG Glucose Oxyhemoglobin 91.0 L Carboxyhemoglobin Sodium Chloride Carbon Dioxide BUN Creatinine Glucose POC Glucose 223 H Hemoglobin A1c Lactic Acid Calcium Phosphorus Magnesium Ferritin AST ALT Lactate Dehydrogenase C-Reactive Protein Total Protein Albumin Arterial Blood Glucose Arterial Blood Ionized Calcium Coronavirus (PCR) 03/19/21 03/19/21 03/19/21 04:50 04:50 05:37 WBC 21.5 H Plt Count 79 L Seg Neuts % (Manual) 87.0 H Lymphocytes % (Manual) Seg Neutrophils # Man 18.7 H Lymphocytes # (Manual) 0.0 L PT INR APTT D-Dimer ABG pH POC ABG pCO2 POC ABG pO2 ABG pO2 ABG HCO3 ABG O2 Saturation ABG Base Excess ABG Oxyhemoglobin ABG Sodium ABG Chloride ABG Glucose Oxyhemoglobin Carboxyhemoglobin Sodium 148 H Chloride 112.0 H Carbon Dioxide 18 L BUN 99 H Creatinine 3.2 H Glucose 277 H POC Glucose 238 H Hemoglobin A1c Lactic Acid Calcium Phosphorus 5.90 H Magnesium 2.80 H Ferritin AST ALT Lactate Dehydrogenase C-Reactive Protein Total Protein Albumin Arterial Blood Glucose Arterial Blood Ionized Calcium Coronavirus (PCR) 03/19/21 Unknown WBC Plt Count Seg Neuts % (Manual) Lymphocytes % (Manual) Seg Neutrophils # Man Lymphocytes # (Manual) PT INR APTT 103.2 H* D-Dimer ABG pH POC ABG pCO2 POC ABG pO2 ABG pO2 ABG HCO3 ABG O2 Saturation ABG Base Excess ABG Oxyhemoglobin ABG Sodium ABG Chloride ABG Glucose Oxyhemoglobin Carboxyhemoglobin Sodium Chloride Carbon Dioxide BUN Creatinine Glucose POC Glucose Hemoglobin A1c Lactic Acid Calcium Phosphorus Magnesium Ferritin AST ALT Lactate Dehydrogenase C-Reactive Protein Total Protein Albumin Arterial Blood Glucose Arterial Blood Ionized Calcium Coronavirus (PCR)
[2021-03-19] MEDS ORDERED: NORepinephrine/NS 4 MG-250 ML 4 MG/250 ML BAG IV ONE (14:33)
[2021-03-19] MEDS: ASCORBIC ACID 500 MG TAB PO SCH ×2 (14:41→22:36)
[2021-03-19] MEDS: LORazepam 2 MG/ML VIAL IV PRN (14:41)
[2021-03-19] MEDS: CHOLECALCIFEROL (VIT D3) 1000 UNIT (25 mcg) TAB PO SCH (14:41)
[2021-03-19] MEDS: ZINC SULFATE 220 MG CAP PO SCH ×2 (14:42→22:36)
[2021-03-19] MEDS ORDERED: ROCURONIUM 50 MG/5 ML INJ IV ONE (14:44)
[2021-03-19] MEDS ORDERED: ETOMIDATE 20 MG/10 ML INJ IV ONE (14:45)
[2021-03-19] MEDS ORDERED: SUCCINYLCHOLINE CHLORIDE 200 MG/10 ML INJ MDV ONE (15:00)
[2021-03-19] MEDS ORDERED: LACTATED RINGERS 1,000 ML ONE (15:14)
--- NOTE | 2021-03-19 15:27 | Event Note ---
Date: 03/19/21 (Intubation) Requested to intubate patient 15:04 Meds: Etomidate 18mg + Sux 100mg Glidescope 4 X 1 attempt. Cords visualized 8.0 OETT easily passed +CO2/BBS VSS after intubation
[2021-03-19] MEDS ORDERED: fentaNYL 100 MCG/2 ML INJ IV PRN (15:29)
[2021-03-19] MEDS ORDERED: LIP THERAPY VASELINE TP PRN (15:29)
[2021-03-19] MEDS ORDERED: MINERAL OIL/PETROLATUM, WHITE OPHTH OINT 3.5 GM OU PRN (15:29)
[2021-03-19] MEDS ORDERED: SODIUM CHLORIDE 0.9% 500 ML IVPB IV PRN (15:29)
[2021-03-19] MEDS: fentaNYL DRIP Premix 2,000 MCG/100 ML BAG IV SCH (15:48)
--- NOTE | 2021-03-19 16:06 | XRay Report ---
CHEST - 1 VIEW INDICATION: INTUBATION COMPARISON: Yesterday FINDINGS: SUPPORT DEVICES: Endotracheal tube in satisfactory position just below the level of the clavicles. HEART: Stable cardiomediastinal silhouette. LUNGS/PLEURA: Persistent small bilateral pneumothoraces with trace pneumomediastinum. Extensive subc utaneous emphysema over the chest wall also again noted. Underlying mild patchy multifocal airspace a lso again noted. ADDITIONAL FINDINGS: None. IMPRESSION: Endotracheal tube in satisfactory position. Otherwise largely unchanged exam. Signer Name: Valeriano Orellana MD Signed: 03/19/2021 4:01 PM Workstation Name: [id number]
--- NOTE | 2021-03-19 16:34 | Event Note ---
Date: 03/19/21 I called patients motherDhara and her voicemail is full and I am unable to leave voicemail. I called the patients niece, Ludwig Barrera at [phone] and left a voicemail. I called the next contact after conferring with CONSTANZA Ansari. We called Chacorta Leblanc at . He was unable to provide family code/ pt but was able to confirm mothers name and phone number. I updated him on current events and explained that his brothers' heart rate increased to 170 while HD was progressing and briefly became hypotensive. However, Melina HD RN was able to return blood and end treatment with return of blood pressure. The patient was intubated and placed on "Life support". He inquired about if this event is a setback which I informed him it was. He asked about next steps and I informed him that we will assess daily and proceed according to data. He asked what will happen if the patient is unable to be taken off the vent and I spoke to him about the eventual need for tracheotomy if the patient is unable to be weaned off of ventilator but reiterated that this was down the road. As I spoke to Yoko Whatley called back and she left a voicemail. I called her back but had to leave another voicemail. She called be back promptly and I updated her on current events after family code received. She also stated that she was informed if the patient was to be intubated that the chances of recovery is in the single digits. I also informed her that this a fluid situation which will be assessed daily. Informed her of eventual tracheostomy need if warranted but informed her that if that becomes the case then we will inform her and family, consult surgery who will also get consent. Reiterated that this was an eventual outcome. Neither had any further questions. non cct: 45 mins
--- NOTE | 2021-03-19 17:15 | Event Note ---
Date: 03/19/21 Jessica BAKER stated she was going to hang up levo and patient had tachycardia to 170. I went to patients room and seen Melina DOWELL RN returning blood and ending HD treatment. Patient was able to recover his blood pressure. Patient was hypoxic and tachycardic on 100% Bipap. Dr. Cruz was alerted and Dr. Stapleton was called to bedside. The decision was made to intubate and anesthesia was called to bedside who intubated the patient. Patient was intubated by Dr. Larios at bedside with Dr. Stapleton present. RT Dominic at bedside with OLIVIA Linton. Patient was intubated and transferred to ICU. ICU vent management ordered placed. Patient sedated with propofol and fentanyl. PICC RN paged prior to 4 pm but page not returned. Asked Jessica to place PIV. Post intubation CXR read by radiologist. Adequate positioning of OETT with out advancement of pneumothorax. Post intubated ABG shows ph 7.35, pCO2 26.7, pO2 103.3, HCO3 14.5 with BE -9.3. Dominic made vent changes-> see RT flow sheet for titration. Initially patient SpO2 was in the 70s and not recovering but with increase in PEEP from 10 to 16 it went to 90s. Not a good waveform at this time. CCT 60 min
[2021-03-19] MEDS ORDERED: SODIUM BICARBONATE 325 MG TAB FEEDTUBE PRN (17:35)
[2021-03-19] MEDS ORDERED: LIPASE 10,500/PROTEASE 25,000/AMYLASE 43,750 (UNITS) DR CAP FEEDTUBE PRN (17:35)
[2021-03-19] MEDS ORDERED: SIMPLE SYRUP 15 ML FEEDTUBE PRN ×2 (17:35)
[2021-03-19 18:15] LABS: Myeloperoxidase Antibody <1.0 AI (<1.0)
--- NOTE | 2021-03-19 18:32 | Progress Note ---
Assessment and Plan Impression: * Nonoliguric acute kidney injury vs underlying CKD --Baseline renal function unknown * Acute hypoxic respiratory failure secondary to COVID 19 PNA * COVID 19 infection * Hypertension * Hypernatremia * Transaminitis Plan: * Started HD 03/17 * Stopped HD after 30 minutes today due to respiratory distress * Hold further HD until stable * Vasc cath placed 03/16 * Serologies pending * Remdesevir (hold for GFR<30), steroids, abx per ID * Cont Clonidine 0.1mg patch and IV hydralazine prn * Dose medications for renal function * Avoid potential nephrotoxins * AM labs * Case was discussed in detail with niece including possible complications on HD and consent was obtained for HD prior to initiation Subjective Date of service: 03/19/21 Principal diagnosis: COVID-19 Interval history: Nursing, interdisciplinary and consult notes were reviewed Vitals, input and output, medications and labs were reviewed HD stopped after 30 minutes today due to respiratory distress Patient intubated Objective - Exam Narrative Exam: General: SEdated. Intubated. HEENT: Oral mucosa moist Neck: Supple, no JVD Chest: Intubated. Mechanical breath sounds. Heart: RRR, S1 and S2, no pericardial rub Abdomen: Soft, nontender, no renal bruit Extremity: No peripheral cyanosis, edema Neurological: Sedated Dermatology: No skin rash Psych: Unable to assess Musculoskeletal: No joint effusion - Vital Signs Vital signs: Vital Signs - 12hr 03/19/21 03/19/21 03/19/21 06:30 06:45 07:01 Temperature Pulse Rate 99 H 91 H 112 H Pulse Rate [ From Monitor] Respiratory 25 H 22 39 H Rate Blood Pressure 150/109 135/102 167/124 O2 Sat by Pulse 87 93 88 Oximetry O2 Sat by Pulse Oximetry [ Bilateral] 03/19/21 03/19/21 03/19/21 07:15 07:30 07:45 Temperature Pulse Rate 104 H 113 H 151 H Pulse Rate [ From Monitor] Respiratory 30 H 35 H 45 H Rate Blood Pressure 167/124 148/105 154/119 O2 Sat by Pulse 83 L 94 91 Oximetry O2 Sat by Pulse Oximetry [ Bilateral] 03/19/21 03/19/21 03/19/21 08:00 08:07 08:15 Temperature 97.6 F Pulse Rate 133 H 132 H 124 H Pulse Rate [ From Monitor] Respiratory 43 H 32 H Rate Blood Pressure 151/98 151/98 127/88 O2 Sat by Pulse 95 100 Oximetry O2 Sat by Pulse Oximetry [ Bilateral] 03/19/21 03/19/21 03/19/21 08:30 08:45 09:01 Temperature Pulse Rate 120 H 131 H 125 H Pulse Rate [ From Monitor] Respiratory 38 H 43 H 32 H Rate Blood Pressure 118/83 177/123 118/80 O2 Sat by Pulse 96 94 97 Oximetry O2 Sat by Pulse Oximetry [ Bilateral] 03/19/21 03/19/21 03/19/21 09:15 09:30 09:45 Temperature Pulse Rate 142 H 118 H 132 H Pulse Rate [ From Monitor] Respiratory 38 H 33 H 31 H Rate Blood Pressure 118/80 121/86 118/91 O2 Sat by Pulse 94 99 98 Oximetry O2 Sat by Pulse Oximetry [ Bilateral] 03/19/21 03/19/21 03/19/21 10:00 10:15 10:30 Temperature Pulse Rate 139 H 133 H 125 H Pulse Rate [ From Monitor] Respiratory 42 H 29 H 35 H Rate Blood Pressure 120/93 121/75 110/77 O2 Sat by Pulse 96 98 95 Oximetry O2 Sat by Pulse Oximetry [ Bilateral] 03/19/21 03/19/21 03/19/21 10:45 11:00 11:15 Temperature Pulse Rate 119 H 112 H 110 H Pulse Rate [ From Monitor] Respiratory 30 H 31 H 29 H Rate Blood Pressure 106/76 101/71 111/76 O2 Sat by Pulse 96 94 94 Oximetry O2 Sat by Pulse Oximetry [ Bilateral] 03/19/21 03/19/21 03/19/21 11:30 11:45 12:00 Temperature Pulse Rate 108 H 105 H 103 H Pulse Rate [ From Monitor] Respiratory 25 H 24 22 Rate Blood Pressure 103/78 106/82 113/85 O2 Sat by Pulse 93 93 93 Oximetry O2 Sat by Pulse Oximetry [ Bilateral] 03/19/21 03/19/21 03/19/21 12:15 12:30 12:45 Temperature Pulse Rate 103 H 103 H 103 H Pulse Rate [ From Monitor] Respiratory 26 H 23 28 H Rate Blood Pressure 123/91 128/86 121/91 O2 Sat by Pulse 80 L 95 96 Oximetry O2 Sat by Pulse Oximetry [ Bilateral] 03/19/21 03/19/21 03/19/21 13:00 13:15 13:30 Temperature Pulse Rate 104 H 103 H 106 H Pulse Rate [ From Monitor] Respiratory 29 H 29 H 30 H Rate Blood Pressure 117/96 122/92 125/102 O2 Sat by Pulse 96 98 97 Oximetry O2 Sat by Pulse Oximetry [ Bilateral] 03/19/21 03/19/21 03/19/21 13:45 14:00 14:15 Temperature 97.2 F L Pulse Rate 108 H 108 H 146 H Pulse Rate [ From Monitor] Respiratory 33 H 26 H 46 H Rate Blood Pressure 128/98 128/98 95/68 O2 Sat by Pulse 97 93 Oximetry O2 Sat by Pulse 97 Oximetry [ Bilateral] 03/19/21 03/19/21 03/19/21 14:30 14:31 14:45 Temperature 97.2 F L Pulse Rate 172 H 173 H 165 H Pulse Rate [ From Monitor] Respiratory 42 H 40 H Rate Blood Pressure 41/23 41/23 121/97 O2 Sat by Pulse 97 98 Oximetry O2 Sat by Pulse 97 Oximetry [ Bilateral] 03/19/21 03/19/21 03/19/21 15:01 15:15 15:30 Temperature Pulse Rate 165 H 167 H 161 H Pulse Rate [ From Monitor] Respiratory 47 H 19 35 H Rate Blood Pressure 93/59 137/107 131/85 O2 Sat by Pulse 89 90 62 L Oximetry O2 Sat by Pulse Oximetry [ Bilateral] 03/19/21 03/19/21 03/19/21 15:46 16:00 16:15 Temperature Pulse Rate 158 H 140 H 134 H Pulse Rate [ 105 H From Monitor] Respiratory 40 H 35 H 33 H Rate Blood Pressure 115/86 108/78 108/78 O2 Sat by Pulse 71 L 66 L 99 Oximetry O2 Sat by Pulse Oximetry [ Bilateral] 03/19/21 03/19/21 03/19/21 16:29 16:30 16:45 Temperature Pulse Rate 141 H 142 H 158 H Pulse Rate [ From Monitor] Respiratory 35 H 36 H Rate Blood Pressure 116/86 116/86 116/86 O2 Sat by Pulse 99 Oximetry O2 Sat by Pulse Oximetry [ Bilateral] 03/19/21 03/19/21 03/19/21 17:01 17:15 17:30 Temperature Pulse Rate 147 H 159 H 151 H Pulse Rate [ From Monitor] Respiratory 34 H 36 H 34 H Rate Blood Pressure 103/66 103/66 101/69 O2 Sat by Pulse 98 Oximetry O2 Sat by Pulse Oximetry [ Bilateral] 03/19/21 03/19/21 17:45 18:01 Temperature Pulse Rate 158 H 169 H Pulse Rate [ From Monitor] Respiratory 37 H 38 H Rate Blood Pressure 101/69 103/66 O2 Sat by Pulse 99 97 Oximetry O2 Sat by Pulse Oximetry [ Bilateral] - Lab 03/19/21 04:50 03/19/21 04:50 Most recent lab results ABG pH 7.352 (7.320-7.450) 03/19/21 16:00 ABG pCO2 25.5 mm Hg 03/18/21 23:23 ABG pO2 71.6 mm Hg (80.0-90.0) L 03/18/21 23: ABG HCO3 12.9 mmol/L (20.0-26.0) L 03/18/21 23:23 ABG O2 Saturation 96.9 (0-100) 03/19/21 16:00 Calcium 8.6 mg/dL (8.4-10.2) 03/19/21 04:50 Phosphorus 5.90 mg/dL (2.5-4.5) H 03/19/21 04:50 Magnesium 2.80 mg/dL (1.7-2.3) H 03/19/21 04:50 Urine Sodium 37 mmol/L 03/14/21 Unknown Medications & Allergies - Medications Allergies/Adverse Reactions: Allergies No Known Allergies Allergy (Verified 03/11/21 09:21) Home Medications: Home Medications Medication Instructions Recorded Confirmed Last Taken Type AtorvaSTATin [Lipitor] 10 mg PO QHS 03/14/21 03/14/21 Unknown History Metoprolol [Lopressor TAB] 50 mg PO BID 03/14/21 03/14/21 Unknown History Mycophenolate [Cellcept] 500 mg PO BID 03/14/21 03/14/21 Unknown History NIFEdipine [Nifedipine ER] 90 mg PO BID 03/14/21 03/14/21 Unknown History Ondansetron [Zofran Odt] 4 mg PO Q8HR 03/14/21 03/14/21 Unknown History Tacrolimus 1 mg PO Q12HR 03/14/21 03/14/21 Unknown History Active Medications: Generic Name Dose Route Start Last Admin Trade Name Freq PRN Reason Stop Dose Admin Acetaminophen 650 mg 03/11/21 12:00 03/14/21 03:54 Acetaminophen 325 Mg Tab PO 650 mg Q4H PRN Administration Pain MILD(1-3)/Fever >100.5/[place] Lipase/Protease/Amylase 1 each 03/19/21 17:35 Lipase 10,500/Protease 25,000/Amylase 43,750 (Units) Dr Alegre FEEDTUBE PRN PRN For Clogged Feeding Tube Ascorbic Acid 500 mg 03/11/21 12:00 03/19/21 14:41 Ascorbic Acid 500 Mg Tab PO Not Given BID GYPSY Cholecalciferol 1,000 unit 03/11/21 13:00 03/19/21 14:41 Cholecalciferol (Vit D3) 1000 Unit (25 Mcg) Tab PO Not Given QDAY GYPSY Clonidine HCl 0.1 mg 03/20/21 08:00 Clonidine Tts 0.1 Mg/24 Hr Patch TD Fr GYPSY Dextrose 50 ml 03/13/21 14:44 Dextrose 50% In Water (25gm) 50 Ml Syringe IV Q30MIN PRN Hypoglycemia Protocol Famotidine 20 mg 03/19/21 22:00 Famotidine 20 Mg/2 Ml Inj IV QDAY GYPSY Fentanyl 50 mcg 03/19/21 15:29 Fentanyl 100 Mcg/2 Ml Inj IV Q10MIN PRN ANALGESIA Hydralazine HCl 10 mg 03/14/21 18:13 03/19/21 08:07 Hydralazine 20 Mg/1 Ml Inj IV 10 mg Q6H PRN Administration Hypertension Hydrophilic Ointment 1 applic 03/19/21 15:29 Lip Therapy Vaseline TP Q2HR PRN Dry Lips Dexmedetomidine HCl 400 mcg/ 104 mls @ 3.588 mls/hr 03/16/21 12:00 03/19/21 15:49 Sodium Chloride IV 0 mcg/kg/hr TITRATE GYPSY 0 mls/hr Titration Protocol 0.2 MCG/KG/HR Argatroban 250 mg/ Sodium 250 mls @ 2.07 mls/hr 03/17/21 11:00 03/19/21 09:51 Chloride IV 0 mcg/kg/min TITR GYPSY 0 mls/hr Titration Protocol 0.5 MCG/KG/MIN Sodium Chloride 100 mls @ 999 mls/hr 03/19/21 10:00 Nacl 0.9% IV OSCAR PRN Hypotension Fentanyl Citrate 2,000 mcg in 100 mls @ 3.45 mls/hr 03/19/21 16:00 03/19/21 16:48 Fentanyl Drip Premix IV 2 mcg/kg/hr TITR GYPSY 6.9 mls/hr Titration Protocol 1 MCG/KG/HR Propofol 1,000 mg in 100 mls @ 2.07 mls/hr 03/19/21 16:00 03/19/21 17:55 Diprivan 10 Mg/Ml IV 15 mcg/kg/min TITR GYPSY 6.21 mls/hr Titration Protocol 5 MCG/KG/MIN Insulin Human Lispro 0 unit 03/16/21 13:00 03/19/21 18:26 Insulin Lispro 100 Unit/Ml SUB-Q 10 unit Q6HR GYPSY Administration Protocol Methylprednisolone Sodium Succinate 40 mg 03/11/21 14:00 03/19/21 14:41 Methylprednisolone Sod Succinate 40 Mg/1 Ml Inj IV 03/21/21 06:01 40 mg Q8HR GYPSY Administration Multi-Ingred Cream/Lotion/Oil/Oint 1 applic 03/19/21 15:29 Mineral Oil/Petrolatum, White Ophth Oint 3.5 Gm OU Q4HR PRN Dry Eye(s) Ondansetron HCl 4 mg 03/11/21 12:00 03/15/21 12:08 Ondansetron 4 Mg/2 Ml Inj IV 4 mg Q8H PRN Administration Nausea And Vomiting Senna/Docusate Sodium 1 tab 03/19/21 22:00 Sennosides/Docusate Sodium 8.6/50 Mg Tab FEEDTUBE BID GYPSY Simple Syrup 15 ml 03/19/21 17:35 Simple Syrup 15 Ml FEEDTUBE PRN PRN Hypoglycemia Simple Syrup 30 ml 03/19/21 17:35 Simple Syrup 15 Ml FEEDTUBE PRN PRN Hypoglycemia Sodium Bicarbonate 325 mg 03/19/21 17:35 Sodium Bicarbonate 325 Mg Tab FEEDTUBE PRN PRN For Clogged Feeding Tube Sodium Chloride 10 ml 03/11/21 12:00 03/19/21 14:41 Sodium Chloride 0.9% 10 Ml Flush Syringe IV 10 ml BID GYPSY Administration Sodium Chloride 10 ml 03/11/21 12:00 Sodium Chloride 0.9% 10 Ml Flush Syringe IV PRN PRN LINE FLUSH Sodium Chloride 5 ml 03/19/21 15:29 Sodium Chloride 0.9% 500 Ml Ivpb IV DIRECT PRN [employer] Zinc Sulfate 220 mg 03/11/21 12:00 03/19/21 14:42 Zinc Sulfate 220 Mg Cap PO Not Given BID GYPSY
--- NOTE | 2021-03-19 18:46 | XRay Report ---
ABDOMEN 1 VIEW 03/19/2021 6:31 PM INDICATION / CLINICAL INFORMATION: OG PLACEMENT. COMPARISON: CXR earlier today. FINDINGS: TUBES / LINES: There is an orogastric tube with the tip overlying the distal gastric body and the pro ximal sidehole well below the gastroesophageal junction. BOWEL GAS PATTERN: No significant abnormality. FREE AIR / EXTRALUMINAL GAS: None. ADDITIONAL FINDINGS: There is extensive subcutaneous emphysema along the right lateral chest and abdo sandhya wall. IMPRESSION: Orogastric tube tip overlies the distal gastric body. Signer Name: Nirja Garza MD Signed: 03/19/2021 6:42 PM Workstation Name: [id number]
[2021-03-19] MEDS: FAMOTIDINE 20 MG/2 ML INJ IV SCH (22:35)
[2021-03-19] MEDS: SENNOSIDES/DOCUSATE SODIUM 8.6/50 MG TAB FEEDTUBE SCH (22:36)
[2021-03-20] MEDS: INSULIN LISPRO 100 UNIT/ML SUB-Q SCH ×4 (01:39→18:01)
--- NOTE | 2021-03-20 04:18 | XRay Report ---
XR chest 1V ap INDICATION / CLINICAL INFORMATION: follow up respiratory failure. COMPARISON: Radiograph from yesterday. FINDINGS: SUPPORT DEVICES: Unchanged. HEART /PULMONARY VASCULATURE: Unchanged. LUNGS / PLEURA: Extensive subcutaneous emphysema again seen overlying the chest. Mild patchy multifoc al airspace opacities are again noted. These are unchanged from prior study. There are small bilatera l pneumothoraces, unchanged from prior study. IMPRESSION: Stable appearance of the chest. Small bilateral pneumothoraces remain. Signer Name: Terrance Matta MD Signed: 03/20/2021 4:13 AM Workstation Name: [id number]
[2021-03-20] MEDS: fentaNYL DRIP Premix 2,000 MCG/100 ML BAG IV SCH ×3 (05:55→22:56)
[2021-03-20] MEDS: methylPREDNISolone Sod Succinate 40 MG/1 ML INJ IV SCH ×3 (06:03→22:09)
[2021-03-20 06:28] LABS: Calcium 8.8 mg/dL (8.4-10.2)
[2021-03-20 06:36] LABS: Hematocrit 39.8 % (35.5-45.6); Hemoglobin 13.1 gm/dl (11.8-15.2); Mean Corpuscular HGB Conc 33 % (32-34); Mean Corpuscular Volume 93 fl (84-94); Red Blood Count 4.29 M/mm3 (3.65-5.03); Red Cell Distribution Width 14.2 % (13.2-15.2)
[2021-03-20 06:46] LABS: Platelet Count 94 K/mm3 (140-440)
[2021-03-20] MEDS ORDERED: cloNIDine TTS 0.1 MG/24 HR PATCH TD SCH (08:00)
--- NOTE | 2021-03-20 08:50 | Electrocardiograph Report ---
[facility] Test Date: 2021-03-19 Test Time: 18:36:00 Pat Name: RAYMOND JOHN Department: Room: A251 1 Gender: M [employer] Operator: [place] : 1970 Requested By: JANINE WASHINGTON Order Number: [id number] Reading MD: Mike Griffiths Measurements Intervals [place] Rate: 150 P: 60 VT: 106 QRS: 23 QRSD: 70 T: 103 QT: 275 QTc: 435 Interpretive Statements Sinus tachycardia Nonspecific T abnormalities, lateral leads Compared to ECG 03/11/2021 09:34:19 No significant changes Electronically Signed On 03-20-2021 8:49:44 EDT by Mike Griffiths
[2021-03-20] MEDS: ARGATROBAN 250 MG in SODIUM CHLORIDE 0.9% 250ML 247.5 ML IV SCH (09:09)
[2021-03-20] MEDS: ZINC SULFATE 220 MG CAP PO SCH ×2 (09:10→22:09)
[2021-03-20] MEDS: CHOLECALCIFEROL (VIT D3) 1000 UNIT (25 mcg) TAB PO SCH (09:10)
[2021-03-20] MEDS: SENNOSIDES/DOCUSATE SODIUM 8.6/50 MG TAB FEEDTUBE SCH ×2 (09:10→22:09)
[2021-03-20] MEDS: FAMOTIDINE 20 MG/2 ML INJ IV SCH (09:10)
[2021-03-20] MEDS: ASCORBIC ACID 500 MG TAB PO SCH ×2 (09:10→22:09)
[2021-03-20] MEDS ORDERED: LACTATED RINGERS 1,000 ML IV SCH (10:45)
--- NOTE | 2021-03-20 11:09 | Progress Note ---
Assessment and Plan Cultures: Blood culture 03/11/2021 no growth today SARS CoV2 PCR positive Assessment: 50-year-old male with history of CVA admitted on 03/11/2021 secondary to shortness of breath/altered mental status: #Severe sepsis: secondary to COVID-19. #Severe COVID pneumonia: CXR with bilateral pneumonia. Was unable to complete remdesivir course due to renal failure. Status post Tocilizumab on 03/12/2021, completed antibiotics, remains on steroids. #Acute hypoxemic respiratory failure: failed BiPAP, intubated 03/19/2021. #Bilateral pneumothorax, pneumomediastinum, subcutaneous emphysema from COVID #Elevated LFTs: from COVID. #CHRISTY: started dialysis 03/17. #Acute diarrhea likely secondary to COVID-19. #AMS: likely due to hypoxia. #DM: uncontrolled Recommendations: ET aspirate culture ordered Complete 10 to 14 days of steroids, benefit beyond that is unclear and increases risk of nosocomial infections Status post Actemra 03/12/2021 Status post antibiotics Poor prognosis Adama Johnson MD, FACP [facility] ([facility] O: [phone] F: [phone] Subjective Date of service: 03/20/21 Principal diagnosis: COVID-19 Interval history: Worsening respiratory status, now intubated, on mechanical ventilation. Afebrile. On argatroban drip, briefly needed Levophed. Chest x-ray shows small bilateral pneumothorax and subcutaneous emphysema. Objective - Exam Narrative Exam: Physical Exam (reviewed in chart to minimize risk of transmission) Constitutional: deferred Head, Ears, Nose: deferred Eyes: deferred Neck: deferred Oral: deferred Cardiovascular: deferred Respiratory: deferred GI: deferred Musculoskeletal: deferred Skin: deferred Hem/Lymphatic: deferred Psych: deferred Neurological: deferred - Constitutional Vitals: Vital Signs Temp Pulse Resp BP Pulse Ox 99 F 143 H 28 H 117/50 99 03/20/21 08:00 03/20/21 10:00 03/20/21 10:00 03/20/21 10:00 03/20/21 10:00 Temperature -Last 24 Hours Temperature 99 F Temperature 98.9 F Temperature 99.3 F Temperature 99.5 F Temperature 97.2 F Temperature 97.2 F - Labs CBC & Chem 7: 03/20/21 05:16 03/20/21 05:16 Labs: Abnormal lab results 03/19/21 03/19/21 03/19/21 Range/Units 16:00 18:13 19:05 WBC (4.5-11.0) K/mm3 Plt Count (140-440) K/mm3 APTT 68.5 H* (24.2-36.6) Sec. POC ABG pCO2 26.7 L (32.0-48.0) mmHg POC ABG pO2 (83-108) mmHg ABG Sodium 147.2 H (136.0-145.0) mmol/L ABG Chloride 112.0 H (98-107) mmol/L ABG Glucose 358 H (65-95) mg/dL Carboxyhemoglobin 0.2 L (0.5-1.5) Sodium (137-145) mmol/L Chloride (98-107) mmol/L Carbon Dioxide (22-30) mmol/L BUN (9-20) mg/dL Creatinine (0.8-1.3) mg/dL Glucose (75-100) mg/dL POC Glucose 338 H (70-105) mg/dL Phosphorus (2.5-4.5) mg/dL Magnesium (1.7-2.3) mg/dL Arterial Blood Glucose 358 H (65-95) mg/dL 03/20/21 03/20/21 03/20/21 Range/Units 00:09 04:30 04:55 WBC (4.5-11.0) K/mm3 Plt Count (140-440) K/mm3 APTT (24.2-36.6) Sec. POC ABG pCO2 (32.0-48.0) mmHg POC ABG pO2 126.9 H (83-108) mmHg ABG Sodium 147.4 H (136.0-145.0) mmol/L ABG Chloride 113.0 H (98-107) mmol/L ABG Glucose 211 H (65-95) mg/dL Carboxyhemoglobin 0.2 L (0.5-1.5) Sodium (137-145) mmol/L Chloride (98-107) mmol/L Carbon Dioxide (22-30) mmol/L BUN (9-20) mg/dL Creatinine (0.8-1.3) mg/dL Glucose (75-100) mg/dL POC Glucose 171 H 199 H (70-105) mg/dL Phosphorus (2.5-4.5) mg/dL Magnesium (1.7-2.3) mg/dL Arterial Blood Glucose 211 H (65-95) mg/dL 03/20/21 03/20/21 03/20/21 Range/Units 05:16 05:16 05:16 WBC 22.5 H (4.5-11.0) K/mm3 Plt Count 94 L (140-440) K/mm3 APTT 92.2 H* (24.2-36.6) Sec. POC ABG pCO2 (32.0-48.0) mmHg POC ABG pO2 (83-108) mmHg ABG Sodium (136.0-145.0) mmol/L ABG Chloride (98-107) mmol/L ABG Glucose (65-95) mg/dL Carboxyhemoglobin (0.5-1.5) Sodium 147 H (137-145) mmol/L Chloride 110.8 H (98-107) mmol/L Carbon Dioxide 20 L (22-30) mmol/L BUN 113 H (9-20) mg/dL Creatinine 4.2 H (0.8-1.3) mg/dL Glucose 219 H (75-100) mg/dL POC Glucose (70-105) mg/dL Phosphorus 6.20 H (2.5-4.5) mg/dL Magnesium 2.60 H (1.7-2.3) mg/dL Arterial Blood Glucose (65-95) mg/dL - Imaging and cardiology Chest x-ray: report reviewed, image reviewed (Chest x-ray shows small bilateral pneumothorax and subcutaneous emphysema.)
[2021-03-20] MEDS ORDERED: LIPASE 10,500/PROTEASE 25,000/AMYLASE 43,750 (UNITS) DR CAP FEEDTUBE PRN (12:10)
[2021-03-20] MEDS ORDERED: SIMPLE SYRUP 15 ML FEEDTUBE PRN ×2 (12:10)
[2021-03-20] MEDS ORDERED: SODIUM BICARBONATE 325 MG TAB FEEDTUBE PRN (12:10)
--- NOTE | 2021-03-20 12:55 | Progress Note ---
Assessment and Plan 50 y/o male with acute respiratory failure secondary to COVID 19 03/20/21: Continue current level of sedations. Wean FiO2 for sats >88%. Once FiO2 around 45-50% can start weaning PEEP. No current indication for chest tube as of yet. HD per renal. very very guarded to poor prognosis with COVID and renal failure. Platelets continue to improve so continue argatroban therapy. CCT 31 minutes 03/19/21: DIalysis today. Asked nursing to max out precedex. Continue Argatroban. Platelets better. Continue to attempt not to intubate given the elevated mortality rate, would prefer not to intubate if able. Very very guarded prognosis. 03/17/21: Hopeful dialysis today. Ordered stat CXR and does shows small apical PTX, slightly larger but still not a point that I feel needs CT placement. Will repeat later this afternoon. Will have RT turn of oxygen and attempt to wean pressure to help with resorption. Prognosis overall remains guarded to poor, especially with renal dysfunction plus COVID. D-Dimer now is >10K, however lauren telets dropping on heparin. Stopping Sub Q prophylactic therapy, checking bilateral dopplers and will send hiT PANEL. May consider doing argatroban therapy. 03/16/21: Vascath placed. Minerva at [phone] is the point of contact and decision maker. She has consented for vascath. Also discussed the possibility that patient may require mechanical ventilator in the near future if no improvement. Will attempt to use precedex to help keep patient calm so that bipap/avaps can work. Volume removal per renal. Guarded prognosis. : Hold on increasing steroids as of now. Prone if able. Continue AVAPS today but spoke with RT about weaning FiO2 for sats >88%. Monitor fluids. No la six right now given renal dysfunction. Reviewed ID note and agree with their plan and assessment. Guarded prognosis. 1. Prone if able 2. Wean bipap to HFNC if able 3. Steroids, may need to increase 4. Does not appear to be a candidate for remdesivir given renal failure 5. May be able to get actemra 6. Minimize additional fluids 7. Guarded prognosis given renal failure and COVID state. Subjective Date of service: 03/20/21 Principal diagnosis: COVID-19 Interval history: Electively intubated the patient yesterday afternoon. Still tachy and still with marginal BP's. Oxygenation is slightly better on FiO2 of 80%. Adequately sedated. Did not get full HD yesterday and now renal has started IVF's. Currently not on pressors. Objective Vital Signs - 12hr 03/20/21 03/20/21 03/20/21 01:01 01:15 01:30 Temperature Pulse Rate 142 H 138 H 137 H Pulse Rate [ From Monitor] Respiratory 14 14 14 Rate Blood Pressure 121/97 107/62 97/57 O2 Sat by Pulse 97 97 Oximetry 03/20/21 03/20/21 03/20/21 01:45 02:00 02:15 Temperature Pulse Rate 137 H 136 H 136 H Pulse Rate [ From Monitor] Respiratory 15 12 11 L Rate Blood Pressure 99/60 94/57 102/57 O2 Sat by Pulse 97 96 96 Oximetry 03/20/21 03/20/21 03/20/21 02:30 02:45 03:00 Temperature Pulse Rate 134 H 135 H 134 H Pulse Rate [ From Monitor] Respiratory 18 12 14 Rate Blood Pressure 98/56 87/54 103/52 O2 Sat by Pulse 98 96 96 Oximetry 03/20/21 03/20/21 03/20/21 03:15 03:30 03:45 Temperature Pulse Rate 132 H 138 H 140 H Pulse Rate [ From Monitor] Respiratory 11 L 13 15 Rate Blood Pressure 100/58 92/65 111/63 O2 Sat by Pulse 96 94 Oximetry 03/20/21 03/20/21 03/20/21 03:54 04:00 04:15 Temperature 98.9 F Pulse Rate 140 H 144 H Pulse Rate [ 142 H From Monitor] Respiratory 14 15 Rate Blood Pressure 93/63 104/70 O2 Sat by Pulse 97 95 Oximetry 03/20/21 03/20/21 03/20/21 04:20 04:30 04:45 Temperature Pulse Rate 151 H 150 H 147 H Pulse Rate [ From Monitor] Respiratory 22 17 Rate Blood Pressure 107/74 107/74 94/67 O2 Sat by Pulse 98 98 96 Oximetry 03/20/21 03/20/21 03/20/21 05:00 05:04 05:15 Temperature Pulse Rate 143 H 142 H Pulse Rate [ From Monitor] Respiratory 13 15 Rate Blood Pressure 101/64 100/62 O2 Sat by Pulse 95 98 95 Oximetry 03/20/21 03/20/21 03/20/21 05:30 05:45 06:00 Temperature Pulse Rate 142 H 140 H 136 H Pulse Rate [ From Monitor] Respiratory 14 11 L 16 Rate Blood Pressure 96/61 101/59 108/63 O2 Sat by Pulse 95 95 95 Oximetry 03/20/21 03/20/21 03/20/21 06:15 06:30 06:45 Temperature Pulse Rate 139 H 138 H 139 H Pulse Rate [ From Monitor] Respiratory 17 19 17 Rate Blood Pressure 95/55 99/50 90/53 O2 Sat by Pulse 96 96 97 Oximetry 03/20/21 03/20/21 03/20/21 07:00 07:15 07:31 Temperature Pulse Rate 136 H 134 H Pulse Rate [ From Monitor] Respiratory 15 14 Rate Blood Pressure 102/54 102/51 102/51 O2 Sat by Pulse 96 97 100 Oximetry 03/20/21 03/20/21 03/20/21 07:32 07:45 08:00 Temperature 99 F Pulse Rate 128 H 136 H 139 H Pulse Rate [ 143 H From Monitor] Respiratory 21 19 Rate Blood Pressure 188/165 143/77 117/66 O2 Sat by Pulse 97 89 98 Oximetry 03/20/21 03/20/21 03/20/21 08:15 08:30 08:45 Temperature Pulse Rate 146 H 147 H 149 H Pulse Rate [ From Monitor] Respiratory 16 16 21 Rate Blood Pressure 117/66 105/72 109/78 O2 Sat by Pulse 98 96 97 Oximetry 03/20/21 03/20/21 03/20/21 09:00 09:12 09:15 Temperature Pulse Rate 146 H 143 H 142 H Pulse Rate [ From Monitor] Respiratory 26 H 18 Rate Blood Pressure 117/66 117/68 101/62 O2 Sat by Pulse 98 98 Oximetry 03/20/21 03/20/21 03/20/21 09:30 09:45 10:00 Temperature Pulse Rate 139 H 140 H 143 H Pulse Rate [ From Monitor] Respiratory 29 H 38 H 28 H Rate Blood Pressure 97/61 105/55 117/50 O2 Sat by Pulse 97 97 99 Oximetry 03/20/21 03/20/21 03/20/21 10:15 10:30 10:45 Temperature Pulse Rate 140 H 140 H 140 H Pulse Rate [ From Monitor] Respiratory 18 24 37 H Rate Blood Pressure 105/49 99/53 104/50 O2 Sat by Pulse 98 98 94 Oximetry 03/20/21 03/20/21 03/20/21 11:00 11:15 11:16 Temperature Pulse Rate 137 H 138 H 140 H Pulse Rate [ From Monitor] Respiratory 17 36 H Rate Blood Pressure 121/55 115/58 115/58 O2 Sat by Pulse 97 97 96 Oximetry 03/20/21 03/20/21 03/20/21 11:30 11:45 12:00 Temperature Pulse Rate 138 H 138 H 137 H Pulse Rate [ 135 H From Monitor] Respiratory 40 H 43 H 46 H Rate Blood Pressure 96/43 106/49 97/55 O2 Sat by Pulse 95 96 95 Oximetry Constitutional: other (on hiflo) Eyes: non-icteric Neck: supple Ascultation: Bilateral: diminished breath sounds Cardiovascular: regular rate and rhythm Gastrointestinal: normoactive bowel sounds, soft, non-tender Extremities: other (decreased rom/ movement of lue mild contractures) CBC and BMP: 03/20/21 05:16 03/20/21 05:16 ABG, PT/INR, D-dimer: ABG ABG pH 7.368 (7.320-7.450) 03/20/21 04:30 POC ABG pCO2 34.4 mmHg (32.0-48.0) 03/20/21 04:30 ABG pCO2 25.5 mm Hg 03/18/21 23:23 POC ABG pO2 126.9 mmHg (83-108) H 03/20/21 04:30 ABG pO2 71.6 mm Hg (80.0-90.0) L 03/18/21 23:23 POC ABG HCO3 19.4 03/20/21 04:30 ABG O2 Saturation 98.1 (0-100) 03/20/21 04:30 PT/INR, D-dimer PT 22.4 Sec. (12.2-14.9) H 03/17/21 09:19 INR 1.92 (0.87-1.13) H 03/17/21 09:19 D-Dimer > 97532 ng/mlDDU (0-234) H 03/17/21 06:00 Abnormal lab findings: Abnormal Labs 03/11/21 03/11/21 03/11/21 09:41 09:41 09:41 WBC Plt Count Seg Neuts % (Manual) 89.0 H Lymphocytes % (Manual) 2.0 L Seg Neutrophils # Man 9.7 H Lymphocytes # (Manual) 0.2 L PT INR APTT D-Dimer ABG pH POC ABG pCO2 POC ABG pO2 ABG pO2 ABG HCO3 ABG O2 Saturation ABG Base Excess ABG Oxyhemoglobin ABG Sodium ABG Chloride ABG Glucose Oxyhemoglobin Carboxyhemoglobin Sodium 127 L Chloride 90.6 L Carbon Dioxide 15 L BUN 42 H Creatinine 2.7 H Glucose 262 H POC Glucose Hemoglobin A1c Lactic Acid 3.70 H* Calcium Phosphorus Magnesium Ferritin AST 148 H ALT 65 H Lactate Dehydrogenase C-Reactive Protein Total Protein Albumin 2.9 L Arterial Blood Glucose Arterial Blood Ionized Calcium Coronavirus (PCR) 03/11/21 03/11/21 03/11/21 09:41 09:41 09:41 WBC Plt Count Seg Neuts % (Manual) Lymphocytes % (Manual) Seg Neutrophils # Man Lymphocytes # (Manual) PT INR APTT D-Dimer 2206.91 H ABG pH POC ABG pCO2 POC ABG pO2 ABG pO2 ABG HCO3 ABG O2 Saturation ABG Base Excess ABG Oxyhemoglobin ABG Sodium ABG Chloride ABG Glucose Oxyhemoglobin Carboxyhemoglobin Sodium Chloride Carbon Dioxide BUN Creatinine Glucose 261 H POC Glucose Hemoglobin A1c Lactic Acid Calcium Phosphorus Magnesium Ferritin 1640.0 H AST ALT Lactate Dehydrogenase 933 H C-Reactive Protein 17.90 H Total Protein Albumin Arterial Blood Glucose Arterial Blood Ionized Calcium Coronavirus (PCR) 03/11/21 03/11/21 03/12/21 11:50 Unknown 04:35 WBC Plt Count Seg Neuts % (Manual) Lymphocytes % (Manual) Seg Neutrophils # Man Lymphocytes # (Manual) PT INR APTT D-Dimer ABG pH 7.316 L 7.279 L POC ABG pCO2 30.2 L POC ABG pO2 228.8 H 183.7 H ABG pO2 ABG HCO3 ABG O2 Saturation ABG Base Excess ABG Oxyhemoglobin 98.7 H 98.6 H ABG Sodium 125.1 L ABG Chloride 97.0 L ABG Glucose 229 H 236 H Oxyhemoglobin Carboxyhemoglobin 0.1 L 0.3 L Sodium Chloride Carbon Dioxide BUN Creatinine Glucose POC Glucose Hemoglobin A1c Lactic Acid Calcium Phosphorus Magnesium Ferritin AST ALT Lactate Dehydrogenase C-Reactive Protein Total Protein Albumin Arterial Blood Glucose 229 H 236 H Arterial Blood Ionized Calcium 4.5 L Coronavirus (PCR) Positive A 03/12/21 03/12/21 03/13/21 10:56 16:53 05:19 WBC Plt Count Seg Neuts % (Manual) Lymphocytes % (Manual) Seg Neutrophils # Man Lymphocytes # (Manual) PT INR APTT D-Dimer ABG pH POC ABG pCO2 POC ABG pO2 ABG pO2 ABG HCO3 ABG O2 Saturation ABG Base Excess ABG Oxyhemoglobin ABG Sodium ABG Chloride ABG Glucose Oxyhemoglobin Carboxyhemoglobin Sodium 149 H Chloride 111.0 H 113.9 H Carbon Dioxide 13 L 15 L 18 L BUN 37 H 36 H 39 H Creatinine 2.2 H 2.3 H 2.5 H Glucose 254 H 212 H 304 H POC Glucose Hemoglobin A1c Lactic Acid Calcium Phosphorus Magnesium Ferritin AST 110 H 100 H 88 H ALT 66 H 64 H 68 H Lactate Dehydrogenase C-Reactive Protein Total Protein 6.2 L Albumin 2.7 L 2.4 L 2.7 L Arterial Blood Glucose Arterial Blood Ionized Calcium Coronavirus (PCR) 03/13/21 03/14/21 03/14/21 23:06 00:03 04:44 WBC Plt Count Seg Neuts % (Manual) Lymphocytes % (Manual) Seg Neutrophils # Man Lymphocytes # (Manual) PT INR APTT D-Dimer ABG pH POC ABG pCO2 POC ABG pO2 ABG pO2 ABG HCO3 ABG O2 Saturation ABG Base Excess ABG Oxyhemoglobin ABG Sodium ABG Chloride ABG Glucose Oxyhemoglobin Carboxyhemoglobin Sodium Chloride Carbon Dioxide BUN Creatinine Glucose POC Glucose 168 H 152 H Hemoglobin A1c 8.2 H Lactic Acid Calcium Phosphorus Magnesium Ferritin AST ALT Lactate Dehydrogenase C-Reactive Protein Total Protein Albumin Arterial Blood Glucose Arterial Blood Ionized Calcium Coronavirus (PCR) 03/14/21 03/14/21 03/14/21 04:44 04:44 05:35 WBC Plt Count 132 L Seg Neuts % (Manual) Lymphocytes % (Manual) Seg Neutrophils # Man Lymphocytes # (Manual) PT INR APTT D-Dimer ABG pH POC ABG pCO2 POC ABG pO2 ABG pO2 ABG HCO3 ABG O2 Saturation ABG Base Excess ABG Oxyhemoglobin ABG Sodium ABG Chloride ABG Glucose Oxyhemoglobin Carboxyhemoglobin Sodium 153 H Chloride 118.2 H Carbon Dioxide 21 L BUN 58 H Creatinine 3.4 H Glucose 380 H POC Glucose 331 H Hemoglobin A1c Lactic Acid Calcium Phosphorus Magnesium Ferritin AST 56 H ALT 60 H Lactate Dehydrogenase C-Reactive Protein Total Protein 5.8 L Albumin 2.4 L Arterial Blood Glucose Arterial Blood Ionized Calcium Coronavirus (PCR) 03/14/21 03/14/21 03/14/21 11:12 15:11 22:42 WBC Plt Count Seg Neuts % (Manual) Lymphocytes % (Manual) Seg Neutrophils # Man Lymphocytes # (Manual) PT INR APTT D-Dimer ABG pH POC ABG pCO2 POC ABG pO2 ABG pO2 ABG HCO3 ABG O2 Saturation ABG Base Excess ABG Oxyhemoglobin ABG Sodium ABG Chloride ABG Glucose Oxyhemoglobin Carboxyhemoglobin Sodium Chloride Carbon Dioxide BUN Creatinine Glucose POC Glucose 229 H 291 H 435 H Hemoglobin A1c Lactic Acid Calcium Phosphorus Magnesium Ferritin AST ALT Lactate Dehydrogenase C-Reactive Protein Total Protein Albumin Arterial Blood Glucose Arterial Blood Ionized Calcium Coronavirus (PCR) 03/15/21 03/15/21 03/15/21 04:44 08:43 11:50 WBC Plt Count Seg Neuts % (Manual) Lymphocytes % (Manual) Seg Neutrophils # Man Lymphocytes # (Manual) PT INR APTT D-Dimer ABG pH POC ABG pCO2 POC ABG pO2 ABG pO2 ABG HCO3 ABG O2 Saturation ABG Base Excess ABG Oxyhemoglobin ABG Sodium ABG Chloride ABG Glucose Oxyhemoglobin Carboxyhemoglobin Sodium 152 H Chloride 114.9 H Carbon Dioxide BUN 79 H Creatinine 4.3 H Glucose 303 H POC Glucose 281 H 340 H Hemoglobin A1c Lactic Acid Calcium Phosphorus Magnesium Ferritin AST 41 H ALT Lactate Dehydrogenase C-Reactive Protein Total Protein 6.1 L Albumin 2.6 L Arterial Blood Glucose Arterial Blood Ionized Calcium Coronavirus (PCR) 03/15/21 03/16/21 03/16/21 21:27 04:14 04:14 WBC 14.3 H Plt Count 87 L Seg Neuts % (Manual) Lymphocytes % (Manual) Seg Neutrophils # Man Lymphocytes # (Manual) PT INR APTT D-Dimer ABG pH POC ABG pCO2 POC ABG pO2 ABG pO2 ABG HCO3 ABG O2 Saturation ABG Base Excess ABG Oxyhemoglobin ABG Sodium ABG Chloride ABG Glucose Oxyhemoglobin Carboxyhemoglobin Sodium Chloride Carbon Dioxide BUN 75 H Creatinine 3.4 H Glucose 434 H POC Glucose 115 H Hemoglobin A1c Lactic Acid Calcium Phosphorus Magnesium Ferritin AST ALT Lactate Dehydrogenase C-Reactive Protein Total Protein Albumin Arterial Blood Glucose Arterial Blood Ionized Calcium Coronavirus (PCR) 03/16/21 03/16/21 03/16/21 07:52 11:05 17:01 WBC Plt Count Seg Neuts % (Manual) Lymphocytes % (Manual) Seg Neutrophils # Man Lymphocytes # (Manual) PT INR APTT D-Dimer ABG pH POC ABG pCO2 POC ABG pO2 ABG pO2 ABG HCO3 ABG O2 Saturation ABG Base Excess ABG Oxyhemoglobin ABG Sodium ABG Chloride ABG Glucose Oxyhemoglobin Carboxyhemoglobin Sodium Chloride Carbon Dioxide BUN Creatinine Glucose POC Glucose 439 H 277 H 194 H Hemoglobin A1c Lactic Acid Calcium Phosphorus Magnesium Ferritin AST ALT Lactate Dehydrogenase C-Reactive Protein Total Protein Albumin Arterial Blood Glucose Arterial Blood Ionized Calcium Coronavirus (PCR) 03/17/21 03/17/21 03/17/21 06:00 06:00 06:00 WBC 12.3 H Plt Count 70 L Seg Neuts % (Manual) Lymphocytes % (Manual) Seg Neutrophils # Man Lymphocytes # (Manual) PT INR APTT D-Dimer > 53394 H ABG pH POC ABG pCO2 POC ABG pO2 ABG pO2 ABG HCO3 ABG O2 Saturation ABG Base Excess ABG Oxyhemoglobin ABG Sodium ABG Chloride ABG Glucose Oxyhemoglobin Carboxyhemoglobin Sodium 150 H Chloride 118.0 H Carbon Dioxide 21 L BUN 92 H Creatinine 3.4 H Glucose 129 H POC Glucose Hemoglobin A1c Lactic Acid Calcium Phosphorus Magnesium Ferritin AST ALT Lactate Dehydrogenase 1155 H C-Reactive Protein 1.50 H Total Protein Albumin Arterial Blood Glucose Arterial Blood Ionized Calcium Coronavirus (PCR) 03/17/21 03/17/21 03/17/21 09:00 09:19 09:19 WBC Plt Count Seg Neuts % (Manual) Lymphocytes % (Manual) Seg Neutrophils # Man Lymphocytes # (Manual) PT 22.4 H INR 1.92 H APTT 37.7 H D-Dimer ABG pH POC ABG pCO2 POC ABG pO2 ABG pO2 ABG HCO3 ABG O2 Saturation ABG Base Excess ABG Oxyhemoglobin ABG Sodium ABG Chloride ABG Glucose Oxyhemoglobin Carboxyhemoglobin Sodium Chloride Carbon Dioxide BUN Creatinine Glucose POC Glucose Hemoglobin A1c Lactic Acid Calcium Phosphorus Magnesium Ferritin 1517.0 H AST ALT Lactate Dehydrogenase C-Reactive Protein Total Protein 5.1 L Albumin 2.2 L Arterial Blood Glucose Arterial Blood Ionized Calcium Coronavirus (PCR) 03/17/21 03/17/21 03/17/21 15:44 16:58 23:39 WBC Plt Count Seg Neuts % (Manual) Lymphocytes % (Manual) Seg Neutrophils # Man Lymphocytes # (Manual) PT INR APTT 70.8 H* D-Dimer ABG pH POC ABG pCO2 POC ABG pO2 ABG pO2 ABG HCO3 ABG O2 Saturation ABG Base Excess ABG Oxyhemoglobin ABG Sodium ABG Chloride ABG Glucose Oxyhemoglobin Carboxyhemoglobin Sodium Chloride Carbon Dioxide BUN Creatinine Glucose POC Glucose 165 H 235 H Hemoglobin A1c Lactic Acid Calcium Phosphorus Magnesium Ferritin AST ALT Lactate Dehydrogenase C-Reactive Protein Total Protein Albumin Arterial Blood Glucose Arterial Blood Ionized Calcium Coronavirus (PCR) 03/18/21 03/18/21 03/18/21 03:50 03:50 05:40 WBC Plt Count Seg Neuts % (Manual) Lymphocytes % (Manual) Seg Neutrophils # Man Lymphocytes # (Manual) PT INR APTT 81.9 H* D-Dimer ABG pH POC ABG pCO2 POC ABG pO2 ABG pO2 ABG HCO3 ABG O2 Saturation ABG Base Excess ABG Oxyhemoglobin ABG Sodium ABG Chloride ABG Glucose Oxyhemoglobin Carboxyhemoglobin Sodium Chloride 109.0 H Carbon Dioxide 21 L BUN 70 H Creatinine 2.5 H Glucose 258 H POC Glucose 207 H Hemoglobin A1c Lactic Acid Calcium 8.2 L Phosphorus Magnesium Ferritin AST ALT Lactate Dehydrogenase C-Reactive Protein Total Protein Albumin Arterial Blood Glucose Arterial Blood Ionized Calcium Coronavirus (PCR) 03/18/21 03/18/21 03/18/21 07:15 11:31 17:30 WBC Plt Count Seg Neuts % (Manual) Lymphocytes % (Manual) Seg Neutrophils # Man Lymphocytes # (Manual) PT INR APTT D-Dimer ABG pH POC ABG pCO2 POC ABG pO2 ABG pO2 ABG HCO3 ABG O2 Saturation ABG Base Excess ABG Oxyhemoglobin ABG Sodium ABG Chloride ABG Glucose Oxyhemoglobin Carboxyhemoglobin Sodium Chloride Carbon Dioxide BUN Creatinine Glucose POC Glucose 215 H 179 H 161 H Hemoglobin A1c Lactic Acid Calcium Phosphorus Magnesium Ferritin AST ALT Lactate Dehydrogenase C-Reactive Protein Total Protein Albumin Arterial Blood Glucose Arterial Blood Ionized Calcium Coronavirus (PCR) 03/18/21 03/18/21 03/18/21 18:54 23:23 23:31 WBC Plt Count Seg Neuts % (Manual) Lymphocytes % (Manual) Seg Neutrophils # Man Lymphocytes # (Manual) PT INR APTT 96.5 H* D-Dimer ABG pH 7.322 L POC ABG pCO2 POC ABG pO2 ABG pO2 71.6 L ABG HCO3 12.9 L ABG O2 Saturation 92.4 L ABG Base Excess -11.1 L ABG Oxyhemoglobin ABG Sodium ABG Chloride ABG Glucose Oxyhemoglobin 91.0 L Carboxyhemoglobin Sodium Chloride Carbon Dioxide BUN Creatinine Glucose POC Glucose 223 H Hemoglobin A1c Lactic Acid Calcium Phosphorus Magnesium Ferritin AST ALT Lactate Dehydrogenase C-Reactive Protein Total Protein Albumin Arterial Blood Glucose Arterial Blood Ionized Calcium Coronavirus (PCR) 03/19/21 03/19/21 03/19/21 04:50 04:50 05:37 WBC 21.5 H Plt Count 79 L Seg Neuts % (Manual) 87.0 H Lymphocytes % (Manual) Seg Neutrophils # Man 18.7 H Lymphocytes # (Manual) 0.0 L PT INR APTT D-Dimer ABG pH POC ABG pCO2 POC ABG pO2 ABG pO2 ABG HCO3 ABG O2 Saturation ABG Base Excess ABG Oxyhemoglobin ABG Sodium ABG Chloride ABG Glucose Oxyhemoglobin Carboxyhemoglobin Sodium 148 H Chloride 112.0 H Carbon Dioxide 18 L BUN 99 H Creatinine 3.2 H Glucose 277 H POC Glucose 238 H Hemoglobin A1c Lactic Acid Calcium Phosphorus 5.90 H Magnesium 2.80 H Ferritin AST ALT Lactate Dehydrogenase C-Reactive Protein Total Protein Albumin Arterial Blood Glucose Arterial Blood Ionized Calcium Coronavirus (PCR) 03/19/21 03/19/21 03/19/21 16:00 18:13 19:05 WBC Plt Count Seg Neuts % (Manual) Lymphocytes % (Manual) Seg Neutrophils # Man Lymphocytes # (Manual) PT INR APTT 68.5 H* D-Dimer ABG pH POC ABG pCO2 26.7 L POC ABG pO2 ABG pO2 ABG HCO3 ABG O2 Saturation ABG Base Excess ABG Oxyhemoglobin ABG Sodium 147.2 H ABG Chloride 112.0 H ABG Glucose 358 H Oxyhemoglobin Carboxyhemoglobin 0.2 L Sodium Chloride Carbon Dioxide BUN Creatinine Glucose POC Glucose 338 H Hemoglobin A1c Lactic Acid Calcium Phosphorus Magnesium Ferritin AST ALT Lactate Dehydrogenase C-Reactive Protein Total Protein Albumin Arterial Blood Glucose 358 H Arterial Blood Ionized Calcium Coronavirus (PCR) 03/19/21 03/20/21 03/20/21 Unknown 00:09 04:30 WBC Plt Count Seg Neuts % (Manual) Lymphocytes % (Manual) Seg Neutrophils # Man Lymphocytes # (Manual) PT INR APTT 103.2 H* D-Dimer ABG pH POC ABG pCO2 POC ABG pO2 126.9 H ABG pO2 ABG HCO3 ABG O2 Saturation ABG Base Excess ABG Oxyhemoglobin ABG Sodium 147.4 H ABG Chloride 113.0 H ABG Glucose 211 H Oxyhemoglobin Carboxyhemoglobin 0.2 L Sodium Chloride Carbon Dioxide BUN Creatinine Glucose POC Glucose 171 H Hemoglobin A1c Lactic Acid Calcium Phosphorus Magnesium Ferritin AST ALT Lactate Dehydrogenase C-Reactive Protein Total Protein Albumin Arterial Blood Glucose 211 H Arterial Blood Ionized Calcium Coronavirus (PCR) 03/20/21 03/20/21 03/20/21 04:55 05:16 05:16 WBC 22.5 H Plt Count 94 L Seg Neuts % (Manual) Lymphocytes % (Manual) Seg Neutrophils # Man Lymphocytes # (Manual) PT INR APTT D-Dimer ABG pH POC ABG pCO2 POC ABG pO2 ABG pO2 ABG HCO3 ABG O2 Saturation ABG Base Excess ABG Oxyhemoglobin ABG Sodium ABG Chloride ABG Glucose Oxyhemoglobin Carboxyhemoglobin Sodium 147 H Chloride 110.8 H Carbon Dioxide 20 L BUN 113 H Creatinine 4.2 H Glucose 219 H POC Glucose 199 H Hemoglobin A1c Lactic Acid Calcium Phosphorus 6.20 H Magnesium 2.60 H Ferritin AST ALT Lactate Dehydrogenase C-Reactive Protein Total Protein Albumin Arterial Blood Glucose Arterial Blood Ionized Calcium Coronavirus (PCR) 03/20/21 03/20/21 05:16 11:30 WBC Plt Count Seg Neuts % (Manual) Lymphocytes % (Manual) Seg Neutrophils # Man Lymphocytes # (Manual) PT INR APTT 92.2 H* D-Dimer ABG pH POC ABG pCO2 POC ABG pO2 ABG pO2 ABG HCO3 ABG O2 Saturation ABG Base Excess ABG Oxyhemoglobin ABG Sodium ABG Chloride ABG Glucose Oxyhemoglobin Carboxyhemoglobin Sodium Chloride Carbon Dioxide BUN Creatinine Glucose POC Glucose 193 H Hemoglobin A1c Lactic Acid Calcium Phosphorus Magnesium Ferritin AST ALT Lactate Dehydrogenase C-Reactive Protein Total Protein Albumin Arterial Blood Glucose Arterial Blood Ionized Calcium Coronavirus (PCR)
--- NOTE | 2021-03-20 12:58 | Progress Note ---
Assessment and Plan Assessment and plan: 10-year-old male history of CVA who presented with difficulty breathing. Found to have COVID-19 infection and was admitted for acute hypoxic respiratory failure and pneumonia. Intubated on 03/19 after severe respiratory distress. Prognosis remains guarded. Hospital Course to date: 03/20/2021: Pulm recs noted. Wean fio2 as sats tolerate >88%. Guarded prognosis. Continue supportive management. Assessment and Plan: Neuro Sedated, RAAS goal: -1 Cardio #Hypertension -Clonidine patch Respiratory #Acute hypoxic respiratory failure #Severe ARDS -patient with tachypnea and tachycardia -intubated (03/19) after code d/t patient respiratory distress. - Vent management per PCC -Continue precedex drip for discomfort -low threshold for intubation if continues to be tachypneic; discussed with Dr. Cruz -continue steroids -Pulmonary following, appreciate assistance #Subcutaneous emphysema -Continue to monitor #Apical pneumothorax -too small to require chest tube placement -We will continue to monitor, and if it expands will consider possible chest tube placement GI -tube feeds, nepro goal 35 cc/hr #CHRISTY due to vasomotor nephropathy -SCr 3.2 -remdesivir held -Nephrology following, appreciate assistance -Hemodialysis initiated and will continue with TTS schedule #Hypernatremia-resolved -Sodium now 144 Heme #thrombocytopenia, presumed PE/DVT - hemoglobin stable, no active sites of bleeding noted. - plt recovering, continue argatroban ID #Severe sepsis -secondary to COVID-19 and PNA -BCx ordered, NGTD -continue current management #Severe COVID-19 pneumonia -unvaccinated -steroids, COVID vitamins -Remdesivir held due to renal function -s/p Actemra -ID following, appreciate assistance -inflammatory markers q48hr - continue rocephin and azithromycin for now Endo #Type 2 diabetes -A1c 8.2% -Glucose in 115 to 400 range -Goal glucose 140-180s -continue lantus 15 units daily -SSI adjusted to q6h -If continues to have elevated sugars, will consider insulin drip History Interval history: intubated and sedated Hospitalist Physical - Physical exam Narrative exam: Constitutional: other (on hiflo) Eyes: non-icteric Neck: supple Ascultation: Bilateral: diminished breath sounds Cardiovascular: regular rate and rhythm Gastrointestinal: normoactive bowel sounds, soft, non-tender Extremities: other (decreased rom/ movement of lue mild contractures) - Constitutional Vitals: Temp Pulse Resp BP Pulse Ox 99 F 135 H 46 H 97/55 95 03/20/21 08:00 03/20/21 12:00 03/20/21 12:00 03/20/21 12:00 03/20/21 12:00 General appearance: Present: no acute distress HEART Score - HEART Score EKG: Non-specific Age: 45-65 Risk factors: 1-2 risk factors Troponin: Troponin T < 0.010 ng/mL (0.00-0.029) 03/11/21 09:41 - Critical Actions Critical Actions: 4-6 pts:12-16.6% risk of adverse cardiac event. Should be admitted Results - Labs CBC & Chem 7: 03/20/21 05:16 03/20/21 05:16 Labs: Laboratory Last Values WBC 22.5 K/mm3 (4.5-11.0) H 03/20/21 05:16 RBC 4.29 M/mm3 (3.65-5.03) 03/20/21 05:16 Hgb 13.1 gm/dl (11.8-15.2) 03/20/21 05:16 Hct 39.8 % (35.5-45.6) 03/20/21 05:16 MCV 93 fl (84-94) 03/20/21 05:16 MCH 31 pg (28-32) 03/20/21 05:16 MCHC 33 % (32-34) 03/20/21 05:16 RDW 14.2 % (13.2-15.2) 03/20/21 05:16 Plt Count 94 K/mm3 (140-440) L 03/20/21 05:16 Add Manual Diff Complete 03/19/21 04:50 Total Counted 100 03/19/21 04:50 Seg Neutrophils % [place] Tender 03/20/21 05:16 Seg Neuts % (Manual) 87.0 % (40.0-70.0) H 03/19/21 04:50 Band Neutrophils % 12.0 % 03/19/21 04:50 Lymphocytes % (Manual) 2.0 % (13.4-35.0) L 03/11/21 09:41 Monocytes % (Manual) 1.0 % (0.0-7.3) 03/19/21 04:50 Nucleated RBC % Not Reportable 03/19/21 04:50 Seg Neutrophils # Man 18.7 K/mm3 (1.8-7.7) H 03/19/21 04:50 Band Neutrophils # 2.6 K/mm3 03/19/21 04:50 Lymphocytes # (Manual) 0.0 K/mm3 (1.2-5.4) L 03/19/21 04:50 Abs React Lymphs (Man) 0.0 K/mm3 03/19/21 04:50 Monocytes # (Manual) 0.2 K/mm3 (0.0-0.8) 03/19/21 04:50 Eosinophils # (Manual) 0.0 K/mm3 (0.0-0.4) 03/19/21 04:50 Basophils # (Manual) 0.0 K/mm3 (0.0-0.1) 03/19/21 04:50 Metamyelocytes # 0.0 K/mm3 03/19/21 04:50 Myelocytes # 0.0 K/mm3 03/19/21 04:50 Promyelocytes # 0.0 K/mm3 03/19/21 04:50 Blast Cells # 0.0 K/mm3 03/19/21 04:50 WBC Morphology Not Reportable 03/19/21 04:50 Hypersegmented Neuts Not Reportable 03/19/21 04:50 Hyposegmented Neuts Not Reportable 03/19/21 04:50 Hypogranular Neuts Not Reportable 03/19/21 04:50 Smudge Cells Not Reportable 03/19/21 04:50 Toxic Granulation 1+ 03/19/21 04:50 Toxic Vacuolation 1+ 03/19/21 04:50 Dohle Bodies Not Reportable 03/19/21 04:50 Pelger-Huet Anomaly Not Reportable 03/19/21 04:50 Fina Rods Not Reportable 03/19/21 04:50 Platelet Estimate Consistent w auto 03/19/21 04:50 Clumped Platelets Few 03/19/21 04:50 Plt Clumps, EDTA Not Reportable 03/19/21 04:50 Large Platelets 1+ 03/19/21 04:50 Giant Platelets Not Reportable 03/19/21 04:50 Platelet Satelliting Not Reportable 03/19/21 04:50 Plt Morphology Comment Not Reportable 03/19/21 04:50 RBC Morphology Not Reportable 03/19/21 04:50 Dimorphic RBCs Not Reportable 03/19/21 04:50 Polychromasia Not Reportable 03/19/21 04:50 Hypochromasia Not Reportable 03/19/21 04:50 Poikilocytosis 1+ 03/19/21 04:50 Anisocytosis Not Reportable 03/19/21 04:50 Microcytosis Not Reportable 03/19/21 04:50 Macrocytosis Not Reportable 03/19/21 04:50 Spherocytes Not Reportable 03/19/21 04:50 Pappenheimer Bodies Not Reportable 03/19/21 04:50 Sickle Cells Not Reportable 03/19/21 04:50 Target Cells Not Reportable 03/19/21 04:50 Tear Drop Cells Not Reportable 03/19/21 04:50 Ovalocytes Not Reportable 03/19/21 04:50 Helmet Cells Not Reportable 03/19/21 04:50 [place] Bodies Not Reportable 03/19/21 04:50 [place] Rings Not Reportable 03/19/21 04:50 Trav Cells Few 03/19/21 04:50 Bite Cells Not Reportable 03/19/21 04:50 Crenated Cell Not Reportable 03/19/21 04:50 Elliptocytes Not Reportable 03/19/21 04:50 Acanthocytes (Spur) Not Reportable 03/19/21 04:50 Rouleaux Not Reportable 03/19/21 04:50 Hemoglobin C Crystals Not Reportable 03/19/21 04:50 Schistocytes Not Reportable 03/19/21 04:50 Malaria parasites Not Reportable 03/19/21 04:50 [place] Bodies Not Reportable 03/19/21 04:50 Hem Pathologist Commnt No 03/19/21 04:50 PT 22.4 Sec. (12.2-14.9) H 03/17/21 09:19 INR 1.92 (0.87-1.13) H 03/17/21 09:19 APTT 92.2 Sec. (24.2-36.6) H* 03/20/21 05:16 D-Dimer > 96984 ng/mlDDU (0-234) H 03/17/21 06:00 ABG pH 7.368 (7.320-7.450) 03/20/21 04:30 POC ABG pCO2 34.4 mmHg (32.0-48.0) 03/20/21 04:30 ABG pCO2 25.5 mm Hg 03/18/21 23:23 POC ABG pO2 126.9 mmHg (83-108) H 03/20/21 04:30 ABG pO2 71.6 mm Hg (80.0-90.0) L 03/18/21 23:23 POC ABG HCO3 19.4 03/20/21 04:30 ABG HCO3 12.9 mmol/L (20.0-26.0) L 03/18/21 23:23 ABG O2 Saturation 98.1 (0-100) 03/20/21 04:30 ABG O2 Content 19.9 (0.0-44) 03/18/21 23:23 POC ABG Base Excess -5.1 03/20/21 04:30 ABG Base Excess -11.1 mmol/L (-2.0-3.0) L 03/18/21 23:23 ABG Hemoglobin 14.0 (12.0-17.5) 03/20/21 04:30 ABG Oxyhemoglobin 97.9 (94-98) 03/20/21 04:30 ABG Carboxyhemoglobin 0.9 % (0.0-5.0) 03/18/21 23:23 ABG Methemoglobin 0 (0.0-1.5) 03/20/21 04:30 ABG Sodium 147.4 mmol/L (136.0-145.0) H 03/20/21 04:30 ABG Potassium 4.1 mmol/L (3.40-4.50) 03/20/21 04:30 ABG Chloride 113.0 mmol/L (98-107) H 03/20/21 04:30 ABG Glucose 211 mg/dL (65-95) H 03/20/21 04:30 Oxyhemoglobin 91.0 % (95.0-99.0) L 03/18/21 23:23 Carboxyhemoglobin 0.2 (0.5-1.5) L 03/20/21 04:30 FiO2 100 % 03/18/21 23:23 FiO2 % 90.0 03/20/21 04:30 Sodium 147 mmol/L (137-145) H 03/20/21 05:16 Potassium 4.3 mmol/L (3.6-5.0) 03/20/21 05:16 Chloride 110.8 mmol/L (98-107) H 03/20/21 05:16 Carbon Dioxide 20 mmol/L (22-30) L 03/20/21 05:16 Anion Gap 21 mmol/L 03/20/21 05:16 BUN 113 mg/dL (9-20) H 03/20/21 05:16 Creatinine 4.2 mg/dL (0.8-1.3) H 03/20/21 05:16 Estimated GFR 18 ml/min 03/20/21 05:16 BUN/Creatinine Ratio 27 % 03/20/21 05:16 Glucose 219 mg/dL (75-100) H 03/20/21 05:16 POC Glucose 193 mg/dL (70-105) H 03/20/21 11:30 Hemoglobin A1c 8.2 % (4-6) H 03/14/21 04:44 Lactic Acid 1.60 mmol/L (0.7-2.0) 03/12/21 00:08 Calcium 8.8 mg/dL (8.4-10.2) 03/20/21 05:16 Phosphorus 6.20 mg/dL (2.5-4.5) H 03/20/21 05:16 Magnesium 2.60 mg/dL (1.7-2.3) H 03/20/21 05:16 Ferritin 1517.0 ng/mL (30.0-300.0) H 03/17/21 09:00 Total Bilirubin 0.60 mg/dL (0.1-1.2) 03/17/21 09:19 Direct Bilirubin < 0.2 mg/dL (0-0.2) 03/17/21 09:19 Indirect Bilirubin 0.4 mg/dL 03/17/21 09:19 AST 31 units/L (5-40) 03/17/21 09:19 ALT 36 units/L (7-56) 03/17/21 09:19 Alkaline Phosphatase 121 units/L (35-129) 03/17/21 09:19 Lactate Dehydrogenase 1155 units/L (91-180) H 03/17/21 06:00 Troponin T < 0.010 ng/mL (0.00-0.029) 03/11/21 09:41 C-Reactive Protein 1.50 mg/dL (0.00-1.30) H 03/17/21 06:00 Total Protein 5.1 g/dL (6.3-8.2) L 03/17/21 09:19 Albumin 2.2 g/dL (3.9-5) L 03/17/21 09:19 Albumin/Globulin Ratio 0.8 % 03/17/21 09:19 Procalcitonin 4.61 ng/mL (<0.15) 03/11/21 09:41 Arterial Blood Glucose 211 mg/dL (65-95) H 03/20/21 04:30 Arterial Blood Ionized Calcium 4.8 mg/dL (4.6-5.3) 03/20/21 04:30 Urine Color Yellow (Yellow) 03/11/21 Unknown Urine Turbidity Clear (Clear) 03/11/21 Unknown Urine pH 6.0 (5.0-7.0) 03/11/21 Unknown Ur Specific [place] 1.011 (1.003-1.030) 03/11/21 Unknown Urine Protein >500 mg/dL (Negative) 03/11/21 Unknown Urine Glucose (UA) 50 mg/dL (Negative) 03/11/21 Unknown Urine Ketones 20 mg/dL (Negative) 03/11/21 Unknown Urine Blood Lg (Negative) 03/11/21 Unknown Urine Nitrite Neg (Negative) 03/11/21 Unknown Urine Bilirubin Neg (Negative) 03/11/21 Unknown Urine Urobilinogen < 2.0 mg/dL (<2.0) 03/11/21 Unknown Ur Leukocyte Esterase Neg (Negative) 03/11/21 Unknown Urine WBC (Auto) 1.0 /HPF (0.0-6.0) 03/11/21 Unknown Urine RBC (Auto) 1.0 /HPF (0.0-6.0) 03/11/21 Unknown Urine Sodium 37 mmol/L 03/14/21 Unknown Urine Urea Nitrogen 818 03/14/21 Unknown Proteinase 3 (PR3) Ab <1.0 AI (<1.0) 03/16/21 04:14 Myeloperoxidase Ab <1.0 AI (<1.0) 03/16/21 04:14 Complement C3 131 mg/dL (82-185) 03/16/21 04:14 Complement C4 38 mg/dL (15-53) 03/16/21 04:14 Coronavirus (PCR) Positive (Negative) A 03/11/21 Unknown Hepatitis A IgM Ab Non-reactive (NonReactive) 03/18/21 09:03 Hep Bs Antigen Nonreactive (Negative) 03/18/21 09:03 Hep B Core IgM Ab Non-reactive (NonReactive) 03/18/21 09:03 Hepatitis C Antibody Non-reactive (NonReactive) 03/18/21 09:03 [place]/IV: Voiding Method Condom Catheter Active Medications - Current Medications Current Medications: Generic Name Dose Route Start Last Admin Trade Name Freq PRN Reason Stop Dose Admin Acetaminophen 650 mg 03/11/21 12:00 03/14/21 03:54 Acetaminophen 325 Mg Tab PO 650 mg Q4H PRN Administration Pain MILD(1-3)/Fever >100.5/[place] Lipase/Protease/Amylase 1 each 03/19/21 17:35 Lipase 10,500/Protease 25,000/Amylase 43,750 (Units) Dr Alegre FEEDTUBE PRN PRN For Clogged Feeding Tube Ascorbic Acid 500 mg 03/11/21 12:00 03/20/21 09:10 Ascorbic Acid 500 Mg Tab PO 500 mg BID GYPSY Administration Cholecalciferol 1,000 unit 03/11/21 13:00 03/20/21 09:10 Cholecalciferol (Vit D3) 1000 Unit (25 Mcg) Tab PO 1,000 unit QDAY GYPSY Administration Clonidine HCl 0.1 mg 03/20/21 08:00 03/20/21 09:12 Clonidine Tts 0.1 Mg/24 Hr Patch TD Not Given Fr GYPSY Dextrose 50 ml 03/13/21 14:44 Dextrose 50% In Water (25gm) 50 Ml Syringe IV Q30MIN PRN Hypoglycemia Protocol Famotidine 20 mg 03/19/21 22:00 03/20/21 09:10 Famotidine 20 Mg/2 Ml Inj IV 20 mg QDAY GYPSY Administration Fentanyl 50 mcg 03/19/21 15:29 Fentanyl 100 Mcg/2 Ml Inj IV Q10MIN PRN ANALGESIA Hydralazine HCl 10 mg 03/14/21 18:13 03/19/21 08:07 Hydralazine 20 Mg/1 Ml Inj IV 10 mg Q6H PRN Administration Hypertension Hydrophilic Ointment 1 applic 03/19/21 15:29 Lip Therapy Vaseline TP Q2HR PRN Dry Lips Dexmedetomidine HCl 400 mcg/ 104 mls @ 3.588 mls/hr 03/16/21 12:00 03/19/21 15:49 Sodium Chloride IV 0 mcg/kg/hr TITRATE GYPSY 0 mls/hr Titration Protocol 0.2 MCG/KG/HR Argatroban 250 mg/ Sodium 250 mls @ 2.07 mls/hr 03/17/21 11:00 03/20/21 09:09 Chloride IV 0.25 mcg/kg/min TITR GYPSY 1.035 mls/hr Administration Protocol 0.5 MCG/KG/MIN Sodium Chloride 100 mls @ 999 mls/hr 03/19/21 10:00 Nacl 0.9% IV OSCAR PRN Hypotension Fentanyl Citrate 2,000 mcg in 100 mls @ 3.45 mls/hr 03/19/21 16:00 03/20/21 09:22 Fentanyl Drip Premix IV 3 mcg/kg/hr TITR GYPSY 10.35 mls/hr Titration Protocol 1 MCG/KG/HR Propofol 1,000 mg in 100 mls @ 2.07 mls/hr 03/19/21 16:00 03/20/21 09:22 Diprivan 10 Mg/Ml IV 35 mcg/kg/min TITR GYPSY 14.49 mls/hr Titration Protocol 5 MCG/KG/MIN Lactated Ringer's 1,000 mls @ 75 mls/hr 03/20/21 10:45 03/20/21 10:58 Lactated Ringers IV 03/22/21 00:04 75 mls/hr DIRECT GYPSY Administration Norepinephrine 4 mg in 250 mls @ 7.5 mls/hr 03/20/21 11:00 Levophed Drip 4 Mg/Ns 250 Ml IV TITR GYPSY Protocol 2 MCG/MIN Insulin Human Lispro 0 unit 03/16/21 13:00 03/20/21 05:53 Insulin Lispro 100 Unit/Ml SUB-Q 3 unit Q6HR GYPSY Administration Protocol Methylprednisolone Sodium Succinate 40 mg 03/11/21 14:00 03/20/21 06:03 Methylprednisolone Sod Succinate 40 Mg/1 Ml Inj IV 03/21/21 06:01 40 mg Q8HR GYPSY Administration Multi-Ingred Cream/Lotion/Oil/Oint 1 applic 03/19/21 15:29 Mineral Oil/Petrolatum, White Ophth Oint 3.5 Gm OU Q4HR PRN Dry Eye(s) Ondansetron HCl 4 mg 03/11/21 12:00 03/15/21 12:08 Ondansetron 4 Mg/2 Ml Inj IV 4 mg Q8H PRN Administration Nausea And Vomiting Senna/Docusate Sodium 1 tab 03/19/21 22:00 03/20/21 09:10 Sennosides/Docusate Sodium 8.6/50 Mg Tab FEEDTUBE 1 tab BID GYPSY Administration Simple Syrup 15 ml 03/19/21 17:35 Simple Syrup 15 Ml FEEDTUBE PRN PRN Hypoglycemia Simple Syrup 30 ml 03/19/21 17:35 Simple Syrup 15 Ml FEEDTUBE PRN PRN Hypoglycemia Sodium Bicarbonate 325 mg 03/19/21 17:35 Sodium Bicarbonate 325 Mg Tab FEEDTUBE PRN PRN For Clogged Feeding Tube Sodium Chloride 10 ml 03/11/21 12:00 03/20/21 09:10 Sodium Chloride 0.9% 10 Ml Flush Syringe IV 10 ml BID GYPSY Administration Sodium Chloride 10 ml 03/11/21 12:00 Sodium Chloride 0.9% 10 Ml Flush Syringe IV PRN PRN LINE FLUSH Sodium Chloride 5 ml 03/19/21 15:29 Sodium Chloride 0.9% 500 Ml Ivpb IV DIRECT PRN [employer]ERIAL [employer] ATTENDANT Zinc Sulfate 220 mg 03/11/21 12:00 03/20/21 09:10 Zinc Sulfate 220 Mg Cap PO 220 mg BID GYPSY Administration Nutrition/Malnutrition Assess - Dietary Evaluation Nutrition/Malnutrition Findings: Nutrition Notes Start: 03/14/21 12:54 Freq: Status: Active Protocol: Document 03/19/21 17:22 GB (Rec: 03/19/21 17:31 GB [email or web address]) Nutrition Notes Need for Assessment generated from: MD Order Initial or Follow up Brief Note Other Pertinent Diagnosis consult for TF Current Diet regular w/consistent carbohydrate Labs/Tests 03/18: (BUN 70, creatinine 2.5, glucose 258) all elevated [id number] and fluctuating Ca 8.2 low Pertinent Medications Vit C, Vit D3, Zn Sulfate Height 5 ft 11 in Weight 69 kg [place] Body Weight (kg) 78.18 BMI 21.2 Subjective/Other Information TF: recommend Osmolite 1.5 with goal of 45ml/hr continuous to meet 80% or greater of estimated energy needs. Percent of energy/protein needs met: TF will meet 80% or greater. #1 Nutrition Diagnosis Malnutrition Comments: Pt on continuous BiPaP @90%. Interferes with energy intake. Recommend NGT/PEG/TPN. 03/19: TF order entered Etiology ARF, covid pnemonia As Evidenced by Signs and Symptoms >2% wt loss in 1 week, weak [employer] school [employer] strength, Poor PO intake =>5days Diagnosis Progress(for reassessment Continues documentation) Is patient on ventilator? No Is Patient Ambulatory and/or Out of Bed No REE-([facility]-confined to bed) 1902.336 Kcal/Kg value to use for calculation 29 Approximate Energy Requirements Using 2000 kcal/Kg Calculation Used for Recommendations Kcal/kg Additional Notes Protein: 1-1.2 g/kg @69k- 83g Fluids: 1 ml/kcal or per MD Nutrition Intervention Change Diet Order: If ability to eat PO does not improve in 2 days recommend NGT/PEG/TPN Nutrition Support: Osmolite 1.5 @45ml/hr with flush of 100ml/4hrs Kcal 1,620 Protein (gm) 68 Fat (gm) 53 Fluid (mL) 823 % RDI: 80% or greater Goal #1 Tolerate TF formula. Goal #2 Tolerate goal rate of 45ml/hr. Goal #3 weight to maintain within +/-3 % current weight during LOS Follow-Up By: 03/23/21 Additional Comments TF order entered 03/19
[2021-03-20] MEDS ORDERED: LACTATED RINGERS 1,000 ML IV ONE (15:00)
--- NOTE | 2021-03-20 17:01 | Progress Note ---
Assessment and Plan Impression: * Nonoliguric acute kidney injury vs underlying CKD --Baseline renal function unknown * Acute hypoxic respiratory failure secondary to COVID 19 PNA * COVID 19 infection * Hypotension * Hypernatremia * Transaminitis Plan: * Started HD 03/17 * Stopped HD after 30 minutes yesterday due to respiratory distress * Hold further HD until stable * Start IVF with close monitoring of O2 requirements * Hold antihypertensives given soft pressures * Vasc cath placed 03/16 * Serologies pending * Remdesevir (hold for GFR<30), steroids, abx per ID * Dose medications for renal function * Avoid potential nephrotoxins * AM labs * Case was discussed in detail with blair including possible complications on HD and consent was obtained for HD prior to initiation * Prognosis guarded Subjective Date of service: 03/20/21 Principal diagnosis: COVID-19 Interval history: Nursing, interdisciplinary and consult notes were reviewed Vitals, input and output, medications and labs were reviewed Remains intubated Objective - Exam Narrative Exam: In order to reduce transmission risk given Covid, exam deferred. Primary team exam reviewed in detail. - Vital Signs Vital signs: Vital Signs - 12hr 03/20/21 03/20/21 03/20/21 05:00 05:04 05:15 Temperature Pulse Rate 143 H 142 H Pulse Rate [ From Monitor] Respiratory 13 15 Rate Blood Pressure 101/64 100/62 O2 Sat by Pulse 95 98 95 Oximetry 03/20/21 03/20/21 03/20/21 05:30 05:45 06:00 Temperature Pulse Rate 142 H 140 H 136 H Pulse Rate [ From Monitor] Respiratory 14 11 L 16 Rate Blood Pressure 96/61 101/59 108/63 O2 Sat by Pulse 95 95 95 Oximetry 03/20/21 03/20/21 03/20/21 06:15 06:30 06:45 Temperature Pulse Rate 139 H 138 H 139 H Pulse Rate [ From Monitor] Respiratory 17 19 17 Rate Blood Pressure 95/55 99/50 90/53 O2 Sat by Pulse 96 96 97 Oximetry 03/20/21 03/20/21 03/20/21 07:00 07:15 07:31 Temperature Pulse Rate 136 H 134 H Pulse Rate [ From Monitor] Respiratory 15 14 Rate Blood Pressure 102/54 102/51 102/51 O2 Sat by Pulse 96 97 100 Oximetry 03/20/21 03/20/21 03/20/21 07:32 07:45 08:00 Temperature 99 F Pulse Rate 128 H 136 H 139 H Pulse Rate [ 143 H From Monitor] Respiratory 21 19 Rate Blood Pressure 188/165 143/77 117/66 O2 Sat by Pulse 97 89 98 Oximetry 03/20/21 03/20/21 03/20/21 08:15 08:30 08:45 Temperature Pulse Rate 146 H 147 H 149 H Pulse Rate [ From Monitor] Respiratory 16 16 21 Rate Blood Pressure 117/66 105/72 109/78 O2 Sat by Pulse 98 96 97 Oximetry 03/20/21 03/20/21 03/20/21 09:00 09:12 09:15 Temperature Pulse Rate 146 H 143 H 142 H Pulse Rate [ From Monitor] Respiratory 26 H 18 Rate Blood Pressure 117/66 117/68 101/62 O2 Sat by Pulse 98 98 Oximetry 03/20/21 03/20/21 03/20/21 09:30 09:45 10:00 Temperature Pulse Rate 139 H 140 H 143 H Pulse Rate [ From Monitor] Respiratory 29 H 38 H 28 H Rate Blood Pressure 97/61 105/55 117/50 O2 Sat by Pulse 97 97 99 Oximetry 03/20/21 03/20/21 03/20/21 10:15 10:30 10:45 Temperature Pulse Rate 140 H 140 H 140 H Pulse Rate [ From Monitor] Respiratory 18 24 37 H Rate Blood Pressure 105/49 99/53 104/50 O2 Sat by Pulse 98 98 94 Oximetry 03/20/21 03/20/21 03/20/21 11:00 11:15 11:16 Temperature Pulse Rate 137 H 138 H 140 H Pulse Rate [ From Monitor] Respiratory 17 36 H Rate Blood Pressure 121/55 115/58 115/58 O2 Sat by Pulse 97 97 96 Oximetry 03/20/21 03/20/21 03/20/21 11:30 11:45 12:00 Temperature Pulse Rate 138 H 138 H 137 H Pulse Rate [ 135 H From Monitor] Respiratory 40 H 43 H 46 H Rate Blood Pressure 96/43 106/49 97/55 O2 Sat by Pulse 95 96 95 Oximetry 03/20/21 03/20/21 03/20/21 12:15 12:30 12:45 Temperature Pulse Rate 137 H 137 H 136 H Pulse Rate [ From Monitor] Respiratory 30 H 38 H 25 H Rate Blood Pressure 107/53 109/56 107/56 O2 Sat by Pulse 97 96 97 Oximetry 03/20/21 03/20/21 03/20/21 13:00 13:15 13:30 Temperature Pulse Rate 137 H 140 H 138 H Pulse Rate [ From Monitor] Respiratory 32 H 16 15 Rate Blood Pressure 102/63 104/57 100/53 O2 Sat by Pulse 93 97 97 Oximetry 03/20/21 03/20/21 03/20/21 13:45 14:00 14:15 Temperature Pulse Rate 136 H 137 H 137 H Pulse Rate [ From Monitor] Respiratory 17 12 16 Rate Blood Pressure 96/53 99/53 100/51 O2 Sat by Pulse 98 97 Oximetry 03/20/21 03/20/21 03/20/21 14:30 14:45 15:00 Temperature Pulse Rate 133 H 130 H 128 H Pulse Rate [ From Monitor] Respiratory 19 14 20 Rate Blood Pressure 93/59 93/59 96/58 O2 Sat by Pulse 98 96 98 Oximetry 03/20/21 16:16 Temperature Pulse Rate 135 H Pulse Rate [ From Monitor] Respiratory Rate Blood Pressure 95/61 O2 Sat by Pulse 98 Oximetry - Lab 03/20/21 05:16 03/20/21 05:16 Most recent lab results ABG pH 7.368 (7.320-7.450) 03/20/21 04:30 ABG pCO2 25.5 mm Hg 03/18/21 23:23 ABG pO2 71.6 mm Hg (80.0-90.0) L 03/18/21 23:23 ABG HCO3 12.9 mmol/L (20.0-26.0) L 03/18/21 23:23 ABG O2 Saturation 98.1 (0-100) 03/20/21 04:30 Calcium 8.8 mg/dL (8.4-10.2) 03/20/21 05:16 Phosphorus 6.20 mg/dL (2.5-4.5) H 03/20/21 05:16 Magnesium 2.60 mg/dL (1.7-2.3) H 03/20/21 05:16 Urine Sodium 37 mmol/L 03/14/21 Unknown Medications & Allergies - Medications Allergies/Adverse Reactions: Allergies No Known Allergies Allergy (Verified 03/11/21 09:21) Home Medications: Home Medications Medication Instructions Recorded Confirmed Last Taken Type AtorvaSTATin [Lipitor] 10 mg PO QHS 03/14/21 03/14/21 Unknown History Metoprolol [Lopressor TAB] 50 mg PO BID 03/14/21 03/14/21 Unknown History Mycophenolate [Cellcept] 500 mg PO BID 03/14/21 03/14/21 Unknown History NIFEdipine [Nifedipine ER] 90 mg PO BID 03/14/21 03/14/21 Unknown History Ondansetron [Zofran Odt] 4 mg PO Q8HR 03/14/21 03/14/21 Unknown History Tacrolimus 1 mg PO Q12HR 03/14/21 03/14/21 Unknown History Active Medications: Generic Name Dose Route Start Last Admin Trade Name Freq PRN Reason Stop Dose Admin Acetaminophen 650 mg 03/11/21 12:00 03/14/21 03:54 Acetaminophen 325 Mg Tab PO 650 mg Q4H PRN Administration Pain MILD(1-3)/Fever >100.5/[place] Lipase/Protease/Amylase 1 each 03/19/21 17:35 Lipase 10,500/Protease 25,000/Amylase 43,750 (Units) Dr Alegre FEEDTUBE PRN PRN For Clogged Feeding Tube Ascorbic Acid 500 mg 03/11/21 12:00 03/20/21 09:10 Ascorbic Acid 500 Mg Tab PO 500 mg BID GYPSY Administration Cholecalciferol 1,000 unit 03/11/21 13:00 03/20/21 09:10 Cholecalciferol (Vit D3) 1000 Unit (25 Mcg) Tab PO 1,000 unit QDAY GYPSY Administration Clonidine HCl 0.1 mg 03/20/21 08:00 03/20/21 09:12 Clonidine Tts 0.1 Mg/24 Hr Patch TD Not Given Fr GYPSY Dextrose 50 ml 03/13/21 14:44 Dextrose 50% In Water (25gm) 50 Ml Syringe IV Q30MIN PRN Hypoglycemia Protocol Famotidine 20 mg 03/19/21 22:00 03/20/21 09:10 Famotidine 20 Mg/2 Ml Inj IV 20 mg QDAY GYPSY Administration Fentanyl 50 mcg 03/19/21 15:29 Fentanyl 100 Mcg/2 Ml Inj IV Q10MIN PRN ANALGESIA Hydralazine HCl 10 mg 03/14/21 18:13 03/19/21 08:07 Hydralazine 20 Mg/1 Ml Inj IV 10 mg Q6H PRN Administration Hypertension Hydrophilic Ointment 1 applic 03/19/21 15:29 Lip Therapy Vaseline TP Q2HR PRN Dry Lips Dexmedetomidine HCl 400 mcg/ 104 mls @ 3.588 mls/hr 03/16/21 12:00 03/19/21 15:49 Sodium Chloride IV 0 mcg/kg/hr TITRATE GYPSY 0 mls/hr Titration Protocol 0.2 MCG/KG/HR Argatroban 250 mg/ Sodium 250 mls @ 2.07 mls/hr 03/17/21 11:00 03/20/21 09:09 Chloride IV 0.25 mcg/kg/min TITR GYPSY 1.035 mls/hr Administration Protocol 0.5 MCG/KG/MIN Sodium Chloride 100 mls @ 999 mls/hr 03/19/21 10:00 Nacl 0.9% IV OSCAR PRN Hypotension Fentanyl Citrate 2,000 mcg in 100 mls @ 3.45 mls/hr 03/19/21 16:00 03/20/21 14:21 Fentanyl Drip Premix IV 3 mcg/kg/hr TITR GYPSY 10.35 mls/hr Administration Protocol 1 MCG/KG/HR Propofol 1,000 mg in 100 mls @ 2.07 mls/hr 03/19/21 16:00 03/20/21 14:18 Diprivan 10 Mg/Ml IV 35 mcg/kg/min TITR GYPSY 14.49 mls/hr Administration Protocol 5 MCG/KG/MIN Norepinephrine 4 mg in 250 mls @ 7.5 mls/hr 03/20/21 11:00 Levophed Drip 4 Mg/Ns 250 Ml IV TITR GYPSY Protocol 2 MCG/MIN Insulin Human Lispro 0 unit 03/16/21 13:00 03/20/21 13:11 Insulin Lispro 100 Unit/Ml SUB-Q 3 unit Q6HR GYPSY Administration Protocol Methylprednisolone Sodium Succinate 40 mg 03/11/21 14:00 03/20/21 13:11 Methylprednisolone Sod Succinate 40 Mg/1 Ml Inj IV 03/21/21 06:01 40 mg Q8HR GYPSY Administration Multi-Ingred Cream/Lotion/Oil/Oint 1 applic 03/19/21 15:29 Mineral Oil/Petrolatum, White Ophth Oint 3.5 Gm OU Q4HR PRN Dry Eye(s) Ondansetron HCl 4 mg 03/11/21 12:00 03/15/21 12:08 Ondansetron 4 Mg/2 Ml Inj IV 4 mg Q8H PRN Administration Nausea And Vomiting Senna/Docusate Sodium 1 tab 03/19/21 22:00 03/20/21 09:10 Sennosides/Docusate Sodium 8.6/50 Mg Tab FEEDTUBE 1 tab BID GYPSY Administration Simple Syrup 15 ml 03/19/21 17:35 Simple Syrup 15 Ml FEEDTUBE PRN PRN Hypoglycemia Simple Syrup 30 ml 03/19/21 17:35 Simple Syrup 15 Ml FEEDTUBE PRN PRN Hypoglycemia Sodium Bicarbonate 325 mg 03/19/21 17:35 Sodium Bicarbonate 325 Mg Tab FEEDTUBE PRN PRN For Clogged Feeding Tube Sodium Chloride 10 ml 03/11/21 12:00 03/20/21 09:10 Sodium Chloride 0.9% 10 Ml Flush Syringe IV 10 ml BID GYPSY Administration Sodium Chloride 10 ml 03/11/21 12:00 Sodium Chloride 0.9% 10 Ml Flush Syringe IV PRN PRN LINE FLUSH Sodium Chloride 5 ml 03/19/21 15:29 Sodium Chloride 0.9% 500 Ml Ivpb IV DIRECT PRN [employer] Zinc Sulfate 220 mg 03/11/21 12:00 03/20/21 09:10 Zinc Sulfate 220 Mg Cap PO 220 mg BID GYPSY Administration
[2021-03-20] MEDS: NORepinephrine/NS 4 MG-250 ML 4 MG/250 ML BAG IV SCH (18:47)
[2021-03-20 19:27] LABS: Total Cells Counted 100
[2021-03-20 19:28] LABS: Platelet Clumps 3+; Platelet Estimate Consistent w Auto
--- NOTE | 2021-03-21 03:19 | XRay Report ---
CHEST 1 VIEW INDICATION / CLINICAL INFORMATION: follow up respiratory failure STUDY TIME: 252 COMPARISON: 03/20/2021 FINDINGS: SUPPORT DEVICES: Endotracheal tube has been replaced with a different tube appears to be in satisfact ory position with tip approximately 7.7 cm above the robina. Nasogastric tube continues below the brandi phragm. HEART / MEDIASTINUM: There may be a minimal pneumomediastinum. LUNGS / PLEURA: Patient is rotated. Bilateral infiltrates continue with mild improvement on the right . Minimal right apical pneumothorax is unchanged. Left pneumothorax is no longer obvious. ADDITIONAL FINDINGS: No significant additional findings. Signer Name: Manuel Oconnor MD Signed: 03/21/2021 3:15 AM Workstation Name: [id number]
[2021-03-21] MEDS: INSULIN LISPRO 100 UNIT/ML SUB-Q SCH ×2 (05:38→06:36)
[2021-03-21] MEDS: methylPREDNISolone Sod Succinate 40 MG/1 ML INJ IV SCH (06:36)
[2021-03-21 07:33] LABS: Partial Thromboplastin Time 56.4 Sec. (24.2-36.6)
[2021-03-21] MEDS: NORepinephrine/NS 4 MG-250 ML 4 MG/250 ML BAG IV SCH ×2 (07:42→21:58)
[2021-03-21 08:06] LABS: Albumin 2.2 g/dL (3.9-5); C-Reactive Protein 1.9 mg/dL (0.00-1.30); Calcium 8.5 mg/dL (8.4-10.2)
[2021-03-21 08:44] LABS: Hematocrit 34.5 % (35.5-45.6); Hemoglobin 11.2 gm/dl (11.8-15.2); Mean Corpuscular HGB Conc 33 % (32-34); Mean Corpuscular Volume 95 fl (84-94); Platelet Count 102 K/mm3 (140-440); Red Blood Count 3.65 M/mm3 (3.65-5.03); Red Cell Distribution Width 15.1 % (13.2-15.2)
[2021-03-21] MEDS: fentaNYL DRIP Premix 2,000 MCG/100 ML BAG IV SCH ×2 (09:08→20:05)
[2021-03-21] MEDS: SENNOSIDES/DOCUSATE SODIUM 8.6/50 MG TAB FEEDTUBE SCH ×2 (09:09→21:59)
[2021-03-21] MEDS: ZINC SULFATE 220 MG CAP PO SCH ×2 (09:09→21:59)
[2021-03-21] MEDS: CHOLECALCIFEROL (VIT D3) 1000 UNIT (25 mcg) TAB PO SCH (09:09)
[2021-03-21] MEDS: ASCORBIC ACID 500 MG TAB PO SCH ×2 (09:09→21:59)
[2021-03-21] MEDS: FAMOTIDINE 20 MG/2 ML INJ IV SCH (09:09)
--- NOTE | 2021-03-21 09:21 | Progress Note ---
Assessment and Plan Assessment and plan: 10-year-old male history of CVA who presented with difficulty breathing. Found to have COVID-19 infection and was admitted for acute hypoxic respiratory failure and pneumonia. Intubated on 03/19 after severe respiratory distress. Prognosis remains guarded. Hospital Course to date: 03/20/2021: Pulm recs noted. Wean fio2 as sats tolerate >88%. Guarded prognosis. Continue supportive management. 03/21/2021: Could not get dialysis completed yesterday. Plan for dialysis today. Discussed with RN to titrate levo gtt down Assessment and Plan: Neuro Sedated, RAAS goal: -1 Cardio #Hypertension -Clonidine patch Respiratory #Acute hypoxic respiratory failure #Severe ARDS -patient with tachypnea and tachycardia -intubated (03/19) after code d/t patient respiratory distress. - Vent management per PCCM -Continue precedex drip for discomfort -low threshold for intubation if continues to be tachypneic; discussed with Dr. Cruz -continue steroids -Pulmonary following, appreciate assistance #Subcutaneous emphysema -Continue to monitor #Apical pneumothorax -too small to require chest tube placement -We will continue to monitor, and if it expands will consider possible chest tube placement GI -tube feeds, nepro goal 35 cc/hr #CHRISTY due to vasomotor nephropathy -SCr 3.2 -remdesivir held -Nephrology following, appreciate assistance -Hemodialysis initiated and will continue with TTS schedule #Hypernatremia-resolved -Sodium now 144 Heme #thrombocytopenia, presumed PE/DVT - hemoglobin stable, no active sites of bleeding noted. - plt recovering, continue argatroban ID #Severe sepsis -secondary to COVID-19 and PNA -BCx ordered, NGTD -continue current management #Severe COVID-19 pneumonia -unvaccinated -steroids, COVID vitamins -Remdesivir held due to renal function -s/p Actemra -ID following, appreciate assistance -inflammatory markers q48hr - continue rocephin and azithromycin for now Endo #Type 2 diabetes -A1c 8.2% -Glucose in 115 to 400 range -Goal glucose 140-180s -continue lantus 15 units daily -SSI adjusted to q6h -If continues to have elevated sugars, will consider insulin drip History Interval history: intubated and sedated Hospitalist Physical - Physical exam Narrative exam: Constitutional: other (on hiflo) Eyes: non-icteric Neck: supple Ascultation: Bilateral: diminished breath sounds Cardiovascular: regular rate and rhythm Gastrointestinal: normoactive bowel sounds, soft, non-tender Extremities: other (decreased rom/ movement of lue mild contractures) - Constitutional Vitals: Temp Pulse Resp BP Pulse Ox 98.7 F 121 H 20 84/51 95 03/21/21 08:00 03/21/21 08:24 03/21/21 06:00 03/21/21 08:24 03/21/21 08:24 General appearance: Present: no acute distress HEART Score - HEART Score EKG: Non-specific Age: 45-65 Risk factors: 1-2 risk factors Troponin: Troponin T < 0.010 ng/mL (0.00-0.029) 03/11/21 09:41 - Critical Actions Critical Actions: 4-6 pts:12-16.6% risk of adverse cardiac event. Should be admitted Results - Labs CBC & Chem 7: 03/21/21 06:00 03/21/21 06:00 Labs: Laboratory Last Values WBC 26.7 K/mm3 (4.5-11.0) H 03/21/21 06:00 RBC 3.65 M/mm3 (3.65-5.03) 03/21/21 06:00 Hgb 11.2 gm/dl (11.8-15.2) L 03/21/21 06:00 Hct 34.5 % (35.5-45.6) L 03/21/21 06:00 MCV 95 fl (84-94) H 03/21/21 06:00 MCH 31 pg (28-32) 03/21/21 06:00 MCHC 33 % (32-34) 03/21/21 06:00 RDW 15.1 % (13.2-15.2) 03/21/21 06:00 Plt Count 102 K/mm3 (140-440) L 03/21/21 06:00 Add Manual Diff Complete 03/20/21 05:16 Total Counted 100 03/20/21 05:16 Seg Neutrophils % Paperboard Boxes Estimator 03/21/21 06:00 Seg Neuts % (Manual) 76.0 % (40.0-70.0) H 03/20/21 05:16 Band Neutrophils % 12.0 % 03/19/21 04:50 Lymphocytes % (Manual) 18.0 % (13.4-35.0) 03/20/21 05:16 Monocytes % (Manual) 6.0 % (0.0-7.3) 03/20/21 05:16 Nucleated RBC % Not Reportable 03/20/21 05:16 Seg Neutrophils # Man 17.1 K/mm3 (1.8-7.7) H 03/20/21 05:16 Band Neutrophils # 0.0 K/mm3 03/20/21 05:16 Lymphocytes # (Manual) 4.1 K/mm3 (1.2-5.4) 03/20/21 05:16 Abs React Lymphs (Man) 0.0 K/mm3 03/20/21 05:16 Monocytes # (Manual) 1.4 K/mm3 (0.0-0.8) H 03/20/21 05:16 Eosinophils # (Manual) 0.0 K/mm3 (0.0-0.4) 03/20/21 05:16 Basophils # (Manual) 0.0 K/mm3 (0.0-0.1) 03/20/21 05:16 Metamyelocytes # 0.0 K/mm3 03/20/21 05:16 Myelocytes # 0.0 K/mm3 03/20/21 05:16 Promyelocytes # 0.0 K/mm3 03/20/21 05:16 Blast Cells # 0.0 K/mm3 03/20/21 05:16 WBC Morphology Not Reportable 03/20/21 05:16 Hypersegmented Neuts Not Reportable 03/20/21 05:16 Hyposegmented Neuts Not Reportable 03/20/21 05:16 Hypogranular Neuts Not Reportable 03/20/21 05:16 Smudge Cells Not Reportable 03/20/21 05:16 Toxic Granulation Not Reportable 03/20/21 05:16 Toxic Vacuolation Not Reportable 03/20/21 05:16 Dohle Bodies Not Reportable 03/20/21 05:16 Pelger-Huet Anomaly Not Reportable 03/20/21 05:16 Fina Rods Not Reportable 03/20/21 05:16 Platelet Estimate Consistent w auto 03/20/21 05:16 Clumped Platelets 3+ 03/20/21 05:16 Plt Clumps, EDTA Not Reportable 03/20/21 05:16 Large Platelets Not Reportable 03/20/21 05:16 Giant Platelets Not Reportable 03/20/21 05:16 Platelet Satelliting Not Reportable 03/20/21 05:16 Plt Morphology Comment Not Reportable 03/20/21 05:16 RBC Morphology Not Reportable 03/20/21 05:16 Dimorphic RBCs Not Reportable 03/20/21 05:16 Polychromasia Not Reportable 03/20/21 05:16 Hypochromasia Not Reportable 03/20/21 05:16 Poikilocytosis Not Reportable 03/20/21 05:16 Anisocytosis Not Reportable 03/20/21 05:16 Microcytosis Not Reportable 03/20/21 05:16 Macrocytosis Not Reportable 03/20/21 05:16 Spherocytes Not Reportable 03/20/21 05:16 Pappenheimer Bodies Not Reportable 03/20/21 05:16 Sickle Cells Not Reportable 03/20/21 05:16 Target Cells Not Reportable 03/20/21 05:16 Tear Drop Cells Not Reportable 03/20/21 05:16 Ovalocytes Not Reportable 03/20/21 05:16 Helmet Cells Not Reportable 03/20/21 05:16 Perdue-Kiefer Bodies Not Reportable 03/20/21 05:16 [place] Rings Not Reportable 03/20/21 05:16 [place] Cells Not Reportable 03/20/21 05:16 Bite Cells Not Reportable 03/20/21 05:16 Crenated Cell Not Reportable 03/20/21 05:16 Elliptocytes Not Reportable 03/20/21 05:16 Acanthocytes (Spur) Not Reportable 03/20/21 05:16 Rouleaux Not Reportable 03/20/21 05:16 Hemoglobin C Crystals Not Reportable 03/20/21 05:16 Schistocytes Not Reportable 03/20/21 05:16 Malaria parasites Not Reportable 03/20/21 05:16 [place] Bodies Not Reportable 03/20/21 05:16 Hem Pathologist Commnt No 03/20/21 05:16 PT 22.4 Sec. (12.2-14.9) H 03/17/21 09:19 INR 1.92 (0.87-1.13) H 03/17/21 09:19 APTT 56.4 Sec. (24.2-36.6) H 03/21/21 06:00 D-Dimer 8137.78 ng/mlDDU (0-234) H 03/21/21 06:00 ABG pH 7.368 (7.320-7.450) 03/20/21 04:30 POC ABG pCO2 34.4 mmHg (32.0-48.0) 03/20/21 04:30 ABG pCO2 25.5 mm Hg 03/18/21 23:23 POC ABG pO2 126.9 mmHg (83-108) H 03/20/21 04:30 ABG pO2 71.6 mm Hg (80.0-90.0) L 03/18/21 23:23 POC ABG HCO3 19.4 03/20/21 04:30 ABG HCO3 12.9 mmol/L (20.0-26.0) L 03/18/21 23:23 ABG O2 Saturation 98.1 (0-100) 03/20/21 04:30 ABG O2 Content 19.9 (0.0-44) 03/18/21 23:23 POC ABG Base Excess -5.1 03/20/21 04:30 ABG Base Excess -11.1 mmol/L (-2.0-3.0) L 03/18/21 23:23 ABG Hemoglobin 14.0 (12.0-17.5) 03/20/21 04:30 ABG Oxyhemoglobin 97.9 (94-98) 03/20/21 04:30 ABG Carboxyhemoglobin 0.9 % (0.0-5.0) 03/18/21 23:23 ABG Methemoglobin 0 (0.0-1.5) 03/20/21 04:30 ABG Sodium 147.4 mmol/L (136.0-145.0) H 03/20/21 04:30 ABG Potassium 4.1 mmol/L (3.40-4.50) 03/20/21 04:30 ABG Chloride 113.0 mmol/L (98-107) H 03/20/21 04:30 ABG Glucose 211 mg/dL (65-95) H 03/20/21 04:30 Oxyhemoglobin 91.0 % (95.0-99.0) L 03/18/21 23:23 Carboxyhemoglobin 0.2 (0.5-1.5) L 03/20/21 04:30 FiO2 100 % 03/18/21 23:23 FiO2 % 90.0 03/20/21 04:30 Sodium 147 mmol/L (137-145) H 03/21/21 06:00 Potassium 4.8 mmol/L (3.6-5.0) 03/21/21 06:00 Chloride 109.5 mmol/L (98-107) H 03/21/21 06:00 Carbon Dioxide 21 mmol/L (22-30) L 03/21/21 06:00 Anion Gap 21 mmol/L 03/21/21 06:00 BUN 133 mg/dL (9-20) H 03/21/21 06:00 Creatinine 5.5 mg/dL (0.8-1.3) H 03/21/21 06:00 Estimated GFR 13 ml/min 03/21/21 06:00 BUN/Creatinine Ratio 24 % 03/21/21 06:00 Glucose 324 mg/dL (75-100) H 03/21/21 06:00 POC Glucose 257 mg/dL (70-105) H 03/21/21 05:21 Hemoglobin A1c 8.2 % (4-6) H 03/14/21 04:44 Lactic Acid 1.60 mmol/L (0.7-2.0) 03/12/21 00:08 Calcium 8.5 mg/dL (8.4-10.2) 03/21/21 06:00 Phosphorus 6.20 mg/dL (2.5-4.5) H 03/20/21 05:16 Magnesium 2.60 mg/dL (1.7-2.3) H 03/20/21 05:16 Ferritin 1431.0 ng/mL (30.0-300.0) H 03/21/21 06:00 Total Bilirubin 0.50 mg/dL (0.1-1.2) 03/21/21 06:00 Direct Bilirubin < 0.2 mg/dL (0-0.2) 03/17/21 09:19 Indirect Bilirubin 0.4 mg/dL 03/17/21 09:19 AST 19 units/L (5-40) 03/21/21 06:00 ALT 22 units/L (7-56) 03/21/21 06:00 Alkaline Phosphatase 102 units/L (35-129) 03/21/21 06:00 Lactate Dehydrogenase 1063 units/L (91-180) H 03/21/21 06:00 Troponin T < 0.010 ng/mL (0.00-0.029) 03/11/21 09:41 C-Reactive Protein 1.90 mg/dL (0.00-1.30) H 03/21/21 06:00 Total Protein 4.6 g/dL (6.3-8.2) L 03/21/21 06:00 Albumin 2.2 g/dL (3.9-5) L 03/21/21 06:00 Albumin/Globulin Ratio 0.9 % 03/21/21 06:00 Procalcitonin 4.61 ng/mL (<0.15) 03/11/21 09:41 Arterial Blood Glucose 211 mg/dL (65-95) H 03/20/21 04:30 Arterial Blood Ionized Calcium 4.8 mg/dL (4.6-5.3) 03/20/21 04:30 Urine Color Yellow (Yellow) 03/11/21 Unknown Urine Turbidity Clear (Clear) 03/11/21 Unknown Urine pH 6.0 (5.0-7.0) 03/11/21 Unknown Ur Specific [place] 1.011 (1.003-1.030) 03/11/21 Unknown Urine Protein >500 mg/dL (Negative) 03/11/21 Unknown Urine Glucose (UA) 50 mg/dL (Negative) 03/11/21 Unknown Urine Ketones 20 mg/dL (Negative) 03/11/21 Unknown Urine Blood Lg (Negative) 03/11/21 Unknown Urine Nitrite Neg (Negative) 03/11/21 Unknown Urine Bilirubin Neg (Negative) 03/11/21 Unknown Urine Urobilinogen < 2.0 mg/dL (<2.0) 03/11/21 Unknown Ur Leukocyte Esterase Neg (Negative) 03/11/21 Unknown Urine WBC (Auto) 1.0 /HPF (0.0-6.0) 03/11/21 Unknown Urine RBC (Auto) 1.0 /HPF (0.0-6.0) 03/11/21 Unknown Urine Sodium 37 mmol/L 03/14/21 Unknown Urine Urea Nitrogen 818 03/14/21 Unknown Proteinase 3 (PR3) Ab <1.0 AI (<1.0) 03/16/21 04:14 Myeloperoxidase Ab <1.0 AI (<1.0) 03/16/21 04:14 Complement C3 131 mg/dL (82-185) 03/16/21 04:14 Complement C4 38 mg/dL (15-53) 03/16/21 04:14 Coronavirus (PCR) Positive (Negative) A 03/11/21 Unknown Hepatitis A IgM Ab Non-reactive (NonReactive) 03/18/21 09:03 Hep Bs Antigen Nonreactive (Negative) 03/18/21 09:03 Hep B Core IgM Ab Non-reactive (NonReactive) 03/18/21 09:03 Hepatitis C Antibody Non-reactive (NonReactive) 03/18/21 09:03 Microbiology: Microbiology 03/19/21 Unknown Tracheal Aspirate Sputum Culture - Preliminary [place]/IV: Voiding Method Indwelling Catheter Active Medications - Current Medications Current Medications: Generic Name Dose Route Start Last Admin Trade Name Freq PRN Reason Stop Dose Admin Acetaminophen 650 mg 03/11/21 12:00 03/14/21 03:54 Acetaminophen 325 Mg Tab PO 650 mg Q4H PRN Administration Pain MILD(1-3)/Fever >100.5/[place] Lipase/Protease/Amylase 1 each 03/19/21 17:35 Lipase 10,500/Protease 25,000/Amylase 43,750 (Units) Dr Alegre FEEDTUBE PRN PRN For Clogged Feeding Tube Ascorbic Acid 500 mg 03/11/21 12:00 03/21/21 09:09 Ascorbic Acid 500 Mg Tab PO 500 mg BID GYPSY Administration Cholecalciferol 1,000 unit 03/11/21 13:00 03/21/21 09:09 Cholecalciferol (Vit D3) 1000 Unit (25 Mcg) Tab PO 1,000 unit QDAY GYPSY Administration Clonidine HCl 0.1 mg 03/20/21 08:00 03/20/21 09:12 Clonidine Tts 0.1 Mg/24 Hr Patch TD Not Given Fr GYPSY Dextrose 50 ml 03/13/21 14:44 Dextrose 50% In Water (25gm) 50 Ml Syringe IV Q30MIN PRN Hypoglycemia Protocol Famotidine 20 mg 03/19/21 22:00 03/21/21 09:09 Famotidine 20 Mg/2 Ml Inj IV 20 mg QDAY GYPSY Administration Fentanyl 50 mcg 03/19/21 15:29 Fentanyl 100 Mcg/2 Ml Inj IV Q10MIN PRN ANALGESIA Hydralazine HCl 10 mg 03/14/21 18:13 03/19/21 08:07 Hydralazine 20 Mg/1 Ml Inj IV 10 mg Q6H PRN Administration Hypertension Hydrophilic Ointment 1 applic 03/19/21 15:29 Lip Therapy Vaseline TP Q2HR PRN Dry Lips Dexmedetomidine HCl 400 mcg/ 104 mls @ 3.588 mls/hr 03/16/21 12:00 03/19/21 15:49 Sodium Chloride IV 0 mcg/kg/hr TITRATE GYPSY 0 mls/hr Titration Protocol 0.2 MCG/KG/HR Argatroban 250 mg/ Sodium 250 mls @ 2.07 mls/hr 03/17/21 11:00 03/20/21 17:32 Chloride IV 0.25 mcg/kg/min TITR GYPSY 1.035 mls/hr Titration Protocol 0.5 MCG/KG/MIN Sodium Chloride 100 mls @ 999 mls/hr 03/19/21 10:00 Nacl 0.9% IV OSCAR PRN Hypotension Fentanyl Citrate 2,000 mcg in 100 mls @ 3.45 mls/hr 03/19/21 16:00 03/21/21 09:08 Fentanyl Drip Premix IV 3 mcg/kg/hr TITR GYPSY 10.35 mls/hr Administration Protocol 1 MCG/KG/HR Propofol 1,000 mg in 100 mls @ 2.07 mls/hr 03/19/21 16:00 03/21/21 07:43 Diprivan 10 Mg/Ml IV 30 mcg/kg/min TITR GYPSY 12.42 mls/hr Titration Protocol 5 MCG/KG/MIN Norepinephrine 4 mg in 250 mls @ 7.5 mls/hr 03/20/21 11:00 03/21/21 07:42 Levophed Drip 4 Mg/Ns 250 Ml IV 5 mcg/min TITR GYPSY 18.75 mls/hr Administration Protocol 2 MCG/MIN Insulin Human Lispro 0 unit 03/16/21 13:00 03/21/21 06:36 Insulin Lispro 100 Unit/Ml SUB-Q 6 unit Q6HR GYPSY Administration Protocol Multi-Ingred Cream/Lotion/Oil/Oint 1 applic 03/19/21 15:29 Mineral Oil/Petrolatum, White Ophth Oint 3.5 Gm OU Q4HR PRN Dry Eye(s) Ondansetron HCl 4 mg 03/11/21 12:00 03/15/21 12:08 Ondansetron 4 Mg/2 Ml Inj IV 4 mg Q8H PRN Administration Nausea And Vomiting Senna/Docusate Sodium 1 tab 03/19/21 22:00 03/21/21 09:09 Sennosides/Docusate Sodium 8.6/50 Mg Tab FEEDTUBE 1 tab BID GYPSY Administration Simple Syrup 15 ml 03/19/21 17:35 Simple Syrup 15 Ml FEEDTUBE PRN PRN Hypoglycemia Simple Syrup 30 ml 03/19/21 17:35 Simple Syrup 15 Ml FEEDTUBE PRN PRN Hypoglycemia Sodium Bicarbonate 325 mg 03/19/21 17:35 Sodium Bicarbonate 325 Mg Tab FEEDTUBE PRN PRN For Clogged Feeding Tube Sodium Chloride 10 ml 03/11/21 12:00 03/21/21 09:09 Sodium Chloride 0.9% 10 Ml Flush Syringe IV 10 ml BID GYPSY Administration Sodium Chloride 10 ml 03/11/21 12:00 Sodium Chloride 0.9% 10 Ml Flush Syringe IV PRN PRN LINE FLUSH Sodium Chloride 5 ml 03/19/21 15:29 Sodium Chloride 0.9% 500 Ml Ivpb IV DIRECT PRN ARTERIAL COSTUME SEAMSTRESS Zinc Sulfate 220 mg 03/11/21 12:00 03/21/21 09:09 Zinc Sulfate 220 Mg Cap PO 220 mg BID GYPSY Administration Nutrition/Malnutrition Assess - Dietary Evaluation Nutrition/Malnutrition Findings: Nutrition Notes Start: 03/14/21 12:54 Freq: Status: Active Protocol: Document 03/19/21 17:22 GB (Rec: 03/19/21 17:31 GB [id number]) Nutrition Notes Need for Assessment generated from: MD Order Initial or Follow up Brief Note Other Pertinent Diagnosis consult for TF Current Diet regular w/consistent carbohydrate Labs/Tests 03/18: (BUN 70, creatinine 2.5, glucose 258) all elevated [id number] and fluctuating Ca 8.2 low Pertinent Medications Vit C, Vit D3, Zn Sulfate Height 5 ft 11 in Weight 69 kg [place] Body Weight (kg) 78.18 BMI 21.2 Subjective/Other Information TF: recommend Osmolite 1.5 with goal of 45ml/hr continuous to meet 80% or greater of estimated energy needs. Percent of energy/protein needs met: TF will meet 80% or greater. #1 Nutrition Diagnosis Malnutrition Comments: Pt on continuous BiPaP @90%. Interferes with energy intake. Recommend NGT/PEG/TPN. 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 No Is Patient Ambulatory and/or Out of Bed No REE-([facility]-confined to bed) 1902.336 Kcal/Kg value to use for calculation 29 Approximate Energy Requirements Using 2000 kcal/Kg Calculation Used for Recommendations Kcal/kg Additional Notes Protein: 1-1.2 g/kg @69k- 83g Fluids: 1 ml/kcal or per MD Nutrition Intervention Change Diet Order: If ability to eat PO does not improve in 2 days recommend NGT/PEG/TPN Nutrition Support: Osmolite 1.5 @45ml/hr with flush of 100ml/4hrs Kcal 1,620 Protein (gm) 68 Fat (gm) 53 Fluid (mL) 823 % RDI: 80% or greater Goal #1 Tolerate TF formula. Goal #2 Tolerate goal rate of 45ml/hr. Goal #3 weight to maintain within +/-3 % current weight during LOS Follow-Up By: 03/23/21 Additional Comments TF order entered 03/19
[2021-03-21 11:02] LABS: Total Cells Counted 100
[2021-03-21 11:03] LABS: Band Neutrophils # (Manual) 1.1 K/mm3
[2021-03-21 11:04] LABS: Anisocytosis 1+
--- NOTE | 2021-03-21 12:13 | Progress Note ---
Assessment and Plan 50 y/o male with acute respiratory failure secondary to COVID 19 03/21/21: Continue current level of supportive care. Hopeful HD today. Continue to wean FiO2. Ok with pH where it is as long as it stay above 7.2. Guarded prognosis. 03/20/21: Continue current level of sedations. Wean FiO2 for sats >88%. Once FiO2 around 45-50% can start weaning PEEP. No current indication for chest tube as of yet. HD per renal. very very guarded to poor prognosis with COVID and renal failure. Platelets continue to improve so continue argatroban therapy. CCT 31 minutes 03/19/21: DIalysis today. Asked nursing to max out precedex. Continue Argatroban. Platelets better. Continue to attempt not to intubate given the elevated mortality rate, would prefer not to intubate if able. Very very guarded prognosis. 03/17/21: Hopeful dialysis today. Ordered stat CXR and does shows small apical PTX, slightly larger but still not a point that I feel needs CT placement. Will repeat later this afternoon. Will have RT turn of oxygen and attempt to wean pressure to help with resorption. Prognosis overall remains guarded to poor, especially with renal dysfunction plus COVID. D-Dimer now is >10K, however platelets dropping on heparin. Stopping Sub Q prophylactic therapy, checking bilateral dopplers and will send hiT PANEL. May consider doing argatroban therapy. 03/16/21: Vascath placed. [place] at [phone] is the point of contact and decision maker. She has consented for vascath. Also discussed the possibility that patient may require mechanical ventilator in the near future if no improvement. Will attempt to use precedex to help keep patient calm so that bipap/avaps can work. Volume removal per renal. Guarded prognosis. : Hold on increasing steroids as of now. Prone if able. Continue AVAPS today but spoke with RT about weaning FiO2 for sats >88%. Monitor fluids. No lasix right now given renal dysfunction. Reviewed ID note and agree with their plan and assessment. Guarded prognosis. 1. Prone if able 2. Wean bipap to HFNC if able 3. Steroids, may need to increase 4. Does not appear to be a candidate for remdesivir given renal failure 5. May be able to get actemra 6. Minimize additional fluids 7. Guarded prognosis given renal failure and COVID state. Subjective Date of service: 03/21/21 Principal diagnosis: COVID-19 Interval history: Improving oxygenation but renal function and heart rate still not regulated. Needs HD and may need pressors to do so. Sedated adequately Objective Vital Signs - 12hr 03/21/21 03/21/21 03/21/21 00:15 00:30 00:45 Temperature Pulse Rate 117 H 118 H 116 H Respiratory 21 20 19 Rate Blood Pressure 95/60 101/61 107/62 O2 Sat by Pulse Oximetry 03/21/21 03/21/21 03/21/21 01:00 01:15 01:30 Temperature Pulse Rate 118 H 120 H 116 H Respiratory 20 21 19 Rate Blood Pressure 108/62 107/58 101/60 O2 Sat by Pulse 95 Oximetry 03/21/21 03/21/21 03/21/21 01:45 02:00 02:15 Temperature Pulse Rate 116 H 120 H 120 H Respiratory 21 22 19 Rate Blood Pressure 111/64 104/60 105/59 O2 Sat by Pulse 96 Oximetry 03/21/21 03/21/21 03/21/21 02:30 02:45 03:00 Temperature Pulse Rate 120 H 123 H 123 H Respiratory 20 19 20 Rate Blood Pressure 102/61 102/61 99/63 O2 Sat by Pulse 95 96 Oximetry 03/21/21 03/21/21 03/21/21 03:15 03:30 03:45 Temperature Pulse Rate 121 H 118 H 117 H Respiratory 21 20 23 Rate Blood Pressure 92/59 93/55 93/57 O2 Sat by Pulse Oximetry 03/21/21 03/21/21 03/21/21 04:00 04:15 04:21 Temperature 97.8 F Pulse Rate 119 H 116 H 117 H Respiratory 19 20 Rate Blood Pressure 90/52 89/54 89/54 O2 Sat by Pulse 94 97 Oximetry 03/21/21 03/21/21 03/21/21 04:30 04:45 05:00 Temperature Pulse Rate 120 H 118 H 121 H Respiratory 20 18 21 Rate Blood Pressure 83/47 85/45 80/46 O2 Sat by Pulse Oximetry 03/21/21 03/21/21 03/21/21 05:15 05:30 05:45 Temperature Pulse Rate 120 H 118 H 109 H Respiratory 22 21 20 Rate Blood Pressure 87/43 83/44 90/55 O2 Sat by Pulse Oximetry 03/21/21 03/21/21 03/21/21 06:00 06:15 06:30 Temperature Pulse Rate 107 H 126 H 105 H Respiratory 20 21 20 Rate Blood Pressure 96/59 97/60 94/57 O2 Sat by Pulse 98 Oximetry 03/21/21 03/21/21 03/21/21 06:45 07:00 07:15 Temperature Pulse Rate 108 H 111 H 113 H Respiratory 20 20 20 Rate Blood Pressure 85/49 83/49 82/47 O2 Sat by Pulse 99 Oximetry 03/21/21 03/21/21 03/21/21 07:30 07:45 08:00 Temperature 98.7 F Pulse Rate 108 H 105 H 118 H Respiratory 20 20 20 Rate Blood Pressure 96/55 96/55 84/48 O2 Sat by Pulse 95 Oximetry 03/21/21 03/21/21 03/21/21 08:15 08:24 08:30 Temperature Pulse Rate 113 H 121 H 118 H Respiratory 20 20 Rate Blood Pressure 84/51 84/51 86/49 O2 Sat by Pulse 95 95 Oximetry 03/21/21 03/21/21 03/21/21 08:45 09:00 09:15 Temperature Pulse Rate 112 H 109 H 105 H Respiratory 20 20 20 Rate Blood Pressure 91/50 91/57 102/60 O2 Sat by Pulse 97 97 97 Oximetry 03/21/21 03/21/21 03/21/21 09:31 09:45 10:01 Temperature Pulse Rate 115 H 103 H Respiratory 21 20 Rate Blood Pressure 102/60 102/60 102/60 O2 Sat by Pulse 95 96 97 Oximetry 03/21/21 03/21/21 03/21/21 10:15 10:31 10:45 Temperature Pulse Rate 100 H Respiratory 20 Rate Blood Pressure 102/60 102/60 102/60 O2 Sat by Pulse 98 97 97 Oximetry 03/21/21 03/21/21 11:01 11:33 Temperature Pulse Rate 98 H 96 H Respiratory 20 Rate Blood Pressure 102/60 O2 Sat by Pulse 98 97 Oximetry Constitutional: other (on hiflo) Eyes: non-icteric Neck: supple Ascultation: Bilateral: diminished breath sounds Cardiovascular: regular rate and rhythm Gastrointestinal: normoactive bowel sounds, soft, non-tender Extremities: other (decreased rom/ movement of lue mild contractures) CBC and BMP: 03/22/21 06:50 03/22/21 06:50 ABG, PT/INR, D-dimer: ABG ABG pH 7.240 (7.320-7.450) L 03/21/21 04:00 POC ABG pCO2 47.9 mmHg (32.0-48.0) 03/21/21 04:00 ABG pCO2 25.5 mm Hg 03/18/21 23:23 POC ABG pO2 105.7 mmHg (83-108) 03/21/21 04:00 ABG pO2 71.6 mm Hg (80.0-90.0) L 03/18/21 23:23 POC ABG HCO3 20.1 03/21/21 04:00 ABG O2 Saturation 97.1 (0-100) 03/21/21 04:00 PT/INR, D-dimer PT 22.4 Sec. (12.2-14.9) H 03/17/21 09:19 INR 1.92 (0.87-1.13) H 03/17/21 09:19 D-Dimer 8137.78 ng/mlDDU (0-234) H 03/21/21 06:00 Abnormal lab findings: Abnormal Labs 03/11/21 03/11/21 03/11/21 09:41 09:41 09:41 WBC Hgb Hct MCV Plt Count Seg Neuts % (Manual) 89.0 H Lymphocytes % (Manual) 2.0 L Seg Neutrophils # Man 9.7 H Lymphocytes # (Manual) 0.2 L Monocytes # (Manual) PT INR APTT D-Dimer ABG pH POC ABG pCO2 POC ABG pO2 ABG pO2 ABG HCO3 ABG O2 Saturation ABG Base Excess ABG Oxyhemoglobin ABG Sodium ABG Potassium ABG Chloride ABG Glucose Oxyhemoglobin Carboxyhemoglobin Sodium 127 L Chloride 90.6 L Carbon Dioxide 15 L BUN 42 H Creatinine 2.7 H Glucose 262 H POC Glucose Hemoglobin A1c Lactic Acid 3.70 H* Calcium Phosphorus Magnesium Ferritin AST 148 H ALT 65 H Lactate Dehydrogenase C-Reactive Protein Total Protein Albumin 2.9 L Arterial Blood Glucose Arterial Blood Ionized Calcium Coronavirus (PCR) 03/11/21 03/11/21 03/11/21 09:41 09:41 09:41 WBC Hgb Hct MCV Plt Count Seg Neuts % (Manual) Lymphocytes % (Manual) Seg Neutrophils # Man Lymphocytes # (Manual) Monocytes # (Manual) PT INR APTT D-Dimer 2206.91 H ABG pH POC ABG pCO2 POC ABG pO2 ABG pO2 ABG HCO3 ABG O2 Saturation ABG Base Excess ABG Oxyhemoglobin ABG Sodium ABG Potassium ABG Chloride ABG Glucose Oxyhemoglobin Carboxyhemoglobin Sodium Chloride Carbon Dioxide BUN Creatinine Glucose 261 H POC Glucose Hemoglobin A1c Lactic Acid Calcium Phosphorus Magnesium Ferritin 1640.0 H AST ALT Lactate Dehydrogenase 933 H C-Reactive Protein 17.90 H Total Protein Albumin Arterial Blood Glucose Arterial Blood Ionized Calcium Coronavirus (PCR) 03/11/21 03/11/21 03/12/21 11:50 Unknown 04:35 WBC Hgb Hct MCV Plt Count Seg Neuts % (Manual) Lymphocytes % (Manual) Seg Neutrophils # Man Lymphocytes # (Manual) Monocytes # (Manual) PT INR APTT D-Dimer ABG pH 7.316 L 7.279 L POC ABG pCO2 30.2 L POC ABG pO2 228.8 H 183.7 H ABG pO2 ABG HCO3 ABG O2 Saturation ABG Base Excess ABG Oxyhemoglobin 98.7 H 98.6 H ABG Sodium 125.1 L ABG Potassium ABG Chloride 97.0 L ABG Glucose 229 H 236 H Oxyhemoglobin Carboxyhemoglobin 0.1 L 0.3 L Sodium Chloride Carbon Dioxide BUN Creatinine Glucose POC Glucose Hemoglobin A1c Lactic Acid Calcium Phosphorus Magnesium Ferritin AST ALT Lactate Dehydrogenase C-Reactive Protein Total Protein Albumin Arterial Blood Glucose 229 H 236 H Arterial Blood Ionized Calcium 4.5 L Coronavirus (PCR) Positive A 03/12/21 03/12/21 03/13/21 10:56 16:53 05:19 WBC Hgb Hct MCV Plt Count Seg Neuts % (Manual) Lymphocytes % (Manual) Seg Neutrophils # Man Lymphocytes # (Manual) Monocytes # (Manual) PT INR APTT D-Dimer ABG pH POC ABG pCO2 POC ABG pO2 ABG pO2 ABG HCO3 ABG O2 Saturation ABG Base Excess ABG Oxyhemoglobin ABG Sodium ABG Potassium ABG Chloride ABG Glucose Oxyhemoglobin Carboxyhemoglobin Sodium 149 H Chloride 111.0 H 113.9 H Carbon Dioxide 13 L 15 L 18 L BUN 37 H 36 H 39 H Creatinine 2.2 H 2.3 H 2.5 H Glucose 254 H 212 H 304 H POC Glucose Hemoglobin A1c Lactic Acid Calcium Phosphorus Magnesium Ferritin AST 110 H 100 H 88 H ALT 66 H 64 H 68 H Lactate Dehydrogenase C-Reactive Protein Total Protein 6.2 L Albumin 2.7 L 2.4 L 2.7 L Arterial Blood Glucose Arterial Blood Ionized Calcium Coronavirus (PCR) 03/13/21 03/14/21 03/14/21 23:06 00:03 04:44 WBC Hgb Hct MCV Plt Count Seg Neuts % (Manual) Lymphocytes % (Manual) Seg Neutrophils # Man Lymphocytes # (Manual) Monocytes # (Manual) PT INR APTT D-Dimer ABG pH POC ABG pCO2 POC ABG pO2 ABG pO2 ABG HCO3 ABG O2 Saturation ABG Base Excess ABG Oxyhemoglobin ABG Sodium ABG Potassium ABG Chloride ABG Glucose Oxyhemoglobin Carboxyhemoglobin Sodium Chloride Carbon Dioxide BUN Creatinine Glucose POC Glucose 168 H 152 H Hemoglobin A1c 8.2 H Lactic Acid Calcium Phosphorus Magnesium Ferritin AST ALT Lactate Dehydrogenase C-Reactive Protein Total Protein Albumin Arterial Blood Glucose Arterial Blood Ionized Calcium Coronavirus (PCR) 03/14/21 03/14/21 03/14/21 04:44 04:44 05:35 WBC Hgb Hct MCV Plt Count 132 L Seg Neuts % (Manual) Lymphocytes % (Manual) Seg Neutrophils # Man Lymphocytes # (Manual) Monocytes # (Manual) PT INR APTT D-Dimer ABG pH POC ABG pCO2 POC ABG pO2 ABG pO2 ABG HCO3 ABG O2 Saturation ABG Base Excess ABG Oxyhemoglobin ABG Sodium ABG Potassium ABG Chloride ABG Glucose Oxyhemoglobin Carboxyhemoglobin Sodium 153 H Chloride 118.2 H Carbon Dioxide 21 L BUN 58 H Creatinine 3.4 H Glucose 380 H POC Glucose 331 H Hemoglobin A1c Lactic Acid Calcium Phosphorus Magnesium Ferritin AST 56 H ALT 60 H Lactate Dehydrogenase C-Reactive Protein Total Protein 5.8 L Albumin 2.4 L Arterial Blood Glucose Arterial Blood Ionized Calcium Coronavirus (PCR) 03/14/21 03/14/21 03/14/21 11:12 15:11 22:42 WBC Hgb Hct MCV Plt Count Seg Neuts % (Manual) Lymphocytes % (Manual) Seg Neutrophils # Man Lymphocytes # (Manual) Monocytes # (Manual) PT INR APTT D-Dimer ABG pH POC ABG pCO2 POC ABG pO2 ABG pO2 ABG HCO3 ABG O2 Saturation ABG Base Excess ABG Oxyhemoglobin ABG Sodium ABG Potassium ABG Chloride ABG Glucose Oxyhemoglobin Carboxyhemoglobin Sodium Chloride Carbon Dioxide BUN Creatinine Glucose POC Glucose 229 H 291 H 435 H Hemoglobin A1c Lactic Acid Calcium Phosphorus Magnesium Ferritin AST ALT Lactate Dehydrogenase C-Reactive Protein Total Protein Albumin Arterial Blood Glucose Arterial Blood Ionized Calcium Coronavirus (PCR) 03/15/21 03/15/21 03/15/21 04:44 08:43 11:50 WBC Hgb Hct MCV Plt Count Seg Neuts % (Manual) Lymphocytes % (Manual) Seg Neutrophils # Man Lymphocytes # (Manual) Monocytes # (Manual) PT INR APTT D-Dimer ABG pH POC ABG pCO2 POC ABG pO2 ABG pO2 ABG HCO3 ABG O2 Saturation ABG Base Excess ABG Oxyhemoglobin ABG Sodium ABG Potassium ABG Chloride ABG Glucose Oxyhemoglobin Carboxyhemoglobin Sodium 152 H Chloride 114.9 H Carbon Dioxide BUN 79 H Creatinine 4.3 H Glucose 303 H POC Glucose 281 H 340 H Hemoglobin A1c Lactic Acid Calcium Phosphorus Magnesium Ferritin AST 41 H ALT Lactate Dehydrogenase C-Reactive Protein Total Protein 6.1 L Albumin 2.6 L Arterial Blood Glucose Arterial Blood Ionized Calcium Coronavirus (PCR) 03/15/21 03/16/21 03/16/21 21:27 04:14 04:14 WBC 14.3 H Hgb Hct MCV Plt Count 87 L Seg Neuts % (Manual) Lymphocytes % (Manual) Seg Neutrophils # Man Lymphocytes # (Manual) Monocytes # (Manual) PT INR APTT D-Dimer ABG pH POC ABG pCO2 POC ABG pO2 ABG pO2 ABG HCO3 ABG O2 Saturation ABG Base Excess ABG Oxyhemoglobin ABG Sodium ABG Potassium ABG Chloride ABG Glucose Oxyhemoglobin Carboxyhemoglobin Sodium Chloride Carbon Dioxide BUN 75 H Creatinine 3.4 H Glucose 434 H POC Glucose 115 H Hemoglobin A1c Lactic Acid Calcium Phosphorus Magnesium Ferritin AST ALT Lactate Dehydrogenase C-Reactive Protein Total Protein Albumin Arterial Blood Glucose Arterial Blood Ionized Calcium Coronavirus (PCR) 03/16/21 03/16/21 03/16/21 07:52 11:05 17:01 WBC Hgb Hct MCV Plt Count Seg Neuts % (Manual) Lymphocytes % (Manual) Seg Neutrophils # Man Lymphocytes # (Manual) Monocytes # (Manual) PT INR APTT D-Dimer ABG pH POC ABG pCO2 POC ABG pO2 ABG pO2 ABG HCO3 ABG O2 Saturation ABG Base Excess ABG Oxyhemoglobin ABG Sodium ABG Potassium ABG Chloride ABG Glucose Oxyhemoglobin Carboxyhemoglobin Sodium Chloride Carbon Dioxide BUN Creatinine Glucose POC Glucose 439 H 277 H 194 H Hemoglobin A1c Lactic Acid Calcium Phosphorus Magnesium Ferritin AST ALT Lactate Dehydrogenase C-Reactive Protein Total Protein Albumin Arterial Blood Glucose Arterial Blood Ionized Calcium Coronavirus (PCR) 03/17/21 03/17/21 03/17/21 06:00 06:00 06:00 WBC 12.3 H Hgb Hct MCV Plt Count 70 L Seg Neuts % (Manual) Lymphocytes % (Manual) Seg Neutrophils # Man Lymphocytes # (Manual) Monocytes # (Manual) PT INR APTT D-Dimer > 84988 H ABG pH POC ABG pCO2 POC ABG pO2 ABG pO2 ABG HCO3 ABG O2 Saturation ABG Base Excess ABG Oxyhemoglobin ABG Sodium ABG Potassium ABG Chloride ABG Glucose Oxyhemoglobin Carboxyhemoglobin Sodium 150 H Chloride 118.0 H Carbon Dioxide 21 L BUN 92 H Creatinine 3.4 H Glucose 129 H POC Glucose Hemoglobin A1c Lactic Acid Calcium Phosphorus Magnesium Ferritin AST ALT Lactate Dehydrogenase 1155 H C-Reactive Protein 1.50 H Total Protein Albumin Arterial Blood Glucose Arterial Blood Ionized Calcium Coronavirus (PCR) 03/17/21 03/17/21 03/17/21 09:00 09:19 09:19 WBC Hgb Hct MCV Plt Count Seg Neuts % (Manual) Lymphocytes % (Manual) Seg Neutrophils # Man Lymphocytes # (Manual) Monocytes # (Manual) PT 22.4 H INR 1.92 H APTT 37.7 H D-Dimer ABG pH POC ABG pCO2 POC ABG pO2 ABG pO2 ABG HCO3 ABG O2 Saturation ABG Base Excess ABG Oxyhemoglobin ABG Sodium ABG Potassium ABG Chloride ABG Glucose Oxyhemoglobin Carboxyhemoglobin Sodium Chloride Carbon Dioxide BUN Creatinine Glucose POC Glucose Hemoglobin A1c Lactic Acid Calcium Phosphorus Magnesium Ferritin 1517.0 H AST ALT Lactate Dehydrogenase C-Reactive Protein Total Protein 5.1 L Albumin 2.2 L Arterial Blood Glucose Arterial Blood Ionized Calcium Coronavirus (PCR) 03/17/21 03/17/21 03/17/21 15:44 16:58 23:39 WBC Hgb Hct MCV Plt Count Seg Neuts % (Manual) Lymphocytes % (Manual) Seg Neutrophils # Man Lymphocytes # (Manual) Monocytes # (Manual) PT INR APTT 70.8 H* D-Dimer ABG pH POC ABG pCO2 POC ABG pO2 ABG pO2 ABG HCO3 ABG O2 Saturation ABG Base Excess ABG Oxyhemoglobin ABG Sodium ABG Potassium ABG Chloride ABG Glucose Oxyhemoglobin Carboxyhemoglobin Sodium Chloride Carbon Dioxide BUN Creatinine Glucose POC Glucose 165 H 235 H Hemoglobin A1c Lactic Acid Calcium Phosphorus Magnesium Ferritin AST ALT Lactate Dehydrogenase C-Reactive Protein Total Protein Albumin Arterial Blood Glucose Arterial Blood Ionized Calcium Coronavirus (PCR) 03/18/21 03/18/21 03/18/21 03:50 03:50 05:40 WBC Hgb Hct MCV Plt Count Seg Neuts % (Manual) Lymphocytes % (Manual) Seg Neutrophils # Man Lymphocytes # (Manual) Monocytes # (Manual) PT INR APTT 81.9 H* D-Dimer ABG pH POC ABG pCO2 POC ABG pO2 ABG pO2 ABG HCO3 ABG O2 Saturation ABG Base Excess ABG Oxyhemoglobin ABG Sodium ABG Potassium ABG Chloride ABG Glucose Oxyhemoglobin Carboxyhemoglobin Sodium Chloride 109.0 H Carbon Dioxide 21 L BUN 70 H Creatinine 2.5 H Glucose 258 H POC Glucose 207 H Hemoglobin A1c Lactic Acid Calcium 8.2 L Phosphorus Magnesium Ferritin AST ALT Lactate Dehydrogenase C-Reactive Protein Total Protein Albumin Arterial Blood Glucose Arterial Blood Ionized Calcium Coronavirus (PCR) 03/18/21 03/18/21 03/18/21 07:15 11:31 17:30 WBC Hgb Hct MCV Plt Count Seg Neuts % (Manual) Lymphocytes % (Manual) Seg Neutrophils # Man Lymphocytes # (Manual) Monocytes # (Manual) PT INR APTT D-Dimer ABG pH POC ABG pCO2 POC ABG pO2 ABG pO2 ABG HCO3 ABG O2 Saturation ABG Base Excess ABG Oxyhemoglobin ABG Sodium ABG Potassium ABG Chloride ABG Glucose Oxyhemoglobin Carboxyhemoglobin Sodium Chloride Carbon Dioxide BUN Creatinine Glucose POC Glucose 215 H 179 H 161 H Hemoglobin A1c Lactic Acid Calcium Phosphorus Magnesium Ferritin AST ALT Lactate Dehydrogenase C-Reactive Protein Total Protein Albumin Arterial Blood Glucose Arterial Blood Ionized Calcium Coronavirus (PCR) 03/18/21 03/18/21 03/18/21 18:54 23:23 23:31 WBC Hgb Hct MCV Plt Count Seg Neuts % (Manual) Lymphocytes % (Manual) Seg Neutrophils # Man Lymphocytes # (Manual) Monocytes # (Manual) PT INR APTT 96.5 H* D-Dimer ABG pH 7.322 L POC ABG pCO2 POC ABG pO2 ABG pO2 71.6 L ABG HCO3 12.9 L ABG O2 Saturation 92.4 L ABG Base Excess -11.1 L ABG Oxyhemoglobin ABG Sodium ABG Potassium ABG Chloride ABG Glucose Oxyhemoglobin 91.0 L Carboxyhemoglobin Sodium Chloride Carbon Dioxide BUN Creatinine Glucose POC Glucose 223 H Hemoglobin A1c Lactic Acid Calcium Phosphorus Magnesium Ferritin AST ALT Lactate Dehydrogenase C-Reactive Protein Total Protein Albumin Arterial Blood Glucose Arterial Blood Ionized Calcium Coronavirus (PCR) 03/19/21 03/19/21 03/19/21 04:50 04:50 05:37 WBC 21.5 H Hgb Hct MCV Plt Count 79 L Seg Neuts % (Manual) 87.0 H Lymphocytes % (Manual) Seg Neutrophils # Man 18.7 H Lymphocytes # (Manual) 0.0 L Monocytes # (Manual) PT INR APTT D-Dimer ABG pH POC ABG pCO2 POC ABG pO2 ABG pO2 ABG HCO3 ABG O2 Saturation ABG Base Excess ABG Oxyhemoglobin ABG Sodium ABG Potassium ABG Chloride ABG Glucose Oxyhemoglobin Carboxyhemoglobin Sodium 148 H Chloride 112.0 H Carbon Dioxide 18 L BUN 99 H Creatinine 3.2 H Glucose 277 H POC Glucose 238 H Hemoglobin A1c Lactic Acid Calcium Phosphorus 5.90 H Magnesium 2.80 H Ferritin AST ALT Lactate Dehydrogenase C-Reactive Protein Total Protein Albumin Arterial Blood Glucose Arterial Blood Ionized Calcium Coronavirus (PCR) 03/19/21 03/19/21 03/19/21 16:00 18:13 19:05 WBC Hgb Hct MCV Plt Count Seg Neuts % (Manual) Lymphocytes % (Manual) Seg Neutrophils # Man Lymphocytes # (Manual) Monocytes # (Manual) PT INR APTT 68.5 H* D-Dimer ABG pH POC ABG pCO2 26.7 L POC ABG pO2 ABG pO2 ABG HCO3 ABG O2 Saturation ABG Base Excess ABG Oxyhemoglobin ABG Sodium 147.2 H ABG Potassium ABG Chloride 112.0 H ABG Glucose 358 H Oxyhemoglobin Carboxyhemoglobin 0.2 L Sodium Chloride Carbon Dioxide BUN Creatinine Glucose POC Glucose 338 H Hemoglobin A1c Lactic Acid Calcium Phosphorus Magnesium Ferritin AST ALT Lactate Dehydrogenase C-Reactive Protein Total Protein Albumin Arterial Blood Glucose 358 H Arterial Blood Ionized Calcium Coronavirus (PCR) 03/19/21 03/20/21 03/20/21 Unknown 00:09 04:30 WBC Hgb Hct MCV Plt Count Seg Neuts % (Manual) Lymphocytes % (Manual) Seg Neutrophils # Man Lymphocytes # (Manual) Monocytes # (Manual) PT INR APTT 103.2 H* D-Dimer ABG pH POC ABG pCO2 POC ABG pO2 126.9 H ABG pO2 ABG HCO3 ABG O2 Saturation ABG Base Excess ABG Oxyhemoglobin ABG Sodium 147.4 H ABG Potassium ABG Chloride 113.0 H ABG Glucose 211 H Oxyhemoglobin Carboxyhemoglobin 0.2 L Sodium Chloride Carbon Dioxide BUN Creatinine Glucose POC Glucose 171 H Hemoglobin A1c Lactic Acid Calcium Phosphorus Magnesium Ferritin AST ALT Lactate Dehydrogenase C-Reactive Protein Total Protein Albumin Arterial Blood Glucose 211 H Arterial Blood Ionized Calcium Coronavirus (PCR) 03/20/21 03/20/21 03/20/21 04:55 05:16 05:16 WBC 22.5 H Hgb Hct MCV Plt Count 94 L Seg Neuts % (Manual) 76.0 H Lymphocytes % (Manual) Seg Neutrophils # Man 17.1 H Lymphocytes # (Manual) Monocytes # (Manual) 1.4 H PT INR APTT D-Dimer ABG pH POC ABG pCO2 POC ABG pO2 ABG pO2 ABG HCO3 ABG O2 Saturation ABG Base Excess ABG Oxyhemoglobin ABG Sodium ABG Potassium ABG Chloride ABG Glucose Oxyhemoglobin Carboxyhemoglobin Sodium 147 H Chloride 110.8 H Carbon Dioxide 20 L BUN 113 H Creatinine 4.2 H Glucose 219 H POC Glucose 199 H Hemoglobin A1c Lactic Acid Calcium Phosphorus 6.20 H Magnesium 2.60 H Ferritin AST ALT Lactate Dehydrogenase C-Reactive Protein Total Protein Albumin Arterial Blood Glucose Arterial Blood Ionized Calcium Coronavirus (PCR) 03/20/21 03/20/21 03/20/21 05:16 11:30 16:55 WBC Hgb Hct MCV Plt Count Seg Neuts % (Manual) Lymphocytes % (Manual) Seg Neutrophils # Man Lymphocytes # (Manual) Monocytes # (Manual) PT INR APTT 92.2 H* 71.7 H* D-Dimer ABG pH POC ABG pCO2 POC ABG pO2 ABG pO2 ABG HCO3 ABG O2 Saturation ABG Base Excess ABG Oxyhemoglobin ABG Sodium ABG Potassium ABG Chloride ABG Glucose Oxyhemoglobin Carboxyhemoglobin Sodium Chloride Carbon Dioxide BUN Creatinine Glucose POC Glucose 193 H Hemoglobin A1c Lactic Acid Calcium Phosphorus Magnesium Ferritin AST ALT Lactate Dehydrogenase C-Reactive Protein Total Protein Albumin Arterial Blood Glucose Arterial Blood Ionized Calcium Coronavirus (PCR) 03/20/21 03/21/21 03/21/21 17:30 00:01 04:00 WBC Hgb Hct MCV Plt Count Seg Neuts % (Manual) Lymphocytes % (Manual) Seg Neutrophils # Man Lymphocytes # (Manual) Monocytes # (Manual) PT INR APTT D-Dimer ABG pH 7.240 L POC ABG pCO2 POC ABG pO2 ABG pO2 ABG HCO3 ABG O2 Saturation ABG Base Excess ABG Oxyhemoglobin ABG Sodium ABG Potassium 4.6 H ABG Chloride 110.0 H ABG Glucose 327 H Oxyhemoglobin Carboxyhemoglobin 0.3 L Sodium Chloride Carbon Dioxide BUN Creatinine Glucose POC Glucose 179 H 269 H Hemoglobin A1c Lactic Acid Calcium Phosphorus Magnesium Ferritin AST ALT Lactate Dehydrogenase C-Reactive Protein Total Protein Albumin Arterial Blood Glucose 327 H Arterial Blood Ionized Calcium Coronavirus (PCR) 03/21/21 03/21/21 03/21/21 05:21 06:00 06:00 WBC 26.7 H Hgb 11.2 L Hct 34.5 L MCV 95 H Plt Count 102 L Seg Neuts % (Manual) 89.0 H Lymphocytes % (Manual) 3.0 L Seg Neutrophils # Man 23.8 H Lymphocytes # (Manual) 0.8 L Monocytes # (Manual) 1.1 H PT INR APTT D-Dimer ABG pH POC ABG pCO2 POC ABG pO2 ABG pO2 ABG HCO3 ABG O2 Saturation ABG Base Excess ABG Oxyhemoglobin ABG Sodium ABG Potassium ABG Chloride ABG Glucose Oxyhemoglobin Carboxyhemoglobin Sodium 147 H Chloride 109.5 H Carbon Dioxide 21 L BUN 133 H Creatinine 5.5 H Glucose 324 H POC Glucose 257 H Hemoglobin A1c Lactic Acid Calcium Phosphorus Magnesium Ferritin AST ALT Lactate Dehydrogenase 1063 H C-Reactive Protein 1.90 H Total Protein 4.6 L Albumin 2.2 L Arterial Blood Glucose Arterial Blood Ionized Calcium Coronavirus (PCR) 03/21/21 03/21/21 06:00 06:00 WBC Hgb Hct MCV Plt Count Seg Neuts % (Manual) Lymphocytes % (Manual) Seg Neutrophils # Man Lymphocytes # (Manual) Monocytes # (Manual) PT INR APTT 56.4 H D-Dimer 8137.78 H ABG pH POC ABG pCO2 POC ABG pO2 ABG pO2 ABG HCO3 ABG O2 Saturation ABG Base Excess ABG Oxyhemoglobin ABG Sodium ABG Potassium ABG Chloride ABG Glucose Oxyhemoglobin Carboxyhemoglobin Sodium Chloride Carbon Dioxide BUN Creatinine Glucose POC Glucose Hemoglobin A1c Lactic Acid Calcium Phosphorus Magnesium Ferritin 1431.0 H AST ALT Lactate Dehydrogenase C-Reactive Protein Total Protein Albumin Arterial Blood Glucose Arterial Blood Ionized Calcium Coronavirus (PCR)
--- NOTE | 2021-03-21 12:24 | Electrocardiograph Report ---
[facility] Test Date: 2021-03-20 Test Time: 01:07:46 Pat Name: RAYMOND JOHN Department: Room: A251 1 Gender: M [employer]: RESP : [id number] Requested By: MARTHA HARRISON Order Number: [id number] Reading MD: Marcelina Renee Measurements Intervals [place] Rate: 140 P: 49 CA: 124 QRS: 26 QRSD: 81 T: 79 QT: 307 QTc: 469 Interpretive Statements Sinus tachycardia Nonspecific T abnormalities, lateral leads Compared to ECG 03/19/2021 18:36:00 No significant changes Electronically Signed On 03-21-2021 12:24:10 EDT by Marcelina Renee
--- NOTE | 2021-03-21 18:05 | Progress Note ---
Assessment and Plan Cultures: Blood culture 03/11/2021 no growth today SARS CoV2 PCR positive Respiratory culture 03/20/2021 no growth so far Assessment: 50-year-old male with history of CVA admitted on 03/11/2021 secondary to shortness of breath/altered mental status: #Severe sepsis: secondary to COVID-19. #Severe COVID pneumonia: CXR with bilateral pneumonia. Was unable to complete remdesivir course due to renal failure. Status post Tocilizumab on 03/12/2021, completed antibiotics, remains on steroids. #Acute hypoxemic respiratory failure: failed BiPAP, intubated 03/19/2021. #Bilateral pneumothorax, pneumomediastinum, subcutaneous emphysema from COVID #Elevated LFTs: from COVID. #CHRISTY: started dialysis 03/17. #Acute diarrhea likely secondary to COVID-19. #AMS: likely due to hypoxia. #DM: uncontrolled Recommendations: Follow-up respiratory culture Complete 10 to 14 days of steroids, benefit beyond that is unclear and increases risk of nosocomial infections Status post Actemra 03/12/2021 Status post antibiotics Poor prognosis Sandi Nina MD [facility] ([facility] O: [phone] F: [phone] Subjective Date of service: 03/21/21 Principal diagnosis: COVID-19 Interval history: Afebrile, white count 26.7. Remains on the vent. Sputum culture no white cells, Gram stain negative. Imaging personally reviewed: Chest x-ray: Ongoing bilateral pulmonary infiltrates Objective - Exam Narrative Exam: Physical exam deferred to reduce risk of transmission of COVID-19. Please refer to primary team's note. - Constitutional Vitals: Vital Signs Temp Pulse Resp BP Pulse Ox 97.8 F 118 H 18 117/85 99 03/21/21 16:00 03/21/21 16:30 03/21/21 16:30 03/21/21 16:30 03/21/21 16:30 Temperature -Last 24 Hours Temperature 97.8 F Temperature 97.2 F Temperature 98.7 F Temperature 97.8 F Temperature 98.1 F Temperature 97.9 F - Labs CBC & Chem 7: 03/21/21 06:00 03/21/21 06:00 Labs: Abnormal lab results 03/20/21 03/21/21 03/21/21 Range/Units 05:16 00:01 04:00 WBC (4.5-11.0) K/mm3 Hgb (11.8-15.2) gm/dl Hct (35.5-45.6) % MCV (84-94) fl Plt Count (140-440) K/mm3 Seg Neuts % (Manual) 76.0 H (40.0-70.0) % Lymphocytes % (Manual) (13.4-35.0) % Seg Neutrophils # Man 17.1 H (1.8-7.7) K/mm3 Lymphocytes # (Manual) (1.2-5.4) K/mm3 Monocytes # (Manual) 1.4 H (0.0-0.8) K/mm3 APTT (24.2-36.6) Sec. D-Dimer (0-234) ng/mlDDU ABG pH 7.240 L (7.320-7.450) ABG Potassium 4.6 H (3.40-4.50) mmol/L ABG Chloride 110.0 H (98-107) mmol/L ABG Glucose 327 H (65-95) mg/dL Carboxyhemoglobin 0.3 L (0.5-1.5) Sodium (137-145) mmol/L Chloride (98-107) mmol/L Carbon Dioxide (22-30) mmol/L BUN (9-20) mg/dL Creatinine (0.8-1.3) mg/dL Glucose (75-100) mg/dL POC Glucose 269 H (70-105) mg/dL Ferritin (30.0-300.0) ng/mL Lactate Dehydrogenase (91-180) units/L C-Reactive Protein (0.00-1.30) mg/dL Total Protein (6.3-8.2) g/dL Albumin (3.9-5) g/dL Arterial Blood Glucose 327 H (65-95) mg/dL 03/21/21 03/21/21 03/21/21 Range/Units 05:21 06:00 06:00 WBC 26.7 H (4.5-11.0) K/mm3 Hgb 11.2 L (11.8-15.2) gm/dl Hct 34.5 L (35.5-45.6) % MCV 95 H (84-94) fl Plt Count 102 L (140-440) K/mm3 Seg Neuts % (Manual) 89.0 H (40.0-70.0) % Lymphocytes % (Manual) 3.0 L (13.4-35.0) % Seg Neutrophils # Man 23.8 H (1.8-7.7) K/mm3 Lymphocytes # (Manual) 0.8 L (1.2-5.4) K/mm3 Monocytes # (Manual) 1.1 H (0.0-0.8) K/mm3 APTT (24.2-36.6) Sec. D-Dimer (0-234) ng/mlDDU ABG pH (7.320-7.450) ABG Potassium (3.40-4.50) mmol/L ABG Chloride (98-107) mmol/L ABG Glucose (65-95) mg/dL Carboxyhemoglobin (0.5-1.5) Sodium 147 H (137-145) mmol/L Chloride 109.5 H (98-107) mmol/L Carbon Dioxide 21 L (22-30) mmol/L BUN 133 H (9-20) mg/dL Creatinine 5.5 H (0.8-1.3) mg/dL Glucose 324 H (75-100) mg/dL POC Glucose 257 H (70-105) mg/dL Ferritin (30.0-300.0) ng/mL Lactate Dehydrogenase 1063 H (91-180) units/L C-Reactive Protein 1.90 H (0.00-1.30) mg/dL Total Protein 4.6 L (6.3-8.2) g/dL Albumin 2.2 L (3.9-5) g/dL Arterial Blood Glucose (65-95) mg/dL 03/21/21 03/21/21 03/21/21 Range/Units 06:00 06:00 12:09 WBC (4.5-11.0) K/mm3 Hgb (11.8-15.2) gm/dl Hct (35.5-45.6) % MCV (84-94) fl Plt Count (140-440) K/mm3 Seg Neuts % (Manual) (40.0-70.0) % Lymphocytes % (Manual) (13.4-35.0) % Seg Neutrophils # Man (1.8-7.7) K/mm3 Lymphocytes # (Manual) (1.2-5.4) K/mm3 Monocytes # (Manual) (0.0-0.8) K/mm3 APTT 56.4 H (24.2-36.6) Sec. D-Dimer 8137.78 H (0-234) ng/mlDDU ABG pH (7.320-7.450) ABG Potassium (3.40-4.50) mmol/L ABG Chloride (98-107) mmol/L ABG Glucose (65-95) mg/dL Carboxyhemoglobin (0.5-1.5) Sodium (137-145) mmol/L Chloride (98-107) mmol/L Carbon Dioxide (22-30) mmol/L BUN (9-20) mg/dL Creatinine (0.8-1.3) mg/dL Glucose (75-100) mg/dL POC Glucose 167 H (70-105) mg/dL Ferritin 1431.0 H (30.0-300.0) ng/mL Lactate Dehydrogenase (91-180) units/L C-Reactive Protein (0.00-1.30) mg/dL Total Protein (6.3-8.2) g/dL Albumin (3.9-5) g/dL Arterial Blood Glucose (65-95) mg/dL 03/21/21 Range/Units 17:46 WBC (4.5-11.0) K/mm3 Hgb (11.8-15.2) gm/dl Hct (35.5-45.6) % MCV (84-94) fl Plt Count (140-440) K/mm3 Seg Neuts % (Manual) (40.0-70.0) % Lymphocytes % (Manual) (13.4-35.0) % Seg Neutrophils # Man (1.8-7.7) K/mm3 Lymphocytes # (Manual) (1.2-5.4) K/mm3 Monocytes # (Manual) (0.0-0.8) K/mm3 APTT (24.2-36.6) Sec. D-Dimer (0-234) ng/mlDDU ABG pH (7.320-7.450) ABG Potassium (3.40-4.50) mmol/L ABG Chloride (98-107) mmol/L ABG Glucose (65-95) mg/dL Carboxyhemoglobin (0.5-1.5) Sodium (137-145) mmol/L Chloride (98-107) mmol/L Carbon Dioxide (22-30) mmol/L BUN (9-20) mg/dL Creatinine (0.8-1.3) mg/dL Glucose (75-100) mg/dL POC Glucose 375 H (70-105) mg/dL Ferritin (30.0-300.0) ng/mL Lactate Dehydrogenase (91-180) units/L C-Reactive Protein (0.00-1.30) mg/dL Total Protein (6.3-8.2) g/dL Albumin (3.9-5) g/dL Arterial Blood Glucose (65-95) mg/dL
--- NOTE | 2021-03-21 18:56 | Progress Note ---
Assessment and Plan Impression: * Nonoliguric acute kidney injury vs underlying CKD --Baseline renal function unknown * Acute hypoxic respiratory failure secondary to COVID 19 PNA * COVID 19 infection * Hypotension * Hypernatremia * Transaminitis Plan: * Started HD 03/17 * Stopped HD after 30 minutes during second session due to respiratory distress * Hold further HD until stable, labs overall with acceptable range, elevated BUN noted, steroids likely contributing - soft bps this morning while on levophed * Start hypotonic bicarb fluids today * Hold antihypertensives given soft pressures, recommend discontinuing clonidine patch, can use PO clonidine prn if spikes in bp noted * Vasc cath placed 03/16 * Serologies pending * Remdesevir (hold for GFR<30), steroids, abx per ID * Dose medications for renal function * Avoid potential nephrotoxins * AM labs * Case was discussed in detail with niece including possible complications on HD and consent was obtained for HD prior to initiation * Prognosis guarded Subjective Date of service: 03/21/21 Principal diagnosis: COVID-19 Interval history: Nursing, interdisciplinary and consult notes were reviewed Vitals, input and output, medications and labs were reviewed Remains intubated On Levophed Objective - Exam Narrative Exam: General: Sedated. Intubated HEENT: Oral mucosa moist Neck: Supple, no JVD Chest: Intubated. Mechanical breath sounds Heart: RRR, S1 and S2, no pericardial rub Abdomen: Soft, nontender, no renal bruit Extremity: No peripheral cyanosis, edema Neurological: Sedated. Dermatology: No skin rash Psych: Unable to assess Musculoskeletal: No joint effusion - Vital Signs Vital signs: Vital Signs - 12hr 03/21/21 03/21/21 03/21/21 07:00 07:15 07:30 Temperature Pulse Rate 111 H 113 H 108 H Respiratory 20 20 20 Rate Blood Pressure 83/49 82/47 96/55 O2 Sat by Pulse Oximetry 03/21/21 03/21/21 03/21/21 07:45 08:00 08:15 Temperature 98.7 F Pulse Rate 105 H 117 H 113 H Respiratory 20 20 20 Rate Blood Pressure 96/55 84/48 84/51 O2 Sat by Pulse 95 Oximetry 03/21/21 03/21/21 03/21/21 08:24 08:30 08:45 Temperature Pulse Rate 121 H 118 H 112 H Respiratory 20 20 Rate Blood Pressure 84/51 86/49 91/50 O2 Sat by Pulse 95 95 97 Oximetry 03/21/21 03/21/21 03/21/21 09:00 09:15 09:31 Temperature Pulse Rate 109 H 105 H 115 H Respiratory 20 20 21 Rate Blood Pressure 91/57 102/60 102/60 O2 Sat by Pulse 97 97 95 Oximetry 03/21/21 03/21/21 03/21/21 09:45 10:01 10:15 Temperature Pulse Rate 103 H Respiratory 20 Rate Blood Pressure 102/60 102/60 102/60 O2 Sat by Pulse 96 97 98 Oximetry 03/21/21 03/21/21 03/21/21 10:31 10:45 11:01 Temperature Pulse Rate 100 H 98 H Respiratory 20 20 Rate Blood Pressure 102/60 102/60 102/60 O2 Sat by Pulse 97 97 98 Oximetry 03/21/21 03/21/21 03/21/21 11:15 11:31 11:33 Temperature Pulse Rate 98 H 95 H 96 H Respiratory 20 20 Rate Blood Pressure 102/60 102/60 O2 Sat by Pulse 98 97 97 Oximetry 03/21/21 03/21/21 03/21/21 11:45 12:00 12:15 Temperature 97.2 F L Pulse Rate 96 H 96 H 118 H Respiratory 20 19 21 Rate Blood Pressure 102/60 102/63 95/70 O2 Sat by Pulse 97 97 93 Oximetry 03/21/21 03/21/21 03/21/21 12:30 12:45 13:00 Temperature Pulse Rate 109 H 107 H 103 H Respiratory 20 20 20 Rate Blood Pressure 92/65 91/64 97/66 O2 Sat by Pulse 98 98 97 Oximetry 03/21/21 03/21/21 03/21/21 13:15 13:30 13:45 Temperature Pulse Rate 105 H 119 H 113 H Respiratory 20 21 20 Rate Blood Pressure 104/65 96/74 88/61 O2 Sat by Pulse 99 99 97 Oximetry 03/21/21 03/21/21 03/21/21 14:00 14:15 14:30 Temperature Pulse Rate 111 H 114 H 111 H Respiratory 20 20 18 Rate Blood Pressure 96/57 88/62 88/56 O2 Sat by Pulse 98 98 98 Oximetry 03/21/21 03/21/21 03/21/21 14:45 15:00 15:15 Temperature Pulse Rate 108 H 110 H 111 H Respiratory 20 18 19 Rate Blood Pressure 98/64 98/65 94/63 O2 Sat by Pulse 98 97 98 Oximetry 03/21/21 03/21/21 03/21/21 15:30 15:45 16:00 Temperature 97.8 F Pulse Rate 109 H 113 H 112 H Respiratory 20 21 19 Rate Blood Pressure 106/66 101/65 102/73 O2 Sat by Pulse 97 97 96 Oximetry 03/21/21 03/21/21 03/21/21 16:15 16:28 16:30 Temperature Pulse Rate 109 H 120 H 118 H Respiratory 19 18 Rate Blood Pressure 105/72 105/72 117/85 O2 Sat by Pulse 97 100 99 Oximetry - Lab 03/21/21 06:00 03/21/21 06:00 Most recent lab results ABG pH 7.240 (7.320-7.450) L 03/21/21 04:00 ABG pCO2 25.5 mm Hg 03/18/21 23:23 ABG pO2 71.6 mm Hg (80.0-90.0) L 03/18/21 23:23 ABG HCO3 12.9 mmol/L (20.0-26.0) L 03/18/21 23:23 ABG O2 Saturation 97.1 (0-100) 03/21/21 04:00 Calcium 8.5 mg/dL (8.4-10.2) 03/21/21 06:00 Phosphorus 6.20 mg/dL (2.5-4.5) H 03/20/21 05:16 Magnesium 2.60 mg/dL (1.7-2.3) H 03/20/21 05:16 Urine Sodium 37 mmol/L 03/14/21 Unknown Medications & Allergies - Medications Allergies/Adverse Reactions: Allergies No Known Allergies Allergy (Verified 03/11/21 09:21) Home Medications: Home Medications Medication Instructions Recorded Confirmed Last Taken Type AtorvaSTATin [Lipitor] 10 mg PO QHS 03/14/21 03/14/21 Unknown History Metoprolol [Lopressor TAB] 50 mg PO BID 03/14/21 03/14/21 Unknown History Mycophenolate [Cellcept] 500 mg PO BID 03/14/21 03/14/21 Unknown History NIFEdipine [Nifedipine ER] 90 mg PO BID 03/14/21 03/14/21 Unknown History Ondansetron [Zofran Odt] 4 mg PO Q8HR 03/14/21 03/14/21 Unknown History Tacrolimus 1 mg PO Q12HR 03/14/21 03/14/21 Unknown History Active Medications: Generic Name Dose Route Start Last Admin Trade Name Freq PRN Reason Stop Dose Admin Acetaminophen 650 mg 03/11/21 12:00 03/14/21 03:54 Acetaminophen 325 Mg Tab PO 650 mg Q4H PRN Administration Pain MILD(1-3)/Fever >100.5/[place] Lipase/Protease/Amylase 1 each 03/19/21 17:35 Lipase 10,500/Protease 25,000/Amylase 43,750 (Units) Dr Alegre FEEDTUBE PRN PRN For Clogged Feeding Tube Ascorbic Acid 500 mg 03/11/21 12:00 03/21/21 09:09 Ascorbic Acid 500 Mg Tab PO 500 mg BID GYPSY Administration Cholecalciferol 1,000 unit 03/11/21 13:00 03/21/21 09:09 Cholecalciferol (Vit D3) 1000 Unit (25 Mcg) Tab PO 1,000 unit QDAY GYPSY Administration Clonidine HCl 0.1 mg 03/20/21 08:00 03/20/21 09:12 Clonidine Tts 0.1 Mg/24 Hr Patch TD Not Given Fr GYPSY Dextrose 50 ml 03/13/21 14:44 Dextrose 50% In Water (25gm) 50 Ml Syringe IV Q30MIN PRN Hypoglycemia Protocol Famotidine 20 mg 03/19/21 22:00 03/21/21 09:09 Famotidine 20 Mg/2 Ml Inj IV 20 mg QDAY GYPSY Administration Fentanyl 50 mcg 03/19/21 15:29 Fentanyl 100 Mcg/2 Ml Inj IV Q10MIN PRN ANALGESIA Hydralazine HCl 10 mg 03/14/21 18:13 03/19/21 08:07 Hydralazine 20 Mg/1 Ml Inj IV 10 mg Q6H PRN Administration Hypertension Hydrophilic Ointment 1 applic 03/19/21 15:29 Lip Therapy Vaseline TP Q2HR PRN Dry Lips Dexmedetomidine HCl 400 mcg/ 104 mls @ 3.588 mls/hr 03/16/21 12:00 03/19/21 15:49 Sodium Chloride IV 0 mcg/kg/hr TITRATE GYPSY 0 mls/hr Titration Protocol 0.2 MCG/KG/HR Argatroban 250 mg/ Sodium 250 mls @ 2.07 mls/hr 03/17/21 11:00 03/21/21 07:00 Chloride IV 0.25 mcg/kg/min TITR GYPSY 1.035 mls/hr Titration Protocol 0.5 MCG/KG/MIN Sodium Chloride 100 mls @ 999 mls/hr 03/19/21 10:00 Nacl 0.9% IV OSCAR PRN Hypotension Fentanyl Citrate 2,000 mcg in 100 mls @ 3.45 mls/hr 03/19/21 16:00 03/21/21 09:08 Fentanyl Drip Premix IV 3 mcg/kg/hr TITR GYPSY 10.35 mls/hr Administration Protocol 1 MCG/KG/HR Propofol 1,000 mg in 100 mls @ 2.07 mls/hr 03/19/21 16:00 03/21/21 18:45 Diprivan 10 Mg/Ml IV 30 mcg/kg/min TITR GYPSY 12.42 mls/hr Titration Protocol 5 MCG/KG/MIN Norepinephrine 4 mg in 250 mls @ 7.5 mls/hr 03/20/21 11:00 03/21/21 07:42 Levophed Drip 4 Mg/Ns 250 Ml IV 5 mcg/min TITR GYPSY 18.75 mls/hr Administration Protocol 2 MCG/MIN Insulin Human Lispro 0 unit 03/16/21 13:00 03/21/21 06:36 Insulin Lispro 100 Unit/Ml SUB-Q 6 unit Q6HR GYPSY Administration Protocol Multi-Ingred Cream/Lotion/Oil/Oint 1 applic 03/19/21 15:29 Mineral Oil/Petrolatum, White Ophth Oint 3.5 Gm OU Q4HR PRN Dry Eye(s) Ondansetron HCl 4 mg 03/11/21 12:00 03/15/21 12:08 Ondansetron 4 Mg/2 Ml Inj IV 4 mg Q8H PRN Administration Nausea And Vomiting Senna/Docusate Sodium 1 tab 03/19/21 22:00 03/21/21 09:09 Sennosides/Docusate Sodium 8.6/50 Mg Tab FEEDTUBE 1 tab BID GYPSY Administration Simple Syrup 15 ml 03/19/21 17:35 Simple Syrup 15 Ml FEEDTUBE PRN PRN Hypoglycemia Simple Syrup 30 ml 03/19/21 17:35 Simple Syrup 15 Ml FEEDTUBE PRN PRN Hypoglycemia Sodium Bicarbonate 325 mg 03/19/21 17:35 Sodium Bicarbonate 325 Mg Tab FEEDTUBE PRN PRN For Clogged Feeding Tube Sodium Chloride 10 ml 03/11/21 12:00 03/21/21 09:09 Sodium Chloride 0.9% 10 Ml Flush Syringe IV 10 ml BID GYPSY Administration Sodium Chloride 10 ml 03/11/21 12:00 Sodium Chloride 0.9% 10 Ml Flush Syringe IV PRN PRN LINE FLUSH Sodium Chloride 5 ml 03/19/21 15:29 Sodium Chloride 0.9% 500 Ml Ivpb IV DIRECT PRN ARTERIAL NEON SIGN MAKER Zinc Sulfate 220 mg 03/11/21 12:00 03/21/21 09:09 Zinc Sulfate 220 Mg Cap PO 220 mg BID GYPSY Administration
[2021-03-21] MEDS: SODIUM BICARBONATE 100 MEQ in WATER FOR INJECTION (PF) 1,000 ML IV SCH (20:11)
[2021-03-22] MEDS: fentaNYL DRIP Premix 2,000 MCG/100 ML BAG IV SCH ×3 (02:03→22:29)
[2021-03-22] MEDS: INSULIN LISPRO 100 UNIT/ML SUB-Q SCH ×4 (02:06→18:20)
[2021-03-22] MEDS: SODIUM BICARBONATE 100 MEQ in WATER FOR INJECTION (PF) 1,000 ML IV SCH (02:57)
[2021-03-22 07:37] LABS: Hematocrit 33.7 % (35.5-45.6); Hemoglobin 11.2 gm/dl (11.8-15.2); Mean Corpuscular HGB Conc 33 % (32-34); Mean Corpuscular Volume 93 fl (84-94); Red Blood Count 3.61 M/mm3 (3.65-5.03); Red Cell Distribution Width 14.3 % (13.2-15.2)
[2021-03-22 07:46] LABS: Albumin 2.2 g/dL (3.9-5); Calcium 8.3 mg/dL (8.4-10.2)
[2021-03-22 07:52] LABS: Platelet Count 86 K/mm3 (140-440)
[2021-03-22 08:01] LABS: C-Reactive Protein 2.2 mg/dL (0.00-1.30)
--- NOTE | 2021-03-22 08:48 | Progress Note ---
Assessment and Plan Assessment and plan: 50-year-old male history of CVA who presented with difficulty breathing. Found to have COVID-19 infection and was admitted for acute hypoxic respiratory failure and pneumonia. Intubated on 03/19 after severe respiratory distress. Prognosis remains guarded. Hospital Course to date: 03/20/2021: Pulm recs noted. Wean fio2 as sats tolerate >88%. Guarded prognosis. Continue supportive management. 03/21/2021: Could not get dialysis completed yesterday. Plan for dialysis today. Discussed with RN to titrate levo gtt down 03/22/2021: HR elevated to 138 on encounter BP 90/50's. Ordered 1l LR bolus. Will continue fliud resuscitation. Continue supportive care. Assessment and Plan: Neuro, #History of CVA - Sedated, RAAS goal: -1 -arms appear retracted, per family patient has history of CVA and this has been his baseline since that time. Cardio #Shock, # Tachycardia -Clonidine patch -on levaphed gtt, wean as MAPS tolerate. Respiratory #Acute hypoxic respiratory failure #Severe ARDS -patient with tachypnea and tachycardia -intubated (03/19) after code d/t patient respiratory distress. - Vent management per PCCM -Continue precedex drip for discomfort -low threshold for intubation if continues to be tachypneic; discussed with Dr. Cruz -continue steroids -Pulmonary following, appreciate assistance #Subcutaneous emphysema -Continue to monitor #Apical pneumothorax -too small to require chest tube placement -We will continue to monitor, and if it expands will consider possible chest tube placement GI -tube feeds, nepro goal 35 cc/hr #CHRISTY due to vasomotor nephropathy -SCr 3.2 -remdesivir held -Nephrology following, appreciate assistance -Hemodialysis initiated and will continue with TTS schedule #Hypernatremia-resolved -Sodium now 144 Heme #thrombocytopenia, presumed PE/DVT - hemoglobin stable, no active sites of bleeding noted. - plt recovering, continue argatroban ID #Severe sepsis -secondary to COVID-19 and PNA -BCx ordered, NGTD -continue current management #Severe COVID-19 pneumonia -unvaccinated -steroids, COVID vitamins -Remdesivir held due to renal function -s/p Actemra -ID following, appreciate assistance -inflammatory markers q48hr - continue rocephin and azithromycin for now Endo #Type 2 diabetes -A1c 8.2% -Glucose in 115 to 400 range -Goal glucose 140-180s -continue lantus 15 units daily -SSI adjusted to q6h -If continues to have elevated sugars, will consider insulin drip The high probability of a clinically significant, sudden or life threatening deterioration of the [pulmonary, neuro, cardiac] system(s) required my full and direct attention, intervention and personal management. The aggregate critical care time was [60] minutes. This time is in addition to time spent performing reported procedures but includes the following: [x] Data Review and interpretation [x] Patient assessment and monitoring of vital signs [x] Documentation [x] Medication orders and management History Interval history: Remains intubated and sedated. Hospitalist Physical - Physical exam Narrative exam: Constitutional: other (on hiflo) Eyes: non-icteric Neck: supple Ascultation: Bilateral: diminished breath sounds Cardiovascular: regular rate and rhythm Gastrointestinal: normoactive bowel sounds, soft, non-tender Extremities: other (decreased rom/ movement of lue mild contractures) - Constitutional Vitals: Temp Pulse Resp BP Pulse Ox 100.2 F H 137 H 13 103/64 92 03/22/21 08:05 03/22/21 08:09 03/22/21 06:15 03/22/21 08:09 03/22/21 08:09 General appearance: Present: no acute distress HEART Score - HEART Score EKG: Non-specific Age: 45-65 Risk factors: 1-2 risk factors Troponin: Troponin T < 0.010 ng/mL (0.00-0.029) 03/11/21 09:41 - Critical Actions Critical Actions: 4-6 pts:12-16.6% risk of adverse cardiac event. Should be admitted Results - Labs CBC & Chem 7: 03/22/21 06:50 03/22/21 06:50 Labs: Laboratory Last Values WBC 18.5 K/mm3 (4.5-11.0) H 03/22/21 06:50 RBC 3.61 M/mm3 (3.65-5.03) L 03/22/21 06:50 Hgb 11.2 gm/dl (11.8-15.2) L 03/22/21 06:50 Hct 33.7 % (35.5-45.6) L 03/22/21 06:50 MCV 93 fl (84-94) 03/22/21 06:50 MCH 31 pg (28-32) 03/22/21 06:50 MCHC 33 % (32-34) 03/22/21 06:50 RDW 14.3 % (13.2-15.2) 03/22/21 06:50 Plt Count 86 K/mm3 (140-440) L 03/22/21 06:50 Add Manual Diff Complete 03/21/21 06:00 Total Counted 100 03/21/21 06:00 Seg Neutrophils % Vine Pruner 03/22/21 06:50 Seg Neuts % (Manual) 89.0 % (40.0-70.0) H 03/21/21 06:00 Band Neutrophils % 4.0 % 03/21/21 06:00 Lymphocytes % (Manual) 3.0 % (13.4-35.0) L 03/21/21 06:00 Monocytes % (Manual) 4.0 % (0.0-7.3) 03/21/21 06:00 Nucleated RBC % Not Reportable 03/21/21 06:00 Seg Neutrophils # Man 23.8 K/mm3 (1.8-7.7) H 03/21/21 06:00 Band Neutrophils # 1.1 K/mm3 03/21/21 06:00 Lymphocytes # (Manual) 0.8 K/mm3 (1.2-5.4) L 03/21/21 06:00 Abs React Lymphs (Man) 0.0 K/mm3 03/21/21 06:00 Monocytes # (Manual) 1.1 K/mm3 (0.0-0.8) H 03/21/21 06:00 Eosinophils # (Manual) 0.0 K/mm3 (0.0-0.4) 03/21/21 06:00 Basophils # (Manual) 0.0 K/mm3 (0.0-0.1) 03/21/21 06:00 Metamyelocytes # 0.0 K/mm3 03/21/21 06:00 Myelocytes # 0.0 K/mm3 03/21/21 06:00 Promyelocytes # 0.0 K/mm3 03/21/21 06:00 Blast Cells # 0.0 K/mm3 03/21/21 06:00 WBC Morphology Not Reportable 03/21/21 06:00 WBC Morphology TNR 03/21/21 06:00 Hypersegmented Neuts Not Reportable 03/21/21 06:00 Hyposegmented Neuts Not Reportable 03/21/21 06:00 Hypogranular Neuts Not Reportable 03/21/21 06:00 Smudge Cells Not Reportable 03/21/21 06:00 Toxic Granulation Not Reportable 03/21/21 06:00 Toxic Vacuolation Not Reportable 03/21/21 06:00 Dohle Bodies Not Reportable 03/21/21 06:00 Pelger-Huet Anomaly Not Reportable 03/21/21 06:00 Fina Rods Not Reportable 03/21/21 06:00 Platelet Estimate Not Reportable 03/21/21 06:00 Clumped Platelets Not Reportable 03/21/21 06:00 Plt Clumps, EDTA Not Reportable 03/21/21 06:00 Large Platelets Not Reportable 03/21/21 06:00 Giant Platelets Not Reportable 03/21/21 06:00 Platelet Satelliting Not Reportable 03/21/21 06:00 Plt Morphology Comment Not Reportable 03/21/21 06:00 RBC Morphology Not Reportable 03/21/21 06:00 Dimorphic RBCs Not Reportable 03/21/21 06:00 Polychromasia Not Reportable 03/21/21 06:00 Hypochromasia Not Reportable 03/21/21 06:00 Poikilocytosis Not Reportable 03/21/21 06:00 Anisocytosis 1+ 03/21/21 06:00 Microcytosis Not Reportable 03/21/21 06:00 Macrocytosis Not Reportable 03/21/21 06:00 Spherocytes Not Reportable 03/21/21 06:00 Pappenheimer Bodies Not Reportable 03/21/21 06:00 Sickle Cells Not Reportable 03/21/21 06:00 Target Cells Not Reportable 03/21/21 06:00 Tear Drop Cells Not Reportable 03/21/21 06:00 Ovalocytes Not Reportable 03/21/21 06:00 Helmet Cells Not Reportable 03/21/21 06:00 Perdue-Mcdade Bodies Not Reportable 03/21/21 06:00 [place] Rings Not Reportable 03/21/21 06:00 Trav Cells Not Reportable 03/21/21 06:00 Bite Cells Not Reportable 03/21/21 06:00 Crenated Cell Not Reportable 03/21/21 06:00 Elliptocytes Not Reportable 03/21/21 06:00 Acanthocytes (Spur) Not Reportable 03/21/21 06:00 Rouleaux Not Reportable 03/21/21 06:00 Hemoglobin C Crystals Not Reportable 03/21/21 06:00 Schistocytes Not Reportable 03/21/21 06:00 Malaria parasites Not Reportable 03/21/21 06:00 [place] Bodies Not Reportable 03/21/21 06:00 Hem Pathologist Commnt No 03/21/21 06:00 PT 22.4 Sec. (12.2-14.9) H 03/17/21 09:19 INR 1.92 (0.87-1.13) H 03/17/21 09:19 APTT 51.9 Sec. (24.2-36.6) H 03/21/21 18:52 D-Dimer 5570.24 ng/mlDDU (0-234) H 03/22/21 06:50 ABG pH 7.240 (7.320-7.450) L 03/21/21 04:00 POC ABG pCO2 47.9 mmHg (32.0-48.0) 03/21/21 04:00 ABG pCO2 25.5 mm Hg 03/18/21 23:23 POC ABG pO2 105.7 mmHg (83-108) 03/21/21 04:00 ABG pO2 71.6 mm Hg (80.0-90.0) L 03/18/21 23:23 POC ABG HCO3 20.1 03/21/21 04:00 ABG HCO3 12.9 mmol/L (20.0-26.0) L 03/18/21 23:23 ABG O2 Saturation 97.1 (0-100) 03/21/21 04:00 ABG O2 Content 19.9 (0.0-44) 03/18/21 23:23 POC ABG Base Excess -7.3 03/21/21 04:00 ABG Base Excess -11.1 mmol/L (-2.0-3.0) L 03/18/21 23:23 ABG Hemoglobin 12.1 (12.0-17.5) 03/21/21 04:00 ABG Oxyhemoglobin 96.7 (94-98) 03/21/21 04:00 ABG Carboxyhemoglobin 0.9 % (0.0-5.0) 03/18/21 23:23 ABG Methemoglobin 0.1 (0.0-1.5) 03/21/21 04:00 ABG Sodium 142.9 mmol/L (136.0-145.0) 03/21/21 04:00 ABG Potassium 4.6 mmol/L (3.40-4.50) H 03/21/21 04:00 ABG Chloride 110.0 mmol/L (98-107) H 03/21/21 04:00 ABG Glucose 327 mg/dL (65-95) H 03/21/21 04:00 Oxyhemoglobin 91.0 % (95.0-99.0) L 03/18/21 23:23 Carboxyhemoglobin 0.3 (0.5-1.5) L 03/21/21 04:00 FiO2 100 % 03/18/21 23:23 FiO2 % 60.0 03/21/21 04:00 Sodium 138 mmol/L (137-145) D 03/22/21 06:50 Potassium 3.9 mmol/L (3.6-5.0) 03/22/21 06:50 Chloride 97.4 mmol/L (98-107) L 03/22/21 06:50 Carbon Dioxide 27 mmol/L (22-30) 03/22/21 06:50 Anion Gap 18 mmol/L 03/22/21 06:50 BUN 102 mg/dL (9-20) H 03/22/21 06:50 Creatinine 4.6 mg/dL (0.8-1.3) H 03/22/21 06:50 Estimated GFR 17 ml/min 03/22/21 06:50 BUN/Creatinine Ratio 22 % 03/22/21 06:50 Glucose 282 mg/dL (75-100) H 03/22/21 06:50 POC Glucose 219 mg/dL (70-105) H 03/22/21 06:10 Hemoglobin A1c 8.2 % (4-6) H 03/14/21 04:44 Lactic Acid 1.60 mmol/L (0.7-2.0) 03/12/21 00:08 Calcium 8.3 mg/dL (8.4-10.2) L 03/22/21 06:50 Phosphorus 6.20 mg/dL (2.5-4.5) H 03/20/21 05:16 Magnesium 2.60 mg/dL (1.7-2.3) H 03/20/21 05:16 Ferritin 1282.0 ng/mL (30.0-300.0) H 03/22/21 06:50 Total Bilirubin 0.50 mg/dL (0.1-1.2) 03/22/21 06:50 Direct Bilirubin < 0.2 mg/dL (0-0.2) 03/17/21 09:19 Indirect Bilirubin 0.4 mg/dL 03/17/21 09:19 AST 24 units/L (5-40) 03/22/21 06:50 ALT 21 units/L (7-56) 03/22/21 06:50 Alkaline Phosphatase 114 units/L (35-129) 03/22/21 06:50 Lactate Dehydrogenase 1126 units/L (91-180) H 03/22/21 06:50 Troponin T < 0.010 ng/mL (0.00-0.029) 03/11/21 09:41 C-Reactive Protein 2.20 mg/dL (0.00-1.30) H 03/22/21 06:50 Total Protein 4.6 g/dL (6.3-8.2) L 03/22/21 06:50 Albumin 2.2 g/dL (3.9-5) L 03/22/21 06:50 Albumin/Globulin Ratio 0.9 % 03/22/21 06:50 Triglycerides 731 mg/dL (2-149) H 03/22/21 06:50 Procalcitonin 4.61 ng/mL (<0.15) 03/11/21 09:41 Arterial Blood Glucose 327 mg/dL (65-95) H 03/21/21 04:00 Arterial Blood Ionized Calcium 4.8 mg/dL (4.6-5.3) 03/20/21 04:30 Urine Color Yellow (Yellow) 03/11/21 Unknown Urine Turbidity Clear (Clear) 03/11/21 Unknown Urine pH 6.0 (5.0-7.0) 03/11/21 Unknown Ur Specific [place] 1.011 (1.003-1.030) 03/11/21 Unknown Urine Protein >500 mg/dL (Negative) 03/11/21 Unknown Urine Glucose (UA) 50 mg/dL (Negative) 03/11/21 Unknown Urine Ketones 20 mg/dL (Negative) 03/11/21 Unknown Urine Blood Lg (Negative) 03/11/21 Unknown Urine Nitrite Neg (Negative) 03/11/21 Unknown Urine Bilirubin Neg (Negative) 03/11/21 Unknown Urine Urobilinogen < 2.0 mg/dL (<2.0) 03/11/21 Unknown Ur Leukocyte Esterase Neg (Negative) 03/11/21 Unknown Urine WBC (Auto) 1.0 /HPF (0.0-6.0) 03/11/21 Unknown Urine RBC (Auto) 1.0 /HPF (0.0-6.0) 03/11/21 Unknown Urine Sodium 37 mmol/L 03/14/21 Unknown Urine Urea Nitrogen 818 03/14/21 Unknown Proteinase 3 (PR3) Ab <1.0 AI (<1.0) 03/16/21 04:14 Myeloperoxidase Ab <1.0 AI (<1.0) 03/16/21 04:14 Glomerular Base Mem IgG See scanned result 03/16/21 04:14 Complement C3 131 mg/dL (82-185) 03/16/21 04:14 Complement C4 38 mg/dL (15-53) 03/16/21 04:14 Coronavirus (PCR) Positive (Negative) A 03/11/21 Unknown Hepatitis A IgM Ab Non-reactive (NonReactive) 03/18/21 09:03 Hep Bs Antigen Nonreactive (Negative) 03/18/21 09:03 Hep B Core IgM Ab Non-reactive (NonReactive) 03/18/21 09:03 Hepatitis C Antibody Non-reactive (NonReactive) 03/18/21 09:03 [place]/IV: Voiding Method Indwelling Catheter Active Medications - Current Medications Current Medications: Generic Name Dose Route Start Last Admin Trade Name Freq PRN Reason Stop Dose Admin Acetaminophen 650 mg 03/11/21 12:00 03/14/21 03:54 Acetaminophen 325 Mg Tab PO 650 mg Q4H PRN Administration Pain MILD(1-3)/Fever >100.5/[place] Lipase/Protease/Amylase 1 each 03/19/21 17:35 Lipase 10,500/Protease 25,000/Amylase 43,750 (Units) Dr Alegre FEEDTUBE PRN PRN For Clogged Feeding Tube Ascorbic Acid 500 mg 03/11/21 12:00 03/21/21 21:59 Ascorbic Acid 500 Mg Tab PO 500 mg BID GYPSY Administration Cholecalciferol 1,000 unit 03/11/21 13:00 03/21/21 09:09 Cholecalciferol (Vit D3) 1000 Unit (25 Mcg) Tab PO 1,000 unit QDAY GYPSY Administration Clonidine HCl 0.1 mg 03/20/21 08:00 03/20/21 09:12 Clonidine Tts 0.1 Mg/24 Hr Patch TD Not Given Fr GYPSY Dextrose 50 ml 03/13/21 14:44 Dextrose 50% In Water (25gm) 50 Ml Syringe IV Q30MIN PRN Hypoglycemia Protocol Famotidine 20 mg 03/19/21 22:00 03/21/21 09:09 Famotidine 20 Mg/2 Ml Inj IV 20 mg QDAY GYPSY Administration Fentanyl 50 mcg 03/19/21 15:29 Fentanyl 100 Mcg/2 Ml Inj IV Q10MIN PRN ANALGESIA Hydralazine HCl 10 mg 03/14/21 18:13 03/19/21 08:07 Hydralazine 20 Mg/1 Ml Inj IV 10 mg Q6H PRN Administration Hypertension Hydrophilic Ointment 1 applic 03/19/21 15:29 Lip Therapy Vaseline TP Q2HR PRN Dry Lips Dexmedetomidine HCl 400 mcg/ 104 mls @ 3.588 mls/hr 03/16/21 12:00 03/19/21 15:49 Sodium Chloride IV 0 mcg/kg/hr TITRATE GYPSY 0 mls/hr Titration Protocol 0.2 MCG/KG/HR Argatroban 250 mg/ Sodium 250 mls @ 2.07 mls/hr 03/17/21 11:00 03/21/21 22:03 Chloride IV 0.75 mcg/kg/min TITR GYPSY 3.105 mls/hr Titration Protocol 0.5 MCG/KG/MIN Sodium Chloride 100 mls @ 999 mls/hr 03/19/21 10:00 Nacl 0.9% IV OSCAR PRN Hypotension Fentanyl Citrate 2,000 mcg in 100 mls @ 3.45 mls/hr 03/19/21 16:00 03/22/21 04:40 Fentanyl Drip Premix IV 2 mcg/kg/hr TITR GYPSY 6.9 mls/hr Titration Protocol 1 MCG/KG/HR Propofol 1,000 mg in 100 mls @ 2.07 mls/hr 03/19/21 16:00 03/22/21 06:29 Diprivan 10 Mg/Ml IV 30 mcg/kg/min TITR GYPSY 12.42 mls/hr Administration Protocol 5 MCG/KG/MIN Norepinephrine 4 mg in 250 mls @ 7.5 mls/hr 03/20/21 11:00 03/21/21 21:58 Levophed Drip 4 Mg/Ns 250 Ml IV 4 mcg/min TITR GYPSY 15 mls/hr Administration Protocol 2 MCG/MIN Sodium Bicarbonate 100 meq/ 1,100 mls @ 150 mls/hr 03/21/21 19:00 03/22/21 02:57 Sterile Water IV 03/26/21 02:19 150 mls/hr DIRECT GYPSY Administration Insulin Human Lispro 0 unit 03/16/21 13:00 03/22/21 02:06 Insulin Lispro 100 Unit/Ml SUB-Q 4 unit Q6HR GYPSY Administration Protocol Multi-Ingred Cream/Lotion/Oil/Oint 1 applic 03/19/21 15:29 Mineral Oil/Petrolatum, White Ophth Oint 3.5 Gm OU Q4HR PRN Dry Eye(s) Ondansetron HCl 4 mg 03/11/21 12:00 03/15/21 12:08 Ondansetron 4 Mg/2 Ml Inj IV 4 mg Q8H PRN Administration Nausea And Vomiting Senna/Docusate Sodium 1 tab 03/19/21 22:00 03/21/21 21:59 Sennosides/Docusate Sodium 8.6/50 Mg Tab FEEDTUBE 1 tab BID GYPSY Administration Simple Syrup 15 ml 03/19/21 17:35 Simple Syrup 15 Ml FEEDTUBE PRN PRN Hypoglycemia Simple Syrup 30 ml 03/19/21 17:35 Simple Syrup 15 Ml FEEDTUBE PRN PRN Hypoglycemia Sodium Bicarbonate 325 mg 03/19/21 17:35 Sodium Bicarbonate 325 Mg Tab FEEDTUBE PRN PRN For Clogged Feeding Tube Sodium Chloride 10 ml 03/11/21 12:00 03/22/21 02:04 Sodium Chloride 0.9% 10 Ml Flush Syringe IV 10 ml BID GYPSY Administration Sodium Chloride 10 ml 03/11/21 12:00 Sodium Chloride 0.9% 10 Ml Flush Syringe IV PRN PRN LINE FLUSH Sodium Chloride 5 ml 03/19/21 15:29 Sodium Chloride 0.9% 500 Ml Ivpb IV DIRECT PRN [employer] Zinc Sulfate 220 mg 03/11/21 12:00 03/21/21 21:59 Zinc Sulfate 220 Mg Cap PO 220 mg BID GYPSY Administration Nutrition/Malnutrition Assess - Dietary Evaluation Nutrition/Malnutrition Findings: Nutrition Notes Start: 03/14/21 12:54 Freq: Status: Active Protocol: Document 03/19/21 17:22 GB (Rec: 03/19/21 17:31 GB [id number]) Nutrition Notes Need for Assessment generated from: MD Order Initial or Follow up Brief Note Other Pertinent Diagnosis consult for TF Current Diet regular w/consistent carbohydrate Labs/Tests 03/18: (BUN 70, creatinine 2.5, glucose 258) all elevated [id number] and fluctuating Ca 8.2 low Pertinent Medications Vit C, Vit D3, Zn Sulfate Height 5 ft 11 in Weight 69 kg [place] Body Weight (kg) 78.18 BMI 21.2 Subjective/Other Information TF: recommend Osmolite 1.5 with goal of 45ml/hr continuous to meet 80% or greater of estimated energy needs. Percent of energy/protein needs met: TF will meet 80% or greater. #1 Nutrition Diagnosis Malnutrition Comments: Pt on continuous BiPaP @90%. Interferes with energy intake. Recommend NGT/PEG/TPN. 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 No Is Patient Ambulatory and/or Out of Bed No REE-([facility]-confined to bed) 1902.336 Kcal/Kg value to use for calculation 29 Approximate Energy Requirements Using 2001 kcal/Kg Calculation Used for Recommendations Kcal/kg Additional Notes Protein: 1-1.2 g/kg @69k- 83g Fluids: 1 ml/kcal or per MD Nutrition Intervention Change Diet Order: If ability to eat PO does not improve in 2 days recommend NGT/PEG/TPN Nutrition Support: Osmolite 1.5 @45ml/hr with flush of 100ml/4hrs Kcal 1,620 Protein (gm) 68 Fat (gm) 53 Fluid (mL) 823 % RDI: 80% or greater Goal #1 Tolerate TF formula. Goal #2 Tolerate goal rate of 45ml/hr. Goal #3 weight to maintain within +/-3 % current weight during LOS Follow-Up By: 03/23/21 Additional Comments TF order entered 03/19
[2021-03-22] MEDS ORDERED: LACTATED RINGERS 1,000 ML IV SCH (09:00)
[2021-03-22 10:12] LABS: Band Neutrophils # (Manual) 0.2 K/mm3; Smudge Cells 1+; Total Cells Counted 100
[2021-03-22 10:16] LABS: Platelet Estimate Consistent w Auto; Schistocytes Rare
[2021-03-22] MEDS: SENNOSIDES/DOCUSATE SODIUM 8.6/50 MG TAB FEEDTUBE SCH ×2 (10:26→21:09)
[2021-03-22] MEDS: CHOLECALCIFEROL (VIT D3) 1000 UNIT (25 mcg) TAB PO SCH (10:26)
[2021-03-22] MEDS: ASCORBIC ACID 500 MG TAB PO SCH ×2 (10:26→21:10)
[2021-03-22] MEDS: ZINC SULFATE 220 MG CAP PO SCH ×2 (10:27→21:10)
[2021-03-22] MEDS: FAMOTIDINE 20 MG/2 ML INJ IV SCH (10:27)
[2021-03-22] MEDS ORDERED: LACTATED RINGERS 2,000 ML IV ONE (12:05)
[2021-03-22] MEDS ORDERED: LORazepam 2 MG/ML VIAL IV PRN (12:44)
--- NOTE | 2021-03-22 12:55 | Progress Note ---
Assessment and Plan 50 y/o male with acute respiratory failure secondary to COVID 19 03/22/21: Order bilateral upper ext venous and arterial dopplers. Patient already on argatroban therapy with thrombocytopenia. Stopping diprovan secondary to elevated triglyceride level and added ativan drip. I dropped fiO2 to 45% while in room. Sats stable. will start to wean PEEP tomorrow. No ABG done this am and if it was, it did not cross over. Will order now. May need to place art line if able. Feel fingers on left hand are likely not going to recover. Can ask vascular to look tomorrow after dopplers are done. Very very guarded to poor prognosis. 03/21/21: Continue current level of supportive care. Hopeful HD today. Continue to wean FiO2. Ok with pH where it is as long as it stay above 7.2. Guarded prognosis. 03/20/21: Continue current level of sedations. Wean FiO2 for sats >88%. Once FiO2 around 45-50% can start weaning PEEP. No current indication for chest tube as of yet. HD per renal. very very guarded to poor prognosis with COVID and renal failure. Platelets continue to improve so continue argatroban therapy. CCT 31 minutes 03/19/21: DIalysis today. Asked nursing to max out precedex. Continue Argatroban. Platelets better. Continue to attempt not to intubate given the elevated mortality rate, would prefer not to intubate if able. Very very guarded prognosis. 03/17/21: Hopeful dialysis today. Ordered stat CXR and does shows small apical PTX, slightly larger but still not a point that I feel needs CT placement. Will repeat later this afternoon. Will have RT turn of oxygen and attempt to wean pressure to help with resorption. Prognosis overall remains guarded to poor, especially with renal dysfunction plus COVID. D-Dimer now is >10K, however platelets dropping on heparin. Stopping Sub Q prophylactic therapy, checking bilateral dopplers and will send hiT PANEL. May consider doing argatroban therapy. 03/16/21: Vascath placed. Minerva at [phone] is the point of contact and decision maker. She has consented for vascath. Also discussed the possibility that patient may require mechanical ventilator in the near future if no improvement. Will attempt to use precedex to help keep patient calm so that bipap/avaps can work. Volume removal per renal. Guarded prognosis. : Hold on increasing steroids as of now. Prone if able. Continue AVAPS today but spoke with RT about weaning FiO2 for sats >88%. Monitor fluids. No lasix right now given renal dysfunction. Reviewed ID note and agree with their plan and assessment. Guarded prognosis. 1. Prone if able 2. Wean bipap to HFNC if able 3. Steroids, may need to increase 4. Does not appear to be a candidate for remdesivir given renal failure 5. May be able to get actemra 6. Minimize additional fluids 7. Guarded prognosis given renal failure and COVID state. Subjective Date of service: 03/22/21 Principal diagnosis: COVID-19 Interval history: Limited HD on yesterday. Currently on Levophed 4. Blue digits on left hand and both hands are ice cold. Made some urine on yesterday with perera placed. Sedated but diprovan has to be stopped secondary to elevated triglycerides. Objective Vital Signs - 12hr 03/22/21 03/22/21 03/22/21 01:00 01:15 01:30 Temperature Pulse Rate 120 H 119 H 122 H Pulse Rate [ From Monitor] Pulse Rate [ Left Dorsalis Pedis] Pulse Rate [ Left Radial] Pulse Rate [ Right Dorsalis Pedis] Pulse Rate [ Right Radial] Respiratory 21 21 20 Rate Blood Pressure 100/62 87/61 84/57 O2 Sat by Pulse 98 98 97 Oximetry 03/22/21 03/22/21 03/22/21 01:45 02:00 02:15 Temperature Pulse Rate 117 H 120 H 114 H Pulse Rate [ From Monitor] Pulse Rate [ Left Dorsalis Pedis] Pulse Rate [ Left Radial] Pulse Rate [ Right Dorsalis Pedis] Pulse Rate [ Right Radial] Respiratory 21 20 22 Rate Blood Pressure 94/59 101/68 99/68 O2 Sat by Pulse 98 97 97 Oximetry 03/22/21 03/22/21 03/22/21 02:30 02:45 03:00 Temperature Pulse Rate 120 H 121 H 120 H Pulse Rate [ From Monitor] Pulse Rate [ Left Dorsalis Pedis] Pulse Rate [ Left Radial] Pulse Rate [ Right Dorsalis Pedis] Pulse Rate [ Right Radial] Respiratory 20 18 21 Rate Blood Pressure 84/57 91/59 88/60 O2 Sat by Pulse 95 95 94 Oximetry 03/22/21 03/22/21 03/22/21 03:15 03:31 03:45 Temperature Pulse Rate 140 H 131 H 124 H Pulse Rate [ From Monitor] Pulse Rate [ Left Dorsalis Pedis] Pulse Rate [ Left Radial] Pulse Rate [ Right Dorsalis Pedis] Pulse Rate [ Right Radial] Respiratory 21 18 18 Rate Blood Pressure 89/59 89/59 89/59 O2 Sat by Pulse 91 100 94 Oximetry 03/22/21 03/22/21 03/22/21 04:00 04:01 04:15 Temperature 99.9 F H Pulse Rate 132 H 148 H 131 H Pulse Rate [ 132 H From Monitor] Pulse Rate [ Left Dorsalis Pedis] Pulse Rate [ Left Radial] Pulse Rate [ Right Dorsalis Pedis] Pulse Rate [ Right Radial] Respiratory 16 12 Rate Blood Pressure 113/79 101/61 O2 Sat by Pulse 95 87 94 Oximetry 03/22/21 03/22/21 03/22/21 04:30 04:44 04:45 Temperature Pulse Rate 129 H 130 H 130 H Pulse Rate [ From Monitor] Pulse Rate [ Left Dorsalis Pedis] Pulse Rate [ Left Radial] Pulse Rate [ Right Dorsalis Pedis] Pulse Rate [ Right Radial] Respiratory 10 L 12 Rate Blood Pressure 95/63 93/63 93/63 O2 Sat by Pulse 94 93 93 Oximetry 03/22/21 03/22/21 03/22/21 05:00 05:15 05:31 Temperature Pulse Rate 132 H 129 H 131 H Pulse Rate [ From Monitor] Pulse Rate [ Left Dorsalis Pedis] Pulse Rate [ Left Radial] Pulse Rate [ Right Dorsalis Pedis] Pulse Rate [ Right Radial] Respiratory 11 L 13 12 Rate Blood Pressure 91/59 84/58 103/66 O2 Sat by Pulse 90 93 93 Oximetry 03/22/21 03/22/21 03/22/21 05:45 06:00 06:15 Temperature Pulse Rate 158 H 135 H 133 H Pulse Rate [ From Monitor] Pulse Rate [ Left Dorsalis Pedis] Pulse Rate [ Left Radial] Pulse Rate [ Right Dorsalis Pedis] Pulse Rate [ Right Radial] Respiratory 26 H 12 13 Rate Blood Pressure 103/66 109/73 94/67 O2 Sat by Pulse 74 L 91 89 Oximetry 03/22/21 03/22/21 03/22/21 06:30 06:45 07:00 Temperature Pulse Rate 140 H 135 H 138 H Pulse Rate [ From Monitor] Pulse Rate [ Left Dorsalis Pedis] Pulse Rate [ Left Radial] Pulse Rate [ Right Dorsalis Pedis] Pulse Rate [ Right Radial] Respiratory 11 L 13 11 L Rate Blood Pressure 104/67 90/63 100/62 O2 Sat by Pulse 91 93 89 Oximetry 03/22/21 03/22/21 03/22/21 07:15 07:30 07:45 Temperature Pulse Rate 136 H 138 H 136 H Pulse Rate [ From Monitor] Pulse Rate [ Left Dorsalis Pedis] Pulse Rate [ Left Radial] Pulse Rate [ Right Dorsalis Pedis] Pulse Rate [ Right Radial] Respiratory 11 L 10 L 12 Rate Blood Pressure 95/62 98/60 101/66 O2 Sat by Pulse 89 88 89 Oximetry 03/22/21 03/22/21 03/22/21 08:00 08:05 08:09 Temperature 100.2 F H Pulse Rate 136 H 137 H Pulse Rate [ 144 H From Monitor] Pulse Rate [ 144 H Left Dorsalis Pedis] Pulse Rate [ 144 H Left Radial] Pulse Rate [ 144 H Right Dorsalis Pedis] Pulse Rate [ 144 H Right Radial] Respiratory 12 Rate Blood Pressure 103/64 103/64 O2 Sat by Pulse 90 92 Oximetry 03/22/21 03/22/21 03/22/21 08:15 08:31 08:45 Temperature Pulse Rate 134 H 144 H 144 H Pulse Rate [ From Monitor] Pulse Rate [ Left Dorsalis Pedis] Pulse Rate [ Left Radial] Pulse Rate [ Right Dorsalis Pedis] Pulse Rate [ Right Radial] Respiratory 18 23 15 Rate Blood Pressure 102/68 97/76 95/67 O2 Sat by Pulse 99 92 95 Oximetry 03/22/21 03/22/21 03/22/21 09:00 09:15 09:30 Temperature Pulse Rate 143 H 140 H 142 H Pulse Rate [ From Monitor] Pulse Rate [ Left Dorsalis Pedis] Pulse Rate [ Left Radial] Pulse Rate [ Right Dorsalis Pedis] Pulse Rate [ Right Radial] Respiratory 15 11 L 11 L Rate Blood Pressure 100/61 100/59 95/56 O2 Sat by Pulse 97 98 99 Oximetry 03/22/21 03/22/21 03/22/21 09:45 10:00 10:15 Temperature Pulse Rate 146 H 141 H 143 H Pulse Rate [ From Monitor] Pulse Rate [ Left Dorsalis Pedis] Pulse Rate [ Left Radial] Pulse Rate [ Right Dorsalis Pedis] Pulse Rate [ Right Radial] Respiratory 12 13 14 Rate Blood Pressure 95/55 94/58 95/58 O2 Sat by Pulse 99 99 99 Oximetry 03/22/21 03/22/21 12:08 12:12 Temperature 100.8 F H Pulse Rate 148 H Pulse Rate [ From Monitor] Pulse Rate [ Left Dorsalis Pedis] Pulse Rate [ Left Radial] Pulse Rate [ Right Dorsalis Pedis] Pulse Rate [ Right Radial] Respiratory Rate Blood Pressure 105/75 O2 Sat by Pulse 93 Oximetry Constitutional: other (on hiflo) Eyes: non-icteric Neck: supple Ascultation: Bilateral: diminished breath sounds Cardiovascular: regular rate and rhythm Gastrointestinal: normoactive bowel sounds, soft, non-tender Extremities: other (decreased rom/ movement of lue mild contractures) CBC and BMP: 03/22/21 06:50 03/22/21 06:50 ABG, PT/INR, D-dimer: ABG ABG pH 7.240 (7.320-7.450) L 03/21/21 04:00 POC ABG pCO2 47.9 mmHg (32.0-48.0) 03/21/21 04:00 ABG pCO2 25.5 mm Hg 03/18/21 23:23 POC ABG pO2 105.7 mmHg (83-108) 03/21/21 04:00 ABG pO2 71.6 mm Hg (80.0-90.0) L 03/18/21 23:23 POC ABG HCO3 20.1 03/21/21 04:00 ABG O2 Saturation 97.1 (0-100) 03/21/21 04:00 PT/INR, D-dimer PT 22.4 Sec. (12.2-14.9) H 03/17/21 09:19 INR 1.92 (0.87-1.13) H 03/17/21 09:19 D-Dimer 5570.24 ng/mlDDU (0-234) H 03/22/21 06:50 Abnormal lab findings: Abnormal Labs 03/11/21 03/11/21 03/11/21 09:41 09:41 09:41 WBC RBC Hgb Hct MCV Plt Count Seg Neuts % (Manual) 89.0 H Lymphocytes % (Manual) 2.0 L Nucleated RBC % Seg Neutrophils # Man 9.7 H Lymphocytes # (Manual) 0.2 L Monocytes # (Manual) PT INR APTT D-Dimer ABG pH POC ABG pCO2 POC ABG pO2 ABG pO2 ABG HCO3 ABG O2 Saturation ABG Base Excess ABG Oxyhemoglobin ABG Sodium ABG Potassium ABG Chloride ABG Glucose Oxyhemoglobin Carboxyhemoglobin Sodium 127 L Chloride 90.6 L Carbon Dioxide 15 L BUN 42 H Creatinine 2.7 H Glucose 262 H POC Glucose Hemoglobin A1c Lactic Acid 3.70 H* Calcium Phosphorus Magnesium Ferritin AST 148 H ALT 65 H Lactate Dehydrogenase C-Reactive Protein Total Protein Albumin 2.9 L Triglycerides Arterial Blood Glucose Arterial Blood Ionized Calcium Coronavirus (PCR) 03/11/21 03/11/21 03/11/21 09:41 09:41 09:41 WBC RBC Hgb Hct MCV Plt Count Seg Neuts % (Manual) Lymphocytes % (Manual) Nucleated RBC % Seg Neutrophils # Man Lymphocytes # (Manual) Monocytes # (Manual) PT INR APTT D-Dimer 2206.91 H ABG pH POC ABG pCO2 POC ABG pO2 ABG pO2 ABG HCO3 ABG O2 Saturation ABG Base Excess ABG Oxyhemoglobin ABG Sodium ABG Potassium ABG Chloride ABG Glucose Oxyhemoglobin Carboxyhemoglobin Sodium Chloride Carbon Dioxide BUN Creatinine Glucose 261 H POC Glucose Hemoglobin A1c Lactic Acid Calcium Phosphorus Magnesium Ferritin 1640.0 H AST ALT Lactate Dehydrogenase 933 H C-Reactive Protein 17.90 H Total Protein Albumin Triglycerides Arterial Blood Glucose Arterial Blood Ionized Calcium Coronavirus (PCR) 03/11/21 03/11/21 03/12/21 11:50 Unknown 04:35 WBC RBC Hgb Hct MCV Plt Count Seg Neuts % (Manual) Lymphocytes % (Manual) Nucleated RBC % Seg Neutrophils # Man Lymphocytes # (Manual) Monocytes # (Manual) PT INR APTT D-Dimer ABG pH 7.316 L 7.279 L POC ABG pCO2 30.2 L POC ABG pO2 228.8 H 183.7 H ABG pO2 ABG HCO3 ABG O2 Saturation ABG Base Excess ABG Oxyhemoglobin 98.7 H 98.6 H ABG Sodium 125.1 L ABG Potassium ABG Chloride 97.0 L ABG Glucose 229 H 236 H Oxyhemoglobin Carboxyhemoglobin 0.1 L 0.3 L Sodium Chloride Carbon Dioxide BUN Creatinine Glucose POC Glucose Hemoglobin A1c Lactic Acid Calcium Phosphorus Magnesium Ferritin AST ALT Lactate Dehydrogenase C-Reactive Protein Total Protein Albumin Triglycerides Arterial Blood Glucose 229 H 236 H Arterial Blood Ionized Calcium 4.5 L Coronavirus (PCR) Positive A 03/12/21 03/12/21 03/13/21 10:56 16:53 05:19 WBC RBC Hgb Hct MCV Plt Count Seg Neuts % (Manual) Lymphocytes % (Manual) Nucleated RBC % Seg Neutrophils # Man Lymphocytes # (Manual) Monocytes # (Manual) PT INR APTT D-Dimer ABG pH POC ABG pCO2 POC ABG pO2 ABG pO2 ABG HCO3 ABG O2 Saturation ABG Base Excess ABG Oxyhemoglobin ABG Sodium ABG Potassium ABG Chloride ABG Glucose Oxyhemoglobin Carboxyhemoglobin Sodium 149 H Chloride 111.0 H 113.9 H Carbon Dioxide 13 L 15 L 18 L BUN 37 H 36 H 39 H Creatinine 2.2 H 2.3 H 2.5 H Glucose 254 H 212 H 304 H POC Glucose Hemoglobin A1c Lactic Acid Calcium Phosphorus Magnesium Ferritin AST 110 H 100 H 88 H ALT 66 H 64 H 68 H Lactate Dehydrogenase C-Reactive Protein Total Protein 6.2 L Albumin 2.7 L 2.4 L 2.7 L Triglycerides Arterial Blood Glucose Arterial Blood Ionized Calcium Coronavirus (PCR) 03/13/21 03/14/21 03/14/21 23:06 00:03 04:44 WBC RBC Hgb Hct MCV Plt Count Seg Neuts % (Manual) Lymphocytes % (Manual) Nucleated RBC % Seg Neutrophils # Man Lymphocytes # (Manual) Monocytes # (Manual) PT INR APTT D-Dimer ABG pH POC ABG pCO2 POC ABG pO2 ABG pO2 ABG HCO3 ABG O2 Saturation ABG Base Excess ABG Oxyhemoglobin ABG Sodium ABG Potassium ABG Chloride ABG Glucose Oxyhemoglobin Carboxyhemoglobin Sodium Chloride Carbon Dioxide BUN Creatinine Glucose POC Glucose 168 H 152 H Hemoglobin A1c 8.2 H Lactic Acid Calcium Phosphorus Magnesium Ferritin AST ALT Lactate Dehydrogenase C-Reactive Protein Total Protein Albumin Triglycerides Arterial Blood Glucose Arterial Blood Ionized Calcium Coronavirus (PCR) 03/14/21 03/14/21 03/14/21 04:44 04:44 05:35 WBC RBC Hgb Hct MCV Plt Count 132 L Seg Neuts % (Manual) Lymphocytes % (Manual) Nucleated RBC % Seg Neutrophils # Man Lymphocytes # (Manual) Monocytes # (Manual) PT INR APTT D-Dimer ABG pH POC ABG pCO2 POC ABG pO2 ABG pO2 ABG HCO3 ABG O2 Saturation ABG Base Excess ABG Oxyhemoglobin ABG Sodium ABG Potassium ABG Chloride ABG Glucose Oxyhemoglobin Carboxyhemoglobin Sodium 153 H Chloride 118.2 H Carbon Dioxide 21 L BUN 58 H Creatinine 3.4 H Glucose 380 H POC Glucose 331 H Hemoglobin A1c Lactic Acid Calcium Phosphorus Magnesium Ferritin AST 56 H ALT 60 H Lactate Dehydrogenase C-Reactive Protein Total Protein 5.8 L Albumin 2.4 L Triglycerides Arterial Blood Glucose Arterial Blood Ionized Calcium Coronavirus (PCR) 03/14/21 03/14/21 03/14/21 11:12 15:11 22:42 WBC RBC Hgb Hct MCV Plt Count Seg Neuts % (Manual) Lymphocytes % (Manual) Nucleated RBC % Seg Neutrophils # Man Lymphocytes # (Manual) Monocytes # (Manual) PT INR APTT D-Dimer ABG pH POC ABG pCO2 POC ABG pO2 ABG pO2 ABG HCO3 ABG O2 Saturation ABG Base Excess ABG Oxyhemoglobin ABG Sodium ABG Potassium ABG Chloride ABG Glucose Oxyhemoglobin Carboxyhemoglobin Sodium Chloride Carbon Dioxide BUN Creatinine Glucose POC Glucose 229 H 291 H 435 H Hemoglobin A1c Lactic Acid Calcium Phosphorus Magnesium Ferritin AST ALT Lactate Dehydrogenase C-Reactive Protein Total Protein Albumin Triglycerides Arterial Blood Glucose Arterial Blood Ionized Calcium Coronavirus (PCR) 03/15/21 03/15/21 03/15/21 04:44 08:43 11:50 WBC RBC Hgb Hct MCV Plt Count Seg Neuts % (Manual) Lymphocytes % (Manual) Nucleated RBC % Seg Neutrophils # Man Lymphocytes # (Manual) Monocytes # (Manual) PT INR APTT D-Dimer ABG pH POC ABG pCO2 POC ABG pO2 ABG pO2 ABG HCO3 ABG O2 Saturation ABG Base Excess ABG Oxyhemoglobin ABG Sodium ABG Potassium ABG Chloride ABG Glucose Oxyhemoglobin Carboxyhemoglobin Sodium 152 H Chloride 114.9 H Carbon Dioxide BUN 79 H Creatinine 4.3 H Glucose 303 H POC Glucose 281 H 340 H Hemoglobin A1c Lactic Acid Calcium Phosphorus Magnesium Ferritin AST 41 H ALT Lactate Dehydrogenase C-Reactive Protein Total Protein 6.1 L Albumin 2.6 L Triglycerides Arterial Blood Glucose Arterial Blood Ionized Calcium Coronavirus (PCR) 03/15/21 03/16/21 03/16/21 21:27 04:14 04:14 WBC 14.3 H RBC Hgb Hct MCV Plt Count 87 L Seg Neuts % (Manual) Lymphocytes % (Manual) Nucleated RBC % Seg Neutrophils # Man Lymphocytes # (Manual) Monocytes # (Manual) PT INR APTT D-Dimer ABG pH POC ABG pCO2 POC ABG pO2 ABG pO2 ABG HCO3 ABG O2 Saturation ABG Base Excess ABG Oxyhemoglobin ABG Sodium ABG Potassium ABG Chloride ABG Glucose Oxyhemoglobin Carboxyhemoglobin Sodium Chloride Carbon Dioxide BUN 75 H Creatinine 3.4 H Glucose 434 H POC Glucose 115 H Hemoglobin A1c Lactic Acid Calcium Phosphorus Magnesium Ferritin AST ALT Lactate Dehydrogenase C-Reactive Protein Total Protein Albumin Triglycerides Arterial Blood Glucose Arterial Blood Ionized Calcium Coronavirus (PCR) 03/16/21 03/16/21 03/16/21 07:52 11:05 17:01 WBC RBC Hgb Hct MCV Plt Count Seg Neuts % (Manual) Lymphocytes % (Manual) Nucleated RBC % Seg Neutrophils # Man Lymphocytes # (Manual) Monocytes # (Manual) PT INR APTT D-Dimer ABG pH POC ABG pCO2 POC ABG pO2 ABG pO2 ABG HCO3 ABG O2 Saturation ABG Base Excess ABG Oxyhemoglobin ABG Sodium ABG Potassium ABG Chloride ABG Glucose Oxyhemoglobin Carboxyhemoglobin Sodium Chloride Carbon Dioxide BUN Creatinine Glucose POC Glucose 439 H 277 H 194 H Hemoglobin A1c Lactic Acid Calcium Phosphorus Magnesium Ferritin AST ALT Lactate Dehydrogenase C-Reactive Protein Total Protein Albumin Triglycerides Arterial Blood Glucose Arterial Blood Ionized Calcium Coronavirus (PCR) 03/17/21 03/17/21 03/17/21 06:00 06:00 06:00 WBC 12.3 H RBC Hgb Hct MCV Plt Count 70 L Seg Neuts % (Manual) Lymphocytes % (Manual) Nucleated RBC % Seg Neutrophils # Man Lymphocytes # (Manual) Monocytes # (Manual) PT INR APTT D-Dimer > 68763 H ABG pH POC ABG pCO2 POC ABG pO2 ABG pO2 ABG HCO3 ABG O2 Saturation ABG Base Excess ABG Oxyhemoglobin ABG Sodium ABG Potassium ABG Chloride ABG Glucose Oxyhemoglobin Carboxyhemoglobin Sodium 150 H Chloride 118.0 H Carbon Dioxide 21 L BUN 92 H Creatinine 3.4 H Glucose 129 H POC Glucose Hemoglobin A1c Lactic Acid Calcium Phosphorus Magnesium Ferritin AST ALT Lactate Dehydrogenase 1155 H C-Reactive Protein 1.50 H Total Protein Albumin Triglycerides Arterial Blood Glucose Arterial Blood Ionized Calcium Coronavirus (PCR) 03/17/21 03/17/21 03/17/21 09:00 09:19 09:19 WBC RBC Hgb Hct MCV Plt Count Seg Neuts % (Manual) Lymphocytes % (Manual) Nucleated RBC % Seg Neutrophils # Man Lymphocytes # (Manual) Monocytes # (Manual) PT 22.4 H INR 1.92 H APTT 37.7 H D-Dimer ABG pH POC ABG pCO2 POC ABG pO2 ABG pO2 ABG HCO3 ABG O2 Saturation ABG Base Excess ABG Oxyhemoglobin ABG Sodium ABG Potassium ABG Chloride ABG Glucose Oxyhemoglobin Carboxyhemoglobin Sodium Chloride Carbon Dioxide BUN Creatinine Glucose POC Glucose Hemoglobin A1c Lactic Acid Calcium Phosphorus Magnesium Ferritin 1517.0 H AST ALT Lactate Dehydrogenase C-Reactive Protein Total Protein 5.1 L Albumin 2.2 L Triglycerides Arterial Blood Glucose Arterial Blood Ionized Calcium Coronavirus (PCR) 03/17/21 03/17/21 03/17/21 15:44 16:58 23:39 WBC RBC Hgb Hct MCV Plt Count Seg Neuts % (Manual) Lymphocytes % (Manual) Nucleated RBC % Seg Neutrophils # Man Lymphocytes # (Manual) Monocytes # (Manual) PT INR APTT 70.8 H* D-Dimer ABG pH POC ABG pCO2 POC ABG pO2 ABG pO2 ABG HCO3 ABG O2 Saturation ABG Base Excess ABG Oxyhemoglobin ABG Sodium ABG Potassium ABG Chloride ABG Glucose Oxyhemoglobin Carboxyhemoglobin Sodium Chloride Carbon Dioxide BUN Creatinine Glucose POC Glucose 165 H 235 H Hemoglobin A1c Lactic Acid Calcium Phosphorus Magnesium Ferritin AST ALT Lactate Dehydrogenase C-Reactive Protein Total Protein Albumin Triglycerides Arterial Blood Glucose Arterial Blood Ionized Calcium Coronavirus (PCR) 03/18/21 03/18/21 03/18/21 03:50 03:50 05:40 WBC RBC Hgb Hct MCV Plt Count Seg Neuts % (Manual) Lymphocytes % (Manual) Nucleated RBC % Seg Neutrophils # Man Lymphocytes # (Manual) Monocytes # (Manual) PT INR APTT 81.9 H* D-Dimer ABG pH POC ABG pCO2 POC ABG pO2 ABG pO2 ABG HCO3 ABG O2 Saturation ABG Base Excess ABG Oxyhemoglobin ABG Sodium ABG Potassium ABG Chloride ABG Glucose Oxyhemoglobin Carboxyhemoglobin Sodium Chloride 109.0 H Carbon Dioxide 21 L BUN 70 H Creatinine 2.5 H Glucose 258 H POC Glucose 207 H Hemoglobin A1c Lactic Acid Calcium 8.2 L Phosphorus Magnesium Ferritin AST ALT Lactate Dehydrogenase C-Reactive Protein Total Protein Albumin Triglycerides Arterial Blood Glucose Arterial Blood Ionized Calcium Coronavirus (PCR) 03/18/21 03/18/21 03/18/21 07:15 11:31 17:30 WBC RBC Hgb Hct MCV Plt Count Seg Neuts % (Manual) Lymphocytes % (Manual) Nucleated RBC % Seg Neutrophils # Man Lymphocytes # (Manual) Monocytes # (Manual) PT INR APTT D-Dimer ABG pH POC ABG pCO2 POC ABG pO2 ABG pO2 ABG HCO3 ABG O2 Saturation ABG Base Excess ABG Oxyhemoglobin ABG Sodium ABG Potassium ABG Chloride ABG Glucose Oxyhemoglobin Carboxyhemoglobin Sodium Chloride Carbon Dioxide BUN Creatinine Glucose POC Glucose 215 H 179 H 161 H Hemoglobin A1c Lactic Acid Calcium Phosphorus Magnesium Ferritin AST ALT Lactate Dehydrogenase C-Reactive Protein Total Protein Albumin Triglycerides Arterial Blood Glucose Arterial Blood Ionized Calcium Coronavirus (PCR) 03/18/21 03/18/21 03/18/21 18:54 23:23 23:31 WBC RBC Hgb Hct MCV Plt Count Seg Neuts % (Manual) Lymphocytes % (Manual) Nucleated RBC % Seg Neutrophils # Man Lymphocytes # (Manual) Monocytes # (Manual) PT INR APTT 96.5 H* D-Dimer ABG pH 7.322 L POC ABG pCO2 POC ABG pO2 ABG pO2 71.6 L ABG HCO3 12.9 L ABG O2 Saturation 92.4 L ABG Base Excess -11.1 L ABG Oxyhemoglobin ABG Sodium ABG Potassium ABG Chloride ABG Glucose Oxyhemoglobin 91.0 L Carboxyhemoglobin Sodium Chloride Carbon Dioxide BUN Creatinine Glucose POC Glucose 223 H Hemoglobin A1c Lactic Acid Calcium Phosphorus Magnesium Ferritin AST ALT Lactate Dehydrogenase C-Reactive Protein Total Protein Albumin Triglycerides Arterial Blood Glucose Arterial Blood Ionized Calcium Coronavirus (PCR) 03/19/21 03/19/21 03/19/21 04:50 04:50 05:37 WBC 21.5 H RBC Hgb Hct MCV Plt Count 79 L Seg Neuts % (Manual) 87.0 H Lymphocytes % (Manual) Nucleated RBC % Seg Neutrophils # Man 18.7 H Lymphocytes # (Manual) 0.0 L Monocytes # (Manual) PT INR APTT D-Dimer ABG pH POC ABG pCO2 POC ABG pO2 ABG pO2 ABG HCO3 ABG O2 Saturation ABG Base Excess ABG Oxyhemoglobin ABG Sodium ABG Potassium ABG Chloride ABG Glucose Oxyhemoglobin Carboxyhemoglobin Sodium 148 H Chloride 112.0 H Carbon Dioxide 18 L BUN 99 H Creatinine 3.2 H Glucose 277 H POC Glucose 238 H Hemoglobin A1c Lactic Acid Calcium Phosphorus 5.90 H Magnesium 2.80 H Ferritin AST ALT Lactate Dehydrogenase C-Reactive Protein Total Protein Albumin Triglycerides Arterial Blood Glucose Arterial Blood Ionized Calcium Coronavirus (PCR) 03/19/21 03/19/21 03/19/21 16:00 18:13 19:05 WBC RBC Hgb Hct MCV Plt Count Seg Neuts % (Manual) Lymphocytes % (Manual) Nucleated RBC % Seg Neutrophils # Man Lymphocytes # (Manual) Monocytes # (Manual) PT INR APTT 68.5 H* D-Dimer ABG pH POC ABG pCO2 26.7 L POC ABG pO2 ABG pO2 ABG HCO3 ABG O2 Saturation ABG Base Excess ABG Oxyhemoglobin ABG Sodium 147.2 H ABG Potassium ABG Chloride 112.0 H ABG Glucose 358 H Oxyhemoglobin Carboxyhemoglobin 0.2 L Sodium Chloride Carbon Dioxide BUN Creatinine Glucose POC Glucose 338 H Hemoglobin A1c Lactic Acid Calcium Phosphorus Magnesium Ferritin AST ALT Lactate Dehydrogenase C-Reactive Protein Total Protein Albumin Triglycerides Arterial Blood Glucose 358 H Arterial Blood Ionized Calcium Coronavirus (PCR) 03/19/21 03/20/21 03/20/21 Unknown 00:09 04:30 WBC RBC Hgb Hct MCV Plt Count Seg Neuts % (Manual) Lymphocytes % (Manual) Nucleated RBC % Seg Neutrophils # Man Lymphocytes # (Manual) Monocytes # (Manual) PT INR APTT 103.2 H* D-Dimer ABG pH POC ABG pCO2 POC ABG pO2 126.9 H ABG pO2 ABG HCO3 ABG O2 Saturation ABG Base Excess ABG Oxyhemoglobin ABG Sodium 147.4 H ABG Potassium ABG Chloride 113.0 H ABG Glucose 211 H Oxyhemoglobin Carboxyhemoglobin 0.2 L Sodium Chloride Carbon Dioxide BUN Creatinine Glucose POC Glucose 171 H Hemoglobin A1c Lactic Acid Calcium Phosphorus Magnesium Ferritin AST ALT Lactate Dehydrogenase C-Reactive Protein Total Protein Albumin Triglycerides Arterial Blood Glucose 211 H Arterial Blood Ionized Calcium Coronavirus (PCR) 03/20/21 03/20/21 03/20/21 04:55 05:16 05:16 WBC 22.5 H RBC Hgb Hct MCV Plt Count 94 L Seg Neuts % (Manual) 76.0 H Lymphocytes % (Manual) Nucleated RBC % Seg Neutrophils # Man 17.1 H Lymphocytes # (Manual) Monocytes # (Manual) 1.4 H PT INR APTT D-Dimer ABG pH POC ABG pCO2 POC ABG pO2 ABG pO2 ABG HCO3 ABG O2 Saturation ABG Base Excess ABG Oxyhemoglobin ABG Sodium ABG Potassium ABG Chloride ABG Glucose Oxyhemoglobin Carboxyhemoglobin Sodium 147 H Chloride 110.8 H Carbon Dioxide 20 L BUN 113 H Creatinine 4.2 H Glucose 219 H POC Glucose 199 H Hemoglobin A1c Lactic Acid Calcium Phosphorus 6.20 H Magnesium 2.60 H Ferritin AST ALT Lactate Dehydrogenase C-Reactive Protein Total Protein Albumin Triglycerides Arterial Blood Glucose Arterial Blood Ionized Calcium Coronavirus (PCR) 03/20/21 03/20/21 03/20/21 05:16 11:30 16:55 WBC RBC Hgb Hct MCV Plt Count Seg Neuts % (Manual) Lymphocytes % (Manual) Nucleated RBC % Seg Neutrophils # Man Lymphocytes # (Manual) Monocytes # (Manual) PT INR APTT 92.2 H* 71.7 H* D-Dimer ABG pH POC ABG pCO2 POC ABG pO2 ABG pO2 ABG HCO3 ABG O2 Saturation ABG Base Excess ABG Oxyhemoglobin ABG Sodium ABG Potassium ABG Chloride ABG Glucose Oxyhemoglobin Carboxyhemoglobin Sodium Chloride Carbon Dioxide BUN Creatinine Glucose POC Glucose 193 H Hemoglobin A1c Lactic Acid Calcium Phosphorus Magnesium Ferritin AST ALT Lactate Dehydrogenase C-Reactive Protein Total Protein Albumin Triglycerides Arterial Blood Glucose Arterial Blood Ionized Calcium Coronavirus (PCR) 03/20/21 03/21/21 03/21/21 17:30 00:01 04:00 WBC RBC Hgb Hct MCV Plt Count Seg Neuts % (Manual) Lymphocytes % (Manual) Nucleated RBC % Seg Neutrophils # Man Lymphocytes # (Manual) Monocytes # (Manual) PT INR APTT D-Dimer ABG pH 7.240 L POC ABG pCO2 POC ABG pO2 ABG pO2 ABG HCO3 ABG O2 Saturation ABG Base Excess ABG Oxyhemoglobin ABG Sodium ABG Potassium 4.6 H ABG Chloride 110.0 H ABG Glucose 327 H Oxyhemoglobin Carboxyhemoglobin 0.3 L Sodium Chloride Carbon Dioxide BUN Creatinine Glucose POC Glucose 179 H 269 H Hemoglobin A1c Lactic Acid Calcium Phosphorus Magnesium Ferritin AST ALT Lactate Dehydrogenase C-Reactive Protein Total Protein Albumin Triglycerides Arterial Blood Glucose 327 H Arterial Blood Ionized Calcium Coronavirus (PCR) 03/21/21 03/21/21 03/21/21 05:21 06:00 06:00 WBC 26.7 H RBC Hgb 11.2 L Hct 34.5 L MCV 95 H Plt Count 102 L Seg Neuts % (Manual) 89.0 H Lymphocytes % (Manual) 3.0 L Nucleated RBC % Seg Neutrophils # Man 23.8 H Lymphocytes # (Manual) 0.8 L Monocytes # (Manual) 1.1 H PT INR APTT D-Dimer ABG pH POC ABG pCO2 POC ABG pO2 ABG pO2 ABG HCO3 ABG O2 Saturation ABG Base Excess ABG Oxyhemoglobin ABG Sodium ABG Potassium ABG Chloride ABG Glucose Oxyhemoglobin Carboxyhemoglobin Sodium 147 H Chloride 109.5 H Carbon Dioxide 21 L BUN 133 H Creatinine 5.5 H Glucose 324 H POC Glucose 257 H Hemoglobin A1c Lactic Acid Calcium Phosphorus Magnesium Ferritin AST ALT Lactate Dehydrogenase 1063 H C-Reactive Protein 1.90 H Total Protein 4.6 L Albumin 2.2 L Triglycerides Arterial Blood Glucose Arterial Blood Ionized Calcium Coronavirus (PCR) 03/21/21 03/21/21 03/21/21 06:00 06:00 12:09 WBC RBC Hgb Hct MCV Plt Count Seg Neuts % (Manual) Lymphocytes % (Manual) Nucleated RBC % Seg Neutrophils # Man Lymphocytes # (Manual) Monocytes # (Manual) PT INR APTT 56.4 H D-Dimer 8137.78 H ABG pH POC ABG pCO2 POC ABG pO2 ABG pO2 ABG HCO3 ABG O2 Saturation ABG Base Excess ABG Oxyhemoglobin ABG Sodium ABG Potassium ABG Chloride ABG Glucose Oxyhemoglobin Carboxyhemoglobin Sodium Chloride Carbon Dioxide BUN Creatinine Glucose POC Glucose 167 H Hemoglobin A1c Lactic Acid Calcium Phosphorus Magnesium Ferritin 1431.0 H AST ALT Lactate Dehydrogenase C-Reactive Protein Total Protein Albumin Triglycerides Arterial Blood Glucose Arterial Blood Ionized Calcium Coronavirus (PCR) 03/21/21 03/21/21 03/21/21 17:46 18:52 19:14 WBC RBC Hgb Hct MCV Plt Count Seg Neuts % (Manual) Lymphocytes % (Manual) Nucleated RBC % Seg Neutrophils # Man Lymphocytes # (Manual) Monocytes # (Manual) PT INR APTT 51.9 H D-Dimer ABG pH POC ABG pCO2 POC ABG pO2 ABG pO2 ABG HCO3 ABG O2 Saturation ABG Base Excess ABG Oxyhemoglobin ABG Sodium ABG Potassium ABG Chloride ABG Glucose Oxyhemoglobin Carboxyhemoglobin Sodium Chloride Carbon Dioxide BUN Creatinine Glucose POC Glucose 375 H 366 H Hemoglobin A1c Lactic Acid Calcium Phosphorus Magnesium Ferritin AST ALT Lactate Dehydrogenase C-Reactive Protein Total Protein Albumin Triglycerides Arterial Blood Glucose Arterial Blood Ionized Calcium Coronavirus (PCR) 03/21/21 03/22/21 03/22/21 23:41 06:10 06:50 WBC RBC Hgb Hct MCV Plt Count Seg Neuts % (Manual) Lymphocytes % (Manual) Nucleated RBC % Seg Neutrophils # Man Lymphocytes # (Manual) Monocytes # (Manual) PT INR APTT D-Dimer ABG pH POC ABG pCO2 POC ABG pO2 ABG pO2 ABG HCO3 ABG O2 Saturation ABG Base Excess ABG Oxyhemoglobin ABG Sodium ABG Potassium ABG Chloride ABG Glucose Oxyhemoglobin Carboxyhemoglobin Sodium Chloride 97.4 L Carbon Dioxide BUN 102 H Creatinine 4.6 H Glucose 282 H POC Glucose 243 H 219 H Hemoglobin A1c Lactic Acid Calcium 8.3 L Phosphorus Magnesium Ferritin AST ALT Lactate Dehydrogenase 1126 H C-Reactive Protein 2.20 H Total Protein 4.6 L Albumin 2.2 L Triglycerides 731 H Arterial Blood Glucose Arterial Blood Ionized Calcium Coronavirus (PCR) 03/22/21 03/22/21 03/22/21 06:50 06:50 06:50 WBC 18.5 H RBC 3.61 L Hgb 11.2 L Hct 33.7 L MCV Plt Count 86 L Seg Neuts % (Manual) Lymphocytes % (Manual) Nucleated RBC % 1.0 H Seg Neutrophils # Man 18.1 H Lymphocytes # (Manual) 0.0 L Monocytes # (Manual) PT INR APTT D-Dimer 5570.24 H ABG pH POC ABG pCO2 POC ABG pO2 ABG pO2 ABG HCO3 ABG O2 Saturation ABG Base Excess ABG Oxyhemoglobin ABG Sodium ABG Potassium ABG Chloride ABG Glucose Oxyhemoglobin Carboxyhemoglobin Sodium Chloride Carbon Dioxide BUN Creatinine Glucose POC Glucose Hemoglobin A1c Lactic Acid Calcium Phosphorus Magnesium Ferritin 1282.0 H AST ALT Lactate Dehydrogenase C-Reactive Protein Total Protein Albumin Triglycerides Arterial Blood Glucose Arterial Blood Ionized Calcium Coronavirus (PCR) 03/22/21 11:14 WBC RBC Hgb Hct MCV Plt Count Seg Neuts % (Manual) Lymphocytes % (Manual) Nucleated RBC % Seg Neutrophils # Man Lymphocytes # (Manual) Monocytes # (Manual) PT INR APTT D-Dimer ABG pH POC ABG pCO2 POC ABG pO2 ABG pO2 ABG HCO3 ABG O2 Saturation ABG Base Excess ABG Oxyhemoglobin ABG Sodium ABG Potassium ABG Chloride ABG Glucose Oxyhemoglobin Carboxyhemoglobin Sodium Chloride Carbon Dioxide BUN Creatinine Glucose POC Glucose 236 H Hemoglobin A1c Lactic Acid Calcium Phosphorus Magnesium Ferritin AST ALT Lactate Dehydrogenase C-Reactive Protein Total Protein Albumin Triglycerides Arterial Blood Glucose Arterial Blood Ionized Calcium Coronavirus (PCR)
[2021-03-22] MEDS: LORazepam 100 MG in SODIUM CHLORIDE 0.9% 50 ML, EMPTY BAG 0 ML IV SCH (13:06)
[2021-03-22] MEDS: NORepinephrine/NS 4 MG-250 ML 4 MG/250 ML BAG IV SCH (13:26)
[2021-03-22 17:02] LABS: Heparin-Induced Platelet Antib Negative (Negative); Unfractionated Heparin Negative (Negative)
--- NOTE | 2021-03-22 17:36 | Progress Note ---
Assessment and Plan Impression: * Nonoliguric acute kidney injury vs underlying CKD --Baseline renal function unknown * Acute hypoxic respiratory failure secondary to COVID 19 PNA * COVID 19 infection * Hypotension * Hypernatremia * Transaminitis Plan: * Started HD 03/17 * Stopped HD after 30 minutes during second session due to respiratory distress * Hold further HD until stable, labs overall within acceptable range, elevated BUN noted, steroids likely contributing * Switched to LR today * Hold antihypertensives given soft pressures * Vasc cath placed 03/16 * Repeat UA, check UPCR, further testing may be warranted based on results * Remdesevir (hold for GFR<30), steroids, abx per ID * Dose medications for renal function * Avoid potential nephrotoxins * AM labs * Case was discussed in detail with niece including possible complications on HD and consent was obtained for HD prior to initiation * Prognosis guarded Subjective Date of service: 03/22/21 Principal diagnosis: COVID-19 Interval history: Nursing, interdisciplinary and consult notes were reviewed Vitals, input and output, medications and labs were reviewed Remains intubated FiO2 weaned down this morning Objective - Exam Narrative Exam: General: Sedated. Intubated HEENT: Oral mucosa moist Neck: Supple, no JVD Chest: Intubated. Mechanical breath sounds. Heart: RRR, S1 and S2, no pericardial rub Abdomen: Soft, nontender, no renal bruit Extremity: No peripheral cyanosis, edema Neurological: Sedated. Dermatology: No skin rash Psych: Unable to assess. Musculoskeletal: No joint effusion - Vital Signs Vital signs: Vital Signs - 12hr 03/22/21 03/22/21 03/22/21 05:45 06:00 06:15 Temperature Pulse Rate 158 H 135 H 133 H Pulse Rate [ From Monitor] Pulse Rate [ Left Dorsalis Pedis] Pulse Rate [ Left Radial] Pulse Rate [ Right Dorsalis Pedis] Pulse Rate [ Right Radial] Respiratory 26 H 12 13 Rate Blood Pressure 103/66 109/73 94/67 O2 Sat by Pulse 74 L 91 89 Oximetry 03/22/21 03/22/21 03/22/21 06:30 06:45 07:00 Temperature Pulse Rate 140 H 135 H 138 H Pulse Rate [ From Monitor] Pulse Rate [ Left Dorsalis Pedis] Pulse Rate [ Left Radial] Pulse Rate [ Right Dorsalis Pedis] Pulse Rate [ Right Radial] Respiratory 11 L 13 11 L Rate Blood Pressure 104/67 90/63 100/62 O2 Sat by Pulse 91 93 89 Oximetry 03/22/21 03/22/21 03/22/21 07:15 07:30 07:45 Temperature Pulse Rate 136 H 138 H 136 H Pulse Rate [ From Monitor] Pulse Rate [ Left Dorsalis Pedis] Pulse Rate [ Left Radial] Pulse Rate [ Right Dorsalis Pedis] Pulse Rate [ Right Radial] Respiratory 11 L 10 L 12 Rate Blood Pressure 95/62 98/60 101/66 O2 Sat by Pulse 89 88 89 Oximetry 03/22/21 03/22/21 03/22/21 08:00 08:05 08:09 Temperature 100.2 F H Pulse Rate 136 H 137 H Pulse Rate [ 144 H From Monitor] Pulse Rate [ 144 H Left Dorsalis Pedis] Pulse Rate [ 144 H Left Radial] Pulse Rate [ 144 H Right Dorsalis Pedis] Pulse Rate [ 144 H Right Radial] Respiratory 12 Rate Blood Pressure 103/64 103/64 O2 Sat by Pulse 90 92 Oximetry 03/22/21 03/22/21 03/22/21 08:15 08:31 08:45 Temperature Pulse Rate 134 H 144 H 144 H Pulse Rate [ From Monitor] Pulse Rate [ Left Dorsalis Pedis] Pulse Rate [ Left Radial] Pulse Rate [ Right Dorsalis Pedis] Pulse Rate [ Right Radial] Respiratory 18 23 15 Rate Blood Pressure 102/68 97/76 95/67 O2 Sat by Pulse 99 92 95 Oximetry 03/22/21 03/22/21 03/22/21 09:00 09:15 09:30 Temperature Pulse Rate 143 H 140 H 142 H Pulse Rate [ From Monitor] Pulse Rate [ Left Dorsalis Pedis] Pulse Rate [ Left Radial] Pulse Rate [ Right Dorsalis Pedis] Pulse Rate [ Right Radial] Respiratory 15 11 L 11 L Rate Blood Pressure 100/61 100/59 95/56 O2 Sat by Pulse 97 98 99 Oximetry 03/22/21 03/22/21 03/22/21 09:45 10:00 10:15 Temperature Pulse Rate 146 H 141 H 143 H Pulse Rate [ From Monitor] Pulse Rate [ Left Dorsalis Pedis] Pulse Rate [ Left Radial] Pulse Rate [ Right Dorsalis Pedis] Pulse Rate [ Right Radial] Respiratory 12 13 14 Rate Blood Pressure 95/55 94/58 95/58 O2 Sat by Pulse 99 99 99 Oximetry 03/22/21 03/22/21 03/22/21 10:30 10:45 11:00 Temperature Pulse Rate 141 H 139 H 139 H Pulse Rate [ From Monitor] Pulse Rate [ Left Dorsalis Pedis] Pulse Rate [ Left Radial] Pulse Rate [ Right Dorsalis Pedis] Pulse Rate [ Right Radial] Respiratory 13 17 20 Rate Blood Pressure 105/70 111/76 120/84 O2 Sat by Pulse 99 100 98 Oximetry 03/22/21 03/22/21 03/22/21 11:15 11:30 11:45 Temperature Pulse Rate 148 H 143 H 145 H Pulse Rate [ From Monitor] Pulse Rate [ Left Dorsalis Pedis] Pulse Rate [ Left Radial] Pulse Rate [ Right Dorsalis Pedis] Pulse Rate [ Right Radial] Respiratory 21 12 17 Rate Blood Pressure 120/84 117/81 115/79 O2 Sat by Pulse 95 98 98 Oximetry 03/22/21 03/22/21 03/22/21 12:00 12:08 12:12 Temperature 100.8 F H Pulse Rate 146 H 148 H Pulse Rate [ 155 H From Monitor] Pulse Rate [ 155 H Left Dorsalis Pedis] Pulse Rate [ 155 H Left Radial] Pulse Rate [ 155 H Right Dorsalis Pedis] Pulse Rate [ 155 H Right Radial] Respiratory 15 Rate Blood Pressure 105/75 105/75 O2 Sat by Pulse 97 93 Oximetry 03/22/21 03/22/21 03/22/21 12:15 12:30 12:45 Temperature Pulse Rate 147 H 144 H 150 H Pulse Rate [ From Monitor] Pulse Rate [ Left Dorsalis Pedis] Pulse Rate [ Left Radial] Pulse Rate [ Right Dorsalis Pedis] Pulse Rate [ Right Radial] Respiratory 19 13 19 Rate Blood Pressure 111/76 121/79 121/79 O2 Sat by Pulse 95 98 94 Oximetry 03/22/21 03/22/21 03/22/21 13:01 13:15 13:31 Temperature Pulse Rate 161 H 158 H 158 H Pulse Rate [ From Monitor] Pulse Rate [ Left Dorsalis Pedis] Pulse Rate [ Left Radial] Pulse Rate [ Right Dorsalis Pedis] Pulse Rate [ Right Radial] Respiratory 28 H 25 H 25 H Rate Blood Pressure 85/67 80/48 130/86 O2 Sat by Pulse 92 91 90 Oximetry 03/22/21 03/22/21 03/22/21 13:45 14:00 14:15 Temperature Pulse Rate 158 H 155 H 152 H Pulse Rate [ From Monitor] Pulse Rate [ Left Dorsalis Pedis] Pulse Rate [ Left Radial] Pulse Rate [ Right Dorsalis Pedis] Pulse Rate [ Right Radial] Respiratory 22 20 19 Rate Blood Pressure 126/85 113/77 126/85 O2 Sat by Pulse 93 95 95 Oximetry 03/22/21 03/22/21 03/22/21 14:30 14:45 15:00 Temperature Pulse Rate 151 H 153 H 155 H Pulse Rate [ From Monitor] Pulse Rate [ Left Dorsalis Pedis] Pulse Rate [ Left Radial] Pulse Rate [ Right Dorsalis Pedis] Pulse Rate [ Right Radial] Respiratory 22 24 24 Rate Blood Pressure 120/83 120/83 104/72 O2 Sat by Pulse 94 95 95 Oximetry 03/22/21 03/22/21 03/22/21 15:15 15:30 15:45 Temperature Pulse Rate 157 H 156 H 156 H Pulse Rate [ From Monitor] Pulse Rate [ Left Dorsalis Pedis] Pulse Rate [ Left Radial] Pulse Rate [ Right Dorsalis Pedis] Pulse Rate [ Right Radial] Respiratory 23 24 23 Rate Blood Pressure 104/72 103/59 103/59 O2 Sat by Pulse 96 95 96 Oximetry 03/22/21 03/22/21 03/22/21 16:01 16:15 16:30 Temperature Pulse Rate 157 H 158 H 162 H Pulse Rate [ From Monitor] Pulse Rate [ Left Dorsalis Pedis] Pulse Rate [ Left Radial] Pulse Rate [ Right Dorsalis Pedis] Pulse Rate [ Right Radial] Respiratory 24 25 H 25 H Rate Blood Pressure 98/56 98/56 101/63 O2 Sat by Pulse 95 96 93 Oximetry 03/22/21 17:13 Temperature 101.7 F H Pulse Rate Pulse Rate [ From Monitor] Pulse Rate [ Left Dorsalis Pedis] Pulse Rate [ Left Radial] Pulse Rate [ Right Dorsalis Pedis] Pulse Rate [ Right Radial] Respiratory Rate Blood Pressure O2 Sat by Pulse Oximetry - Lab 03/22/21 06:50 03/22/21 06:50 Most recent lab results ABG pH 7.240 (7.320-7.450) L 03/21/21 04:00 ABG pCO2 25.5 mm Hg 03/18/21 23:23 ABG pO2 71.6 mm Hg (80.0-90.0) L 03/18/21 23:23 ABG HCO3 12.9 mmol/L (20.0-26.0) L 03/18/21 23:23 ABG O2 Saturation 97.1 (0-100) 03/21/21 04:00 Calcium 8.3 mg/dL (8.4-10.2) L 03/22/21 06:50 Phosphorus 6.20 mg/dL (2.5-4.5) H 03/20/21 05:16 Magnesium 2.60 mg/dL (1.7-2.3) H 03/20/21 05:16 Urine Sodium 37 mmol/L 03/14/21 Unknown Medications & Allergies - Medications Allergies/Adverse Reactions: Allergies No Known Allergies Allergy (Verified 03/11/21 09:21) Home Medications: Home Medications Medication Instructions Recorded Confirmed Last Taken Type AtorvaSTATin [Lipitor] 10 mg PO QHS 03/14/21 03/14/21 Unknown History Metoprolol [Lopressor TAB] 50 mg PO BID 03/14/21 03/14/21 Unknown History Mycophenolate [Cellcept] 500 mg PO BID 03/14/21 03/14/21 Unknown History NIFEdipine [Nifedipine ER] 90 mg PO BID 03/14/21 03/14/21 Unknown History Ondansetron [Zofran Odt] 4 mg PO Q8HR 03/14/21 03/14/21 Unknown History Tacrolimus 1 mg PO Q12HR 03/14/21 03/14/21 Unknown History Active Medications: Generic Name Dose Route Start Last Admin Trade Name Freq PRN Reason Stop Dose Admin Acetaminophen 650 mg 03/11/21 12:00 03/14/21 03:54 Acetaminophen 325 Mg Tab PO 650 mg Q4H PRN Administration Pain MILD(1-3)/Fever >100.5/[place] Lipase/Protease/Amylase 1 each 03/19/21 17:35 Lipase 10,500/Protease 25,000/Amylase 43,750 (Units) Dr Alegre FEEDTUBE PRN PRN For Clogged Feeding Tube Ascorbic Acid 500 mg 03/11/21 12:00 03/22/21 10:26 Ascorbic Acid 500 Mg Tab PO 500 mg BID GYPSY Administration Cholecalciferol 1,000 unit 03/11/21 13:00 03/22/21 10:26 Cholecalciferol (Vit D3) 1000 Unit (25 Mcg) Tab PO 1,000 unit QDAY GYPSY Administration Clonidine HCl 0.1 mg 03/20/21 08:00 03/20/21 09:12 Clonidine Tts 0.1 Mg/24 Hr Patch TD Not Given Fr GYPSY Dextrose 50 ml 03/13/21 14:44 Dextrose 50% In Water (25gm) 50 Ml Syringe IV Q30MIN PRN Hypoglycemia Protocol Famotidine 20 mg 03/19/21 22:00 03/22/21 10:27 Famotidine 20 Mg/2 Ml Inj IV 20 mg QDAY GYPSY Administration Fentanyl 50 mcg 03/19/21 15:29 Fentanyl 100 Mcg/2 Ml Inj IV Q10MIN PRN ANALGESIA Hydralazine HCl 10 mg 03/14/21 18:13 03/19/21 08:07 Hydralazine 20 Mg/1 Ml Inj IV 10 mg Q6H PRN Administration Hypertension Hydrophilic Ointment 1 applic 03/19/21 15:29 Lip Therapy Vaseline TP Q2HR PRN Dry Lips Dexmedetomidine HCl 400 mcg/ 104 mls @ 3.588 mls/hr 03/16/21 12:00 03/19/21 15:49 Sodium Chloride IV 0 mcg/kg/hr TITRATE GYPSY 0 mls/hr Titration Protocol 0.2 MCG/KG/HR Argatroban 250 mg/ Sodium 250 mls @ 2.07 mls/hr 03/17/21 11:00 03/21/21 22:03 Chloride IV 0.75 mcg/kg/min TITR GYPSY 3.105 mls/hr Titration Protocol 0.5 MCG/KG/MIN Sodium Chloride 100 mls @ 999 mls/hr 03/19/21 10:00 Nacl 0.9% IV OSCAR PRN Hypotension Fentanyl Citrate 2,000 mcg in 100 mls @ 3.45 mls/hr 03/19/21 16:00 03/22/21 14:55 Fentanyl Drip Premix IV 3 mcg/kg/hr TITR GYPSY 10.35 mls/hr Titration Protocol 1 MCG/KG/HR Norepinephrine 4 mg in 250 mls @ 7.5 mls/hr 03/20/21 11:00 03/22/21 14:55 Levophed Drip 4 Mg/Ns 250 Ml IV 1 mcg/min TITR GYPSY 3.75 mls/hr Titration Protocol 2 MCG/MIN Lactated Ringer's 1,000 mls @ 100 mls/hr 03/22/21 09:00 Lactated Ringers IV DIRECT GYPSY Lorazepam 100 mg/ Sodium 100 mls @ 1 mls/hr 03/22/21 13:00 03/22/21 16:32 Chloride/ Miscellaneous IV 3 mg/hr Information TITR GYPSY 3 mls/hr Titration Protocol 1 MG/HR Insulin Human Lispro 0 unit 03/16/21 13:00 03/22/21 11:52 Insulin Lispro 100 Unit/Ml SUB-Q 4 unit Q6HR GYPSY Administration Protocol Lorazepam 2 mg 03/22/21 12:44 03/22/21 16:19 Lorazepam 2 Mg/Ml Vial IV 2 mg Q10MIN PRN Administration Agitation Multi-Ingred Cream/Lotion/Oil/Oint 1 applic 03/19/21 15:29 Mineral Oil/Petrolatum, White Ophth Oint 3.5 Gm OU Q4HR PRN Dry Eye(s) Ondansetron HCl 4 mg 03/11/21 12:00 03/15/21 12:08 Ondansetron 4 Mg/2 Ml Inj IV 4 mg Q8H PRN Administration Nausea And Vomiting Senna/Docusate Sodium 1 tab 03/19/21 22:00 03/22/21 10:26 Sennosides/Docusate Sodium 8.6/50 Mg Tab FEEDTUBE 1 tab BID GYPSY Administration Simple Syrup 15 ml 03/19/21 17:35 Simple Syrup 15 Ml FEEDTUBE PRN PRN Hypoglycemia Simple Syrup 30 ml 03/19/21 17:35 Simple Syrup 15 Ml FEEDTUBE PRN PRN Hypoglycemia Sodium Bicarbonate 325 mg 03/19/21 17:35 Sodium Bicarbonate 325 Mg Tab FEEDTUBE PRN PRN For Clogged Feeding Tube Sodium Chloride 10 ml 03/11/21 12:00 03/22/21 10:27 Sodium Chloride 0.9% 10 Ml Flush Syringe IV 10 ml BID GYPSY Administration Sodium Chloride 10 ml 03/11/21 12:00 Sodium Chloride 0.9% 10 Ml Flush Syringe IV PRN PRN LINE FLUSH Sodium Chloride 5 ml 03/19/21 15:29 Sodium Chloride 0.9% 500 Ml Ivpb IV DIRECT PRN ARTERIAL INTERVENTIONAL RADIOLOGY TECH Zinc Sulfate 220 mg 03/11/21 12:00 03/22/21 10:27 Zinc Sulfate 220 Mg Cap PO 220 mg BID GYPSY Administration
[2021-03-22 18:57] LABS: Bacteria,Urine 1+ /HPF (Negative); Bilirubin,Urine NEG (Negative); Blood,Urine LG (Negative); Color,Urine Yellow (Yellow); Mucus,Urine FEW /HPF; Urobilinogen,Urine < 2.0 mg/dL (<2.0)
[2021-03-22 19:05] LABS: Creatinine,Urine 84.3 mg/dL (0.1-20.0); Protein/Creatinine Ratio,Urine 0.9
[2021-03-22] MEDS ORDERED: AMIODARONE 150 MG in DEXTROSE 5% IN WATER 97 ML IV ONE (20:48)
[2021-03-22] MEDS ORDERED: AMIODARONE 900 MG in DEXTROSE 5% IN WATER 482 ML IV SCH (21:00)
[2021-03-22] MEDS: ACETAMINOPHEN 325 MG TAB PO PRN (21:10)
[2021-03-23] MEDS: INSULIN LISPRO 100 UNIT/ML SUB-Q SCH ×3 (00:37→19:06)
[2021-03-23] MEDS: NORepinephrine/NS 4 MG-250 ML 4 MG/250 ML BAG IV SCH ×3 (03:56→19:40)
--- NOTE | 2021-03-23 04:23 | XRay Report ---
CHEST 1 VIEW INDICATION / CLINICAL INFORMATION: follow up respiratory failure, Covid pneumonia STUDY TIME: 201 COMPARISON: 03/22/2021 FINDINGS: SUPPORT DEVICES: Stable HEART / MEDIASTINUM: Stable LUNGS / PLEURA: Bilateral patchy infiltrates appear mildly worse on the left and moderately worse on the right. Minimal bilateral apical pneumothoraces continue. ADDITIONAL FINDINGS: No significant additional findings. Signer Name: Manuel Oconnor MD Signed: 03/23/2021 4:19 AM Workstation Name: [id number]
[2021-03-23 05:07] LABS: Hematocrit 34.1 % (35.5-45.6); Hemoglobin 11.4 gm/dl (11.8-15.2); Mean Corpuscular HGB Conc 33 % (32-34); Mean Corpuscular Volume 93 fl (84-94); Platelet Count 81 K/mm3 (140-440); Red Blood Count 3.67 M/mm3 (3.65-5.03)
[2021-03-23 05:39] LABS: Albumin 1.9 g/dL (3.9-5); Calcium 8.1 mg/dL (8.4-10.2)
[2021-03-23] MEDS: fentaNYL DRIP Premix 2,000 MCG/100 ML BAG IV SCH ×2 (06:59→23:33)
[2021-03-23] MEDS: ACETAMINOPHEN 325 MG TAB PO PRN (07:58)
[2021-03-23] MEDS: INSULIN REGULAR, HUMAN 100 UNITS/1 ML SUB-Q SCH ×2 (08:52→13:26)
[2021-03-23] MEDS: ASCORBIC ACID 500 MG TAB PO SCH ×2 (09:38→22:24)
[2021-03-23] MEDS: ZINC SULFATE 220 MG CAP PO SCH ×2 (09:38→22:24)
[2021-03-23] MEDS: CHOLECALCIFEROL (VIT D3) 1000 UNIT (25 mcg) TAB PO SCH (09:38)
[2021-03-23] MEDS: SENNOSIDES/DOCUSATE SODIUM 8.6/50 MG TAB FEEDTUBE SCH ×2 (09:39→22:25)
[2021-03-23] MEDS: FAMOTIDINE 20 MG/2 ML INJ IV SCH ×2 (09:39→22:24)
--- NOTE | 2021-03-23 09:55 | Progress Note ---
Subjective Date of service: 03/23/21 Principal diagnosis: COVID-19 Interval history: Impression: * Nonoliguric acute kidney injury vs underlying CKD --Baseline renal function unknown * Acute hypoxic respiratory failure secondary to COVID 19 PNA * COVID 19 infection * Hypotension * Hypernatremia * UTI * Tachycardia * Sepsis * Transaminitis Plan: * Hold further HD until stable, hr 140s, needs better control. labs overall within acceptable range, elevated BUN noted, steroids likely contributing * Keep MAP >65, vasopressors prn * add iv abx for UTI * Vasc cath placed 03/16 * Remdesevir (hold for GFR<30), steroids, abx per ID * Dose medications for renal function * Avoid potential nephrotoxins * daily lytes, strict i/os * AM labs * consent was obtained for HD prior to initiation * Prognosis guarded Subjective Principal diagnosis: COVID-19 Interval history: Nursing, interdisciplinary and consult notes were reviewed Vitals, input and output, medications and labs were reviewed Remains intubated FiO2 weaned down this morning Objective - Exam deferred for preservation of PPE, primary team exam noted Objective - Vital Signs Vital signs: Vital Signs - 12hr 03/22/21 03/22/21 03/22/21 22:01 22:15 22:30 Temperature Pulse Rate 170 H 167 H 163 H Pulse Rate [ Right Dorsalis Pedis] Respiratory 31 H 31 H 28 H Rate Blood Pressure 82/46 82/46 84/50 O2 Sat by Pulse 88 88 88 Oximetry 03/22/21 03/22/21 03/22/21 22:45 23:00 23:15 Temperature Pulse Rate 160 H 159 H 160 H Pulse Rate [ Right Dorsalis Pedis] Respiratory 27 H 26 H 27 H Rate Blood Pressure 84/50 84/46 84/46 O2 Sat by Pulse 90 93 94 Oximetry 03/22/21 03/22/21 03/22/21 23:30 23:45 23:54 Temperature 102.9 F H Pulse Rate 158 H 158 H Pulse Rate [ Right Dorsalis Pedis] Respiratory 27 H 26 H Rate Blood Pressure 86/44 86/44 O2 Sat by Pulse 96 98 Oximetry 03/22/21 03/23/21 03/23/21 23:57 00:00 00:01 Temperature Pulse Rate 158 H 154 H 155 H Pulse Rate [ 154 H Right Dorsalis Pedis] Respiratory 25 H Rate Blood Pressure 146/76 O2 Sat by Pulse 98 89 100 Oximetry 03/23/21 03/23/21 03/23/21 00:15 00:30 00:46 Temperature Pulse Rate 154 H 153 H 151 H Pulse Rate [ Right Dorsalis Pedis] Respiratory 24 26 H 24 Rate Blood Pressure 158/106 93/42 93/42 O2 Sat by Pulse 90 90 89 Oximetry 03/23/21 03/23/21 03/23/21 01:00 01:15 01:30 Temperature Pulse Rate 152 H 153 H 153 H Pulse Rate [ Right Dorsalis Pedis] Respiratory 23 24 25 H Rate Blood Pressure 89/50 86/51 91/46 O2 Sat by Pulse 89 88 91 Oximetry 03/23/21 03/23/21 03/23/21 01:45 02:01 02:15 Temperature Pulse Rate 151 H 152 H 149 H Pulse Rate [ Right Dorsalis Pedis] Respiratory 25 H 28 H 24 Rate Blood Pressure 93/52 86/47 85/49 O2 Sat by Pulse 91 93 95 Oximetry 03/23/21 03/23/21 03/23/21 02:30 02:45 03:00 Temperature Pulse Rate 149 H 146 H 144 H Pulse Rate [ Right Dorsalis Pedis] Respiratory 23 24 22 Rate Blood Pressure 75/50 90/53 91/59 O2 Sat by Pulse 95 93 93 Oximetry 03/23/21 03/23/21 03/23/21 03:15 03:31 03:33 Temperature 102.4 F H Pulse Rate 142 H 146 H Pulse Rate [ Right Dorsalis Pedis] Respiratory 29 H 30 H Rate Blood Pressure 83/52 90/60 O2 Sat by Pulse 93 84 Oximetry 03/23/21 03/23/21 03/23/21 03:45 04:00 04:15 Temperature Pulse Rate 146 H 138 H 137 H Pulse Rate [ 138 H Right Dorsalis Pedis] Respiratory 27 H 26 H 24 Rate Blood Pressure 90/60 106/73 96/69 O2 Sat by Pulse 88 91 90 Oximetry 03/23/21 03/23/21 03/23/21 04:21 04:30 04:45 Temperature Pulse Rate 137 H 137 H 138 H Pulse Rate [ Right Dorsalis Pedis] Respiratory 24 23 Rate Blood Pressure 96/69 100/65 105/68 O2 Sat by Pulse 90 90 90 Oximetry 03/23/21 03/23/21 03/23/21 05:00 05:15 05:30 Temperature Pulse Rate 137 H 137 H 136 H Pulse Rate [ Right Dorsalis Pedis] Respiratory 23 25 H 25 H Rate Blood Pressure 109/70 104/70 105/71 O2 Sat by Pulse 90 90 90 Oximetry 03/23/21 03/23/21 03/23/21 05:45 06:00 06:15 Temperature Pulse Rate 138 H 137 H 139 H Pulse Rate [ Right Dorsalis Pedis] Respiratory 24 25 H 24 Rate Blood Pressure 108/68 102/71 106/71 O2 Sat by Pulse 90 91 91 Oximetry 03/23/21 03/23/21 03/23/21 06:30 06:45 07:00 Temperature Pulse Rate 139 H 139 H 139 H Pulse Rate [ Right Dorsalis Pedis] Respiratory 23 24 24 Rate Blood Pressure 102/70 107/69 96/66 O2 Sat by Pulse 91 91 91 Oximetry 03/23/21 03/23/21 03/23/21 07:20 07:30 07:40 Temperature Pulse Rate 139 H 140 H 140 H Pulse Rate [ Right Dorsalis Pedis] Respiratory 26 H 24 24 Rate Blood Pressure 105/68 109/64 109/64 O2 Sat by Pulse 90 90 90 Oximetry 03/23/21 03/23/21 03/23/21 07:50 07:58 08:00 Temperature 101.7 F H Pulse Rate 140 H 141 H Pulse Rate [ Right Dorsalis Pedis] Respiratory 24 24 25 H Rate Blood Pressure 96/65 91/63 O2 Sat by Pulse 90 90 Oximetry 03/23/21 03/23/21 03/23/21 08:10 08:20 08:42 Temperature Pulse Rate 140 H 140 H 144 H Pulse Rate [ Right Dorsalis Pedis] Respiratory 24 23 Rate Blood Pressure 94/62 91/64 100/63 O2 Sat by Pulse 91 92 90 Oximetry - Lab 03/23/21 04:35 03/23/21 04:35 Most recent lab results ABG pH 7.348 (7.320-7.450) 03/23/21 04:00 ABG pCO2 25.5 mm Hg 03/18/21 23:23 ABG pO2 71.6 mm Hg (80.0-90.0) L 03/18/21 23:23 ABG HCO3 12.9 mmol/L (20.0-26.0) L 03/18/21 23:23 ABG O2 Saturation 84.1 (0-100) 03/23/21 04:00 Calcium 8.1 mg/dL (8.4-10.2) L 03/23/21 04:35 Phosphorus 6.20 mg/dL (2.5-4.5) H 03/20/21 05:16 Magnesium 2.60 mg/dL (1.7-2.3) H 03/20/21 05:16 Urine Creatinine 84.3 mg/dL (0.1-20.0) H 03/22/21 Unknown Urine Sodium 37 mmol/L 03/14/21 Unknown Urine Total Protein 76 mg/dL (5-11.8) H 03/22/21 Unknown Medications & Allergies - Medications Allergies/Adverse Reactions: Allergies No Known Allergies Allergy (Verified 03/11/21 09:21) Home Medications: Home Medications Medication Instructions Recorded Confirmed Last Taken Type AtorvaSTATin [Lipitor] 10 mg PO QHS 03/14/21 03/14/21 Unknown History Metoprolol [Lopressor TAB] 50 mg PO BID 03/14/21 03/14/21 Unknown History Mycophenolate [Cellcept] 500 mg PO BID 03/14/21 03/14/21 Unknown History NIFEdipine [Nifedipine ER] 90 mg PO BID 03/14/21 03/14/21 Unknown History Ondansetron [Zofran Odt] 4 mg PO Q8HR 03/14/21 03/14/21 Unknown History Tacrolimus 1 mg PO Q12HR 03/14/21 03/14/21 Unknown History Active Medications: Generic Name Dose Route Start Last Admin Trade Name Fatou PRN Reason Stop Dose Admin Acetaminophen 650 mg 03/11/21 12:00 03/23/21 07:58 Acetaminophen 325 Mg Tab PO 650 mg Q4H PRN Administration Pain MILD(1-3)/Fever >100.5/[place] Lipase/Protease/Amylase 1 each 03/19/21 17:35 Lipase 10,500/Protease 25,000/Amylase 43,750 (Units) Dr Alegre FEEDTUBE PRN PRN For Clogged Feeding Tube Ascorbic Acid 500 mg 03/11/21 12:00 03/23/21 09:38 Ascorbic Acid 500 Mg Tab PO 500 mg BID GYPSY Administration Cholecalciferol 1,000 unit 03/11/21 13:00 03/23/21 09:38 Cholecalciferol (Vit D3) 1000 Unit (25 Mcg) Tab PO 1,000 unit QDAY GYPSY Administration Clonidine HCl 0.1 mg 03/20/21 08:00 03/20/21 09:12 Clonidine Tts 0.1 Mg/24 Hr Patch TD Not Given Fr GYPSY Dextrose 50 ml 03/13/21 14:44 Dextrose 50% In Water (25gm) 50 Ml Syringe IV Q30MIN PRN Hypoglycemia Protocol Famotidine 10 mg 03/23/21 10:00 03/23/21 09:39 Famotidine 20 Mg/2 Ml Inj IV 10 mg BID GYPSY Administration Fentanyl 50 mcg 03/19/21 15:29 Fentanyl 100 Mcg/2 Ml Inj IV Q10MIN PRN ANALGESIA Hydralazine HCl 10 mg 03/14/21 18:13 03/19/21 08:07 Hydralazine 20 Mg/1 Ml Inj IV 10 mg Q6H PRN Administration Hypertension Hydrophilic Ointment 1 applic 03/19/21 15:29 Lip Therapy Vaseline TP Q2HR PRN Dry Lips Argatroban 250 mg/ Sodium 250 mls @ 2.07 mls/hr 03/17/21 11:00 03/23/21 08:00 Chloride IV 0.75 mcg/kg/min TITR GYPSY 3.105 mls/hr Titration Protocol 0.5 MCG/KG/MIN Sodium Chloride 100 mls @ 999 mls/hr 03/19/21 10:00 Nacl 0.9% IV OSCAR PRN Hypotension Fentanyl Citrate 2,000 mcg in 100 mls @ 3.45 mls/hr 03/19/21 16:00 03/23/21 08:00 Fentanyl Drip Premix IV 3 mcg/kg/hr TITR GYPSY 10.35 mls/hr Titration Protocol 1 MCG/KG/HR Norepinephrine 4 mg in 250 mls @ 7.5 mls/hr 03/20/21 11:00 03/23/21 09:49 Levophed Drip 4 Mg/Ns 250 Ml IV Infused TITR GYPSY Titration Protocol 2 MCG/MIN Lactated Ringer's 1,000 mls @ 100 mls/hr 03/22/21 09:00 03/23/21 08:53 Lactated Ringers IV 100 mls/hr DIRECT GYPSY Administration Lorazepam 100 mg/ Sodium 100 mls @ 1 mls/hr 03/22/21 13:00 03/23/21 08:00 Chloride/ Miscellaneous IV 3 mg/hr Information TITR YGPSY 3 mls/hr Titration Protocol 1 MG/HR Amiodarone HCl 900 mg/ 500 mls @ 33.333 mls/hr 03/22/21 21:00 03/23/21 08:00 Dextrose IV 0.5 mg/min DIRECT GYPSY 16.667 mls/hr Infusion Protocol 1 MG/MIN Insulin Glargine 20 units 03/23/21 22:00 Insulin Glargine 100 Units/Ml SUB-Q QHS GYPSY Insulin Human Lispro 0 unit 03/16/21 13:00 03/23/21 00:37 Insulin Lispro 100 Unit/Ml SUB-Q 6 unit Q6HR GYPSY Administration Protocol Insulin Human Regular 5 units 03/23/21 08:00 03/23/21 08:52 Insulin Regular, Human 100 Units/1 Ml SUB-Q 5 units Q6HR GYPSY Administration Lorazepam 2 mg 03/22/21 12:44 03/22/21 16:19 Lorazepam 2 Mg/Ml Vial IV 2 mg Q10MIN PRN Administration Agitation Multi-Ingred Cream/Lotion/Oil/Oint 1 applic 03/19/21 15:29 Mineral Oil/Petrolatum, White Ophth Oint 3.5 Gm OU Q4HR PRN Dry Eye(s) Ondansetron HCl 4 mg 03/11/21 12:00 03/15/21 12:08 Ondansetron 4 Mg/2 Ml Inj IV 4 mg Q8H PRN Administration Nausea And Vomiting Senna/Docusate Sodium 1 tab 03/19/21 22:00 03/23/21 09:39 Sennosides/Docusate Sodium 8.6/50 Mg Tab FEEDTUBE 1 tab BID GYPSY Administration Simple Syrup 15 ml 03/19/21 17:35 Simple Syrup 15 Ml FEEDTUBE PRN PRN Hypoglycemia Simple Syrup 30 ml 03/19/21 17:35 Simple Syrup 15 Ml FEEDTUBE PRN PRN Hypoglycemia Sodium Bicarbonate 325 mg 03/19/21 17:35 Sodium Bicarbonate 325 Mg Tab FEEDTUBE PRN PRN For Clogged Feeding Tube Sodium Chloride 10 ml 03/11/21 12:00 03/22/21 10:27 Sodium Chloride 0.9% 10 Ml Flush Syringe IV 10 ml BID GYPSY Administration Sodium Chloride 10 ml 03/11/21 12:00 Sodium Chloride 0.9% 10 Ml Flush Syringe IV PRN PRN LINE FLUSH Sodium Chloride 5 ml 03/19/21 15:29 Sodium Chloride 0.9% 500 Ml Ivpb IV DIRECT PRN [employer] Zinc Sulfate 220 mg 03/11/21 12:00 03/23/21 09:38 Zinc Sulfate 220 Mg Cap PO 220 mg BID GYPSY Administration
[2021-03-23] MEDS ORDERED: SODIUM CHLORIDE 0.9% 1000 ML 1,000 ML IV SCH ×2 (10:00→12:30)
[2021-03-23] MEDS ORDERED: VANCOMYCIN 1,250 MG in SODIUM CHLORIDE 0.9% 500 ML 500 ML IV ONE (10:24)
--- NOTE | 2021-03-23 10:24 | Progress Note ---
Assessment and Plan Cultures: Blood culture 03/11/2021 no growth today SARS CoV2 PCR positive 03/19/2021 tracheal aspirate culture: No growth so far Assessment: 50-year-old male with history of CVA admitted on 03/11/2021 secondary to shortness of breath/altered mental status: #Severe sepsis: secondary to COVID-19 and related complications #Severe COVID pneumonia: CXR with bilateral pneumonia. Was unable to complete remdesivir course due to renal failure. Status post Tocilizumab on 03/12/2021, completed antibiotics, steroids. #Acute hypoxemic respiratory failure: failed BiPAP, intubated 03/19/2021. #Bilateral pneumothorax, pneumomediastinum, subcutaneous emphysema from COVID #Elevated LFTs: from COVID. #CHRISTY: started dialysis 03/17. #DM: uncontrolled Recommendations: Blood cultures ordered, started empiric cefepime, vancomycin, renally dosed Completed steroids Status post Actemra 03/12/2021 Extremely poor prognosis Adama Johnson MD, FACP [facility] ([facility] O: [phone] F: [phone] Subjective Date of service: 03/23/21 Principal diagnosis: COVID-19 Interval history: Febrile with T-max of 102.4 F. Remains on the vent, 100% FiO2. Has been requiring pressors. Noted to have ischemic digits. Objective - Exam Narrative Exam: Physical Exam (reviewed in chart to minimize risk of transmission) Constitutional: deferred Head, Ears, Nose: deferred Eyes: deferred Neck: deferred Oral: deferred Cardiovascular: deferred Respiratory: deferred GI: deferred Musculoskeletal: deferred Skin: deferred Hem/Lymphatic: deferred Psych: deferred Neurological: deferred - Constitutional Vitals: Vital Signs Temp Pulse Resp BP Pulse Ox 101.7 F H 142 H 22 72/45 94 03/23/21 08:00 03/23/21 10:15 03/23/21 10:15 03/23/21 10:15 03/23/21 10:15 Temperature -Last 24 Hours Temperature 101.7 F Temperature 102.4 F Temperature 102.9 F Temperature 102.9 F Temperature 101.7 F Temperature 100.8 F - Labs CBC & Chem 7: 03/23/21 04:35 03/23/21 04:35 Labs: Abnormal lab results 03/22/21 03/22/21 03/22/21 Range/Units 04:00 11:14 17:31 WBC (4.5-11.0) K/mm3 Hgb (11.8-15.2) gm/dl Hct (35.5-45.6) % Plt Count (140-440) K/mm3 APTT (24.2-36.6) Sec. POC ABG pO2 60.5 L (83-108) mmHg ABG Hemoglobin 11.5 L (12.0-17.5) ABG Oxyhemoglobin 89.6 L (94-98) ABG Sodium 133.2 L (136.0-145.0) mmol/L ABG Glucose 240 H (65-95) mg/dL Carboxyhemoglobin 0.3 L (0.5-1.5) Sodium (137-145) mmol/L BUN (9-20) mg/dL Creatinine (0.8-1.3) mg/dL Glucose (75-100) mg/dL POC Glucose 236 H 208 H (70-105) mg/dL Calcium (8.4-10.2) mg/dL Total Protein (6.3-8.2) g/dL Albumin (3.9-5) g/dL Arterial Blood Glucose 240 H (65-95) mg/dL Urine WBC (Auto) (0.0-6.0) /HPF Urine Creatinine (0.1-20.0) mg/dL Urine Total Protein (5-11.8) mg/dL 03/22/21 03/22/21 03/22/21 Range/Units 23:24 Unknown Unknown WBC (4.5-11.0) K/mm3 Hgb (11.8-15.2) gm/dl Hct (35.5-45.6) % Plt Count (140-440) K/mm3 APTT (24.2-36.6) Sec. POC ABG pO2 (83-108) mmHg ABG Hemoglobin (12.0-17.5) ABG Oxyhemoglobin (94-98) ABG Sodium (136.0-145.0) mmol/L ABG Glucose (65-95) mg/dL Carboxyhemoglobin (0.5-1.5) Sodium (137-145) mmol/L BUN (9-20) mg/dL Creatinine (0.8-1.3) mg/dL Glucose (75-100) mg/dL POC Glucose 297 H (70-105) mg/dL Calcium (8.4-10.2) mg/dL Total Protein (6.3-8.2) g/dL Albumin (3.9-5) g/dL Arterial Blood Glucose (65-95) mg/dL Urine WBC (Auto) 17.0 H (0.0-6.0) /HPF Urine Creatinine 84.3 H (0.1-20.0) mg/dL Urine Total Protein 76 H (5-11.8) mg/dL 03/23/21 03/23/21 03/23/21 Range/Units 04:00 04:35 04:35 WBC 15.9 H (4.5-11.0) K/mm3 Hgb 11.4 L (11.8-15.2) gm/dl Hct 34.1 L (35.5-45.6) % Plt Count 81 L (140-440) K/mm3 APTT (24.2-36.6) Sec. POC ABG pO2 51.8 L (83-108) mmHg ABG Hemoglobin (12.0-17.5) ABG Oxyhemoglobin 83.5 L (94-98) ABG Sodium 131.3 L (136.0-145.0) mmol/L ABG Glucose 297 H (65-95) mg/dL Carboxyhemoglobin 0.4 L (0.5-1.5) Sodium 136 L (137-145) mmol/L BUN 102 H (9-20) mg/dL Creatinine 4.8 H (0.8-1.3) mg/dL Glucose 300 H (75-100) mg/dL POC Glucose (70-105) mg/dL Calcium 8.1 L (8.4-10.2) mg/dL Total Protein 4.3 L (6.3-8.2) g/dL Albumin 1.9 L (3.9-5) g/dL Arterial Blood Glucose 297 H (65-95) mg/dL Urine WBC (Auto) (0.0-6.0) /HPF Urine Creatinine (0.1-20.0) mg/dL Urine Total Protein (5-11.8) mg/dL 03/23/21 03/23/21 Range/Units 04:35 05:30 WBC (4.5-11.0) K/mm3 Hgb (11.8-15.2) gm/dl Hct (35.5-45.6) % Plt Count (140-440) K/mm3 APTT 64.8 H* (24.2-36.6) Sec. POC ABG pO2 (83-108) mmHg ABG Hemoglobin (12.0-17.5) ABG Oxyhemoglobin (94-98) ABG Sodium (136.0-145.0) mmol/L ABG Glucose (65-95) mg/dL Carboxyhemoglobin (0.5-1.5) Sodium (137-145) mmol/L BUN (9-20) mg/dL Creatinine (0.8-1.3) mg/dL Glucose (75-100) mg/dL POC Glucose 288 H (70-105) mg/dL Calcium (8.4-10.2) mg/dL Total Protein (6.3-8.2) g/dL Albumin (3.9-5) g/dL Arterial Blood Glucose (65-95) mg/dL Urine WBC (Auto) (0.0-6.0) /HPF Urine Creatinine (0.1-20.0) mg/dL Urine Total Protein (5-11.8) mg/dL - Imaging and cardiology Chest x-ray: report reviewed, image reviewed (without much interval change)
[2021-03-23] MEDS ORDERED: cefTRIAXone/NS 1 GM/50 ML 1 GM/50 ML BAG IV SCH (11:00)
[2021-03-23] MEDS ORDERED: VANCOMYCIN PHARMACY TO DOSE IV SCH (11:00)
[2021-03-23 11:35] LABS: Band Neutrophils # (Manual) 0.5 K/mm3; Large Platelets Rare; Platelet Estimate Consistent w Auto; Total Cells Counted 100
[2021-03-23] MEDS ORDERED: LIPASE 10,500/PROTEASE 25,000/AMYLASE 43,750 (UNITS) DR CAP FEEDTUBE PRN (11:54)
[2021-03-23] MEDS ORDERED: SODIUM BICARBONATE 325 MG TAB FEEDTUBE PRN (11:54)
[2021-03-23] MEDS ORDERED: SIMPLE SYRUP 15 ML FEEDTUBE PRN ×2 (11:54)
[2021-03-23] MEDS ORDERED: VANCOMYCIN 1,500 MG in SODIUM CHLORIDE 0.9% 500 ML 500 ML IV ONE (12:00)
--- NOTE | 2021-03-23 12:25 | Progress Note ---
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 Patient is lethargic with diminished cognition at the time of my evaluation and is currently being treated with noninvasive positive pressure ventilation and is only able to provide minimal history. Patient states "I cannot breathe". Additional history taken from EMS staff, as well as ED staff. As per staff the patient initially reported that he had experienced shortness of breath over the past 1 week with persistent and worsening symptoms over the same timeframe. EMS notified and upon arrival the patient was found to be in distress with a pulse oximetry of 69%. The patient was placed on supplemental oxygen and transported to [facility] for further care and evaluation of the aforementioned symptoms. The patient was seen and evaluated in the emergency department. All lab and imaging studies reviewed. Patient was found to have a pulse oximetry in the 60s on room air without improvement on submental oxygen. The patient was subsequently placed on noninvasive positive pressure ventilation in the emergency department. The patient was found to be using accessory muscles to breathe unable to speak in complete sentences. The patient was also confused and lethargic. Chest x- ray revealed bilateral pneumonia. Patient admitted to IMCU and initiated on pneumonia protocol as well as coronavirus protocol. Pulmonary team consulted in ED. Infectious disease team consulted in ED. No further history is obtainable. Patient has diminished cognition at time of evaluation but has a positive gag reflex and is able to protect his airway without difficulty. No prior admission for review. No medication listed at time of admission reconciliation - admitted through ER 03/22/21: Order bilateral upper ext venous and arterial dopplers. Patient already on argatroban therapy with thrombocytopenia. Stopping diprovan secondary to elevated triglyceride level and added ativan drip. I dropped fiO2 to 45% while in room. Sats stable. will start to wean PEEP tomorrow. No ABG done this am and if it was, it did not cross over. Will order now. May need to place art line if able. Feel fingers on left hand are likely not going to re cover. Can ask vascular to look tomorrow after dopplers are done. Very very guarded to poor prognosis. 03/21/21: Continue current level of supportive care. Hopeful HD today. Continue to wean FiO2. Ok with pH where it is as long as it stay above 7.2. Guarded prognosis. 03/20/21: Continue current level of sedations. Wean FiO2 for sats >88%. Once FiO2 around 45-50% can start weaning PEEP. No current indication for chest tube as of yet. HD per renal. very very guarded to poor prognosis with COVID and renal failure. Platelets continue to improve so continue argatroban therapy. 03/19/21: DIalysis today. Asked nursing to max out precedex. Continue Argatroban. Platelets better. Continue to attempt not to intubate given the elevated mortality rate, would prefer not to intubate if able. Very very guarded prognosis. 03/17/21: Hopeful dialysis today. Ordered stat CXR and does shows small apical PTX, slightly larger but still not a point that I feel needs CT placement. Will repeat later this afternoon. Will have RT turn of oxygen and attempt to wean pressure to help with resorption. Prognosis overall remains guarded to poor, especially with renal dysfunction plus COVID. D-Dimer now is >10K, however platelets dropping on heparin. Stopping Sub Q prophylactic therapy, checking bilateral dopplers and will send hiT PANEL. May consider doing argatroban therapy. 03/16/21: Vascath placed. Minerva at [phone] is the point of contact and decision maker. She has consented for vascath. Also discussed the possibility that patient may require mechanical ventilator in the near future if no improvement. Will attempt to use precedex to help keep patient calm so that bipap/avaps can work. Volume removal per renal. Guarded prognosis. : Hold on increasing steroids as of now. Prone if able. Continue AVAPS today but spoke with RT about weaning FiO2 for sats >88%. Monitor fluids. No lasix right now given renal dysfunction. Reviewed ID note and agree with their plan and assessment. Guarded prognosis. 03-19 intubated 03-23 in pressors overnight; febrile; not tolerating HD NEURO- metabolic encephalopathy sedated on fentanyl and ativan SAT- yesterday per RN he is more sedate than yesterday pt not responding to noxious stimuli no spontaneous movement pos gag; PERRL family updated on plan of care CV- tachycardia with septic shock; impaired distal circulation tachycardia improved with volume today no fib- amio dc echo ordered 12 lead ordered HR dec with volume resusc. in the setting of a fever/hypotension on NE; added vaso and adarsh adarsh may cause less tachy - will transition and wean NE as tolerated titrating for MAP goal of 65 monitor fingers/hand for necrosis; right hand cold; pos radial pulse consider vascular consult Resp- acute hypoxic resp failure with covid19 pna remains ventilated with PEEP of 10 20-450-10-.90 this AM 1400 inc to 100 given low oxygen saturation xray chest ordered 1425 sat 90 advance ETT 3 cm does not appear any different on xray glidescope used- no kinking of ETT to cords; maintaining TV 1525 Sat 92 on 100 see RT notes thick blood tinged secretions nebs PRN per RT; requested at 1435 ABG noted this AM chest xray noted - bilateral infiltrates with no obvious pneumothorax GI- transaminitis nutrition following TF per nutrition GI prophylaxis with pepcid trend LFT's bowel reg - CHRISTY requiring HD; hypoNa; hyperk renal following CHRISTY HD- has not tolerated renal dosing of meds; avoid nephrotoxins if able strict I/O is making some urine today - see I/O for hourly output volume down- while drawing blood cultures from EJ - the EJ with a lot of resp variation and sucking down on needle when needle entered vessel needs volume given sepsis AM labs ordered Heme- coagulopathy with covid; on argatroban stable Hgb no bleeding on exam on argatroban IV- convert to heparin given HIT neg consider low standard once echo is completed- concern for RV strain ID [email or web address]; covid19 pna; likely secondary infection; septic shock; leukocytosis ID following recultured today empiric coverage with vanc/cefipime.; renally dosed febrile- tylenol PRN/ cooling blanket has completed steroids- consider repulsing completed actemra 9-16 trend temp and WBC curve trend culture data Endo hyperglycemia SSI PRN avoid hypoglycemia now that steroids are completed. The high probability of a clinically significant, sudden or life threatening deterioration of the [5] system(s) required my full and direct attention, intervention and personal management. The aggregate critical care time was [90] minutes. This time is in addition to time spent performing reported procedures but includes the following: [x] Data Review and interpretation [x] Patient assessment and monitoring of vital signs [x] Documentation [x] Medication orders and management Disposition Plan: icu Total Time Spent with Patient (Minutes): 90 History Interval history: hypotensive on NE overnight not tolerating HD Hospitalist Physical - Constitutional Vitals: Temp Pulse Resp BP Pulse Ox 101.7 F H 142 H 22 72/45 94 03/23/21 08:00 03/23/21 10:15 03/23/21 10:15 03/23/21 10:15 03/23/21 10:15 General appearance: Present: no acute distress - EENT Eyes: Present: PERRL ENT: clear oral mucosa - Neck Neck: Present: supple - Respiratory Respiratory effort: normal, other - Cardiovascular Rhythm: regular Heart Sounds: Present: S1 & S2 - Extremities Extremities: abnormal Extremity abnormal: edema Peripheral Pulses: abnormal - Abdominal General gastrointestinal: soft, non-tender - Integumentary Integumentary: Present: clear - Psychiatric Psychiatric: other - Neurologic Neurologic: other - Allied Health Allied health notes reviewed: nursing, RT, social work, case management HEART Score - HEART Score Troponin: Troponin T < 0.010 ng/mL (0.00-0.029) 03/11/21 09:41 Results - Labs CBC & Chem 7: 03/23/21 04:35 03/23/21 04:35 Labs: Laboratory Last Values WBC 15.9 K/mm3 (4.5-11.0) H 03/23/21 04:35 RBC 3.67 M/mm3 (3.65-5.03) 03/23/21 04:35 Hgb 11.4 gm/dl (11.8-15.2) L 03/23/21 04:35 Hct 34.1 % (35.5-45.6) L 03/23/21 04:35 MCV 93 fl (84-94) 03/23/21 04:35 MCH 31 pg (28-32) 03/23/21 04:35 MCHC 33 % (32-34) 03/23/21 04:35 RDW 14.0 % (13.2-15.2) 03/23/21 04:35 Plt Count 81 K/mm3 (140-440) L 03/23/21 04:35 Add Manual Diff Complete 03/23/21 04:35 Total Counted 100 03/23/21 04:35 Seg Neutrophils % Channel Sales Director 03/23/21 04:35 Seg Neuts % (Manual) 96.0 % (40.0-70.0) H 03/23/21 04:35 Band Neutrophils % 3.0 % 03/23/21 04:35 Lymphocytes % (Manual) 1.0 % (13.4-35.0) L 03/23/21 04:35 Monocytes % (Manual) 4.0 % (0.0-7.3) 03/21/21 06:00 Metamyelocytes % 1.0 % 03/22/21 06:50 Nucleated RBC % 3.0 % (0.0-0.9) H 03/23/21 04:35 Seg Neutrophils # Man 15.3 K/mm3 (1.8-7.7) H 03/23/21 04:35 Band Neutrophils # 0.5 K/mm3 03/23/21 04:35 Lymphocytes # (Manual) 0.2 K/mm3 (1.2-5.4) L 03/23/21 04:35 Abs React Lymphs (Man) 0.0 K/mm3 03/23/21 04:35 Monocytes # (Manual) 0.0 K/mm3 (0.0-0.8) 03/23/21 04:35 Eosinophils # (Manual) 0.0 K/mm3 (0.0-0.4) 03/23/21 04:35 Basophils # (Manual) 0.0 K/mm3 (0.0-0.1) 03/23/21 04:35 Metamyelocytes # 0.0 K/mm3 03/23/21 04:35 Myelocytes # 0.0 K/mm3 03/23/21 04:35 Promyelocytes # 0.0 K/mm3 03/23/21 04:35 Blast Cells # 0.0 K/mm3 03/23/21 04:35 WBC Morphology Not Reportable 03/23/21 04:35 Hypersegmented Neuts Not Reportable 03/23/21 04:35 Hyposegmented Neuts Not Reportable 03/23/21 04:35 Hypogranular Neuts Not Reportable 03/23/21 04:35 Smudge Cells Not Reportable 03/23/21 04:35 Toxic Granulation Not Reportable 03/23/21 04:35 Toxic Vacuolation Not Reportable 03/23/21 04:35 Dohle Bodies Not Reportable 03/23/21 04:35 Pelger-Huet Anomaly Not Reportable 03/23/21 04:35 Fina Rods Not Reportable 03/23/21 04:35 Platelet Estimate Consistent w auto 03/23/21 04:35 Clumped Platelets Not Reportable 03/23/21 04:35 Plt Clumps, EDTA Not Reportable 03/23/21 04:35 Large Platelets Rare 03/23/21 04:35 Giant Platelets Not Reportable 03/23/21 04:35 Platelet Satelliting Not Reportable 03/23/21 04:35 Plt Morphology Comment Not Reportable 03/23/21 04:35 RBC Morphology Not Reportable 03/23/21 04:35 Dimorphic RBCs Not Reportable 03/23/21 04:35 Polychromasia Not Reportable 03/23/21 04:35 Hypochromasia Not Reportable 03/23/21 04:35 Poikilocytosis Not Reportable 03/23/21 04:35 Anisocytosis Not Reportable 03/23/21 04:35 Microcytosis Not Reportable 03/23/21 04:35 Macrocytosis Not Reportable 03/23/21 04:35 Spherocytes Not Reportable 03/23/21 04:35 Pappenheimer Bodies Not Reportable 03/23/21 04:35 Sickle Cells Not Reportable 03/23/21 04:35 Target Cells Not Reportable 03/23/21 04:35 Tear Drop Cells Not Reportable 03/23/21 04:35 Ovalocytes Not Reportable 03/23/21 04:35 Helmet Cells Not Reportable 03/23/21 04:35 [place] Bodies Not Reportable 03/23/21 04:35 [place] Rings Not Reportable 03/23/21 04:35 Trav Cells Not Reportable 03/23/21 04:35 Bite Cells Not Reportable 03/23/21 04:35 Crenated Cell Not Reportable 03/23/21 04:35 Elliptocytes Not Reportable 03/23/21 04:35 Acanthocytes (Spur) Not Reportable 03/23/21 04:35 Rouleaux Not Reportable 03/23/21 04:35 Hemoglobin C Crystals Not Reportable 03/23/21 04:35 Schistocytes Not Reportable 03/23/21 04:35 Malaria parasites Not Reportable 03/23/21 04:35 [place] Bodies Not Reportable 03/23/21 04:35 Hem Pathologist Commnt No 03/23/21 04:35 PT 22.4 Sec. (12.2-14.9) H 03/17/21 09:19 INR 1.92 (0.87-1.13) H 03/17/21 09:19 APTT 64.8 Sec. (24.2-36.6) H* 03/23/21 04:35 D-Dimer 5570.24 ng/mlDDU (0-234) H 03/22/21 06:50 Heparin Anti-Xa, Unfract Negative (Negative) 03/17/21 13:00 ABG pH 7.348 (7.320-7.450) 03/23/21 04:00 POC ABG pCO2 41.2 mmHg (32.0-48.0) 03/23/21 04:00 ABG pCO2 25.5 mm Hg 03/18/21 23:23 POC ABG pO2 51.8 mmHg (83-108) L 03/23/21 04:00 ABG pO2 71.6 mm Hg (80.0-90.0) L 03/18/21 23:23 POC ABG HCO3 22.1 03/23/21 04:00 ABG HCO3 12.9 mmol/L (20.0-26.0) L 03/18/21 23:23 ABG O2 Saturation 84.1 (0-100) 03/23/21 04:00 ABG O2 Content 19.9 (0.0-44) 03/18/21 23:23 POC ABG Base Excess -3.3 03/23/21 04:00 ABG Base Excess -11.1 mmol/L (-2.0-3.0) L 03/18/21 23:23 ABG Hemoglobin 12.0 (12.0-17.5) 03/23/21 04:00 ABG Oxyhemoglobin 83.5 (94-98) L 03/23/21 04:00 ABG Carboxyhemoglobin 0.9 % (0.0-5.0) 03/18/21 23:23 ABG Methemoglobin 0.3 (0.0-1.5) 03/23/21 04:00 ABG Sodium 131.3 mmol/L (136.0-145.0) L 03/23/21 04:00 ABG Potassium 4.5 mmol/L (3.40-4.50) 03/23/21 04:00 ABG Chloride 99.0 mmol/L (98-107) 03/23/21 04:00 ABG Glucose 297 mg/dL (65-95) H 03/23/21 04:00 Oxyhemoglobin 91.0 % (95.0-99.0) L 03/18/21 23:23 Carboxyhemoglobin 0.4 (0.5-1.5) L 03/23/21 04:00 FiO2 100 % 03/18/21 23:23 FiO2 % 100 03/23/21 04:00 Sodium 136 mmol/L (137-145) L 03/23/21 04:35 Potassium 4.7 mmol/L (3.6-5.0) D 03/23/21 04:35 Chloride 98.6 mmol/L (98-107) 03/23/21 04:35 Carbon Dioxide 26 mmol/L (22-30) 03/23/21 04:35 Anion Gap 16 mmol/L 03/23/21 04:35 BUN 102 mg/dL (9-20) H 03/23/21 04:35 Creatinine 4.8 mg/dL (0.8-1.3) H 03/23/21 04:35 Estimated GFR 16 ml/min 03/23/21 04:35 BUN/Creatinine Ratio 21 % 03/23/21 04:35 Glucose 300 mg/dL (75-100) H 03/23/21 04:35 POC Glucose 242 mg/dL (70-105) H 03/23/21 11:42 Hemoglobin A1c 8.2 % (4-6) H 03/14/21 04:44 Lactic Acid 1.60 mmol/L (0.7-2.0) 03/12/21 00:08 Calcium 8.1 mg/dL (8.4-10.2) L 03/23/21 04:35 Phosphorus 6.20 mg/dL (2.5-4.5) H 03/20/21 05:16 Magnesium 2.60 mg/dL (1.7-2.3) H 03/20/21 05:16 Ferritin 1282.0 ng/mL (30.0-300.0) H 03/22/21 06:50 Total Bilirubin 0.50 mg/dL (0.1-1.2) 03/23/21 04:35 Direct Bilirubin < 0.2 mg/dL (0-0.2) 03/17/21 09:19 Indirect Bilirubin 0.4 mg/dL 03/17/21 09:19 AST 39 units/L (5-40) 03/23/21 04:35 ALT 21 units/L (7-56) 03/23/21 04:35 Alkaline Phosphatase 114 units/L (35-129) 03/23/21 04:35 Lactate Dehydrogenase 1126 units/L (91-180) H 03/22/21 06:50 Troponin T < 0.010 ng/mL (0.00-0.029) 03/11/21 09:41 C-Reactive Protein 2.20 mg/dL (0.00-1.30) H 03/22/21 06:50 Total Protein 4.3 g/dL (6.3-8.2) L 03/23/21 04:35 Albumin 1.9 g/dL (3.9-5) L 03/23/21 04:35 Albumin/Globulin Ratio 0.8 % 03/23/21 04:35 Triglycerides 731 mg/dL (2-149) H 03/22/21 06:50 Procalcitonin 4.61 ng/mL (<0.15) 03/11/21 09:41 Arterial Blood Glucose 297 mg/dL (65-95) H 03/23/21 04:00 Arterial Blood Ionized Calcium 4.6 mg/dL (4.6-5.3) 03/23/21 04:00 Urine Color Yellow (Yellow) 03/22/21 Unknown Urine Turbidity Hazy (Clear) 03/22/21 Unknown Urine pH 5.0 (5.0-7.0) 03/22/21 Unknown Ur Specific [place] Level 1.012 (1.003-1.030) 03/22/21 Unknown Urine Protein 100 mg/dl mg/dL (Negative) 03/22/21 Unknown Urine Glucose (UA) 50 mg/dL (Negative) 03/22/21 Unknown Urine Ketones Neg mg/dL (Negative) 03/22/21 Unknown Urine Blood Lg (Negative) 03/22/21 Unknown Urine Nitrite Neg (Negative) 03/22/21 Unknown Urine Bilirubin Neg (Negative) 03/22/21 Unknown Urine Urobilinogen < 2.0 mg/dL (<2.0) 03/22/21 Unknown Ur Leukocyte Esterase Mod (Negative) 03/22/21 Unknown Urine WBC (Auto) 17.0 /HPF (0.0-6.0) H 03/22/21 Unknown Urine RBC (Auto) 4.0 /HPF (0.0-6.0) 03/22/21 Unknown U Epithel Cells (Auto) < 1.0 /HPF (0-13.0) 03/22/21 Unknown Urine Bacteria (Auto) 1+ /HPF (Negative) 03/22/21 Unknown Urine Mucus Few /HPF 03/22/21 Unknown Urine Creatinine 84.3 mg/dL (0.1-20.0) H 03/22/21 Unknown Protein/Creatinin Ratio 0.90 03/22/21 Unknown Urine Sodium 37 mmol/L 03/14/21 Unknown Urine Urea Nitrogen 818 03/14/21 Unknown Urine Total Protein 76 mg/dL (5-11.8) H 03/22/21 Unknown Proteinase 3 (PR3) Ab <1.0 AI (<1.0) 03/16/21 04:14 Myeloperoxidase Ab <1.0 AI (<1.0) 03/16/21 04:14 Glomerular Base Mem IgG See scanned result 03/16/21 04:14 Heparin-induced Plt Ab Negative (Negative) 03/17/21 13:00 UF Heparin High Dose 3 % Release 03/17/21 13:00 CALLUM UFH Low Dose 0.1 0 % Release 03/17/21 13:00 CALLUM UFH Low Dose 0.5 1 % Release 03/17/21 13:00 Complement C3 131 mg/dL (82-185) 03/16/21 04:14 Complement C4 38 mg/dL (15-53) 03/16/21 04:14 Coronavirus (PCR) Positive (Negative) A 03/11/21 Unknown Hepatitis A IgM Ab Non-reactive (NonReactive) 03/18/21 09:03 Hep Bs Antigen Nonreactive (Negative) 03/18/21 09:03 Hep B Core IgM Ab Non-reactive (NonReactive) 03/18/21 09:03 Hepatitis C Antibody Non-reactive (NonReactive) 03/18/21 09:03 Microbiology: Microbiology 03/19/21 Unknown Tracheal Aspirate Sputum Culture - Preliminary [place]/IV: Voiding Method Indwelling Catheter Active Medications - Current Medications Current Medications: Generic Name Dose Route Start Last Admin Trade Name Freq PRN Reason Stop Dose Admin Acetaminophen 650 mg 03/11/21 12:00 03/23/21 07:58 Acetaminophen 325 Mg Tab PO 650 mg Q4H PRN Administration Pain MILD(1-3)/Fever >100.5/[place] Lipase/Protease/Amylase 1 each 03/23/21 11:54 Lipase 10,500/Protease 25,000/Amylase 43,750 (Units) Dr Cap FEEDTUBE PRN PRN For Clogged Feeding Tube Ascorbic Acid 500 mg 03/11/21 12:00 03/23/21 09:38 Ascorbic Acid 500 Mg Tab PO 500 mg BID GYPSY Administration Cholecalciferol 1,000 unit 03/11/21 13:00 03/23/21 09:38 Cholecalciferol (Vit D3) 1000 Unit (25 Mcg) Tab PO 1,000 unit QDAY GYPSY Administration Dextrose 50 ml 03/13/21 14:44 Dextrose 50% In Water (25gm) 50 Ml Syringe IV Q30MIN PRN Hypoglycemia Protocol Famotidine 10 mg 03/23/21 10:00 03/23/21 09:39 Famotidine 20 Mg/2 Ml Inj IV 10 mg BID GYPSY Administration Fentanyl 50 mcg 03/19/21 15:29 Fentanyl 100 Mcg/2 Ml Inj IV Q10MIN PRN ANALGESIA Hydrophilic Ointment 1 applic 03/19/21 15:29 Lip Therapy Vaseline TP Q2HR PRN Dry Lips Argatroban 250 mg/ Sodium 250 mls @ 2.07 mls/hr 03/17/21 11:00 03/23/21 08:00 Chloride IV 0.75 mcg/kg/min TITR GYPSY 3.105 mls/hr Titration Protocol 0.5 MCG/KG/MIN Sodium Chloride 100 mls @ 999 mls/hr 03/19/21 10:00 Nacl 0.9% IV OSCAR PRN Hypotension Fentanyl Citrate 2,000 mcg in 100 mls @ 3.45 mls/hr 03/19/21 16:00 03/23/21 12:06 Fentanyl Drip Premix IV 0 mcg/kg/hr TITR GYPSY 0 mls/hr Titration Protocol 1 MCG/KG/HR Norepinephrine 4 mg in 250 mls @ 7.5 mls/hr 03/20/21 11:00 03/23/21 12:06 Levophed Drip 4 Mg/Ns 250 Ml IV 17 mcg/min TITR GYPSY 63.75 mls/hr Titration Protocol 2 MCG/MIN Lorazepam 100 mg/ Sodium 100 mls @ 1 mls/hr 03/22/21 13:00 03/23/21 12:06 Chloride/ Miscellaneous IV 0 mg/hr Information TITR GYPSY 0 mls/hr Titration Protocol 1 MG/HR Cefepime HCl 1 gm in 100 mls @ 200 mls/hr 03/23/21 11:00 Cefepime/Ns 1 Gm/100 Ml IV QPM GYPSY Protocol Vancomycin HCl 1,500 mg/ 530 mls @ 333.333 mls/hr 03/23/21 12:00 Sodium Chloride IV 03/23/21 13:35 ONCE ONE Vasopressin 20 unit/ Sodium 101 mls @ 9.09 mls/hr 03/23/21 11:00 Chloride IV TITR GYPSY Protocol 0.03 UNITS/MIN Phenylephrine HCl 100 mg/ 100 mls @ 3 mls/hr 03/23/21 12:30 Sodium Chloride IV TITR GYPSY Protocol 50 MCG/MIN Lactated Ringer's 1,000 mls @ 999 mls/hr 03/23/21 12:30 Lactated Ringers IV 03/23/21 13:30 BOLUS ONE Sodium Chloride 1,000 mls @ 999 mls/hr 03/23/21 12:30 Nacl 0.9% 1000 Ml IV 03/23/21 13:31 ONCE GYPSY Insulin Glargine 20 units 03/23/21 22:00 Insulin Glargine 100 Units/Ml SUB-Q QHS GYPSY Insulin Human Lispro 0 unit 03/16/21 13:00 03/23/21 00:37 Insulin Lispro 100 Unit/Ml SUB-Q 6 unit Q6HR [facility] Administration Protocol Insulin Human Regular 5 units 03/23/21 08:00 03/23/21 08:52 Insulin Regular, Human 100 Units/1 Ml SUB-Q 5 units Q6HR [facility] Administration Multi-Ingred Cream/Lotion/Oil/Oint 1 applic 03/19/21 15:29 Mineral Oil/Petrolatum, White Ophth Oint 3.5 Gm OU Q4HR PRN Dry Eye(s) Senna/Docusate Sodium 1 tab 03/19/21 22:00 03/23/21 09:39 Sennosides/Docusate Sodium 8.6/50 Mg Tab FEEDTUBE 1 tab BID GYPSY Administration Sodium Bicarbonate 325 mg 03/23/21 11:54 Sodium Bicarbonate 325 Mg Tab FEEDTUBE PRN PRN For Clogged Feeding Tube Sodium Chloride 10 ml 03/11/21 12:00 03/22/21 10:27 Sodium Chloride 0.9% 10 Ml Flush Syringe IV 10 ml BID GYPSY Administration Sodium Chloride 10 ml 03/11/21 12:00 Sodium Chloride 0.9% 10 Ml Flush Syringe IV PRN PRN LINE FLUSH Sodium Chloride 5 ml 03/19/21 15:29 Sodium Chloride 0.9% 500 Ml Ivpb IV DIRECT PRN [employer]AL [employer]WORK ARCHITECT Zinc Sulfate 220 mg 03/11/21 12:00 03/23/21 09:38 Zinc Sulfate 220 Mg Cap PO 220 mg BID GYPSY Administration Nutrition/Malnutrition Assess - Dietary Evaluation Nutrition/Malnutrition Findings: Nutrition Notes Start: 03/14/21 12:54 Freq: Status: Active Protocol: Document 03/23/21 11:41 GB (Rec: 03/23/21 11:54 GB [id number]) Nutrition Notes Initial or Follow up Reassessment Current Diagnosis Acute Kidney Injury,Sepsis, Hypertension,Respiratory Failure Other Pertinent Diagnosis TF f/u Current Diet NPO / TF (Nepro) Labs/Tests 03/23: Na 136, BUN 102, creatinine 4.8, glucose 300, Ca 8.1 Pertinent Medications Vit C, Vit D3, Zn Sulfate, NaCl Height 5 ft 11 in Weight 80.6 kg [place] Body Weight (kg) 78.18 BMI 24.7 Weight change and time frame 03/11 76.6 kg, 03/23 80.6kg change of +3.943kg for +5.1% gain Dialysis started 03/17, on BiPaP w/90% setting Weight Status Appropriate Subjective/Other Information TF: continue with NEPRO with goal rate at 45ml/hr and water flush 100ml/4hr Percent of energy/protein needs met: TF will meet 80% or greater. 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 Interferes with energy intake. Recommend NGT/PEG/TPN. 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 Yes Is Patient Ambulatory and/or Out of Bed No REE-([facility]-confined to bed) 2041.392 Kcal/Kg value to use for calculation 25 Approximate Energy Requirements Using 2014 kcal/Kg Calculation Used for Recommendations Kcal/kg Additional Notes Protein: 1-1.2 g/kg @80k- 96g Fluids: 1 ml/kcal or per MD Nutrition Intervention Change Diet Order: Continue NPO, TF Nutrition Support: Nepro @45ml/hr with flush of 100ml/4hrs Kcal 1,944 Protein (gm) 87 Fat (gm) 104 Fluid (mL) 785 % RDI: 80% or greater Goal #1 Tolerate TF formula. Goal #2 Tolerate goal rate of 45ml/hr during LOS Goal #3 weight to maintain within +/-3 % current weight during LOS Follow-Up By: 03/26/21 - Malnutrition Assessment Minimum of two criteria: Yes - Attestation Statement I have reviewed and agreed w/ Malnutrition eval & tx plan: Yes <MARTHA HARRISON - Last Filed: 03/23/21 18:58> Assessment and Plan Assessment and plan: I saw and evaluated the patient. Discussed with the nurse practitioner and agree with their findings and plan as documented in this note. Hospitalist Physical - Constitutional Vitals: Temp Pulse Resp BP Pulse Ox 100.6 F H 128 H 31 H 130/90 90 03/23/21 16:00 03/23/21 17:19 03/23/21 16:45 03/23/21 17:19 03/23/21 17:19 HEART Score - HEART Score Troponin: Troponin T < 0.010 ng/mL (0.00-0.029) 03/11/21 09:41 Results - Labs CBC & Chem 7: 03/23/21 04:35 03/23/21 04:35 Labs: Laboratory Last Values WBC 15.9 K/mm3 (4.5-11.0) H 03/23/21 04:35 RBC 3.67 M/mm3 (3.65-5.03) 03/23/21 04:35 Hgb 11.4 gm/dl (11.8-15.2) L 03/23/21 04:35 Hct 34.1 % (35.5-45.6) L 03/23/21 04:35 MCV 93 fl (84-94) 03/23/21 04:35 MCH 31 pg (28-32) 03/23/21 04:35 MCHC 33 % (32-34) 03/23/21 04:35 RDW 14.0 % (13.2-15.2) 03/23/21 04:35 Plt Count 81 K/mm3 (140-440) L 03/23/21 04:35 Add Manual Diff Complete 03/23/21 04:35 Total Counted 100 03/23/21 04:35 Seg Neutrophils % Channel Sales Director 03/23/21 04:35 Seg Neuts % (Manual) 96.0 % (40.0-70.0) H 03/23/21 04:35 Band Neutrophils % 3.0 % 03/23/21 04:35 Lymphocytes % (Manual) 1.0 % (13.4-35.0) L 03/23/21 04:35 Monocytes % (Manual) 4.0 % (0.0-7.3) 03/21/21 06:00 Metamyelocytes % 1.0 % 03/22/21 06:50 Nucleated RBC % 3.0 % (0.0-0.9) H 03/23/21 04:35 Seg Neutrophils # Man 15.3 K/mm3 (1.8-7.7) H 03/23/21 04:35 Band Neutrophils # 0.5 K/mm3 03/23/21 04:35 Lymphocytes # (Manual) 0.2 K/mm3 (1.2-5.4) L 03/23/21 04:35 Abs React Lymphs (Man) 0.0 K/mm3 03/23/21 04:35 Monocytes # (Manual) 0.0 K/mm3 (0.0-0.8) 03/23/21 04:35 Eosinophils # (Manual) 0.0 K/mm3 (0.0-0.4) 03/23/21 04:35 Basophils # (Manual) 0.0 K/mm3 (0.0-0.1) 03/23/21 04:35 Metamyelocytes # 0.0 K/mm3 03/23/21 04:35 Myelocytes # 0.0 K/mm3 03/23/21 04:35 Promyelocytes # 0.0 K/mm3 03/23/21 04:35 Blast Cells # 0.0 K/mm3 03/23/21 04:35 WBC Morphology Not Reportable 03/23/21 04:35 Hypersegmented Neuts Not Reportable 03/23/21 04:35 Hyposegmented Neuts Not Reportable 03/23/21 04:35 Hypogranular Neuts Not Reportable 03/23/21 04:35 Smudge Cells Not Reportable 03/23/21 04:35 Toxic Granulation Not Reportable 03/23/21 04:35 Toxic Vacuolation Not Reportable 03/23/21 04:35 Dohle Bodies Not Reportable 03/23/21 04:35 Pelger-Huet Anomaly Not Reportable 03/23/21 04:35 Fina Rods Not Reportable 03/23/21 04:35 Platelet Estimate Consistent w auto 03/23/21 04:35 Clumped Platelets Not Reportable 03/23/21 04:35 Plt Clumps, EDTA Not Reportable 03/23/21 04:35 Large Platelets Rare 03/23/21 04:35 Giant Platelets Not Reportable 03/23/21 04:35 Platelet Satelliting Not Reportable 03/23/21 04:35 Plt Morphology Comment Not Reportable 03/23/21 04:35 RBC Morphology Not Reportable 03/23/21 04:35 Dimorphic RBCs Not Reportable 03/23/21 04:35 Polychromasia Not Reportable 03/23/21 04:35 Hypochromasia Not Reportable 03/23/21 04:35 Poikilocytosis Not Reportable 03/23/21 04:35 Anisocytosis Not Reportable 03/23/21 04:35 Microcytosis Not Reportable 03/23/21 04:35 Macrocytosis Not Reportable 03/23/21 04:35 Spherocytes Not Reportable 03/23/21 04:35 Pappenheimer Bodies Not Reportable 03/23/21 04:35 Sickle Cells Not Reportable 03/23/21 04:35 Target Cells Not Reportable 03/23/21 04:35 Tear Drop Cells Not Reportable 03/23/21 04:35 Ovalocytes Not Reportable 03/23/21 04:35 Helmet Cells Not Reportable 03/23/21 04:35 [place] Bodies Not Reportable 03/23/21 04:35 [place] Rings Not Reportable 03/23/21 04:35 Trav Cells Not Reportable 03/23/21 04:35 Bite Cells Not Reportable 03/23/21 04:35 Crenated Cell Not Reportable 03/23/21 04:35 Elliptocytes Not Reportable 03/23/21 04:35 Acanthocytes (Spur) Not Reportable 03/23/21 04:35 Rouleaux Not Reportable 03/23/21 04:35 Hemoglobin C Crystals Not Reportable 03/23/21 04:35 Schistocytes Not Reportable 03/23/21 04:35 Malaria parasites Not Reportable 03/23/21 04:35 [place] Bodies Not Reportable 03/23/21 04:35 Hem Pathologist Commnt No 03/23/21 04:35 PT 22.4 Sec. (12.2-14.9) H 03/17/21 09:19 INR 1.92 (0.87-1.13) H 03/17/21 09:19 APTT 64.8 Sec. (24.2-36.6) H* 03/23/21 04:35 D-Dimer 5570.24 ng/mlDDU (0-234) H 03/22/21 06:50 Heparin Anti-Xa, Unfract Negative (Negative) 03/17/21 13:00 ABG pH 7.348 (7.320-7.450) 03/23/21 04:00 POC ABG pCO2 41.2 mmHg (32.0-48.0) 03/23/21 04:00 ABG pCO2 25.5 mm Hg 03/18/21 23:23 POC ABG pO2 51.8 mmHg (83-108) L 03/23/21 04:00 ABG pO2 71.6 mm Hg (80.0-90.0) L 03/18/21 23:23 POC ABG HCO3 22.1 03/23/21 04:00 ABG HCO3 12.9 mmol/L (20.0-26.0) L 03/18/21 23:23 ABG O2 Saturation 84.1 (0-100) 03/23/21 04:00 ABG O2 Content 19.9 (0.0-44) 03/18/21 23:23 POC ABG Base Excess -3.3 03/23/21 04:00 ABG Base Excess -11.1 mmol/L (-2.0-3.0) L 03/18/21 23:23 ABG Hemoglobin 12.0 (12.0-17.5) 03/23/21 04:00 ABG Oxyhemoglobin 83.5 (94-98) L 03/23/21 04:00 ABG Carboxyhemoglobin 0.9 % (0.0-5.0) 03/18/21 23:23 ABG Methemoglobin 0.3 (0.0-1.5) 03/23/21 04:00 ABG Sodium 131.3 mmol/L (136.0-145.0) L 03/23/21 04:00 ABG Potassium 4.5 mmol/L (3.40-4.50) 03/23/21 04:00 ABG Chloride 99.0 mmol/L (98-107) 03/23/21 04:00 ABG Glucose 297 mg/dL (65-95) H 03/23/21 04:00 Oxyhemoglobin 91.0 % (95.0-99.0) L 03/18/21 23:23 Carboxyhemoglobin 0.4 (0.5-1.5) L 03/23/21 04:00 FiO2 100 % 03/18/21 23:23 FiO2 % 100 03/23/21 04:00 Sodium 136 mmol/L (137-145) L 03/23/21 04:35 Potassium 4.7 mmol/L (3.6-5.0) D 03/23/21 04:35 Chloride 98.6 mmol/L (98-107) 03/23/21 04:35 Carbon Dioxide 26 mmol/L (22-30) 03/23/21 04:35 Anion Gap 16 mmol/L 03/23/21 04:35 BUN 102 mg/dL (9-20) H 03/23/21 04:35 Creatinine 4.8 mg/dL (0.8-1.3) H 03/23/21 04:35 Estimated GFR 16 ml/min 03/23/21 04:35 BUN/Creatinine Ratio 21 % 03/23/21 04:35 Glucose 300 mg/dL (75-100) H 03/23/21 04:35 POC Glucose 136 mg/dL (70-105) H 03/23/21 17:53 Hemoglobin A1c 8.2 % (4-6) H 03/14/21 04:44 Lactic Acid 1.60 mmol/L (0.7-2.0) 03/12/21 00:08 Calcium 8.1 mg/dL (8.4-10.2) L 03/23/21 04:35 Phosphorus 6.20 mg/dL (2.5-4.5) H 03/20/21 05:16 Magnesium 2.60 mg/dL (1.7-2.3) H 03/20/21 05:16 Ferritin 1282.0 ng/mL (30.0-300.0) H 03/22/21 06:50 Total Bilirubin 0.50 mg/dL (0.1-1.2) 03/23/21 04:35 Direct Bilirubin < 0.2 mg/dL (0-0.2) 03/17/21 09:19 Indirect Bilirubin 0.4 mg/dL 03/17/21 09:19 AST 39 units/L (5-40) 03/23/21 04:35 ALT 21 units/L (7-56) 03/23/21 04:35 Alkaline Phosphatase 114 units/L (35-129) 03/23/21 04:35 Lactate Dehydrogenase 1126 units/L (91-180) H 03/22/21 06:50 Troponin T < 0.010 ng/mL (0.00-0.029) 03/11/21 09:41 C-Reactive Protein 2.20 mg/dL (0.00-1.30) H 03/22/21 06:50 Total Protein 4.3 g/dL (6.3-8.2) L 03/23/21 04:35 Albumin 1.9 g/dL (3.9-5) L 03/23/21 04:35 Albumin/Globulin Ratio 0.8 % 03/23/21 04:35 Triglycerides 731 mg/dL (2-149) H 03/22/21 06:50 Procalcitonin 4.61 ng/mL (<0.15) 03/11/21 09:41 Arterial Blood Glucose 297 mg/dL (65-95) H 03/23/21 04:00 Arterial Blood Ionized Calcium 4.6 mg/dL (4.6-5.3) 03/23/21 04:00 Urine Color Yellow (Yellow) 03/22/21 Unknown Urine Turbidity Hazy (Clear) 03/22/21 Unknown Urine pH 5.0 (5.0-7.0) 03/22/21 Unknown Ur Specific [place] 1.012 (1.003-1.030) 03/22/21 Unknown Urine Protein 100 mg/dl mg/dL (Negative) 03/22/21 Unknown Urine Glucose (UA) 50 mg/dL (Negative) 03/22/21 Unknown Urine Ketones Neg mg/dL (Negative) 03/22/21 Unknown Urine Blood Lg (Negative) 03/22/21 Unknown Urine Nitrite Neg (Negative) 03/22/21 Unknown Urine Bilirubin Neg (Negative) 03/22/21 Unknown Urine Urobilinogen < 2.0 mg/dL (<2.0) 03/22/21 Unknown Ur Leukocyte Esterase Mod (Negative) 03/22/21 Unknown Urine WBC (Auto) 17.0 /HPF (0.0-6.0) H 03/22/21 Unknown Urine RBC (Auto) 4.0 /HPF (0.0-6.0) 03/22/21 Unknown U Epithel Cells (Auto) < 1.0 /HPF (0-13.0) 03/22/21 Unknown Urine Bacteria (Auto) 1+ /HPF (Negative) 03/22/21 Unknown Urine Mucus Few /HPF 03/22/21 Unknown Urine Creatinine 84.3 mg/dL (0.1-20.0) H 03/22/21 Unknown Protein/Creatinin Ratio 0.90 03/22/21 Unknown Urine Sodium 37 mmol/L 03/14/21 Unknown Urine Urea Nitrogen 818 03/14/21 Unknown Urine Total Protein 76 mg/dL (5-11.8) H 03/22/21 Unknown Proteinase 3 (PR3) Ab <1.0 AI (<1.0) 03/16/21 04:14 Myeloperoxidase Ab <1.0 AI (<1.0) 03/16/21 04:14 Glomerular Base Mem IgG See scanned result 03/16/21 04:14 Heparin-induced Plt Ab Negative (Negative) 03/17/21 13:00 UF Heparin High Dose 3 % Release 03/17/21 13:00 CALLUM UFH Low Dose 0.1 0 % Release 03/17/21 13:00 CALLUM UFH Low Dose 0.5 1 % Release 03/17/21 13:00 Complement C3 131 mg/dL (82-185) 03/16/21 04:14 Complement C4 38 mg/dL (15-53) 03/16/21 04:14 Coronavirus (PCR) Positive (Negative) A 03/11/21 Unknown Hepatitis A IgM Ab Non-reactive (NonReactive) 03/18/21 09:03 Hep Bs Antigen Nonreactive (Negative) 03/18/21 09:03 Hep B Core IgM Ab Non-reactive (NonReactive) 03/18/21 09:03 Hepatitis C Antibody Non-reactive (NonReactive) 03/18/21 09:03 Microbiology: Microbiology 03/19/21 Unknown Tracheal Aspirate Sputum Culture - Final [place] 03/23/21 10:08 Peripheral/Venous Blood Culture - Preliminary Culture in Progress 03/23/21 10:08 Peripheral/Venous Blood Culture - Preliminary Culture in Progress [place]/IV: Voiding Method Indwelling Catheter Active Medications - Current Medications Current Medications: Generic Name Dose Route Start Last Admin Trade Name Freq PRN Reason Stop Dose Admin Acetaminophen 650 mg 03/11/21 12:00 03/23/21 07:58 Acetaminophen 325 Mg Tab PO 650 mg Q4H PRN Administration Pain MILD(1-3)/Fever >100.5/[place] Acetylcysteine 200 mg 03/23/21 16:00 Acetylcysteine 20% Soln 4ml (200 Mg/Ml) IH Q8HRT GYPSY Albuterol 2.5 mg 03/23/21 14:58 Albuterol 2.5 Mg/3 Ml Nebu IH Q6HRT PRN Shortness Of Breath Lipase/Protease/Amylase 1 each 03/23/21 11:54 Lipase 10,500/Protease 25,000/Amylase 43,750 (Units) Dr Alegre FEEDTUBE PRN PRN For Clogged Feeding Tube Ascorbic Acid 500 mg 03/11/21 12:00 03/23/21 09:38 Ascorbic Acid 500 Mg Tab PO 500 mg BID GYPSY Administration Cholecalciferol 1,000 unit 03/11/21 13:00 03/23/21 09:38 Cholecalciferol (Vit D3) 1000 Unit (25 Mcg) Tab PO 1,000 unit QDAY GYPSY Administration Dextrose 50 ml 03/13/21 14:44 Dextrose 50% In Water (25gm) 50 Ml Syringe IV Q30MIN PRN Hypoglycemia Protocol Famotidine 10 mg 03/23/21 10:00 03/23/21 09:39 Famotidine 20 Mg/2 Ml Inj IV 10 mg BID GYPSY Administration Fentanyl 50 mcg 03/19/21 15:29 Fentanyl 100 Mcg/2 Ml Inj IV Q10MIN PRN ANALGESIA Hydrophilic Ointment 1 applic 03/19/21 15:29 Lip Therapy Vaseline TP Q2HR PRN Dry Lips Argatroban 250 mg/ Sodium 250 mls @ 2.07 mls/hr 03/17/21 11:00 03/23/21 08:00 Chloride IV 0.75 mcg/kg/min TITR GYPSY 3.105 mls/hr Titration Protocol 0.5 MCG/KG/MIN Sodium Chloride 100 mls @ 999 mls/hr 03/19/21 10:00 Nacl 0.9% IV OSCAR PRN Hypotension Fentanyl Citrate 2,000 mcg in 100 mls @ 3.45 mls/hr 03/19/21 16:00 03/23/21 1 6:00 Fentanyl Drip Premix IV 2 mcg/kg/hr TITR GYPSY 6.9 mls/hr Titration Protocol 1 MCG/KG/HR Norepinephrine 4 mg in 250 mls @ 7.5 mls/hr 03/20/21 11:00 03/23/21 12:06 Levophed Drip 4 Mg/Ns 250 Ml IV 17 mcg/min TITR GYPSY 63.75 mls/hr Titration Protocol 2 MCG/MIN Lorazepam 100 mg/ Sodium 100 mls @ 1 mls/hr 03/22/21 13:00 03/23/21 12:06 Chloride/ Miscellaneous IV 0 mg/hr Information TITR GYPSY 0 mls/hr Titration Protocol 1 MG/HR Cefepime HCl 1 gm in 100 mls @ 200 mls/hr 03/23/21 11:00 03/23/21 18:41 Cefepime/Ns 1 Gm/100 Ml IV 200 mls/hr QPM GYPSY Administration Protocol Vasopressin 20 unit/ Sodium 101 mls @ 9.09 mls/hr 03/23/21 11:00 03/23/21 12:27 Chloride IV 0.03 units/min TITR GYPSY 9.09 mls/hr Administration Protocol 0.03 UNITS/MIN Phenylephrine HCl 100 mg/ 100 mls @ 3 mls/hr 03/23/21 12:30 Sodium Chloride IV TITR GYPSY Protocol 50 MCG/MIN Insulin Glargine 20 units 03/23/21 22:00 Insulin Glargine 100 Units/Ml SUB-Q QHS GYPSY Insulin Human Lispro 0 unit 03/16/21 13:00 03/23/21 13:25 Insulin Lispro 100 Unit/Ml SUB-Q 4 unit Q6HR GYPSY Administration Protocol Insulin Human Regular 5 units 03/23/21 08:00 03/23/21 13:26 Insulin Regular, Human 100 Units/1 Ml SUB-Q 5 units Q6HR GYPSY Administration Multi-Ingred Cream/Lotion/Oil/Oint 1 applic 03/19/21 15:29 Mineral Oil/Petrolatum, White Ophth Oint 3.5 Gm OU Q4HR PRN Dry Eye(s) Senna/Docusate Sodium 1 tab 03/19/21 22:00 03/23/21 09:39 Sennosides/Docusate Sodium 8.6/50 Mg Tab FEEDTUBE 1 tab BID GYPSY Administration Sodium Bicarbonate 325 mg 03/23/21 11:54 Sodium Bicarbonate 325 Mg Tab FEEDTUBE PRN PRN For Clogged Feeding Tube Sodium Chloride 10 ml 03/11/21 12:00 03/22/21 10:27 Sodium Chloride 0.9% 10 Ml Flush Syringe IV 10 ml BID GYPSY Administration Sodium Chloride 10 ml 03/11/21 12:00 Sodium Chloride 0.9% 10 Ml Flush Syringe IV PRN PRN LINE FLUSH Sodium Chloride 5 ml 03/19/21 15:29 Sodium Chloride 0.9% 500 Ml Ivpb IV DIRECT PRN [employer]WORK ARCHITECT Zinc Sulfate 220 mg 03/11/21 12:00 03/23/21 09:38 Zinc Sulfate 220 Mg Cap PO 220 mg BID GYPSY Administration Nutrition/Malnutrition Assess - Dietary Evaluation Nutrition/Malnutrition Findings: Nutrition Notes Start: 03/14/21 12:54 Freq: Status: Active Protocol: Document 03/23/21 11:41 GB (Rec: 03/23/21 11:54 GB [id number]) Nutrition Notes Initial or Follow up Reassessment Current Diagnosis Acute Kidney Injury,Sepsis, Hypertension,Respiratory Failure Other Pertinent Diagnosis TF f/u Current Diet NPO / TF (Nepro) Labs/Tests 03/23: Na 136, BUN 102, creatinine 4.8, glucose 300, Ca 8.1 Pertinent Medications Vit C, Vit D3, Zn Sulfate, NaCl Height 5 ft 11 in Weight 80.6 kg [place] Body Weight (kg) 78.18 BMI 24.7 Weight change and time frame 03/11 76.6 kg, 03/23 80.6kg change of +3.943kg for +5.1% gain Dialysis started 03/17, on BiPaP w/90% setting Weight Status Appropriate Subjective/Other Information TF: continue with NEPRO with goal rate at 45ml/hr and water flush 100ml/4hr Percent of energy/protein needs met: TF will meet 80% or greater. 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 Interferes with energy intake. Recommend NGT/PEG/TPN. 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 Yes Is Patient Ambulatory and/or Out of Bed No REE-([facility]-confined to bed) 2040.392 Kcal/Kg value to use for calculation 25 Approximate Energy Requirements Using 2015 kcal/Kg Calculation Used for Recommendations Kcal/kg Additional Notes Protein: 1-1.2 g/kg @80k- 96g Fluids: 1 ml/kcal or per Nutrition Intervention Change Diet Order: Continue NPO, TF Nutrition Support: Nepro @45ml/hr with flush of 100ml/4hrs Kcal 1,944 Protein (gm) 87 Fat (gm) 104 Fluid (mL) 785 % RDI: 80% or greater Goal #1 Tolerate TF formula. Goal #2 Tolerate goal rate of 45ml/hr during LOS Goal #3 weight to maintain within +/-3 % current weight during LOS Follow-Up By: 03/26/21
[2021-03-23] MEDS: VASOPRESSIN 20 UNIT in SODIUM CHLORIDE 0.9% 100 ML IV SCH (12:27)
[2021-03-23] MEDS ORDERED: LACTATED RINGERS 1,000 ML IV ONE (12:30)
[2021-03-23] MEDS ORDERED: SODIUM CHLORIDE 0.9% 100 ML IVPB IV SCH (13:00)
[2021-03-23] MEDS ORDERED: ALBUTEROL 2.5 MG/3 ML NEBU IH PRN (14:58)
--- NOTE | 2021-03-23 15:25 | XRay Report ---
CHEST 1 VIEW 03/23/2021 2:15 PM INDICATION / CLINICAL INFORMATION: dec oxygen sats. COMPARISON: March 23, 2021 FINDINGS: SUPPORT DEVICES: Stable, satisfactory device positioning. HEART / MEDIASTINUM: Stable. LUNGS / PLEURA: Redemonstrated multifocal airspace opacities. Trace left apical pneumothorax redemons trated. Right apical pneumothorax is not well seen. ADDITIONAL FINDINGS: Redemonstrated subcutaneous emphysema as well as pneumomediastinum. IMPRESSION: 1. Trace left apical pneumothorax redemonstrated. Previously seen right apical pneumothorax is not we ll seen. Unchanged multifocal airspace opacities. Unchanged support devices. Signer Name: Timmy Beach DO Signed: 03/23/2021 3:21 PM Workstation Name: [id number]
[2021-03-23] MEDS: CEFEPIME/NS 1 GM/100 ML 1 GM/100 ML BAG IV SCH (18:41)
[2021-03-23] MEDS: LORazepam 100 MG in SODIUM CHLORIDE 0.9% 50 ML, EMPTY BAG 0 ML IV SCH (19:41)
[2021-03-23] MEDS: INSULIN GLARGINE 100 UNITS/ML SUB-Q SCH (22:24)
[2021-03-24] MEDS: NORepinephrine/NS 4 MG-250 ML 4 MG/250 ML BAG IV SCH ×7 (04:33→18:57)
[2021-03-24 05:28] LABS: Mean Corpuscular HGB Conc 32 % (32-34); Mean Corpuscular Volume 95 fl (84-94); Red Blood Count 3.57 M/mm3 (3.65-5.03); Red Cell Distribution Width 14.6 % (13.2-15.2)
[2021-03-24 05:43] LABS: Platelet Count 89 K/mm3 (140-440)
[2021-03-24 05:50] LABS: Albumin 1.6 g/dL (3.9-5); Calcium 8.4 mg/dL (8.4-10.2)
[2021-03-24] MEDS ORDERED: INSULIN REGULAR, HUMAN 100 UNITS/1 ML IV NR (07:00)
[2021-03-24] MEDS ORDERED: SODIUM POLYSTYRENE 15 GM/60 ML ORAL LIQD PO NR (07:00)
[2021-03-24] MEDS ORDERED: DEXTROSE 50% IN WATER (25GM) 50 ML SYRINGE IV NR (07:00)
--- NOTE | 2021-03-24 08:05 | Vascular Lab Report ---
DUPLEX DOPPLER UPPER EXTREMITY VENOUS, BILATERAL INDICATION / CLINICAL INFORMATION: arm pain with swelling TECHNIQUE: Duplex doppler imaging was performed through the veins of the bilateral upper extremities using venous compression and other maneuvers. COMPARISON: None available. NOTE: Study was difficult due to bandaging with some areas not visualized. FINDINGS: RIGHT INTERNAL JUGULAR VEIN: Negative. RIGHT SUBCLAVIAN VEIN: Negative. RIGHT AXILLARY VEIN: Negative. RIGHT BRACHIAL VEIN: Not fully visualized RIGHT FOREARM VEINS: Not fully visualized RIGHT BASILIC VEIN (SUPERFICIAL): Not visualized LEFT INTERNAL JUGULAR VEIN: Negative. LEFT SUBCLAVIAN VEIN: Negative. LEFT AXILLARY VEIN: Negative. LEFT BRACHIAL VEIN: Negative. LEFT FOREARM VEINS: Not fully visualized LEFT BASILIC VEIN (SUPERFICIAL): Not visualized ADDITIONAL FINDINGS: None. IMPRESSION: 1. No sonographic evidence for DVT in a limited study DUPLEX ARTERIAL DOPPLER EXAMINATION OF THE UPPER EXTREMITIES INDICATION: Arm pain with swelling Note: Study was difficult due to bandaging was some areas not visualized. Portions of the right brach ial artery and bilateral forearm arteries were not visualized. FINDINGS: In the visualized portions of the upper extremities bilaterally. Flow is seen with no signi ficant abnormalities noted. IMPRESSION: Limited but negative study Signer Name: Manuel Oconnor MD Signed: 03/24/2021 8:01 AM Workstation Name: [id number]
[2021-03-24] MEDS ORDERED: SODIUM BICARB 8.4% 50 MEQ/50 ML SYRINGE IV ONE ×2 (08:15→10:00)
[2021-03-24] MEDS: INSULIN LISPRO 100 UNIT/ML SUB-Q SCH ×4 (08:31→18:31)
[2021-03-24] MEDS: INSULIN REGULAR, HUMAN 100 UNITS/1 ML SUB-Q SCH ×4 (08:32→18:31)
[2021-03-24] MEDS: ACETYLCYSTEINE 20% SOLN 4ML (200 MG/ML) IH SCH (08:32)
--- NOTE | 2021-03-24 08:47 | XRay Report ---
CHEST 1 VIEW INDICATION / CLINICAL INFORMATION: Respiratory insufficiency.. COMPARISON: 03/23/2021, 03/21/2021. FINDINGS: SUPPORT DEVICES: Stable positioning of endotracheal tube, right-sided central venous catheter, and pa rtially visualized gastric tube. HEART / MEDIASTINUM: Stable. LUNGS / PLEURA: Persistent multifocal patchy airspace disease in a pattern most suggestive of infecti on. The appearance is not significantly changed. Suspected residual trace left apical pneumothorax. ADDITIONAL FINDINGS: No significant additional findings. IMPRESSION: Stable appearance of the chest with persistent multifocal patchy airspace disease in a pattern most s uggestive of infection. Suspected residual trace left apical pneumothorax, unchanged. Signer Name: Asael Chisholm MD Signed: 03/24/2021 8:43 AM Workstation Name: [id number]
[2021-03-24] MEDS: PHENYLEPHRINE 100 MG in SODIUM CHLORIDE 0.9% 90 ML IV SCH ×2 (09:32→18:57)
--- NOTE | 2021-03-24 09:53 | Progress Note ---
Subjective Date of service: 03/24/21 Principal diagnosis: COVID-19 Interval history: Impression: * Nonoliguric acute kidney injury vs underlying CKD --Baseline renal function unknown * Acute hypoxic respiratory failure secondary to COVID 19 PNA * COVID 19 infection * Hypotension * Hypernatremia * UTI * Tachycardia * Sepsis * Transaminitis Plan: * Hold further HD until stable, hr 140s, needs better control. elevated k noted, elevated BUN noted, steroids likely contributing * Keep MAP >65, vasopressors prn * added iv abx for UTI * bp and hr noted, too unstable for conventional HD, needs CRRT but not available, continue bicarb and kayexalate * Vasc cath placed 03/16 * Remdesevir (hold for GFR<30), steroids, abx per ID * Dose medications for renal function * Avoid potential nephrotoxins * daily lytes, strict i/os * AM labs * consent was obtained for HD prior to initiation * Prognosis guarded Subjective Principal diagnosis: COVID-19 Interval history: Nursing, interdisciplinary and consult notes were reviewed Vitals, input and output, medications and labs were reviewed Remains intubated FiO2 weaned down this morning Objective - Exam deferred for preservation of PPE, primary team exam noted Objective - Vital Signs Vital signs: Vital Signs - 12hr 03/23/21 03/23/21 03/23/21 22:00 22:15 22:30 Temperature Pulse Rate 146 H 147 H 147 H Pulse Rate [ Right Dorsalis Pedis] Respiratory 34 H 28 H 24 Rate Blood Pressure 97/64 89/61 93/59 O2 Sat by Pulse 81 L 81 L 85 Oximetry 03/23/21 03/23/21 03/23/21 22:45 23:00 23:06 Temperature Pulse Rate 147 H 146 H 147 H Pulse Rate [ Right Dorsalis Pedis] Respiratory 26 H 26 H Rate Blood Pressure 90/62 92/59 92/59 O2 Sat by Pulse 83 L 83 L 86 Oximetry 03/23/21 03/23/21 03/23/21 23:15 23:30 23:45 Temperature Pulse Rate 146 H 147 H 147 H Pulse Rate [ Right Dorsalis Pedis] Respiratory 25 H 28 H 27 H Rate Blood Pressure 90/61 89/60 92/59 O2 Sat by Pulse 84 84 84 Oximetry 03/23/21 03/24/21 03/24/21 23:50 00:00 00:15 Temperature 99.7 F H Pulse Rate 147 H 147 H Pulse Rate [ 148 H Right Dorsalis Pedis] Respiratory 28 H 26 H Rate Blood Pressure 90/62 91/61 O2 Sat by Pulse 85 83 L Oximetry 03/24/21 03/24/21 03/24/21 00:30 00:45 01:00 Temperature Pulse Rate 148 H 148 H 148 H Pulse Rate [ Right Dorsalis Pedis] Respiratory 26 H 27 H 28 H Rate Blood Pressure 90/62 88/60 85/58 O2 Sat by Pulse 84 84 81 L Oximetry 03/24/21 03/24/21 03/24/21 01:16 01:30 01:45 Temperature Pulse Rate 147 H 148 H 148 H Pulse Rate [ Right Dorsalis Pedis] Respiratory 25 H 27 H 29 H Rate Blood Pressure 89/58 85/58 87/60 O2 Sat by Pulse 82 L 84 82 L Oximetry 03/24/21 03/24/21 03/24/21 02:00 02:15 02:30 Temperature Pulse Rate 147 H 147 H 146 H Pulse Rate [ Right Dorsalis Pedis] Respiratory 29 H 28 H 28 H Rate Blood Pressure 85/56 81/56 84/56 O2 Sat by Pulse 81 L 81 L 81 L Oximetry 03/24/21 03/24/21 03/24/21 02:45 03:00 03:15 Temperature Pulse Rate 147 H 145 H 146 H Pulse Rate [ Right Dorsalis Pedis] Respiratory 28 H 27 H 30 H Rate Blood Pressure 80/52 88/62 91/55 O2 Sat by Pulse 77 L 76 L 80 L Oximetry 03/24/21 03/24/21 03/24/21 03:30 03:32 03:45 Temperature 99.9 F H Pulse Rate 146 H 145 H 145 H Pulse Rate [ Right Dorsalis Pedis] Respiratory 27 H 26 H Rate Blood Pressure 88/63 91/61 85/61 O2 Sat by Pulse 86 88 86 Oximetry 03/24/21 03/24/21 03/24/21 04:00 04:16 04:30 Temperature Pulse Rate 143 H 127 H 132 H Pulse Rate [ 127 H Right Dorsalis Pedis] Respiratory 25 H 24 26 H Rate Blood Pressure 85/61 85/61 69/47 O2 Sat by Pulse 76 L 88 81 L Oximetry 03/24/21 03/24/21 03/24/21 04:45 05:00 05:16 Temperature Pulse Rate 140 H 134 H 136 H Pulse Rate [ Right Dorsalis Pedis] Respiratory 25 H 25 H 25 H Rate Blood Pressure 82/55 65/29 88/60 O2 Sat by Pulse 76 L 76 L 77 L Oximetry 03/24/21 03/24/21 03/24/21 05:30 05:45 06:00 Temperature Pulse Rate 138 H 136 H 136 H Pulse Rate [ Right Dorsalis Pedis] Respiratory 25 H 22 25 H Rate Blood Pressure 80/52 76/54 84/55 O2 Sat by Pulse 78 L 80 L 80 L Oximetry 03/24/21 03/24/21 03/24/21 06:16 06:30 06:45 Temperature Pulse Rate 140 H 138 H 140 H Pulse Rate [ Right Dorsalis Pedis] Respiratory 26 H 24 27 H Rate Blood Pressure 84/55 88/57 102/68 O2 Sat by Pulse 94 87 78 L Oximetry 03/24/21 03/24/21 03/24/21 07:00 07:15 07:17 Temperature 99.5 F Pulse Rate 140 H 142 H 140 H Pulse Rate [ Right Dorsalis Pedis] Respiratory 26 H 29 H Rate Blood Pressure 111/71 103/70 103/70 O2 Sat by Pulse 79 L 80 L 82 L Oximetry 03/24/21 03/24/21 08:03 09:45 Temperature Pulse Rate 139 H 140 H Pulse Rate [ Right Dorsalis Pedis] Respiratory Rate Blood Pressure 108/69 86/50 O2 Sat by Pulse 81 L 90 Oximetry - Lab 03/24/21 05:00 03/24/21 05:00 Most recent lab results ABG pH 7.164 (7.320-7.450) L 03/24/21 05:00 ABG pCO2 25.5 mm Hg 03/18/21 23:23 ABG pO2 71.6 mm Hg (80.0-90.0) L 03/18/21 23:23 ABG HCO3 12.9 mmol/L (20.0-26.0) L 03/18/21 23:23 ABG O2 Saturation 67.8 (0-100) 03/24/21 05:00 Calcium 8.4 mg/dL (8.4-10.2) 03/24/21 05:00 Phosphorus 9.10 mg/dL (2.5-4.5) H 03/24/21 05:00 Magnesium 2.30 mg/dL (1.7-2.3) 03/24/21 05:00 Urine Creatinine 84.3 mg/dL (0.1-20.0) H 03/22/21 Unknown Urine Sodium 37 mmol/L 03/14/21 Unknown Urine Total Protein 76 mg/dL (5-11.8) H 03/22/21 Unknown Medications & Allergies - Medications Allergies/Adverse Reactions: Allergies No Known Allergies Allergy (Verified 03/11/21 09:21) Home Medications: Home Medications Medication Instructions Recorded Confirmed Last Taken Type AtorvaSTATin [Lipitor] 10 mg PO QHS 03/14/21 03/14/21 Unknown History Metoprolol [Lopressor TAB] 50 mg PO BID 03/14/21 03/14/21 Unknown History Mycophenolate [Cellcept] 500 mg PO BID 03/14/21 03/14/21 Unknown History NIFEdipine [Nifedipine ER] 90 mg PO BID 03/14/21 03/14/21 Unknown History Ondansetron [Zofran Odt] 4 mg PO Q8HR 03/14/21 03/14/21 Unknown History Tacrolimus 1 mg PO Q12HR 03/14/21 03/14/21 Unknown History Active Medications: Generic Name Dose Route Start Last Admin Trade Name Freq PRN Reason Stop Dose Admin Acetaminophen 650 mg 03/11/21 12:00 03/23/21 07:58 Acetaminophen 325 Mg Tab PO 650 mg Q4H PRN Administration Pain MILD(1-3)/Fever >100.5/[place] Acetylcysteine 200 mg 03/23/21 16:00 03/24/21 08:32 Acetylcysteine 20% Soln 4ml (200 Mg/Ml) IH Not Given Q8HRT GYPSY Albuterol 2.5 mg 03/23/21 14:58 Albuterol 2.5 Mg/3 Ml Nebu IH Q6HRT PRN Shortness Of Breath Lipase/Protease/Amylase 1 each 03/23/21 11:54 Lipase 10,500/Protease 25,000/Amylase 43,750 (Units) Dr Alegre FEEDTUBE PRN PRN For Clogged Feeding Tube Ascorbic Acid 500 mg 03/11/21 12:00 03/23/21 22:24 Ascorbic Acid 500 Mg Tab PO 500 mg BID GYPSY Administration Cholecalciferol 1,000 unit 03/11/21 13:00 03/23/21 09:38 Cholecalciferol (Vit D3) 1000 Unit (25 Mcg) Tab PO 1,000 unit QDAY GYPSY Administration Dextrose 50 ml 03/13/21 14:44 Dextrose 50% In Water (25gm) 50 Ml Syringe IV Q30MIN PRN Hypoglycemia Protocol Famotidine 10 mg 03/23/21 10:00 03/23/21 22:24 Famotidine 20 Mg/2 Ml Inj IV 10 mg BID GYPSY Administration Fentanyl 50 mcg 03/19/21 15:29 03/24/21 07:32 Fentanyl 100 Mcg/2 Ml Inj IV 50 mcg Q10MIN PRN Administration ANALGESIA Hydrophilic Ointment 1 applic 03/19/21 15:29 Lip Therapy Vaseline TP Q2HR PRN Dry Lips Argatroban 250 mg/ Sodium 250 mls @ 2.07 mls/hr 03/17/21 11:00 03/23/21 08:00 Chloride IV 0.75 mcg/kg/min TITR GYPSY 3.105 mls/hr Titration Protocol 0.5 MCG/KG/MIN Sodium Chloride 100 mls @ 999 mls/hr 03/19/21 10:00 Nacl 0.9% IV OSCAR PRN Hypotension Fentanyl Citrate 2,000 mcg in 100 mls @ 3.45 mls/hr 03/19/21 16:00 03/24/21 09:45 Fentanyl Drip Premix IV 4 mcg/kg/hr TITR GYPSY 13.8 mls/hr Titration Protocol 1 MCG/KG/HR Norepinephrine 4 mg in 250 mls @ 7.5 mls/hr 03/20/21 11:00 03/24/21 09:36 Levophed Drip 4 Mg/Ns 250 Ml IV 30 mcg/min TITR GYPSY 112.5 mls/hr Titration Protocol 2 MCG/MIN Lorazepam 100 mg/ Sodium 100 mls @ 1 mls/hr 03/22/21 13:00 03/24/21 09:45 Chloride/ Miscellaneous IV 4 mg/hr Information TITR GYPSY 4 mls/hr Titration Protocol 1 MG/HR Cefepime HCl 1 gm in 100 mls @ 200 mls/hr 03/23/21 11:00 03/23/21 18:41 Cefepime/Ns 1 Gm/100 Ml IV 200 mls/hr QPM GYPSY Administration Protocol Vasopressin 20 unit/ Sodium 101 mls @ 9.09 mls/hr 03/23/21 11:00 03/23/21 12:27 Chloride IV 0.03 units/min TITR GYPSY 9.09 mls/hr Administration Protocol 0.03 UNITS/MIN Phenylephrine HCl 100 mg/ 100 mls @ 3 mls/hr 03/23/21 12:30 03/24/21 09:45 Sodium Chloride IV 100 mcg/min TITR GYPSY 6 mls/hr Titration Protocol 50 MCG/MIN Sodium Bicarbonate 100 meq/ 1,100 mls @ 150 mls/hr 03/24/21 10:00 Sterile Water IV DIRECT GYPSY Insulin Glargine 20 units 03/23/21 22:00 03/23/21 22:24 Insulin Glargine 100 Units/Ml SUB-Q 20 units QHS [facility] Administration Insulin Human Lispro 0 unit 03/16/21 13:00 03/24/21 08:31 Insulin Lispro 100 Unit/Ml SUB-Q Not Given Q6HR [facility] Protocol Insulin Human Regular 5 units 03/23/21 08:00 03/24/21 08:32 Insulin Regular, Human 100 Units/1 Ml SUB-Q Not Given Q6HR [facility] Multi-Ingred Cream/Lotion/Oil/Oint 1 applic 03/19/21 15:29 Mineral Oil/Petrolatum, White Ophth Oint 3.5 Gm OU Q4HR PRN Dry Eye(s) Senna/Docusate Sodium 1 tab 03/19/21 22:00 03/23/21 22:25 Sennosides/Docusate Sodium 8.6/50 Mg Tab FEEDTUBE 1 tab BID GYPSY Administration Sodium Bicarbonate 325 mg 03/23/21 11:54 Sodium Bicarbonate 325 Mg Tab FEEDTUBE PRN PRN For Clogged Feeding Tube Sodium Bicarbonate 100 meq 03/24/21 09:42 Sodium Bicarb 8.4% 50 Meq/50 Ml Syringe IV 03/24/21 09:43 ONCE ONE Sodium Chloride 10 ml 03/11/21 12:00 03/24/21 08:31 Sodium Chloride 0.9% 10 Ml Flush Syringe IV Not Given BID GYPSY Sodium Chloride 10 ml 03/11/21 12:00 Sodium Chloride 0.9% 10 Ml Flush Syringe IV PRN PRN LINE FLUSH Sodium Chloride 5 ml 03/19/21 15:29 Sodium Chloride 0.9% 500 Ml Ivpb IV DIRECT PRN [employer]ERIAL PHLEBOTOMY DIRECTOR Zinc Sulfate 220 mg 03/11/21 12:00 03/23/21 22:24 Zinc Sulfate 220 Mg Cap PO 220 mg BID GYPSY Administration
[2021-03-24] MEDS: SODIUM BICARBONATE 100 MEQ in WATER FOR INJECTION (PF) 1,000 ML IV SCH ×3 (10:07→21:57)
[2021-03-24] MEDS: FAMOTIDINE 20 MG/2 ML INJ IV SCH ×2 (10:27→21:19)
[2021-03-24] MEDS: fentaNYL DRIP Premix 2,000 MCG/100 ML BAG IV SCH ×3 (10:27→23:43)
[2021-03-24] MEDS: ZINC SULFATE 220 MG CAP PO SCH ×2 (10:27→21:19)
[2021-03-24] MEDS: SENNOSIDES/DOCUSATE SODIUM 8.6/50 MG TAB FEEDTUBE SCH ×2 (10:27→21:19)
[2021-03-24] MEDS: CHOLECALCIFEROL (VIT D3) 1000 UNIT (25 mcg) TAB PO SCH (10:28)
[2021-03-24] MEDS: ASCORBIC ACID 500 MG TAB PO SCH ×2 (10:32→21:19)
--- NOTE | 2021-03-24 11:25 | Progress Note ---
Assessment and Plan Assessment and plan: 50-year-old male with history of CVA admitted on 03/11/2021 secondary to shortness of breath Apparently, symptoms started a week before admission. On arrival, temperature 100.7, HR 130, RR 52, O2 sat down to 70%, BP 120/72. Initial lactate 3.7. Creatinine 2.7. CRP 17.9. D-dimer 2206. Ferritin 1640. Urinalysis negative. AST 148, ALT 65. EMS reported initial O2 sat was 69%. Patient was confused, lethargic and unable to speak due to shortness of breath. Chest x-ray showed bilateral pneumonia. Severe sepsis: secondary to COVID-19 and related complications Severe COVID pneumonia: CXR with bilateral pneumonia. Was unable to complete remdesivir course due to renal failure. Status post Tocilizumab on 03/12/2021, completed antibiotics, steroids. Acute hypoxemic respiratory failure: failed BiPAP, intubated 03/19/2021. Bilateral pneumothorax, pneumomediastinum, subcutaneous emphysema from COVID Elevated LFTs: from COVID. CHRISTY: started dialysis 03/17. DM: uncontrolled 03-11 admitted through ER : Hold on increasing steroids as of now. Prone if able. Continue AVAPS today but spoke with RT about weaning FiO2 for sats >88%. Monitor fluids. No lasix right now given renal dysfunction. Reviewed ID note and agree with their plan and assessment. Guarded prognosis. 03/16/21: Vascath placed. Niece at [phone] is the point of contact and decision maker. She has consented for vascath. Also discussed the possibility that patient may require mechanical ventilator in the near future if no improvement. Will attempt to use precedex to help keep patient calm so that bi pap/avaps can work. Volume removal per renal. Guarded prognosis. 03/17/21: Hopeful dialysis today. Ordered stat CXR and does shows small apical PTX, slightly larger but still not a point that I feel needs CT placement. Will repeat later this afternoon. Will have RT turn of oxygen and attempt to wean pressure to help with resorption. Prognosis overall remains guarded to poor, especially with renal dysfunction plus COVID. D-Dimer now is >10K, however platelets dropping on heparin. Stopping Sub Q prophylactic therapy, checking bilateral dopplers and will send hiT PANEL. May consider doing argatroban therapy. 03/19/21: DIalysis today. Asked nursing to max out precedex. Continue A rgatroban. Platelets better. Continue to attempt not to intubate given the elevated mortality rate, would prefer not to intubate if able. Very very guarded prognosis. 03-19 intubated 03/20/21: Continue current level of sedations. Wean FiO2 for sats >88%. Once FiO2 around 45-50% can start weaning PEEP. No current indication for chest tube as of yet. HD per renal. very very guarded to poor prognosis with COVID and renal failure. Platelets continue to improve so continue argatroban therapy. 03/21/21: Continue current level of supportive care. Hopeful HD today. Continue to wean FiO2. Ok with pH where it is as long as it stay above 7.2. Guarded prognosis. 03/22/21: Order bilateral upper ext venous and arterial dopplers. Patient already on argatroban therapy with thrombocytopenia. Stopping diprovan secondary to elevated triglyceride level and added ativan drip. I dropped fiO2 to 45% while in room. Sats stable. will start to wean PEEP tomorrow. No ABG done this am and if it was, it did not cross over. Will order now. May need to place art line if able. Feel fingers on left hand are likely not going to recover. Can ask vascular to look tomorrow after dopplers are done. Very very guarded to poor prognosis. 03-23 in pressors overnight; febrile; not tolerating HD 03/24/2021. Nephrology to hold all hemodialysis until tachycardia improved. Antibiotics started empirically per ID with cefepime and vancomycin. Remdesevir (hold for GFR<30), steroids, abx per ID. Completed steroids. Status post Actemra 03/12/2021. Continue pressors to maintain MAP >65. Patient with extremely poor prognosis The high probability of a clinically significant, sudden or life threatening deterioration of the [respiratory] system(s) required my full and direct attention, intervention and personal management. The aggregate critical care time was [33] minutes. This time is in addition to time spent performing reported procedures but includes the following: [x] Data Review and interpretation [x] Patient assessment and monitoring of vital signs [x] Documentation [x] Medication orders and management History Interval history: No new issues overnight. Hospitalist Physical - Constitutional Vitals: Temp Pulse Resp BP Pulse Ox 99.5 F 140 H 29 H 86/50 90 03/24/21 07:00 03/24/21 09:45 03/24/21 07:15 03/24/21 09:45 03/24/21 09:45 General appearance: Present: mild distress, other (Orally intubated) - EENT Eyes: Present: PERRL, EOM intact ENT: hearing intact, clear oral mucosa, dentition normal - Neck Neck: Present: supple, normal ROM - Respiratory Respiratory effort: normal Respiratory: bilateral: CTA - Cardiovascular Rhythm: regular Heart Sounds: Present: S1 & S2. Absent: gallop, rub - Extremities Extremities: no ischemia, No edema, Full ROM - Abdominal General gastrointestinal: soft, non-tender, non-distended, normal bowel sounds - Integumentary Integumentary: Present: clear, warm, dry - Neurologic Neurologic: CNII-XII intact, moves all extremities HEART Score - HEART Score EKG: Non-specific Age: 45-65 Risk factors: 1-2 risk factors Troponin: Troponin T < 0.010 ng/mL (0.00-0.029) 03/11/21 09:41 - Critical Actions Critical Actions: 4-6 pts:12-16.6% risk of adverse cardiac event. Should be admitted Results - Labs CBC & Chem 7: 03/24/21 05:00 03/24/21 05:00 Labs: Laboratory Last Values WBC 16.8 K/mm3 (4.5-11.0) H 03/24/21 05:00 RBC 3.57 M/mm3 (3.65-5.03) L 03/24/21 05:00 Hgb 11.0 gm/dl (11.8-15.2) L 03/24/21 05:00 Hct 34.0 % (35.5-45.6) L 03/24/21 05:00 MCV 95 fl (84-94) H 03/24/21 05:00 MCH 31 pg (28-32) 03/24/21 05:00 MCHC 32 % (32-34) 03/24/21 05:00 RDW 14.6 % (13.2-15.2) 03/24/21 05:00 Plt Count 89 K/mm3 (140-440) L 03/24/21 05:00 Add Manual Diff Complete 03/23/21 04:35 Total Counted 100 03/23/21 04:35 Seg Neutrophils % [place] 03/23/21 04:35 Seg Neuts % (Manual) 96.0 % (40.0-70.0) H 03/23/21 04:35 Band Neutrophils % 3.0 % 03/23/21 04:35 Lymphocytes % (Manual) 1.0 % (13.4-35.0) L 03/23/21 04:35 Monocytes % (Manual) 4.0 % (0.0-7.3) 03/21/21 06:00 Metamyelocytes % 1.0 % 03/22/21 06:50 Nucleated RBC % 3.0 % (0.0-0.9) H 03/23/21 04:35 Seg Neutrophils # Man 15.3 K/mm3 (1.8-7.7) H 03/23/21 04:35 Band Neutrophils # 0.5 K/mm3 03/23/21 04:35 Lymphocytes # (Manual) 0.2 K/mm3 (1.2-5.4) L 03/23/21 04:35 Abs React Lymphs (Man) 0.0 K/mm3 03/23/21 04:35 Monocytes # (Manual) 0.0 K/mm3 (0.0-0.8) 03/23/21 04:35 Eosinophils # (Manual) 0.0 K/mm3 (0.0-0.4) 03/23/21 04:35 Basophils # (Manual) 0.0 K/mm3 (0.0-0.1) 03/23/21 04:35 Metamyelocytes # 0.0 K/mm3 03/23/21 04:35 Myelocytes # 0.0 K/mm3 03/23/21 04:35 Promyelocytes # 0.0 K/mm3 03/23/21 04:35 Blast Cells # 0.0 K/mm3 03/23/21 04:35 WBC Morphology Not Reportable 03/23/21 04:35 Hypersegmented Neuts Not Reportable 03/23/21 04:35 Hyposegmented Neuts Not Reportable 03/23/21 04:35 Hypogranular Neuts Not Reportable 03/23/21 04:35 Smudge Cells Not Reportable 03/23/21 04:35 Toxic Granulation Not Reportable 03/23/21 04:35 Toxic Vacuolation Not Reportable 03/23/21 04:35 Dohle Bodies Not Reportable 03/23/21 04:35 Pelger-Huet Anomaly Not Reportable 03/23/21 04:35 Fina Rods Not Reportable 03/23/21 04:35 Platelet Estimate Consistent w auto 03/23/21 04:35 Clumped Platelets Not Reportable 03/23/21 04:35 Plt Clumps, EDTA Not Reportable 03/23/21 04:35 Large Platelets Rare 03/23/21 04:35 Giant Platelets Not Reportable 03/23/21 04:35 Platelet Satelliting Not Reportable 03/23/21 04:35 Plt Morphology Comment Not Reportable 03/23/21 04:35 RBC Morphology Not Reportable 03/23/21 04:35 Dimorphic RBCs Not Reportable 03/23/21 04:35 Polychromasia Not Reportable 03/23/21 04:35 Hypochromasia Not Reportable 03/23/21 04:35 Poikilocytosis Not Reportable 03/23/21 04:35 Anisocytosis Not Reportable 03/23/21 04:35 Microcytosis Not Reportable 03/23/21 04:35 Macrocytosis Not Reportable 03/23/21 04:35 Spherocytes Not Reportable 03/23/21 04:35 Pappenheimer Bodies Not Reportable 03/23/21 04:35 Sickle Cells Not Reportable 03/23/21 04:35 Target Cells Not Reportable 03/23/21 04:35 Tear Drop Cells Not Reportable 03/23/21 04:35 Ovalocytes Not Reportable 03/23/21 04:35 Helmet Cells Not Reportable 03/23/21 04:35 Perdue-Finklea Bodies Not Reportable 03/23/21 04:35 [place] Rings Not Reportable 03/23/21 04:35 Trav Cells Not Reportable 03/23/21 04:35 Bite Cells Not Reportable 03/23/21 04:35 Crenated Cell Not Reportable 03/23/21 04:35 Elliptocytes Not Reportable 03/23/21 04:35 Acanthocytes (Spur) Not Reportable 03/23/21 04:35 Rouleaux Not Reportable 03/23/21 04:35 Hemoglobin C Crystals Not Reportable 03/23/21 04:35 Schistocytes Not Reportable 03/23/21 04:35 Malaria parasites Not Reportable 03/23/21 04:35 [place] Bodies Not Reportable 03/23/21 04:35 Hem Pathologist Commnt No 03/23/21 04:35 PT 22.4 Sec. (12.2-14.9) H 03/17/21 09:19 INR 1.92 (0.87-1.13) H 03/17/21 09:19 APTT 69.1 Sec. (24.2-36.6) H* 03/24/21 00:15 D-Dimer 5570.24 ng/mlDDU (0-234) H 03/22/21 06:50 Heparin Anti-Xa, Unfract Negative (Negative) 03/17/21 13:00 ABG pH 7.069 (7.320-7.450) L 03/24/21 09:29 POC ABG pCO2 74.0 mmHg (32.0-48.0) H 03/24/21 09:29 ABG pCO2 25.5 mm Hg 03/18/21 23:23 POC ABG pO2 62.8 mmHg (83-108) L 03/24/21 09:29 ABG pO2 71.6 mm Hg (80.0-90.0) L 03/18/21 23:23 POC ABG HCO3 20.9 03/24/21 09:29 ABG HCO3 12.9 mmol/L (20.0-26.0) L 03/18/21 23:23 ABG O2 Saturation 83.3 (0-100) 03/24/21 09: ABG O2 Content 19.9 (0.0-44) 03/18/21 23:23 POC ABG Base Excess -10.0 03/24/21 09: ABG Base Excess -11.1 mmol/L (-2.0-3.0) L 03/18/21 23:23 ABG Hemoglobin 11.8 (12.0-17.5) L 03/24/21 09:29 ABG Oxyhemoglobin 82.6 (94-98) L 03/24/21 09:29 ABG Carboxyhemoglobin 0.9 % (0.0-5.0) 03/18/21 23:23 ABG Methemoglobin 0 (0.0-1.5) 03/24/21 09:29 ABG Sodium 133.0 mmol/L (136.0-145.0) L 03/24/21 09: ABG Potassium 5.4 mmol/L (3.40-4.50) H 03/24/21 09:29 ABG Chloride 103.0 mmol/L (98-107) 03/24/21 09: ABG Glucose 279 mg/dL (65-95) H 03/24/21 09: Oxyhemoglobin 91.0 % (95.0-99.0) L 03/18/21 23: Carboxyhemoglobin 0.8 (0.5-1.5) 03/24/21 09: FiO2 100 % 03/18/21 23: FiO2 % 100.0 03/24/21 09: Sodium 139 mmol/L (137-145) 03/24/21 05:00 Potassium 6.2 mmol/L (3.6-5.0) H* 03/24/21 05:00 Chloride 104.1 mmol/L (98-107) 03/24/21 05:00 Carbon Dioxide 23 mmol/L (22-30) 03/24/21 05:00 Anion Gap 18 mmol/L 03/24/21 05:00 BUN 110 mg/dL (9-20) H 03/24/21 05:00 Creatinine 5.4 mg/dL (0.8-1.3) H 03/24/21 05:00 Estimated GFR 14 ml/min 03/24/21 05:00 BUN/Creatinine Ratio 20 % 03/24/21 05:00 Glucose 253 mg/dL (75-100) H 03/24/21 05:00 POC Glucose 162 mg/dL (70-105) H 03/24/21 05:00 Hemoglobin A1c 8.2 % (4-6) H 03/14/21 04:44 Lactic Acid 5.20 mmol/L (0.7-2.0) H* 03/24/21 04:20 Calcium 8.4 mg/dL (8.4-10.2) 03/24/21 05:00 Phosphorus 9.10 mg/dL (2.5-4.5) H 03/24/21 05:00 Magnesium 2.30 mg/dL (1.7-2.3) 03/24/21 05:00 Ferritin 1282.0 ng/mL (30.0-300.0) H 03/22/21 06:50 Total Bilirubin 0.50 mg/dL (0.1-1.2) 03/24/21 05:00 Direct Bilirubin < 0.2 mg/dL (0-0.2) 03/17/21 09:19 Indirect Bilirubin 0.4 mg/dL 03/17/21 09:19 AST 56 units/L (5-40) H 03/24/21 05:00 ALT 28 units/L (7-56) 03/24/21 05:00 Alkaline Phosphatase 164 units/L (35-129) H 03/24/21 05:00 Lactate Dehydrogenase 1126 units/L (91-180) H 03/22/21 06:50 Troponin T < 0.010 ng/mL (0.00-0.029) 03/11/21 09:41 C-Reactive Protein 2.20 mg/dL (0.00-1.30) H 03/22/21 06:50 Total Protein 4.1 g/dL (6.3-8.2) L 03/24/21 05:00 Albumin 1.6 g/dL (3.9-5) L 03/24/21 05:00 Albumin/Globulin Ratio 0.6 % 03/24/21 05:00 Triglycerides 731 mg/dL (2-149) H 03/22/21 06:50 Procalcitonin 4.61 ng/mL (<0.15) 03/11/21 09:41 Arterial Blood Glucose 279 mg/dL (65-95) H 03/24/21 09:29 Arterial Blood Ionized Calcium 4.6 mg/dL (4.6-5.3) 03/23/21 04:00 Urine Color Yellow (Yellow) 03/22/21 Unknown Urine Turbidity Hazy (Clear) 03/22/21 Unknown Urine pH 5.0 (5.0-7.0) 03/22/21 Unknown Ur Specific [place] 1.012 (1.003-1.030) 03/22/21 Unknown Urine Protein 100 mg/dl mg/dL (Negative) 03/22/21 Unknown Urine Glucose (UA) 50 mg/dL (Negative) 03/22/21 Unknown Urine Ketones Neg mg/dL (Negative) 03/22/21 Unknown Urine Blood Lg (Negative) 03/22/21 Unknown Urine Nitrite Neg (Negative) 03/22/21 Unknown Urine Bilirubin Neg (Negative) 03/22/21 Unknown Urine Urobilinogen < 2.0 mg/dL (<2.0) 03/22/21 Unknown Ur Leukocyte Esterase Mod (Negative) 03/22/21 Unknown Urine WBC (Auto) 17.0 /HPF (0.0-6.0) H 03/22/21 Unknown Urine RBC (Auto) 4.0 /HPF (0.0-6.0) 03/22/21 Unknown U Epithel Cells (Auto) < 1.0 /HPF (0-13.0) 03/22/21 Unknown Urine Bacteria (Auto) 1+ /HPF (Negative) 03/22/21 Unknown Urine Mucus Few /HPF 03/22/21 Unknown Urine Creatinine 84.3 mg/dL (0.1-20.0) H 03/22/21 Unknown Protein/Creatinin Ratio 0.90 03/22/21 Unknown Urine Sodium 37 mmol/L 03/14/21 Unknown Urine Urea Nitrogen 818 03/14/21 Unknown Urine Total Protein 76 mg/dL (5-11.8) H 03/22/21 Unknown Proteinase 3 (PR3) Ab <1.0 AI (<1.0) 03/16/21 04:14 Myeloperoxidase Ab <1.0 AI (<1.0) 03/16/21 04:14 Glomerular Base Mem IgG See scanned result 03/16/21 04:14 Heparin-induced Plt Ab Negative (Negative) 03/17/21 13:00 UF Heparin High Dose 3 % Release 03/17/21 13:00 CALLUM UFH Low Dose 0.1 0 % Release 03/17/21 13:00 CALLUM UFH Low Dose 0.5 1 % Release 03/17/21 13:00 Complement C3 131 mg/dL (82-185) 03/16/21 04:14 Complement C4 38 mg/dL (15-53) 03/16/21 04:14 Coronavirus (PCR) Positive (Negative) A 03/11/21 Unknown Hepatitis A IgM Ab Non-reactive (NonReactive) 03/18/21 09:03 Hep Bs Antigen Nonreactive (Negative) 03/18/21 09:03 Hep B Core IgM Ab Non-reactive (NonReactive) 03/18/21 09:03 Hepatitis C Antibody Non-reactive (NonReactive) 03/18/21 09:03 Microbiology: Microbiology 03/19/21 Unknown Tracheal Aspirate Sputum Culture - Final [place] 03/23/21 10:08 Peripheral/Venous Blood Culture - Preliminary Culture in Progress 03/23/21 10:08 Peripheral/Venous Blood Culture - Preliminary Culture in Progress [place]/IV: Voiding Method Indwelling Catheter Active Medications - Current Medications Current Medications: Generic Name Dose Route Start Last Admin Trade Name Freq PRN Reason Stop Dose Admin Acetaminophen 650 mg 03/11/21 12:00 03/23/21 07:58 Acetaminophen 325 Mg Tab PO 650 mg Q4H PRN Administration Pain MILD(1-3)/Fever >100.5/[place] Acetylcysteine 200 mg 03/23/21 16:00 03/24/21 08:32 Acetylcysteine 20% Soln 4ml (200 Mg/Ml) IH Not Given Q8HRT GYPSY Albuterol 2.5 mg 03/23/21 14:58 Albuterol 2.5 Mg/3 Ml Nebu IH Q6HRT PRN Shortness Of Breath Lipase/Protease/Amylase 1 each 03/23/21 11:54 Lipase 10,500/Protease 25,000/Amylase 43,750 (Units) Dr Alegre FEEDTUBE PRN PRN For Clogged Feeding Tube Ascorbic Acid 500 mg 03/11/21 12:00 03/24/21 10:32 Ascorbic Acid 500 Mg Tab PO 500 mg BID GYPSY Administration Cholecalciferol 1,000 unit 03/11/21 13:00 03/24/21 10:28 Cholecalciferol (Vit D3) 1000 Unit (25 Mcg) Tab PO 1,000 unit QDAY GYPSY Administration Dextrose 50 ml 03/13/21 14:44 Dextrose 50% In Water (25gm) 50 Ml Syringe IV Q30MIN PRN Hypoglycemia Protocol Famotidine 10 mg 03/23/21 10:00 03/24/21 10:27 Famotidine 20 Mg/2 Ml Inj IV 10 mg BID GYPSY Administration Fentanyl 50 mcg 03/19/21 15:29 03/24/21 07:32 Fentanyl 100 Mcg/2 Ml Inj IV 50 mcg Q10MIN PRN Administration ANALGESIA Hydrophilic Ointment 1 applic 03/19/21 15:29 Lip Therapy Vaseline TP Q2HR PRN Dry Lips Argatroban 250 mg/ Sodium 250 mls @ 2.07 mls/hr 03/17/21 11:00 03/23/21 08:00 Chloride IV 0.75 mcg/kg/min TITR GYPSY 3.105 mls/hr Titration Protocol 0.5 MCG/KG/MIN Sodium Chloride 100 mls @ 999 mls/hr 03/19/21 10:00 Nacl 0.9% IV OSCAR PRN Hypotension Fentanyl Citrate 2,000 mcg in 100 mls @ 3.45 mls/hr 03/19/21 16:00 03/24/21 10:27 Fentanyl Drip Premix IV 4 mcg/kg/hr TITR GYPSY 13.8 mls/hr Administration Protocol 1 MCG/KG/HR Norepinephrine 4 mg in 250 mls @ 7.5 mls/hr 03/20/21 11:00 03/24/21 10:48 Levophed Drip 4 Mg/Ns 250 Ml IV 26 mcg/min TITR GYPSY 97.5 mls/hr Titration Protocol 2 MCG/MIN Lorazepam 100 mg/ Sodium 100 mls @ 1 mls/hr 03/22/21 13:00 03/24/21 09:45 Chloride/ Miscellaneous IV 4 mg/hr Information TITR GYPSY 4 mls/hr Titration Protocol 1 MG/HR Cefepime HCl 1 gm in 100 mls @ 200 mls/hr 03/23/21 11:00 03/23/21 18:41 Cefepime/Ns 1 Gm/100 Ml IV 200 mls/hr QPM GYPSY Administration Protocol Vasopressin 20 unit/ Sodium 101 mls @ 9.09 mls/hr 03/23/21 11:00 03/23/21 12:27 Chloride IV 0.03 units/min TITR GYPSY 9.09 mls/hr Administration Protocol 0.03 UNITS/MIN Phenylephrine HCl 100 mg/ 100 mls @ 3 mls/hr 03/23/21 12:30 03/24/21 09:45 Sodium Chloride IV 100 mcg/min TITR GYPSY 6 mls/hr Titration Protocol 50 MCG/MIN Sodium Bicarbonate 100 meq/ 1,100 mls @ 150 mls/hr 03/24/21 10:00 03/24/21 10:07 Sterile Water IV 150 mls/hr DIRECT GYPSY Administration Insulin Glargine 20 units 03/23/21 22:00 03/23/21 22:24 Insulin Glargine 100 Units/Ml SUB-Q 20 units QHS GYPSY Administration Insulin Human Lispro 0 unit 03/16/21 13:00 03/24/21 08:31 Insulin Lispro 100 Unit/Ml SUB-Q Not Given Q6HR [facility] Protocol Insulin Human Regular 5 units 03/23/21 08:00 03/24/21 08:32 Insulin Regular, Human 100 Units/1 Ml SUB-Q Not Given Q6HR [facility] Multi-Ingred Cream/Lotion/Oil/Oint 1 applic 03/19/21 15:29 Mineral Oil/Petrolatum, White Ophth Oint 3.5 Gm OU Q4HR PRN Dry Eye(s) Senna/Docusate Sodium 1 tab 03/19/21 22:00 03/24/21 10:27 Sennosides/Docusate Sodium 8.6/50 Mg Tab FEEDTUBE 1 tab BID GYPSY Administration Sodium Bicarbonate 325 mg 03/23/21 11:54 Sodium Bicarbonate 325 Mg Tab FEEDTUBE PRN PRN For Clogged Feeding Tube Sodium Chloride 10 ml 03/11/21 12:00 03/24/21 10:33 Sodium Chloride 0.9% 10 Ml Flush Syringe IV 10 ml BID GYPSY Administration Sodium Chloride 10 ml 03/11/21 12:00 Sodium Chloride 0.9% 10 Ml Flush Syringe IV PRN PRN LINE FLUSH Sodium Chloride 5 ml 03/19/21 15:29 Sodium Chloride 0.9% 500 Ml Ivpb IV DIRECT PRN [employer] Zinc Sulfate 220 mg 03/11/21 12:00 03/24/21 10:27 Zinc Sulfate 220 Mg Cap PO 220 mg BID GYPSY Administration Nutrition/Malnutrition Assess - Dietary Evaluation Nutrition/Malnutrition Findings: Nutrition Notes Start: 03/14/21 12:54 Freq: Status: Active Protocol: Document 03/23/21 11:41 GB (Rec: 03/23/21 11:54 GB [id number]) Nutrition Notes Initial or Follow up Reassessment Current Diagnosis Acute Kidney Injury,Sepsis, Hypertension,Respiratory Failure Other Pertinent Diagnosis TF f/u Current Diet NPO / TF (Nepro) Labs/Tests 03/23: Na 136, BUN 102, creatinine 4.8, glucose 300, Ca 8.1 Pertinent Medications Vit C, Vit D3, Zn Sulfate, NaCl Height 5 ft 11 in Weight 80.6 kg [place] Body Weight (kg) 78.18 BMI 24.7 Weight change and time frame 03/11 76.6 kg, 03/23 80.6kg change of +3.943kg for +5.1% gain Dialysis started 03/17, on BiPaP w/90% setting Weight Status Appropriate Subjective/Other Information TF: continue with NEPRO with goal rate at 45ml/hr and water flush 100ml/4hr Percent of energy/protein needs met: TF will meet 80% or greater. 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 Interferes with energy intake. Recommend NGT/PEG/TPN. 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 Yes Is Patient Ambulatory and/or Out of Bed No REE-([facility]-confined to bed) 2041.392 Kcal/Kg value to use for calculation 25 Approximate Energy Requirements Using 2015 kcal/Kg Calculation Used for Recommendations Kcal/kg Additional Notes Protein: 1-1.2 g/kg @80k- 96g Fluids: 1 ml/kcal or per Nutrition Intervention Change Diet Order: Continue NPO, TF Nutrition Support: Nepro @45ml/hr with flush of 100ml/4hrs Kcal 1,944 Protein (gm) 87 Fat (gm) 104 Fluid (mL) 785 % RDI: 80% or greater Goal #1 Tolerate TF formula. Goal #2 Tolerate goal rate of 45ml/hr during LOS Goal #3 weight to maintain within +/-3 % current weight during LOS Follow-Up By: 03/26/21
--- NOTE | 2021-03-24 13:00 | Progress Note ---
Assessment and Plan Cultures: Blood culture 03/11/2021 no growth today SARS CoV2 PCR positive 03/19/2021 tracheal aspirate culture: [place] 03/23/2021 blood culture: GPC in both sets Assessment: 50-year-old male with history of CVA admitted on 03/11/2021 secondary to shortness of breath/altered mental status: #Septic shock: secondary to COVID-19 and related complications, GPC bacteremia #GPC bacteremia: Septic shock, on 3 pressors, has trialysis cath, PICC line. #Severe COVID pneumonia: CXR with bilateral pneumonia. Was unable to complete remdesivir course due to renal failure. Status post Tocilizumab on 03/12/2021, completed antibiotics, steroids. #Acute hypoxemic respiratory failure: failed BiPAP, intubated 03/19/2021. #Bilateral pneumothorax, pneumomediastinum, subcutaneous emphysema from COVID #Elevated LFTs: from COVID. #CHRISTY: started dialysis 03/17. #DM: uncontrolled Recommendations: continue IV cefepime, vancomycin, renally dosed f/u blood culture identification critically ill, has trialysis cath, PICC line, on multiple pressors. If feas ible, consider exchanging lines. Prognosis remains extremely poor Adama Johnson MD, FACP [facility] ([facility] O: [phone] F: [phone] Subjective Date of service: 03/24/21 Principal diagnosis: COVID-19 Interval history: Febrile. Remains on the vent, 100% FiO2. Blood cultures positive. Remains on multiple pressors. D/W RN. Objective - Exam Narrative Exam: Physical Exam (reviewed in chart to minimize risk of transmission) Constitutional: deferred Head, Ears, Nose: deferred Eyes: deferred Neck: deferred Oral: deferred Cardiovascular: deferred Respiratory: deferred GI: deferred Musculoskeletal: deferred Skin: deferred Hem/Lymphatic: deferred Psych: deferred Neurological: deferred - Constitutional Vitals: Vital Signs Temp Pulse Resp BP Pulse Ox 100.4 F H 138 H 25 H 112/71 97 03/24/21 11:46 03/24/21 12:15 03/24/21 12:15 03/24/21 12:15 03/24/21 12:15 Temperature -Last 24 Hours Temperature 100.4 F Temperature 99.5 F Temperature 99.9 F Temperature 99.7 F Temperature 99.8 F Temperature 100.6 F - Labs CBC & Chem 7: 03/24/21 05:00 03/24/21 05:00 Labs: Abnormal lab results 03/23/21 03/23/21 03/24/21 Range/Units 17:53 22:21 00:15 WBC (4.5-11.0) K/mm3 RBC (3.65-5.03) M/mm3 Hgb (11.8-15.2) gm/dl Hct (35.5-45.6) % MCV (84-94) fl Plt Count (140-440) K/mm3 APTT 69.1 H* (24.2-36.6) Sec. ABG pH (7.320-7.450) POC ABG pCO2 (32.0-48.0) mmHg POC ABG pO2 (83-108) mmHg ABG Hemoglobin (12.0-17.5) ABG Oxyhemoglobin (94-98) ABG Sodium (136.0-145.0) mmol/L ABG Potassium (3.40-4.50) mmol/L ABG Glucose (65-95) mg/dL Potassium (3.6-5.0) mmol/L BUN (9-20) mg/dL Creatinine (0.8-1.3) mg/dL Glucose (75-100) mg/dL POC Glucose 136 H 181 H (70-105) mg/dL Lactic Acid (0.7-2.0) mmol/L Phosphorus (2.5-4.5) mg/dL AST (5-40) units/L Alkaline Phosphatase (35-129) units/L Total Protein (6.3-8.2) g/dL Albumin (3.9-5) g/dL Arterial Blood Glucose (65-95) mg/dL 03/24/21 03/24/21 03/24/21 Range/Units 04:20 04:20 05:00 WBC (4.5-11.0) K/mm3 RBC (3.65-5.03) M/mm3 Hgb (11.8-15.2) gm/dl Hct (35.5-45.6) % MCV (84-94) fl Plt Count (140-440) K/mm3 APTT (24.2-36.6) Sec. ABG pH (7.320-7.450) POC ABG pCO2 (32.0-48.0) mmHg POC ABG pO2 (83-108) mmHg ABG Hemoglobin (12.0-17.5) ABG Oxyhemoglobin (94-98) ABG Sodium (136.0-145.0) mmol/L ABG Potassium (3.40-4.50) mmol/L ABG Glucose (65-95) mg/dL Potassium 5.9 H D 6.2 H* (3.6-5.0) mmol/L BUN 110 H (9-20) mg/dL Creatinine 5.4 H (0.8-1.3) mg/dL Glucose 253 H (75-100) mg/dL POC Glucose (70-105) mg/dL Lactic Acid 5.20 H* (0.7-2.0) mmol/L Phosphorus 9.10 H (2.5-4.5) mg/dL AST 56 H (5-40) units/L Alkaline Phosphatase 164 H (35-129) units/L Total Protein 4.1 L (6.3-8.2) g/dL Albumin 1.6 L (3.9-5) g/dL Arterial Blood Glucose (65-95) mg/dL 03/24/21 03/24/21 03/24/21 Range/Units 05:00 05:00 05:00 WBC 16.8 H (4.5-11.0) K/mm3 RBC 3.57 L (3.65-5.03) M/mm3 Hgb 11.0 L (11.8-15.2) gm/dl Hct 34.0 L (35.5-45.6) % MCV 95 H (84-94) fl Plt Count 89 L (140-440) K/mm3 APTT (24.2-36.6) Sec. ABG pH 7.164 L (7.320-7.450) POC ABG pCO2 51.3 H (32.0-48.0) mmHg POC ABG pO2 42.9 L (83-108) mmHg ABG Hemoglobin (12.0-17.5) ABG Oxyhemoglobin 67.0 L (94-98) ABG Sodium 132.1 L (136.0-145.0) mmol/L ABG Potassium 5.5 H (3.40-4.50) mmol/L ABG Glucose 236 H (65-95) mg/dL Potassium (3.6-5.0) mmol/L BUN (9-20) mg/dL Creatinine (0.8-1.3) mg/dL Glucose (75-100) mg/dL POC Glucose 162 H (70-105) mg/dL Lactic Acid (0.7-2.0) mmol/L Phosphorus (2.5-4.5) mg/dL AST (5-40) units/L Alkaline Phosphatase (35-129) units/L Total Protein (6.3-8.2) g/dL Albumin (3.9-5) g/dL Arterial Blood Glucose 236 H (65-95) mg/dL 03/24/21 03/24/21 03/24/21 Range/Units 09:29 11:20 11:34 WBC (4.5-11.0) K/mm3 RBC (3.65-5.03) M/mm3 Hgb (11.8-15.2) gm/dl Hct (35.5-45.6) % MCV (84-94) fl Plt Count (140-440) K/mm3 APTT (24.2-36.6) Sec. ABG pH 7.069 L (7.320-7.450) POC ABG pCO2 74.0 H (32.0-48.0) mmHg POC ABG pO2 62.8 L (83-108) mmHg ABG Hemoglobin 11.8 L (12.0-17.5) ABG Oxyhemoglobin 82.6 L (94-98) ABG Sodium 133.0 L (136.0-145.0) mmol/L ABG Potassium 5.4 H (3.40-4.50) mmol/L ABG Glucose 279 H (65-95) mg/dL Potassium (3.6-5.0) mmol/L BUN (9-20) mg/dL Creatinine (0.8-1.3) mg/dL Glucose (75-100) mg/dL POC Glucose 228 H (70-105) mg/dL Lactic Acid 3.50 H* (0.7-2.0) mmol/L Phosphorus (2.5-4.5) mg/dL AST (5-40) units/L Alkaline Phosphatase (35-129) units/L Total Protein (6.3-8.2) g/dL Albumin (3.9-5) g/dL Arterial Blood Glucose 279 H (65-95) mg/dL
[2021-03-24] MEDS: ACETAMINOPHEN 325 MG TAB PO PRN ×2 (14:52→21:59)
[2021-03-24] MEDS: CEFEPIME/NS 1 GM/100 ML 1 GM/100 ML BAG IV SCH (17:10)
[2021-03-24] MEDS: ARGATROBAN 250 MG in SODIUM CHLORIDE 0.9% 250ML 247.5 ML IV SCH (18:20)
[2021-03-24] MEDS: VASOPRESSIN 20 UNIT in SODIUM CHLORIDE 0.9% 100 ML IV SCH (18:55)
[2021-03-24] MEDS: NORepinephrine/NS 8 MG-250 ML 8 MG/250 ML INFUS..BTL IV SCH (21:20)
[2021-03-24] MEDS: INSULIN GLARGINE 100 UNITS/ML SUB-Q SCH (21:22)
[2021-03-25] MEDS: INSULIN REGULAR, HUMAN 100 UNITS/1 ML SUB-Q SCH (00:04)
[2021-03-25] MEDS: INSULIN LISPRO 100 UNIT/ML SUB-Q SCH (00:05)
[2021-03-25] MEDS: LORazepam 100 MG in SODIUM CHLORIDE 0.9% 50 ML, EMPTY BAG 0 ML IV SCH (00:32)
[2021-03-25] MEDS: NORepinephrine/NS 8 MG-250 ML 8 MG/250 ML INFUS..BTL IV SCH (01:27)
[2021-03-25] MEDS: PHENYLEPHRINE 100 MG in SODIUM CHLORIDE 0.9% 90 ML IV SCH (02:07)
[2021-03-25] MEDS ORDERED: EPINEPHrine 1 MG/10 ML SYRINGE ONE (02:36)
[2021-03-25] MEDS ORDERED: SODIUM BICARB 8.4% 50 MEQ/50 ML SYRINGE IV ONE (02:36)
[2021-03-25 03:24] VITALS: BP 191/100
--- NOTE | 2021-03-25 04:03 | Event Note ---
Date: 03/25/21 Code blue 50 year old male with multiple medical problems including COVID 19 pneumonia, acute hypoxic respiratory failure, severe sepsis and renal failure. Resuscitative measures were commenced according to ACLS protocol. Patient had multiple rounds of epinephrine, sodium bicarbonate and calcium gluconate. All resuscitative measures were futile. On exam: Pupils were fixed and dilated Chest: No breath sounds Cardiovascular system: No heart sounds and no peripheral pulses Abdomen: Soft Extremities: Cold and clammy Central nervous system: No reflexes Patient pronounced date at 2:55 AM on March 25, 2021. Jennieece Yoko Barrera ([phone]) who is next of kin was immediately notified.
--- NOTE | 2021-03-25 11:18 | Death Summary ---
Summary - Providers Date of service: 03/25/21 Consults: 03/11/21 11:54 Consult to Physician [CONS] Routine Comment: Consulting Provider: ZEB MANZO Physician Instructions: Reason For Exam: pui 03/11/21 11:55 Consult to Physician [CONS] Routine Comment: Consulting Provider: ROLY WILLINGHAM Physician Instructions: Reason For Exam: pui 03/13/21 14:40 Consult to Physician [CONS] Routine Comment: Consulting Provider: INDIO KENDRICK Physician Instructions: Reason For Exam: CHRISTY in setting of COVID 03/15/21 18:44 Consult to Physician [CONS] Routine Comment: Consulting Provider: ZEB MANZO Physician Instructions: VASCATH INSERTION FOR 03/16 Reason For Exam: VASCATH INSERTION 03/19/21 15:30 Consult to Dietitian/Nutrition [CONS] Routine Physician Instructions: Reason For Exam: Reason for Consult: Write/Manage Tube Feeding 03/20/21 12:11 Consult to Dietitian/Nutrition [CONS] Routine Physician Instructions: Assess nutrtn needs, initiate, modify, manage TF Reason For Exam: Reason for Consult: Write/Manage Tube Feeding Reason for Consult: Write/Manage Tube Feeding 03/20/21 12:41 Consult to PICC Line RN [CONS] Urgent Reason For Exam: vasopressor therapy Type Line:: PICC Attending: OSCAR MENA - summary Date of admission: 03/11/21 11:50 Date of : 03/25/21 Reason for admission: sepsis Disposition: 50-year-old male with history of CVA admitted on 03/11/2021 secondary to shortness of breath Apparently, symptoms started a week before admission. On arrival, temperature 100.7, HR 130, RR 52, O2 sat down to 70%, BP 120/72. Initial lactate 3.7. Creatinine 2.7. CRP 17.9. D-dimer 2206. Ferritin 1640. Urinalysis negative. AST 148, ALT 65. EMS reported initial O2 sat was 69%. Patient was confused, lethargic and unable to speak due to shortness of breath. Chest x-ray showed bilateral pneumonia. The patient was admitted with diagnosis of severe sepsis, severe COVID-19 pneumonia, acute hypoxemic respiratory failure, elevated LFTs, acute kidney injury, diabetes mellitus type 2. Discharge diagnosis: Severe sepsis: secondary to COVID-19 and related complications Severe COVID pneumonia: CXR with bilateral pneumonia. Was unable to complete remdesivir course due to renal failure. Status post Tocilizumab on 03/12/2021, completed antibiotics, steroids. Acute hypoxemic respiratory failure: failed BiPAP, intubated 03/19/2021. Bilateral pneumothorax, pneumomediastinum, subcutaneous emphysema from COVID Elevated LFTs: from COVID. CHRISTY requiring hemodialysis on 03/17. DM: uncontrolled Hospital course: 03-11 admitted through ER : Hold on increasing steroids as of now. Prone if able. Continue AVAPS today but spoke with RT about weaning FiO2 for sats >88%. Monitor fluids. No lasix right now given renal dysfunction. Reviewed ID note and agree with their plan and assessment. Guarded prognosis. 03/16/21: Vascath placed. Niece at [phone] is the point of contact and decision maker. She has consented for vascath. Also discussed the possibility that patient may require mechanical ventilator in the near future if no improvement. Will attempt to use precedex to help keep patient calm so that bipap/avaps can work. Volume removal per renal. Guarded prognosis. 03/17/21: Hopeful dialysis today. Ordered stat CXR and does shows small apical PTX, slightly larger but still not a point that I feel needs CT placement. Will repeat later this afternoon. Will have RT turn of oxygen and attempt to wean pressure to help with resorption. Prognosis overall remains guarded to poor, especially with renal dysfunction plus COVID. D-Dimer now is >10K, however platelets dropping on heparin. Stopping Sub Q prophylactic therapy, checking bilateral dopplers and will send hiT PANEL. May consider doing argatroban therapy. 03/19/21: DIalysis today. Asked nursing to max out precedex. Continue Argatroban. Platelets better. Continue to attempt not to intubate given the elevated mortality rate, would prefer not to intubate if able. Very very guarded prognosis. 03-19 intubated 03/20/21: Continue current level of sedations. Wean FiO2 for sats >88%. Once FiO2 around 45-50% can start weaning PEEP. No current indication for chest tube as of yet. HD per renal. very very guarded to poor prognosis with COVID and renal failure. Platelets continue to improve so continue argatroban therapy. 03/21/21: Continue current level of supportive care. Hopeful HD today. Continue to wean FiO2. Ok with pH where it is as long as it stay above 7.2. Guarded prognosis. 03/22/21: Order bilateral upper ext venous and arterial dopplers. Patient already on argatroban therapy with thrombocytopenia. Stopping diprovan secondary to elevated triglyceride level and added ativan drip. I dropped fiO2 to 45% while in room. Sats stable. will start to wean PEEP tomorrow. No ABG done this am and if it was, it did not cross over. Will order now. May need to place art line if able. Feel fingers on left hand are likely not going to recover. Can ask vascular to look tomorrow after dopplers are done. Very very guarded to poor prognosis. 03-23 in pressors overnight; febrile; not tolerating HD 03/24/2021. Nephrology to hold all hemodialysis until tachycardia improved. Antibiotics started empirically per ID with cefepime and vancomycin. Remdesevir (hold for GFR<30), steroids, abx per ID. Completed steroids. Status post Actemra 03/12/2021. Continue pressors to maintain MAP >65. Patient with extremely poor prognosis Unfortunately patient continued to deteriorate and had a CODE BLUE that was called on 03/25/2021 with details below. Code blue 50 year old male with multiple medical problems including COVID 19 pneumonia, acute hypoxic respiratory failure, severe sepsis and renal failure. Resuscitative measures were commenced according to ACLS protocol. Patient had multiple rounds of epinephrine, sodium bicarbonate and calcium gluconate. All resuscitative measures were futile. On exam: Pupils were fixed and dilated Chest: No breath sounds Cardiovascular system: No heart sounds and no peripheral pulses Abdomen: Soft Extremities: Cold and clammy Central nervous system: No reflexes Patient pronounced date at 2:55 AM on March 25, 2021. Minerva Barrera ([phone]) who is next of kin was immediately notified. Dedicated time 42 minutes.
--- NOTE | 2021-03-25 13:43 | XRay Report ---
Chest 1 view INDICATION: Follow-up FINDINGS: Comparison is made with 03/21/2021. Diffuse emphysematous gas and changes seen throughout so ft tissues the neck and chest lvoe. Pneumomediastinum is again identified. ET tube and NG tube are s atisfactory in position. PICC line in satisfactory position. Diffuse opacities in the lungs persist Signer Name: Miguel Atkinson MD Signed: 03/25/2021 1:38 PM Workstation Name: [id number]
--- NOTE | 2021-03-30 14:00 | Electrocardiograph Report ---
[facility] Test Date: 2021-03-23 Test Time: 13:14:30 Pat Name: RAYMOND JOHN Department: Room: A251 1 Gender: M Contact Lens Technician: SALOMÓN : 1970 Requested By: SHADI QUEZADA Order Number: [id number] Reading MD: Mary Robison Measurements Intervals Miles Rate: 108 P: 39 ID: [id number] QRS: 26 QRSD: 68 T: 49 QT: 379 QTc: 508 Interpretive Statements Sinus tachycardia Prolonged QT interval Compared to ECG 03/20/2021 01:07:46 Prolonged QT interval now present T-wave abnormality no longer present Electronically Signed On 03-30-2021 14:00:08 EDT by Mary Robison
== END 2021-03-25 02:55 | DRG 870 ==
LOC: ED 09:01 → 3A 11:50 → IMCU 14:05 → CC1 03-19 15:38
PROVIDERS: ADMIT Internal Medicine; ATTEND Hospitalist
PROC: 4A033R1 Measurement of Arterial Saturation, Peripheral, Percutaneous Approach (ICD-10-PCS; 2021-03-11)
PROC: 5A09557 Assistance with Respiratory Ventilation, Greater than 96 Consecutive Hours, Continuous Positive Airway Pressure (ICD-10-PCS; 2021-03-11)
PROC: XW033E5 Introduction of Remdesivir Anti-infective into Peripheral Vein, Percutaneous Approach, New Technology Group 5 (ICD-10-PCS; 2021-03-12)
PROC: XW033H5 Introduction of Tocilizumab into Peripheral Vein, Percutaneous Approach, New Technology Group 5 (ICD-10-PCS; 2021-03-12)
PROC: 06HY33Z Insertion of Infusion Device into Lower Vein, Percutaneous Approach (ICD-10-PCS; 2021-03-16)
PROC: B54BZZA Ultrasonography of Right Lower Extremity Veins, Guidance (ICD-10-PCS; 2021-03-16)
PROC: 5A1D70Z Performance of Urinary Filtration, Intermittent, Less than 6 Hours Per Day (ICD-10-PCS; 2021-03-17)
PROC: 5A1955Z Respiratory Ventilation, Greater than 96 Consecutive Hours (ICD-10-PCS; principal; 2021-03-19)
PROC: 0BH17EZ Insertion of Endotracheal Airway into Trachea, Via Natural or Artificial Opening (ICD-10-PCS; 2021-03-19)
PROC: 5A1D70Z Performance of Urinary Filtration, Intermittent, Less than 6 Hours Per Day (ICD-10-PCS; 2021-03-19)
PROC: 5A1D70Z Performance of Urinary Filtration, Intermittent, Less than 6 Hours Per Day (ICD-10-PCS; 2021-03-21)
DX: A41.89 Other specified sepsis (principal); J12.82 Pneumonia due to coronavirus disease 2019; U07.1 COVID-19; J96.01 Acute respiratory failure with hypoxia; N17.0 Acute kidney failure with tubular necrosis; R65.21 Severe sepsis with septic shock; E87.0 Hyperosmolality and hypernatremia; J93.83 Other pneumothorax; N39.0 Urinary tract infection, site not specified; D68.9 Coagulation defect, unspecified; E87.1 Hypo-osmolality and hyponatremia; J98.2 Interstitial emphysema; E11.9 Type 2 diabetes mellitus without complications; D69.6 Thrombocytopenia, unspecified; E87.5 Hyperkalemia; Z86.73 Personal history of transient ischemic attack (TIA), and cerebral infarction without residual deficits; Z82.49 Family history of ischemic heart disease and other diseases of the circulatory system
CPT/HCPCS: 36415; 36600; 71045; 74018; 80048; 80053; 80074; 80076; 81001; 82140; 82570; 82728; 82803; 82805; 82947; 82962; 83036; 83520; 83615; 83735; 84100; 84132; 84145; 84156; 84300; 84478; 84484; 84520; 85007; 85025; 85027; 85379; 85610; 85730; 86021; 86022; 86140; 86160; 87040; 87070; 87086; 87205; 92950; 93005; 93306; 93930; 93970; 94002; 94003; 94660; G0378; J0171; J0282; J0330; J0360; J0456; J0692; J0696; J0883; J1100; J1170; J1200; J1630; J1644; J1815; J1940; J2060; J2370; J2405; J2704; J2920; J3010; J3262; J3370; J3490; J7030; J7040; J7050; J7060; J7070; J7120; U0003